=== PATIENT | male | born 1955 | race Hispanic/Latino ===

== ENCOUNTER 2017-08-20 08:51 | Emergency (ER) | payer OTHER ==
[2017-08-20 09:20] LABS: #Basophils 0.1 thou/uL (0.0-0.2); #Eosinphils 0.2 thou/uL (0.0-0.7); #Lymphocytes 2.1 thou/uL (1.20-3.40); #Monocytes 0.8 thou/uL (0.11-0.59); #Neutrophils 3.8 thou/uL (1.40-6.50); %Basophils 0.9 % (0.0-1.0); %Eosinophils 2.2 % (0.0-10.0); %Lymphocytes 30.9 % (21.0-51.0); %Monocytes 11.9 % (0.0-10.0); Hematocrit 48.5 % (42.0-52.0); Mean Platelet Volume 7.5 fL (7.4-10.4); Red Blood Cell (RBC) Count 5.04 mill/uL (4.70-6.10); White Blood Cell (WBC) Count 6.9 thou/uL (4.8-10.8)
[2017-08-20 09:31] LABS: PTT 30.6 SEC (22.9-36.1); Prothrombin Time 13.8 SEC (12.0-14.7)
[2017-08-20 09:33] LABS: ALT (SGPT) 22 U/L (8-55); AST (SGOT) 28 U/L (5-34); Alkaline Phosphatase 118 U/L (40-150); Anion Gap 11 mmol/L (10-20); BUN (Urea Nitrogen) 13 mg/dL (8.4-25.7); Bilirubin, Total 0.5 mg/dL (0.2-1.2); Calc. Creatinine Clearance 0 mL/min (70-130); Calcium 9.2 mg/dL (7.8-10.44); Carbon Dioxide 25 mmol/L (22-29); Chloride 104 mmol/L (98-107); Estimated GFR-MDRD Greater than 90; Globulin 3.3 g/dL (2.4-3.5); Protein, Total 7.5 g/dL (6.0-8.3)
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
[2017-08-20 11:15] LABS: Bilirubin Negative (Negative); Blood, Urine Negative (Negative); Glucose, Urine (Dipstick) Negative (Negative); Ketone, Urine Negative (Negative); Nitrite Negative (Negative); Protein, Urine (Dipstick) Negative (Neg-Trace); Urobilinogen 0.2 mg/dL (0.2-1.0)
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
[2017-08-20] MEDS ORDERED: HYDROcodone/Acetaminophen 10/325 mg Tablet ONE (11:37)
[2017-08-20] MEDS ORDERED: ISOVUE-370 76%-LOCM 1 ML ONE (16:29)
== END 2017-08-20 11:35 | disposition home or self-care (01) ==
LOC: ERS 08:51
DX: M54.5 Low back pain (principal); V89.2XXA Person injured in unspecified motor-vehicle accident, traffic, initial encounter
CPT/HCPCS: 36415; 70450; 71260; 72125; 74177; 80053; 81003; 85025; 85610; 85730; 93005

== ENCOUNTER 2018-05-17 11:59 | Outpatient (CLI) | payer BC | END 2018-05-17 12:00 | disposition home or self-care (01) | LOC: BICMRI 11:59 | PROVIDERS: ATTEND Surgery | DX: M47.22 Other spondylosis with radiculopathy, cervical region (principal); M47.26 Other spondylosis with radiculopathy, lumbar region; M41.9 Scoliosis, unspecified; M51.16 Intervertebral disc disorders with radiculopathy, lumbar region; M48.061 Spinal stenosis, lumbar region without neurogenic claudication; M48.07 Spinal stenosis, lumbosacral region; M48.02 Spinal stenosis, cervical region; M99.83 Other biomechanical lesions of lumbar region; M99.81 Other biomechanical lesions of cervical region | CPT/HCPCS: 72050; 72110; 72141; 72148 ==

== ENCOUNTER 2018-06-07 11:30 | Outpatient (CLI) | payer BC ==
[2018-06-07 12:51] LABS: Hemoglobin 15.1 g/dL (14.0-18.0); Mean Corpuscular HGB CONC 33.6 g/dL (32.0-36.0); Mean Corpuscular Hemoglobin 31.9 pg (27.0-31.0); Mean Corpuscular Volume 94.8 fL (78.0-98.0); Mean Platelet Volume 8.1 fL (7.4-10.4); Platelet Count 230 thou/uL (130-400); RBC Distribution Width 13.1 % (11.5-14.5); Red Blood Cell (RBC) Count 4.73 mill/uL (4.70-6.10); White Blood Cell (WBC) Count 6.6 thou/uL (4.8-10.8)
[2018-06-07 13:00] LABS: PTT 32.8 SEC (22.9-36.1); Prothrombin Time 13.5 SEC (12.0-14.7)
[2018-06-07 13:03] LABS: Anion Gap 15 mmol/L (10-20); BUN (Urea Nitrogen) 12 mg/dL (8.4-25.7); Calc. Creatinine Clearance 0 mL/min (70-130); Calcium 9.3 mg/dL (7.8-10.44); Carbon Dioxide 23 mmol/L (23-31); Chloride 108 mmol/L (98-107); Estimated GFR-MDRD Greater than 90; Glucose 80 mg/dL (80-115); Potassium 4.3 mmol/L (3.5-5.1); Sodium 142 mmol/L (136-145)
== END 2018-06-07 11:31 | disposition home or self-care (01) ==
LOC: LABBT 11:30
PROVIDERS: ATTEND Surgery
DX: Z01.818 Encounter for other preprocedural examination (principal); M48.02 Spinal stenosis, cervical region; M48.061 Spinal stenosis, lumbar region without neurogenic claudication
CPT/HCPCS: 80048; 85027; 85610; 85730; 93005; 93010

== ENCOUNTER 2018-06-07 16:00 | Inpatient (IN) | payer BC ==
[2018-06-07 11:49] VITALS: BMI 24.1
[2018-06-14] MEDS ORDERED: CEFAZOLIN/Water 2 GM/20 ML SYRINGE ONE (06:30)
[2018-06-14] MEDS ORDERED: Thrombin 5000 UNITS/5 ML VIAL ONE ×3 (06:34→10:02)
[2018-06-14] MEDS ORDERED: Sodium Chloride 0.9% 10 ML ONE ×2 (06:34→09:44)
[2018-06-14] MEDS ORDERED: Bacitracin Zinc Ointment 30 gm TUBE ONE (06:34)
[2018-06-14] MEDS ORDERED: Midazolam HCl 2 mg/2 ml Vial ONE (07:22)
[2018-06-14] MEDS ORDERED: Fentanyl 100 MCG/2 ML VIAL ONE ×4 (07:34→13:02)
[2018-06-14] MEDS ORDERED: Albumin 5% 500 ML ONE (10:19)
[2018-06-14 11:15] LABS: Hemoglobin 11.6 g/dL (14.0-18.0)
[2018-06-14] MEDS ORDERED: ePHEDrine/0.9% NaCl/PF SYRINGE 50 mg/10 ml ONE (11:39)
[2018-06-14] MEDS ORDERED: PHENYLEPHRINE-NS 100 MCG/ML 10 ML SYRINGE ONE (11:39)
[2018-06-14] MEDS ORDERED: Ondansetron HCl/PF 4 MG/2 ML Vial ONE (11:39)
[2018-06-14] MEDS ORDERED: PROPOFOL 200 MG/20 ML VIAL ONE (11:39)
[2018-06-14] MEDS ORDERED: Lidocaine 1% PF 5 ML VIAL ONE (11:39)
[2018-06-14] MEDS ORDERED: Dexamethasone 20 MG/5 ML VIAL ONE (11:39)
[2018-06-14] MEDS ORDERED: Glycopyrrolate 0.2 MG/ML 5 ML SYRINGE ONE (11:39)
[2018-06-14] MEDS ORDERED: HYDROmorphone 2 MG/ML VIAL SLOW IVP PRN (11:45)
[2018-06-14] MEDS ORDERED: Morphine Sulfate 2 MG/ML SYRINGE SLOW IVP PRN (11:45)
[2018-06-14] MEDS ORDERED: Ondansetron HCl/PF 4 MG/2 ML Vial IVP PRN (11:45)
[2018-06-14] MEDS ORDERED: Promethazine HCl 25 MG/ML VIAL IM PRN ×2 (11:45→11:46)
[2018-06-14] MEDS ORDERED: Promethazine HCl 25 MG/ML VIAL SLOW IVP PRN (11:45)
[2018-06-14] MEDS ORDERED: Meperidine HCl/PF 25 MG/ML VIAL SLOW IVP PRN (11:45)
[2018-06-14] MEDS ORDERED: Acetaminophen/Codeine 30-300mg Tablet PO PRN (11:46)
[2018-06-14] MEDS ORDERED: Bisacodyl 10 MG SUPP PR PRN (11:46)
[2018-06-14] MEDS ORDERED: Milk Of Magnesia 30 ML UDCUP PO PRN (11:46)
[2018-06-14] MEDS ORDERED: Mag-Al 1200 mg/1200 mg/30 ML UDCUP PO PRN (11:46)
[2018-06-14] MEDS ORDERED: Fleet Enema 133 ML BOT PR PRN (11:46)
[2018-06-14] MEDS ORDERED: HYDROcodone/Acetaminophen 7.5/325 mg Tablet PO PRN (11:46)
[2018-06-14] MEDS ORDERED: Alendronate Sodium 70 mg Tablet PO SCH (12:00)
--- NOTE | 2018-06-14 12:46 | OP ---
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 SURGEON: Santosh Ivory M.D. PRISM MEASURER: Guru Motley PA-C. PROCEDURES PERFORMED: 1. C2, C3, C4, C5, laminectomies, partial facetectomies and foraminotomies C2, C3, C4, C5. 2. L4, L5, S1 laminectomies, partial facetectomies and foraminotomies. DESCRIPTION OF PROCEDURE: After informed consent was obtained from the patient, the patient brought to OR 12. Proper patient pause and identification was carried out. He was placed under excellent en dotracheal anesthesia and positioned prone on the OR table following the fixation of the Garcia pin ion to his skull. His cervical spine was kept in neutral position. We then turned our attention to a linear kulwinder to allow for approach to C2-C5 segments. This region was sterilely cleansed, prepared, and draped. Proper patient pause and identification was carried out. We then turned our attention to the L4-S1 segment. A linear kulwinder was made in this region. Proper patient pause and identificatio n was again carried out. The cervical wound was then opened with a combination of sharp, monopolar a nd blunt dissection, we exposed the C2, C3, C4, C5 segments and localization film confirmed our area of interest. We then performed C2, C3, C4, C5 laminectomies, partial facetectomies, foraminotomies o violet the C2-C5 nerve roots in particular paying attention of the right C5 nerve root. Copious irrigat ion occurred throughout. Hemostasis at times is a bit challenging as the patient had quite cancellou s bone that bled any time we did bone work. However, we maximized hemostasis and his hemodynamics an d urine output remained quite satisfactory. We turned our attention to the L4-S1 segments following decompression of the common dural tube and the cervical cord. We then performed an L4-S1 laminectomy , partial facetectomy, foraminotomies with excellent decompression of the L4-S1 nerve roots. Hemosta sis again was maximized. Copious irrigation occurred in both wounds. The wounds were then closed in anatomic layers following the sprinkling of vancomycin powder. The patient then emerged from anesth esia.
[2018-06-14] MEDS ORDERED: HYDROmorphone 0.5 MG/0.5 ML SYRINGE ONE (12:48)
[2018-06-14] MEDS ORDERED: Ibuprofen 200 MG TAB PO PRN (13:53)
[2018-06-14] MEDS: CEFAZOLIN/Water 2 GM/20 ML SYRINGE SLOW IVP SCH ×2 (15:32→21:32)
[2018-06-14] MEDS: Sodium Chloride 0.9% 1,000 ML IV SCH ×2 (15:39→23:33)
[2018-06-14] MEDS: traMADol HCl 50 MG TAB PO PRN (22:09)
[2018-06-15] MEDS: Acetaminophen 325 MG TAB PO PRN ×2 (01:31→23:58)
[2018-06-15] MEDS: tiZANidine HCl 4 MG TAB PO PRN ×2 (01:47→14:12)
[2018-06-15] MEDS: CEFAZOLIN/Water 2 GM/20 ML SYRINGE SLOW IVP SCH ×2 (05:25→15:45)
[2018-06-15 09:29] LABS: #Lymphocytes 1.6 thou/uL (1.20-3.40); #Monocytes 1.8 thou/uL (0.11-0.59); #Neutrophils 14.6 thou/uL (1.40-6.50); %Eosinophils 0.1 % (0.0-10.0); %Lymphocytes 8.8 % (21.0-51.0); %Neutrophils 81.2 % (42.0-75.0); Hemoglobin 10.7 g/dL (14.0-18.0); Mean Corpuscular Hemoglobin 32.2 pg (27.0-31.0); Mean Corpuscular Volume 94.5 fL (78.0-98.0); Mean Platelet Volume 7.8 fL (7.4-10.4); Platelet Count 204 thou/uL (130-400); RBC Distribution Width 12.7 % (11.5-14.5); Red Blood Cell (RBC) Count 3.33 mill/uL (4.70-6.10)
--- NOTE | 2018-06-15 10:23 | PRG ---
DATE OF SERVICE: 06/15/2018 Mr. Gross is day #1 postop, both lumbar and cervical laminectomy, with Dr. Ivory, and is overall actually doing very well. He had some nausea earlier, but that has since resolved. He has some mil d incisional pain, both in the neck and the lower back. He has ambulated once with therapy yesterday , and it sounds like mostly he tolerated it well until later where pain became more of an issue. He does have some residual weakness in the right lower extremity. Initially, he was admitted after surg aleksandr with the anticipation of possibly going to rehab, but it sounds like he has significant family storm pport, and if he does very well later today, perhaps we can even get him home instead. Praful Jiang PA-C, dictating for Dr. Escalante.
[2018-06-15] MEDS: Sodium Chloride 0.9% 1,000 ML IV SCH (14:05)
[2018-06-15] MEDS: traMADol HCl 50 MG TAB PO PRN (14:10)
[2018-06-15] MEDS ORDERED: Alendronate Sodium 70 mg Tablet PO SCH (18:30)
[2018-06-16] MEDS: Sodium Chloride 0.9% 1,000 ML IV SCH (04:51)
[2018-06-16] MEDS: tiZANidine HCl 4 MG TAB PO PRN (10:15)
[2018-06-16 17:08] VITALS: BP 97/55; TEMP 98.5
--- NOTE | 2018-06-16 18:55 | PRG ---
DATE OF SERVICE: 06/16/2018 Mr. Gross is on second day of his hospital day, status post cervical and lumbar laminectomy with Dr. Ivory. He has been ambulating well in the hallways and actually according to therapy note s. His admission labs were on the floor with a walker. He has significant amount of family members at home that are planning to help him when he is discharged. His incisions today look very well appr oximated. No drainage or concern. More diffuse both re-bandaged in the C-spine and L-spine. He is wearing his braces as recommended. From a neurosurgical standpoint, based on his progress and support he gets at home, I do think he could potentially be discharged home. Rehab supposed to be me eting with the patient today to give their input of plan to recheck this afternoon and either dischar ge to put an additional orders for rehab placement.
[2018-06-17] MEDS ORDERED: Alendronate Sodium 70 mg Tablet PO SCH (06:00)
== END 2018-06-16 17:35 | disposition home or self-care (01) | DRG 520 ==
LOC: SURG A 06-14 05:53
PROVIDERS: ADMIT Surgery; ATTEND Surgery
PROC: 00NW0ZZ Release Cervical Spinal Cord, Open Approach (ICD-10-PCS; principal; 2018-06-14)
PROC: 01N10ZZ Release Cervical Nerve, Open Approach (ICD-10-PCS; 2018-06-14)
PROC: 01NB0ZZ Release Lumbar Nerve, Open Approach (ICD-10-PCS; 2018-06-14)
DX: M47.12 Other spondylosis with myelopathy, cervical region (principal); M48.061 Spinal stenosis, lumbar region without neurogenic claudication; M54.16 Radiculopathy, lumbar region
CPT/HCPCS: 36415; 76001; 85014; 85018; 85025; 96374; A4216; G8978-GP-CL; G8979-GP-CJ; G8987-GO-CK; G8988-GO-CI; J0131; J1100; J1170; J2001; J2250; J2270; J2405; J2704; J3010; J3370; J3490; P9045

== ENCOUNTER 2018-10-17 07:20 | Outpatient (CLI) | payer BC ==
[2018-10-17 08:21] LABS: Estimated GFR-MDRD - POC Greater than 90
--- NOTE | 2018-10-17 10:46 | MRI ---
MRI LUMBAR SPINE: HISTORY: Status post laminectomy, back pain, M96.1. FINDINGS: Multiplanar, multisequence pre- and tgvn-fuacyikc-dmmlpnzq MRI images of the lumbar spine obtained. For the purposes of this dictation, the last freely mobile vertebral body will be considered to be th e L5 vertebral body. All other vertebral bodies are numbered according to this. T12-L1, L1-2: Unremarkable. L2-3: There is minimal facet hypertrophy. No significant degree of central or neural foraminal narr owing is seen. L3-4: There is some mild disk desiccation seen. There is minimal facet and ligamentum flavum hypert rophy. No significant degree of central or neural foraminal narrowing is seen. L4-5: Disk desiccation is seen. There is a broad-based disk bulge with bilateral facet hypertrophy. An annular fissure is seen in the posterior aspect of the annulus fibrosis. This results in minima l but not significant degree of central stenosis. Moderate bilateral neural foraminal narrowing seen . L5-S1: Vacuum disk changes seen. There is a broad-based central disk protrusion resulting in minima l compression of the thecal sac. There is moderate right and minimal left-sided neural foraminal socorro rowing seen. Previous postsurgical changes seen in the posterior aspect of the L4 and L5 elements. Some epidural scarring seen. No significant evidence of recurrent disk herniations or abscess seen. IMPRESSION: L4-5 and L5-S1 postsurgical scar. No significant abnormality is seen otherwise. POS: [facility]
== END 2018-10-17 07:21 | disposition home or self-care (01) ==
LOC: BICMRI 07:20
PROVIDERS: ATTEND Specialist
DX: M51.16 Intervertebral disc disorders with radiculopathy, lumbar region (principal); M96.1 Postlaminectomy syndrome, not elsewhere classified; L90.5 Scar conditions and fibrosis of skin; Z98.890 Other specified postprocedural states
CPT/HCPCS: 72158; 82565

== ENCOUNTER 2020-11-23 06:59 | Inpatient (IN) | payer MEDICARE ==
[2020-11-23] MEDS ORDERED: Acetaminophen 500 MG TAB ONE (07:23)
[2020-11-23 07:37] LABS: Hemoglobin 13.7 g/dL (14.0-18.0); Mean Corpuscular HGB CONC 33.7 g/dL (32.0-36.0); Mean Corpuscular Hemoglobin 31.6 pg (27.0-31.0); Mean Corpuscular Volume 93.6 fL (78.0-98.0); Mean Platelet Volume 8.7 fL (7.4-10.4); Platelet Count 187 thou/uL (130-400); RBC Distribution Width 12.5 % (11.5-14.5); Red Blood Cell (RBC) Count 4.33 mill/uL (4.70-6.10); White Blood Cell (WBC) Count 16.5 thou/uL (4.8-10.8)
[2020-11-23] MEDS ORDERED: cefTRIAXone\\ROCEPHIN 2 GM VIAL ONE (07:45)
[2020-11-23] MEDS ORDERED: Azithromycin 500 MG VIAL ONE (07:45)
--- NOTE | 2020-11-23 07:47 | RAD ---
Chest one view HISTORY: Dyspnea. FINDINGS: No comparison. Cardiac silhouette is magnified by projection. Pulmonary vasculature are unr emarkable. Mediastinum slightly shifted rightward with patient rotation. Subtle ill-defined patchy areas of peripheral groundglass infiltrate involve each lung. No lobar consolidation or evidence of pneumothorax. IMPRESSION : Bilateral multifocal infiltrates. Correlate for COVID pneumonitis.
[2020-11-23 07:53] LABS: Band 26 % (5-11); Lymphocytes 2 % (21-51); MDiff Complete? YES; Monocytes 2 % (0-10); Neutrophil 69 % (42-75); Platelet Morphology Comment Appears Adequate; Polychromasia SLIGHT = 2-3 cells (100X) (0-2/hpf); Reactive Lymphocytes 1 % (0-10)
[2020-11-23 07:55] LABS: ALT (SGPT) 37 U/L (8-55); AST (SGOT) 56 U/L (5-34); Albumin 3.6 g/dL (3.4-4.8); Alkaline Phosphatase 71 U/L (40-110); Anion Gap 14 mmol/L (10-20); BUN (Urea Nitrogen) 6 mg/dL (8.4-25.7); Bilirubin, Total 0.6 mg/dL (0.2-1.2); Calc. Creatinine Clearance 0 mL/min (70-130); Calcium 8.7 mg/dL (7.8-10.44); Carbon Dioxide 23 mmol/L (23-31); Chloride 99 mmol/L (98-107); Globulin 3.5 g/dL (2.4-3.5); Glucose 120 mg/dL (80-115); Potassium 3.3 mmol/L (3.5-5.1); Protein, Total 7.1 g/dL (5.8-8.1); Sodium 133 mmol/L (136-145)
[2020-11-23] MEDS ORDERED: Dexamethasone 10 MG/ML VIAL ONE (09:09)
[2020-11-23 10:22] LABS: Lactic Acid 1.4 mmol/L (0.5-2.2)
[2020-11-23 10:43] LABS: SARS-CoV-2 NAA Rapid Test DETECTED (NotDetected)
[2020-11-23] MEDS ORDERED: HYDROcodone/Acetaminophen 5/325 mg Tablet PO PRN (12:02)
[2020-11-23] MEDS ORDERED: Bisacodyl 10 MG SUPP PR PRN (12:02)
[2020-11-23] MEDS ORDERED: Calcium Carbonate 500 MG ChewTAB PO PRN (12:02)
[2020-11-23] MEDS ORDERED: Ondansetron PF 4 MG/2 ML Vial IVP PRN (12:02)
[2020-11-23] MEDS ORDERED: REMDESIVIR (EUA) 200 MG in Sodium Chloride 0.9% 250 ML 210 ML IV SCH (12:45)
--- NOTE | 2020-11-23 13:28 | HP ---
REASON FOR ADMISSION: COVID-19 pneumonia, acute respiratory failure with hypoxia. HISTORY OF PRESENTING ILLNESS: The patient gives a history of having upper respiratory symptoms including runny nose, nasal stuffiness, mild headache, which started out on . Last night, the patient had increased respiratory rate and could not sleep. This progressively got worse by this morning and the patient called EMS and was brought here. His tested positive for COVID on Sunday. He is currently on 2 L nasal cannula and is still tachypneic, but is saturating well over 96%. He has had a fever of 102.4 degrees here on arrival. PAST MEDICAL AND SURGICAL HISTORY: 1. History of osteoporosis. 2. C-spine and lumbar spine surgeries. CURRENT MEDICATIONS: 1. Takes weekly alendronate 70 mg once weekly. 2. Motrin p.r.n. for pain. ALLERGIES: NO KNOWN DRUG ALLERGIES. PERSONAL HISTORY: Does not abuse alcohol or drugs. No history of smoking. FAMILY HISTORY: Both parents in their 70s. Mother had history of diabetes and osteoarthritis. CODE STATUS: Full. Power of county attorney is his . REVIEW OF SYSTEMS: CONSTITUTIONAL: Negative for weight loss or gain, ability to conduct usual activities. SKIN: Negative for rash, itching. EYES: Negative for double vision, pain. ENT/MOUTH: Negative for nose bleeding, neck stiffness, pain, tenderness. CARDIOVASCULAR: Negative for palpitations, dyspnea on exertion, orthopnea. RESPIRATORY: Negative for shortness of breath, wheezing, cough, hemoptysis, fever or night sweats. GASTROINTESTINAL: Negative for poor appetite, abdominal pain, heartburn, nausea, vomiting, constipation, or diarrhea. GENITOURINARY: Negative for urgency, frequency, dysuria, nocturia. MUSCULOSKELETAL: Negative for pain, swelling. NEUROLOGIC/PSYCHIATRIC: Negative for anxiety, depression. ALLERGY/IMMUNOLOGIC: Negative for skin rash, bleeding tendency. PHYSICAL EXAMINATION: GENERAL: The patient is a 64-year-old male who is currently in ryki-nh-zhitmcbo respiratory distress. VITAL SIGNS: Blood pressure 136/78, pulse 90 per minute, respiratory rate 30 per minute, temperature 102.4 degrees on arrival, and saturating 98% on 2 L nasal cannula. NECK: Supple. No elevated JVP. EYES: Extraocular muscles intact. Pupils reacting to light. ORAL CAVITY: Mucous membranes are dry. No exudates or congestion. CARDIOVASCULAR SYSTEM: S1 and S2 heard. Regular rhythm. RESPIRATORY SYSTEM: Air entry 1+ bilateral. Scattered rhonchi and coarse rales plus bilateral. ABDOMEN: Soft. Bowel sounds heard. No tenderness, rigidity, or guarding. EXTREMITIES: No peripheral edema or calf tenderness. VASCULAR SYSTEM: Peripheral pulses 1+ bilateral. No ischemic ulcers or gangrene. CENTRAL NERVOUS SYSTEM: No gross focal motor deficits noted. The patient is alert, awake, and oriented well. PSYCHIATRIC SYSTEM: The patient's mood is euthymic. No hallucinations or delusions. LABORATORY DATA: White count of 16, hemoglobin and hematocrit 13 and 40, platelet count 187, and MCV 93 with 69% neutrophils, 26% bands. Potassium 3.3, sodium 133, lactic acid 2.8, serum glucose 120, AST 56, ALT 37, alkaline phosphatase 71, total bilirubin 0.6, and albumin is 3.6. Troponin x1 negative. COVID-19 PCR is positive. Influenza A and B RNA PCR is negative. Chest x-ray done shows multifocal bilateral patchy infiltrates. CLINICAL IMPRESSION AND PLAN: The patient will be admitted to telemetry for COVID-19 pneumonia with acute respiratory failure. The patient is 7 days into his illness. We will start him on remdesivir. I have discussed with Dr. Reynolds. He is currently saturating well on 2 L nasal cannula. The patient was educated about deep breathing exercises and to lay either side or lay in prone position. He will be on albuterol inhaler q.6 h., dexamethasone 6 mg IV daily, Dulera inhaler 2 puffs twice daily, and Protonix 40 mg IV daily. We will obtain a CT angio of chest to rule out pulmonary embolism in addition to current COVID-19 pneumonia with severe tachypnea at present. Please note, [employer] was used to communicate with the patient. We will update his daughter shortly. Job ID: [id number] MTDD
[2020-11-23] MEDS ORDERED: Iopamidol-370 76% 500 ML 1 ML ONE (14:01)
--- NOTE | 2020-11-23 16:02 | CT ---
CTA Angio Chest W WO Con History: Covid pneumonia. Dyspnea Comparison: Chest radiograph same day Findings: CT angiogram chest performed after the intravenous administration of contrast. 3-D renderin g provided. No proximal segmental pulmonary arterial filling defect. Pulmonary trunk size measures 33 mm. No rena cardial effusion. Multiple small hepatic cysts. Aortic contour is normal. Trace pleural effusions. Extensive peripheral patchy and perihilar opacities. No pneumothorax. No pneumomediastinum. Sternum and manubrium are intact. Thoracic spine is intact. No acute displaced rib fracture. Mild expansion of the right proximal humeral metaphysis containing fat and soft tissue. This is uncha nged from a CT exam from 2017 and likely a benign entity. Impression: 1. No pulmonary embolism. 2. Trace pleural effusions. 3. Moderate Covid pneumonia. No pneumothorax or pneumomediastinum.
[2020-11-23] MEDS: Albuterol 200 PUFF (6.7GM INHALER) INH SCH ×2 (17:00→21:14)
[2020-11-23] MEDS: Sodium Chloride 0.9% 1,000 ML IV SCH (17:12)
[2020-11-23] MEDS ORDERED: traMADol HCl 50 MG TAB PO PRN (17:27)
[2020-11-23] MEDS ORDERED: Electrolyte Replacement Protocol 1 EACH FS SCH (17:45)
[2020-11-23] MEDS ORDERED: [UNRECOGNIZED DRUG - OTHER] FS PRN (17:45)
[2020-11-23] MEDS: Melatonin 3 MG TAB PO SCH (21:04)
--- NOTE | 2020-11-23 23:04 | CON ---
DATE OF CONSULTATION: 11/23/2020 REASON: COVID pneumonia. HISTORY OF PRESENT ILLNESS: A 64-year-old, last admission was in 2019 for cervical myelopathy, and he had decompression at that time. He, otherwise, does not have any other past medical history and for about a week has had cough, mostly dry, and progressively worsening dyspnea. His has been diagnosed with COVID-19. No headaches. No sputum production or chest pain. No abdominal pain or diarrhea. No genitourinary symptoms. Has had complete loss of sense of smell and taste. MEDICAL HISTORY: Osteoporosis, back problems with laminectomy. SOCIAL HISTORY: Drinks once a month. Never smoker. ALLERGIES: NONE. MEDICATIONS: At the moment, 1. Decadron. 2. Lovenox. 3. Remdesivir. PHYSICAL EXAMINATION: VITAL SIGNS: Afebrile, T-max 94, saturating 98 on 3 L nasal cannula, BP 112/66. GENERAL: He was a little bit in distress when I saw him, but saturations were good. He had nasal cannula O2 at 3 L. SKIN: Normal peripheral IV access. No Almanza catheter. No lymphadenopathy. HEENT: Ocular movements conjugate. Oral cavity normal. NECK: Supple. LUNGS: Few crackles at the bases. No wheezing. HEART: S1, S2, regular rate. ABDOMEN: Soft, not distended or tender. No ascites. No bladder distention. NEUROLOGIC: Nonfocal. No edema. Pulses 1+ in dorsalis pedis. LABORATORY DATA: White cell count 16.5, hemoglobin 13.7, platelets 187, 26% bands. Sodium 133, creatinine 0.74. Albumin 2.6. SARS-CoV-2 PCR detected. Chest CTA demonstrated quite pronounced ground-glass opacities in the quite symmetric distribution in both right and left lungs. Scattered through upper and lower lung spivey. ASSESSMENT: No significant past medical history other than back problems and osteoporosis, who now presents with [id number]-[id number] COVID-19. He is on full treatment now with Decadron, remdesivir, and will hope for a quick turn around in the next 48 hours. Monitor markers every other day and BMP, liver function tests. Job ID: [id number] MTDD
[2020-11-24] MEDS: Acetaminophen 325 MG TAB PO PRN ×2 (03:03→22:45)
[2020-11-24] MEDS: Albuterol 200 PUFF (6.7GM INHALER) INH SCH ×5 (03:05→21:25)
[2020-11-24 05:14] LABS: #Lymphocytes 0.7 thou/uL (1.20-3.40); #Monocytes 0.6 thou/uL (0.11-0.59); #Neutrophils 12.8 thou/uL (1.40-6.50); %Basophils 0.1 % (0.0-1.0); %Eosinophils 0.1 % (0.0-10.0); %Lymphocytes 4.8 % (21.0-51.0); %Monocytes 4.1 % (0.0-10.0); Hemoglobin 12.1 g/dL (14.0-18.0); Mean Corpuscular HGB CONC 33.3 g/dL (32.0-36.0); Mean Corpuscular Hemoglobin 30.9 pg (27.0-31.0); Mean Corpuscular Volume 92.6 fL (78.0-98.0); Mean Platelet Volume 8.5 fL (7.4-10.4); Platelet Count 216 thou/uL (130-400); RBC Distribution Width 12.9 % (11.5-14.5); Red Blood Cell (RBC) Count 3.92 mill/uL (4.70-6.10); White Blood Cell (WBC) Count 14.1 thou/uL (4.8-10.8)
[2020-11-24 05:36] LABS: CRP (Inflammatory) 25.26 mg/dL (= or < 0.5)
[2020-11-24 05:40] LABS: ALT (SGPT) 54 U/L (8-55); AST (SGOT) 83 U/L (5-34); Albumin 3.1 g/dL (3.4-4.8); Alkaline Phosphatase 63 U/L (40-110); Anion Gap 15 mmol/L (10-20); BUN (Urea Nitrogen) 9 mg/dL (8.4-25.7); Bilirubin, Total 0.3 mg/dL (0.2-1.2); Calc. Creatinine Clearance 0 mL/min (70-130); Calcium 7.8 mg/dL (7.8-10.44); Carbon Dioxide 21 mmol/L (23-31); Chloride 106 mmol/L (98-107); Globulin 3.1 g/dL (2.4-3.5); Glucose 145 mg/dL (80-115); Potassium 3.5 mmol/L (3.5-5.1); Protein, Total 6.2 g/dL (5.8-8.1); Sodium 138 mmol/L (136-145)
[2020-11-24 05:44] LABS: Phosphorus 1.9 mg/dL (2.3-4.7)
[2020-11-24] MEDS ORDERED: Magnesium 2 GM/50 ML 2 GM in Premix Bag 1 BAG IVPB SCH (06:30)
[2020-11-24] MEDS ORDERED: Potassium Chloride 20 MEQ TAB PO SCH (06:45)
[2020-11-24] MEDS: PHOS-NAK 1 PKT PACK PO SCH ×2 (08:38→12:14)
[2020-11-24] MEDS: Sodium Chloride 0.9% 1,000 ML IV SCH (08:40)
[2020-11-24] MEDS ORDERED: FLU VACC QS2020-21(6MOS UP)/PF 60 MCG/0.5 ML SYRINGE IM ONE (09:00)
[2020-11-24] MEDS ORDERED: Enoxaparin Sodium 40 MG/0.4 ML SYRINGE SC SCH ×3 (09:00→21:00)
[2020-11-24] MEDS ORDERED: Pantoprazole 40 MG VIAL IVP SCH (09:00)
--- NOTE | 2020-11-24 09:09 | PDOC.FPRHP ---
- Allergies/Adverse Reactions Allergies Allergy/AdvReac Type Severity Reaction Status Date / Time No Known Allergies Allergy Unverified 01/23/20 11:50 - Home Medications Medication Instructions Recorded Confirmed Type Alendronate Sodium 70 mg PO Q7D 06/07/18 06/15/18 History Ibuprofen 200 mg PO ASDIR PRN 06/07/18 06/07/18 History HYDROcodone Bit/APAP 5/325 [[place] 1 tab PO Q6HR PRN 06/16/18 06/16/18 History 5/325] tiZANidine HCl [Tizanidine HCl] 4 mg PO Q8H PRN 06/16/18 06/16/18 History traMADol HCl [Tramadol HCl] 1 tab PO Q6HR PRN 06/16/18 06/16/18 History - History PMHx: PSHx: FHx: Social: - Vital signs BP: [] HR: [] RR: [] Tmax: [] Pox: []% on [] Wt: [] FMR H&P: Results - Labs Result Diagrams: 11/24/20 04:39 11/24/20 04:39 Lab results: WBC 14.1 thou/uL (4.8-10.8) H 11/24/20 04:39 Hgb 12.1 g/dL (14.0-18.0) L 11/24/20 04:39 Hct 36.3 % (42.0-52.0) L 11/24/20 04:39 MCV 92.6 fL (78.0-98.0) 11/24/20 04:39 Plt Count 216 thou/uL (130-400) 11/24/20 04:39 Neutrophils % 91.0 % (42.0-75.0) H 11/24/20 04:39 Band Neuts % (Manual) 26 % (5-11) H 11/23/20 07:22 Sodium 138 mmol/L (136-145) 11/24/20 04:39 Potassium 3.5 mmol/L (3.5-5.1) 11/24/20 04:39 Chloride 106 mmol/L (98-107) 11/24/20 04:39 Carbon Dioxide 21 mmol/L (23-31) L 11/24/20 04:39 BUN 9 mg/dL (8.4-25.7) 11/24/20 04:39 Creatinine 0.68 mg/dL (0.7-1.3) L 11/24/20 04:39 Glucose 145 mg/dL (80-115) H 11/24/20 04:39 Lactic Acid 1.4 mmol/L (0.5-2.2) 11/23/20 09:59 Calcium 7.8 mg/dL (7.8-10.44) 11/24/20 04:39 Total Bilirubin 0.3 mg/dL (0.2-1.2) 11/24/20 04:39 AST 83 U/L (5-34) H 11/24/20 04:39 ALT 54 U/L (8-55) 11/24/20 04:39 Alkaline Phosphatase 63 U/L (40-110) 11/24/20 04:39 C-Reactive Protein 25.26 mg/dL (= or < 0.5) H 11/24/20 04:39 Serum Total Protein 6.2 g/dL (5.8-8.1) 11/24/20 04:39 Albumin 3.1 g/dL (3.4-4.8) L 11/24/20 04:39 FMR H&P: Upper Level - Plan Date/Time: 11/24/20906 I, [], have evaluated this patient and agree with findings/plan as outlined by video editing intern resident. Pertinent changes/additions are listed here.
[2020-11-24] MEDS: Mometasone 100 MCG/Formoterol 5 MCG 120 PUFF INHALER INH SCH ×3 (10:06→17:23)
[2020-11-24] MEDS: Dexamethasone 6 MG in Sodium Chloride 0.9% 50 ML IVPB SCH (10:09)
[2020-11-24] MEDS: Doxycycline 100 MG CAP PO SCH ×2 (10:09→20:56)
[2020-11-24] MEDS: Multivit, Therapeutic 1 TAB PO SCH (10:09)
[2020-11-24] MEDS: Ascorbic Acid 500 mg Chewable Tablet PO SCH (10:09)
[2020-11-24] MEDS: Cholecalciferol 1,000 UNITS (25 MCG) TAB PO SCH (10:09)
[2020-11-24] MEDS: Zinc Sulfate 220 MG CAP PO SCH (10:10)
[2020-11-24] MEDS ORDERED: REMDESIVIR (EUA) 200 MG in Sodium Chloride 0.9% 250 ML 210 ML IV SCH (13:30)
[2020-11-24] MEDS: ALPRAZolam 0.25 MG TAB PO PRN ×2 (14:20→17:21)
--- NOTE | 2020-11-24 16:11 | PRG ---
DATE OF SERVICE: 11/24/2020 SUBJECTIVE: Mr. Collins was sitting on the bed when I entered the room. OBJECTIVE: VITAL SIGNS: He is still on nasal cannula O2 at 2 L, but for some reason, every time he does anything or even talks, he starts to get very tachypneic. His saturations drop and so despite a low O2 supplementation requirement at rest, he has very poor tolerance for effort. He denies any chest pain. He is coughing intermittently. No abdominal pain or diarrhea. He has been afebrile. When I met him, he was breathing intermittently up to 46 times a minute, but that would drop down to a much lower rate once he stops activity. His saturations would be 100 and then would drop down to upper 80s, 91, 92 upon mild activity. He is at 2 L nasal cannula O2. LUNGS: Symmetric air entry, but clear cut inspiratory crackles up to third of each lung field. No wheezing. HEART: S1, S2. Regular rate. ABDOMEN: Soft, not distended. EXTREMITIES: Moves all extremities equally. No edema. LABORATORY DATA: White cell count is at 14.1, hemoglobin 12.1, platelets 216. D-dimer is 1.27. Ferritin 380. His CRP is 25.26. Creatinine 0.68. ASSESSMENT AND DISCUSSION: No past medical history of significance with severe COVID-19. Quite interesting situation where he is not very commonly seen or the patient has very low O2 requirements at rest, but then proceeds to desaturate markedly upon the slightest activity and that is concerning because it may indicate worsening inflammatory changes. He is currently on full treatment and we will just have to hope that this will not progress, otherwise, he will need high-flow nasal cannula O2 supplementation. Job ID: [id number] MTDD
[2020-11-24] MEDS ORDERED: Dexamethasone 4 mg/ml Vial SLOW IVP SCH (19:00)
[2020-11-24 19:28] LABS: Anion Gap 16 mmol/L (10-20); BUN (Urea Nitrogen) 12 mg/dL (8.4-25.7); Calc. Creatinine Clearance 0 mL/min (70-130); Calcium 7.5 mg/dL (7.8-10.44); Carbon Dioxide 20 mmol/L (23-31); Chloride 103 mmol/L (98-107); Glucose 154 mg/dL (80-115); Potassium 3.7 mmol/L (3.5-5.1); Sodium 135 mmol/L (136-145)
[2020-11-24 19:33] LABS: Troponin I Less than 0.010 ng/mL (< 0.028)
[2020-11-24] MEDS ORDERED: K-Phos Neutral 250 MG TAB PO SCH (19:45)
--- NOTE | 2020-11-24 19:45 | PDOC.HOSPP ---
- Subjective Encounter Date: 11/24/20 Encounter Time: 15:00 Subjective: Patient seen and examined for respiratory failure/COVID-19 pneumonia. Short of breath at rest. Mild dry cough. Denies any fever or chills. - Objective Vital Signs & Weight: Vital Signs (12 hours) Pulse Resp BP Pulse Ox 11/24/20 08:57 95 11/24/20 08:00 97 11/24/20 07:50 79 28 H 111/64 96 Result Diagrams: 11/25/20 04:22 11/25/20 04:22 Additional Labs: Abnormal Lab Results - Last 48 hrs 11/23/20 07:22: Sodium 133 L, Potassium 3.3 L, BUN 6 L, AST 56 H, Albumin/Globulin Ratio 1.0 L 11/23/20 07:22: WBC 16.5 H, RBC 4.33 L, Hgb 13.7 L, Hct 40.6 L, MCH 31.6 H, Band Neuts % (Manual) 26 H, Lymphocytes % (Manual) 2 L 11/23/20 07:22: Lactic Acid 2.8 H 11/23/20 09:36: SARS-CoV-2 Rap RNA(RT-PCR) DETECTED A* 11/24/20 04:39: Carbon Dioxide 21 L, Creatinine 0.68 L, AST 83 H, Albumin 3.1 L, Albumin/Globulin Ratio 1.0 L 11/24/20 04:39: WBC 14.1 H, RBC 3.92 L, Hgb 12.1 L, Hct 36.3 L, Neutrophils % 91.0 H, Lymphocytes % 4.8 L, Neutrophils # 12.8 H, Lymphocytes # 0.7 L, Monocytes # 0.6 H 11/24/20 04:39: Phosphorus 1.9 L, C-Reactive Protein 25.26 H 11/24/20 04:39: D-Dimer 1.27 H 11/24/20 04:40: Ferritin 380.84 H 11/24/20 19:07: Sodium 135 L, Carbon Dioxide 20 L, Creatinine 0.66 L, Calcium 7.5 L Microbiology - Entire Visit 11/23/20 07:21 Venous blood - Right Arm Blood Culture - Preliminary Specimen has been received and culture in progress. No Growth to date. 11/23/20 07:21 Venous blood - Left Arm Blood Culture - Preliminary Specimen has been received and culture in progress. No Growth to date. Radiology Reviewed by me: Yes (CTAmoderate pneumonia, no PE) EKG Reviewed by me: Yes (Sinus rhythm on telemetry) Hospitalist ROS - Review of Systems Cardiovascular: denies: chest pain, palpitations, orthopnea, paroxysmal noc. dyspnea, edema, light headedness, other Gastrointestinal: denies: nausea, vomiting, abdominal pain, diarrhea, constipation, melena, hematochezia, other - Medication Medications: Active Medications Generic Name Dose Route Start Last Admin Trade Name Freq PRN Reason Stop Dose Admin Acetaminophen 650 mg 11/23/20 12:02 11/24/20 03:03 Acetaminophen 325 Mg Tab PO 650 mg Q4H PRN Administration Headache/Fever/Mild Pain (1-3) Alprazolam 0.25 mg 11/24/20 08:48 11/24/20 17:21 Alprazolam 0.25 Mg Tab PO 0.25 mg BIDPRN PRN Administration Anxiety Ascorbic Acid 1,000 mg 11/24/20 09:00 11/24/20 10:09 Ascorbic Acid 500 Mg Chewable Tablet PO 1,000 mg DAILY SUE Administration Cholecalciferol 1,000 units 11/24/20 09:00 11/24/20 10:09 Cholecalciferol 1,000 Units (25 Mcg) Tab PO 1,000 units DAILY SUE Administration Doxycycline Hyclate 100 mg 11/24/20 09:00 11/24/20 10:09 Doxycycline 100 Mg Cap PO 100 mg BID SUE Administration Dexamethasone 6 mg/ Sodium 50.6 mls @ 100 mls/hr 11/24/20 09:00 11/24/20 10:09 Chloride IVPB 50.6 mls DAILY SUE Administration Remdesivir 200 mg/ Sodium 250 mls @ 250 mls/hr 11/24/20 13:30 11/24/20 14:16 Chloride IV 11/24/20 21:00 250 mls NOW SUE Administration Melatonin 3 mg 11/23/20 21:00 11/23/20 21:04 Melatonin 3 Mg Tab PO 3 mg HS SUE Administration Mometasone Furoate/Formoterol Fumar 2 puff 11/23/20 18:30 11/24/20 17:23 Mometasone 100 Mcg/Formoterol 5 Mcg 120 Puff Inhaler INH 2 puff BID-RT SUE Administration Multivitamins 1 tab 11/24/20 09:00 11/24/20 10:09 Multivit, Therapeutic 1 Tab PO 1 tab DAILY SUE Administration Pantoprazole Sodium 40 mg 11/24/20 09:00 11/24/20 08:38 Pantoprazole 40 Mg Tab PO 40 mg DAILY SUE Administration Sodium Chloride 10 ml 11/23/20 21:00 11/24/20 10:10 Flush - Normal Saline 10 Ml Syringe IVF 10 ml Q12HR SUE Administration Zinc Sulfate 220 mg 11/24/20 09:00 11/24/20 10:10 Zinc Sulfate 220 Mg Cap PO 220 mg DAILY SUE Administration - Exam General Appearance: ill appearing Neck: supple, no JVD Heart: RRR, no gallops Respiratory: no wheezes, rales, rhonchi, tachypneic Gastrointestinal: soft, normal bowel sounds, no guarding, no rigidity Extremities: no cyanosis Neurological: no new deficit Musculoskeletal: generalized weakness Hosp A/P - Plan DVT proph w/SCDs Severe sepsis/acute hypoxic respiratory failure due to COVID-19 pneumoniaPOA Hyponatremia/hypomagnesemia/Hypophosphatemia Metabolic acidosis Elevated inflammatory markers Plan: We will continue O2 supplementation. Continue dexamethasone. Replace electrolytes. Continue remdesivir. Continue bronchodilators. Continue Dulera. Update at 5:30 PMpatient became more short of breath requiring high flow oxygen. Will upgrade to IMCU. Consult pulmonary. Chest x-ray in a.m. Add empiric antibiotics. Close monitoring. Patient is at high risk of decompensation. Family updated
[2020-11-24 19:51] LABS: Bacteria/HPF None Seen HPF (None Seen); Bilirubin Negative (Negative); Blood, Urine 2+ (Negative); Clarity Clear (Clear); Glucose, Urine (Dipstick) 30 mg/dL (Negative); Ketone, Urine Negative (Negative); Leukocyte Negative Leu/uL (Negative); Nitrite Negative (Negative); Protein, Urine (Dipstick) 70 mg/dL (Neg-Trace); RBC/HPF Greater than 50 HPF (0-3); Specific Gravity, Urine 1.027 (1.002-1.036); Squamous Epithelial 0-3 HPF (0-3); Urobilinogen Normal mg/dL (Less than 2); WBC/HPF 0-3 HPF (0-3)
[2020-11-24 19:53] LABS: Urine Culture Reflex No No
[2020-11-24] MEDS: Cefepime 1 GM in Sodium Chloride 0.9% 100 ML IVPB SCH (20:55)
[2020-11-24] MEDS: guaiFENesin ER 600 MG TAB PO SCH (20:56)
[2020-11-24] MEDS: Senokot S 8.6-50 MG TAB PO PRN (20:56)
[2020-11-24] MEDS: Melatonin 3 MG TAB PO SCH (20:58)
[2020-11-25] MEDS ORDERED: HYDROcodone/Acetaminophen 5/325 mg Tablet PO PRN (00:06)
[2020-11-25] MEDS: HYDROcodone/Acetaminophen 5/325 mg Tablet PO PRN ×2 (00:16→03:30)
[2020-11-25 05:14] LABS: ALT (SGPT) 103 U/L (8-55); AST (SGOT) 129 U/L (5-34); Albumin 3.1 g/dL (3.4-4.8); Alkaline Phosphatase 67 U/L (40-110); Anion Gap 14 mmol/L (10-20); BUN (Urea Nitrogen) 16 mg/dL (8.4-25.7); Bilirubin, Total 0.5 mg/dL (0.2-1.2); Calc. Creatinine Clearance 0 mL/min (70-130); Calcium 7.3 mg/dL (7.8-10.44); Carbon Dioxide 21 mmol/L (23-31); Chloride 101 mmol/L (98-107); Globulin 3.1 g/dL (2.4-3.5); Glucose 152 mg/dL (80-115); Potassium 3.8 mmol/L (3.5-5.1); Protein, Total 6.2 g/dL (5.8-8.1); Sodium 132 mmol/L (136-145)
[2020-11-25] MEDS: Senokot S 8.6-50 MG TAB PO SCH ×2 (06:35→09:59)
[2020-11-25] MEDS: Albuterol 200 PUFF (6.7GM INHALER) INH SCH ×6 (06:36→19:37)
[2020-11-25 07:00] LABS: Band 23 % (5-11); Hemoglobin 11.9 g/dL (14.0-18.0); Lymphocytes 2 % (21-51); MDiff Complete? YES; Mean Corpuscular HGB CONC 32.6 g/dL (32.0-36.0); Mean Corpuscular Hemoglobin 30.2 pg (27.0-31.0); Mean Corpuscular Volume 92.8 fL (78.0-98.0); Mean Platelet Volume 8.3 fL (7.4-10.4); Monocytes 7 % (0-10); Neutrophil 68 % (42-75); Platelet Count 287 thou/uL (130-400); RBC Distribution Width 13.1 % (11.5-14.5); Red Blood Cell (RBC) Count 3.95 mill/uL (4.70-6.10); White Blood Cell (WBC) Count 11.5 thou/uL (4.8-10.8)
[2020-11-25] MEDS: Mometasone 100 MCG/Formoterol 5 MCG 120 PUFF INHALER INH SCH ×2 (08:08→19:37)
[2020-11-25] MEDS: Dexamethasone 6 MG in Sodium Chloride 0.9% 50 ML IVPB SCH (09:58)
[2020-11-25] MEDS: guaiFENesin ER 600 MG TAB PO SCH ×2 (09:58→21:25)
[2020-11-25] MEDS: Cholecalciferol 1,000 UNITS (25 MCG) TAB PO SCH (09:58)
[2020-11-25] MEDS: Cefepime 1 GM in Sodium Chloride 0.9% 100 ML IVPB SCH ×2 (09:58→21:25)
[2020-11-25] MEDS: Ascorbic Acid 500 mg Chewable Tablet PO SCH (09:58)
[2020-11-25] MEDS: Doxycycline 100 MG CAP PO SCH (09:58)
[2020-11-25] MEDS: Multivit, Therapeutic 1 TAB PO SCH (09:59)
[2020-11-25] MEDS: Zinc Sulfate 220 MG CAP PO SCH (09:59)
[2020-11-25] MEDS ORDERED: Furosemide 20 MG/2 ML VIAL SLOW IVP SCH (12:15)
[2020-11-25] MEDS ORDERED: Lorazepam 2 MG/ML VIAL SLOW IVP PRN (12:45)
--- NOTE | 2020-11-25 13:05 | CON ---
DATE OF CONSULTATION: 11/25/2020 This is a 45 minutes of critical care time. REASON FOR CONSULTATION: COVID-19 pneumonia with acute hypoxic respiratory failure requiring mechanical ventilation. HISTORY OF PRESENT ILLNESS: This is a 64-year-old male, who has been ill for several days with increasing shortness of breath. He has been diagnosed with COVID pneumonia and has had complete loss of taste and smell. He has been tried on high-flow nasal cannula, but is now feeling that is about to be transitioned to BiPAP. PAST MEDICAL HISTORY: 1. Osteoporosis. 2. Cervical disk disease. PAST SURGICAL HISTORY: Laminectomy. SOCIAL HISTORY: Never smoker. Occasionally drinks alcohol. ALLERGIES: NONE. INPATIENT MEDICATIONS: 1. Decadron. 2. Lovenox. 3. Remdesivir. REVIEW OF SYSTEMS: Difficult to obtain as he speaks [place]. PHYSICAL EXAMINATION: VITAL SIGNS: Temperature 98.8, pulse 77, respirations 30, O2 saturation 88% on 55% high-flow oxygen. HEENT: Unremarkable. NECK: No adenopathy or JVD. LUNGS: Diffuse crackles. CARDIAC: S1 and S2. Regular. ABDOMEN: Soft. EXTREMITIES: No edema. LABORATORY DATA: White blood cell count 11, hematocrit 36.7, and platelet count 287. Sodium 132, potassium 3.8, chloride 101, CO2 of 21, BUN 16, creatinine 0.6, glucose 152. Chest x-ray shows diffuse bilateral infiltrates. ASSESSMENT: Severe COVID-19 infection with pneumonia. PLAN: Transition to BiPAP. I do not think he is far from this needing endotracheal intubation. I agree with the steroids. I would increase his anticoagulation to at least twice daily. I will go and give him some convalescent plasma. Agree with remdesivir. I spoke with his daughter, Teresa on the phone. Job ID: [id number]
[2020-11-25] MEDS: REMDESIVIR (EUA) 100 MG in Sodium Chloride 0.9% 250 ML 230 ML IV SCH (13:26)
--- NOTE | 2020-11-25 14:23 | RAD ---
SINGLE VIEW OF THE CHEST: 11/25/20 COMPARISON: 11/23/20 HISTORY: Multifocal pneumonia with shortness of breath. FINDINGS: Single view of the chest shows an enlarged but stable cardiomediastinal silhouette. Scattered multifo madonna infiltrates are seen in the lungs consistent with COVID pneumonia. No pneumothorax is seen. No pl eural effusion is present. IMPRESSION: Multifocal infiltrates. POS: AH
[2020-11-25] MEDS ORDERED: Ziprasidone 20 MG VIAL IM SCH (14:45)
[2020-11-25] MEDS ORDERED: Sterile Water 10 ML VIAL FS PRN (15:13)
[2020-11-25] MEDS: K-Phos Neutral 250 MG TAB PO SCH ×2 (15:24→16:11)
[2020-11-25] MEDS ORDERED: Propofol 1,000 MG/100 ML VIAL IV ONE (18:53)
[2020-11-25] MEDS ORDERED: Morphine 2 MG/ML VIAL SLOW IVP PRN (19:00)
[2020-11-25] MEDS ORDERED: DISCONTINUE PREVIOUS NARCOTIC PAIN MEDICATIONS AND BENZODIAZEPINES FS SCH (19:00)
[2020-11-25] MEDS ORDERED: Propofol BOLUS 1,000 MG/100 ML VIAL IV PRN (19:00)
[2020-11-25] MEDS ORDERED: Fentanyl BOLUS 250 ML IVPB PRN (19:00)
[2020-11-25] MEDS ORDERED: Fentanyl CADD 100 ML ONE ×2 (19:00→21:21)
--- NOTE | 2020-11-25 19:47 | RAD ---
PORTABLE CHEST: 11/25/20 HISTORY: Intubation. COMPARISON: Earlier exam of the same day. Heart size is enlarged. Bilateral lung infiltrates are similar to the previous exam. Endotracheal and NG tubes are in satisfactory position. IMPRESSION: 1. Bilateral lung infiltrates, stable. 2. Endotracheal and NG tubes in satisfactory position. POS: OFF
[2020-11-25] MEDS ORDERED: Enoxaparin Sodium 40 MG/0.4 ML SYRINGE SC SCH (21:00)
[2020-11-25] MEDS: Enoxaparin Sodium 40 MG/0.4 ML SYRINGE SC SCH (21:26)
[2020-11-25] MEDS: Melatonin 3 MG TAB PO SCH (21:26)
--- NOTE | 2020-11-25 22:48 | PDOC.HOSPP ---
- Subjective Encounter Date: 11/25/20 Encounter Time: 10:00 Subjective: Patient evaluated for respiratory failure due to COVID 19 pneumonia. Started on high flow oxygen due to persistent hypoxemia. Events noted - Objective Vital Signs & Weight: Vital Signs (12 hours) Temp Pulse Resp BP Pulse Ox 11/25/20 21:22 99.0 F 16 96 11/25/20 19:28 62 11/25/20 19:00 99.2 F 95 11/25/20 16:26 90 L 11/25/20 16:02 96 11/25/20 15:05 99.3 F 89 45 H 118/71 95 11/25/20 14:00 99.2 F 75 38 H 117/77 92 L 11/25/20 11:52 84 39 H 134/77 85 L Weight Admit Weight 164 lb Most Recent Monitor Data Heart Rate from ECG 52 NIBP 100/52 NIBP BP-Mean 66 Respiration from ECG 16 SpO2 92 I&O: 11/24/20 11/25/20 11/26/20 06:59 06:59 06:59 Intake Total 2650 22 Output Total 900 1380 Balance 1750 -1358 Result Diagrams: 11/25/20 04:22 11/25/20 04:22 Additional Labs: Abnormal Lab Results - Last 48 hrs 11/24/20 04:39: Carbon Dioxide 21 L, Creatinine 0.68 L, AST 83 H, Albumin 3.1 L, Albumin/Globulin Ratio 1.0 L 11/24/20 04:39: WBC 14.1 H, RBC 3.92 L, Hgb 12.1 L, Hct 36.3 L, Neutrophils % 91.0 H, Lymphocytes % 4.8 L, Neutrophils # 12.8 H, Lymphocytes # 0.7 L, Monocytes # 0.6 H 11/24/20 04:39: Phosphorus 1.9 L, C-Reactive Protein 25.26 H 11/24/20 04:39: D-Dimer 1.27 H 11/24/20 04:40: Ferritin 380.84 H 11/24/20 14:00: Urine Protein 70 A, Urine Blood 2+ A, Urine RBC Greater than 50 A 11/24/20 19:07: Sodium 135 L, Carbon Dioxide 20 L, Creatinine 0.66 L, Calcium 7.5 L 11/25/20 04:22: Sodium 132 L, Carbon Dioxide 21 L, Creatinine 0.63 L, Calcium 7.3 L, AST 129 H, ALT 103 H, Albumin 3.1 L, Albumin/Globulin Ratio 1.0 L 11/25/20 04:22: WBC 11.5 H, RBC 3.95 L, Hgb 11.9 L, Hct 36.7 L, Band Neuts % (Manual) 23 H, Lymphocytes % (Manual) 2 L 11/25/20 04:22: C-Reactive Protein 15.56 H 11/25/20 04:22: Ferritin 413.69 H 11/25/20 04:22: D-Dimer 1.15 H 11/25/20 04:22: B-Natriuretic Peptide 132.2 H Microbiology - Entire Visit 11/23/20 07:21 Venous blood - Right Arm Blood Culture - Preliminary NO GROWTH AT 48 HOURS 11/23/20 07:21 Venous blood - Left Arm Blood Culture - Preliminary NO GROWTH AT 48 HOURS EKG Reviewed by me: Yes (Sinus rhythm on telemetry) Hospitalist ROS - Review of Systems Cardiovascular: denies: chest pain, palpitations, orthopnea, paroxysmal noc. dyspnea, edema, light headedness, other Gastrointestinal: denies: nausea, vomiting, abdominal pain, diarrhea, constipation, melena, hematochezia, other - Medication Medications: Active Medications Generic Name Dose Route Start Last Admin Trade Name Kelsey PRN Reason Stop Dose Admin Acetaminophen 650 mg 11/23/20 12:02 11/24/20 22:45 Acetaminophen 325 Mg Tab PO 650 mg Q4H PRN Administration Headache/Fever/Mild Pain (1-3) Albuterol Sulfate 2 puff 11/24/20 18:30 11/25/20 19:37 Albuterol 200 Puff (6.7gm Inhaler) INH Not Given Q2QS-FC SUE Ascorbic Acid 1,000 mg 11/24/20 09:00 11/25/20 09:58 Ascorbic Acid 500 Mg Chewable Tablet PO 1,000 mg DAILY SUE Administration Cholecalciferol 1,000 units 11/24/20 09:00 11/25/20 09:58 Cholecalciferol 1,000 Units (25 Mcg) Tab PO 1,000 units DAILY SUE Administration Enoxaparin Sodium 40 mg 11/25/20 21:00 11/25/20 21:26 Enoxaparin Sodium 40 Mg/0.4 Ml Syringe SC 40 mg BID SUE Administration Guaifenesin 600 mg 11/24/20 21:00 11/25/20 21:25 Guaifenesin Er 600 Mg Tab PO 600 mg Q12HR SUE Administration Dexamethasone 6 mg/ Sodium 50.6 mls @ 100 mls/hr 11/24/20 09:00 11/25/20 09:5 8 Chloride IVPB 50.6 mls DAILY SUE Administration Remdesivir 100 mg/ Sodium 250 mls @ 250 mls/hr 11/25/20 14:00 11/25/20 13:26 Chloride IV 11/28/20 14:59 250 mls Q24H SUE Administration Cefepime HCl 1 gm/ Sodium 100 mls @ 200 mls/hr 11/24/20 20:00 11/25/20 21:25 Chloride IVPB 100 mls 0800,2000 SUE Administration Dexmedetomidine HCl 400 mcg/ 100 mls @ 0 mls/hr 11/25/20 16:15 11/25/20 17:09 Sodium Chloride IVPB 100 mls INF SUE Administration Protocol Per Protocol Doxycycline Hyclate 100 mg/ 100 mls @ 100 mls/hr 11/25/20 21:00 11/25/20 21:26 Sodium Chloride IVPB 100 mls Q12HR SUE Administration Melatonin 3 mg 11/23/20 21:00 11/25/20 21:26 Melatonin 3 Mg Tab PO Not Given HS SUE Mometasone Furoate/Formoterol Fumar 2 puff 11/23/20 18:30 11/25/20 19:37 Mometasone 100 Mcg/Formoterol 5 Mcg 120 Puff Inhaler INH Not Given BID-RT SUE Multivitamins 1 tab 11/24/20 09:00 11/25/20 09:59 Multivit, Therapeutic 1 Tab PO 1 tab DAILY SUE Administration Ondansetron HCl 4 mg 11/23/20 12:02 11/25/20 00:17 Ondansetron Pf 4 Mg/2 Ml Vial IVP 4 mg Q6H PRN Administration Nausea/Vomiting Pantoprazole Sodium 40 mg 11/24/20 09:00 11/25/20 09:59 Pantoprazole 40 Mg Tab PO 40 mg DAILY SUE Administration Senna/Docusate Sodium 2 tab 11/23/20 12:02 11/24/20 20:56 Senokot S 8.6-50 Mg Tab PO 2 tab BIDPRN PRN Administration Constipation Senna/Docusate Sodium 1 tab 11/24/20 21:00 11/25/20 09:59 Senokot S 8.6-50 Mg Tab PO 1 tab BID SUE Administration Sodium Chloride 10 ml 11/23/20 21:00 11/25/20 21:27 Flush - Normal Saline 10 Ml Syringe IVF 10 ml Q12HR SUE Administration Zinc Sulfate 220 mg 11/24/20 09:00 11/25/20 09:59 Zinc Sulfate 220 Mg Cap PO 220 mg DAILY SUE Administration - Exam General Appearance: ill appearing General - other findings: In respiratory distress Neck: supple, no JVD Heart: RRR, no gallops Respiratory: rales, rhonchi, tachypneic Gastrointestinal: soft, non-distended, no guarding, no rigidity Extremities: no cyanosis Neurological: no new deficit Musculoskeletal: generalized weakness Psychiatric: normal affect, A&O x 3 Hosp A/P - Plan DVT proph w/lovenox, DVT proph w/SCDs Severe sepsis/acute hypoxic respiratory failure due to COVID-19 pneumonia Hyponatremia/hypomagnesemia/Hypophosphatemia Metabolic acidosis Elevated inflammatory markers Plan: Patient continues to be in significant distress even on high flow oxygen. Will probably need noninvasive positive pressure ventilation. Will continue steroids with Remdesivir and empiric antibiotics. Continue Lovenox for DVT prophylaxis. A.m. labs. Continue other medications as above Update: Patient failed noninvasive positive pressure ventilation with subsequent intubation in the evening
[2020-11-26] MEDS: Dextrose 5 %-0.45 % NaCl 1,000 ML IV SCH (02:16)
[2020-11-26] MEDS: Albuterol 200 PUFF (6.7GM INHALER) INH SCH ×6 (02:34→22:30)
[2020-11-26 04:13] LABS: ALT (SGPT) 74 U/L (8-55); AST (SGOT) 68 U/L (5-34); Albumin 2.8 g/dL (3.4-4.8); Alkaline Phosphatase 69 U/L (40-110); Anion Gap 11 mmol/L (10-20); BUN (Urea Nitrogen) 14 mg/dL (8.4-25.7); Bilirubin, Total 0.4 mg/dL (0.2-1.2); CRP (Inflammatory) 12.63 mg/dL (= or < 0.5); Calc. Creatinine Clearance 0 mL/min (70-130); Calcium 7.1 mg/dL (7.8-10.44); Carbon Dioxide 27 mmol/L (23-31); Chloride 102 mmol/L (98-107); Globulin 2.8 g/dL (2.4-3.5); Glucose 164 mg/dL (80-115); Magnesium 2.6 mg/dL (1.6-2.6); Phosphorus 2.3 mg/dL (2.3-4.7); Potassium 4.2 mmol/L (3.5-5.1); Protein, Total 5.6 g/dL (5.8-8.1); Sodium 136 mmol/L (136-145)
[2020-11-26 04:40] LABS: Band 9 % (5-11); Hemoglobin 11.4 g/dL (14.0-18.0); Hypochromia SLIGHT = 6-15 cells (100X) (0-5/hpf); Lymphocytes 2 % (21-51); MDiff Complete? YES; Mean Corpuscular HGB CONC 33.6 g/dL (32.0-36.0); Mean Corpuscular Hemoglobin 31.4 pg (27.0-31.0); Mean Corpuscular Volume 93.4 fL (78.0-98.0); Mean Platelet Volume 8.4 fL (7.4-10.4); Monocytes 9 % (0-10); Neutrophil 79 % (42-75); Platelet Count 287 thou/uL (130-400); Platelet Morphology Comment Appears Adequate; RBC Distribution Width 13.1 % (11.5-14.5); Reactive Lymphocytes 1 % (0-10); Red Blood Cell (RBC) Count 3.63 mill/uL (4.70-6.10); White Blood Cell (WBC) Count 10.9 thou/uL (4.8-10.8)
--- NOTE | 2020-11-26 05:59 | PRG ---
DATE OF SERVICE: 11/25/2020 SUBJECTIVE: Gary Collins has deteriorated rapidly as expected, has been transferred to the ICU, on BiPAP, right now in the ICU OBJECTIVE: GENERAL: He is awake, but apprehensive. LUNGS: With scattered inspiratory crackles. HEART: S1 and S2, regular rate. ABDOMEN: Soft and not distended. Moves extremities equally. LABORATORY DATA: White cell count is 11.5, hemoglobin 11.9, platelets 287, and 22% bands. Creatinine 0.63. Ferritin 413. CRP went down from 25 to 15. D-dimer is down to 1.15. Repeat chest x-ray shows diffuse bilateral infiltrates, no evidence of pneumothorax. ASSESSMENT AND DISCUSSION: Severe COVID-19 in the face of unusually uneventful past medical history with rapid progression despite treatment. Now he is on BiPAP and unfortunately most likely will require mechanical ventilation. He would be a candidate for IL-6 inhibitor otherwise if it was available. Job ID: [id number] MTDD
[2020-11-26] MEDS: Mometasone 100 MCG/Formoterol 5 MCG 120 PUFF INHALER INH SCH ×2 (07:17→19:45)
[2020-11-26] MEDS: Senokot S 8.6-50 MG TAB PO SCH ×2 (07:59→09:06)
[2020-11-26] MEDS: Lorazepam 2 MG/ML VIAL SLOW IVP PRN (08:08)
--- NOTE | 2020-11-26 08:39 | RAD ---
PORTABLE CHEST: HISTORY: CCU followup on ventilator. COMPARISON: 11/25/2020. FINDINGS/IMPRESSION: ET and NG tube unchanged. Diffuse bilateral interstitial and hazy alveolar infiltrates seen througho ut both lungs. No significant interval change apparent. POS: OFF
[2020-11-26] MEDS: Vecuronium 10 MG VIAL IV PRN ×5 (08:45→18:09)
[2020-11-26] MEDS: Cefepime 1 GM in Sodium Chloride 0.9% 100 ML IVPB SCH ×2 (09:04→20:18)
[2020-11-26] MEDS: Dexamethasone 6 MG in Sodium Chloride 0.9% 50 ML IVPB SCH (09:04)
[2020-11-26] MEDS: Cholecalciferol 1,000 UNITS (25 MCG) TAB PO SCH (09:05)
[2020-11-26] MEDS: Enoxaparin Sodium 40 MG/0.4 ML SYRINGE SC SCH ×2 (09:05→20:19)
[2020-11-26] MEDS: Ascorbic Acid 500 mg Chewable Tablet PO SCH (09:05)
[2020-11-26] MEDS: Multivit, Therapeutic 1 TAB PO SCH (09:06)
[2020-11-26] MEDS: guaiFENesin ER 600 MG TAB PO SCH (09:06)
[2020-11-26] MEDS: Zinc Sulfate 220 MG CAP PO SCH (09:06)
[2020-11-26] MEDS: Propofol 1,000 MG/100 ML VIAL IV PRN (11:02)
[2020-11-26] MEDS ORDERED: Fentanyl CADD 100 ML ONE (13:16)
[2020-11-26] MEDS: REMDESIVIR (EUA) 100 MG in Sodium Chloride 0.9% 250 ML 230 ML IV SCH (14:31)
--- NOTE | 2020-11-26 19:37 | PDOC.HOSPP ---
- Subjective Encounter Date: 11/26/20 Encounter Time: 15:00 non-verbal Subjective: Patient seen and examined for respiratory failure requiring mechanical ventilation. Events noted. - Objective Vital Signs & Weight: Vital Signs (12 hours) Pulse Resp Pulse Ox 11/26/20 17:44 22 H 11/26/20 16:00 18 11/26/20 14:57 82 11/26/20 14:00 21 H 11/26/20 12:00 16 11/26/20 11:12 57 L 11/26/20 08:34 16 11/26/20 08:00 88 L Weight Admit Weight 151 lb Weight 151 lb 3.794 oz Most Recent Monitor Data Heart Rate from ECG 96 NIBP 130/67 NIBP BP-Mean 83 Respiration from ECG 23 SpO2 92 I&O: 11/25/20 11/26/20 11/27/20 06:59 06:59 06:59 Intake Total 2650 809 1152.95 Output Total 900 2305 905 Balance 1750 -1496 247.95 Result Diagrams: 11/26/20 03:26 11/26/20 03:26 Additional Labs: Accuchecks 11/26/20 01:54 POC Glucose 165 H Abnormal Lab Results - Last 48 hrs 11/24/20 14:00: Urine Protein 70 A, Urine Blood 2+ A, Urine RBC Greater than 50 A 11/25/20 04:22: Sodium 132 L, Carbon Dioxide 21 L, Creatinine 0.63 L, Calcium 7.3 L, AST 129 H, ALT 103 H, Albumin 3.1 L, Albumin/Globulin Ratio 1.0 L 11/25/20 04:22: WBC 11.5 H, RBC 3.95 L, Hgb 11.9 L, Hct 36.7 L, Band Neuts % (Manual) 23 H, Lymphocytes % (Manual) 2 L 11/25/20 04:22: C-Reactive Protein 15.56 H 11/25/20 04:22: Ferritin 413.69 H 11/25/20 04:22: D-Dimer 1.15 H 11/25/20 04:22: B-Natriuretic Peptide 132.2 H 11/26/20 03:26: C-Reactive Protein 12.63 H 11/26/20 03:26: D-Dimer 8.44 H 11/26/20 03:26: Creatinine 0.61 L, Calcium 7.1 L, AST 68 H, ALT 74 H, Serum Total Protein 5.6 L, Albumin 2.8 L, Albumin/Globulin Ratio 1.0 L 11/26/20 03:26: WBC 10.9 H, RBC 3.63 L, Hgb 11.4 L, Hct 33.9 L, MCH 31.4 H, Neutrophils % (Manual) 79 H, Lymphocytes % (Manual) 2 L Microbiology - Entire Visit 11/23/20 07:21 Venous blood - Right Arm Blood Culture - Preliminary NO GROWTH AT 48 HOURS 11/23/20 07:21 Venous blood - Left Arm Blood Culture - Preliminary NO GROWTH AT 48 HOURS Radiology Reviewed by me: Yes (Chest x-raypneumonia) EKG Reviewed by me: Yes (Sinus tachycardia on telemetry) Hospitalist ROS - Review of Systems ROS unobtainable: due to endotracheal tube - Medication Medications: Active Medications Generic Name Dose Route Start Last Admin Trade Name Freq PRN Reason Stop Dose Admin Acetaminophen 650 mg 11/23/20 12:02 11/24/20 22:45 Acetaminophen 325 Mg Tab PO 650 mg Q4H PRN Administration Headache/Fever/Mild Pain (1-3) Albuterol Sulfate 2 puff 11/24/20 18:30 11/26/20 14:57 Albuterol 200 Puff (6.7gm Inhaler) INH 2 puff [id number] SUE Administration Ascorbic Acid 1,000 mg 11/24/20 09:00 11/26/20 09:05 Ascorbic Acid 500 Mg Chewable Tablet PO 1,000 mg DAILY SUE Administration Cholecalciferol 1,000 units 11/24/20 09:00 11/26/20 09:05 Cholecalciferol 1,000 Units (25 Mcg) Tab PO 1,000 units DAILY SUE Administration Enoxaparin Sodium 40 mg 11/25/20 21:00 11/26/20 09:05 Enoxaparin Sodium 40 Mg/0.4 Ml Syringe SC 40 mg BID SUE Administration Guaifenesin 600 mg 11/24/20 21:00 11/26/20 09:06 Guaifenesin Er 600 Mg Tab PO 600 mg Q12HR SUE Administration Dexamethasone 6 mg/ Sodium 50.6 mls @ 100 mls/hr 11/24/20 09:00 11/26/20 09:04 Chloride IVPB 50.6 mls DAILY SUE Administration Remdesivir 100 mg/ Sodium 250 mls @ 250 mls/hr 11/25/20 14:00 11/26/20 14:31 Chloride IV 11/28/20 14:59 250 mls Q24H SUE Administration Cefepime HCl 1 gm/ Sodium 100 mls @ 200 mls/hr 11/24/20 20:00 11/26/20 09:04 Chloride IVPB 100 mls 0800,2000 SUE Administration Dexmedetomidine HCl 400 mcg/ 100 mls @ 0 mls/hr 11/25/20 16:15 11/25/20 17:09 Sodium Chloride IVPB 100 mls INF SUE Administration Protocol Per Protocol Doxycycline Hyclate 100 mg/ 100 mls @ 100 mls/hr 11/25/20 21:00 11/26/20 09:05 Sodium Chloride IVPB 100 mls Q12HR SUE Administration Dextrose/Sodium Chloride 1,000 mls @ 40 mls/hr 11/25/20 23:00 11/26/20 02:16 D5 1/2 Ns IV 1,000 mls .Q24H SUE Administration Lorazepam 2 mg 11/25/20 19:00 11/26/20 08:08 Lorazepam 2 Mg/Ml Vial SLOW IVP 12/25/20 19:00 2 mg Q1H PRN Administration Breakthrough agitation Melatonin 3 mg 11/23/20 21:00 11/25/20 21:26 Melatonin 3 Mg Tab PO Not Given HS SUE Mometasone Furoate/Formoterol Fumar 2 puff 11/23/20 18:30 11/26/20 07:17 Mometasone 100 Mcg/Formoterol 5 Mcg 120 Puff Inhaler INH 2 puff BID-RT SUE Administration Multivitamins 1 tab 11/24/20 09:00 11/26/20 09:06 Multivit, Therapeutic 1 Tab PO 1 tab DAILY SUE Administration Ondansetron HCl 4 mg 11/23/20 12:02 11/25/20 00:17 Ondansetron Pf 4 Mg/2 Ml Vial IVP 4 mg Q6H PRN Administration Nausea/Vomiting Pantoprazole Sodium 40 mg 11/24/20 09:00 11/26/20 09:05 Pantoprazole 40 Mg Tab PO 40 mg DAILY SUE Administration Propofol 1,000 mg 11/25/20 19:00 11/26/20 11:02 Propofol 1,000 Mg/100 Ml Vial IV 12/25/20 19:00 1,000 mg INF PRN Administration TO ACHIEVE GOAL RASS Protocol Senna/Docusate Sodium 2 tab 11/23/20 12:02 11/24/20 20:56 Senokot S 8.6-50 Mg Tab PO 2 tab BIDPRN PRN Administration Constipation Senna/Docusate Sodium 1 tab 11/24/20 21:00 11/26/20 09:06 Senokot S 8.6-50 Mg Tab PO 1 tab BID SUE Administration Sodium Chloride 10 ml 11/23/20 21:00 11/26/20 09:06 Flush - Normal Saline 10 Ml Syringe IVF 10 ml Q12HR SUE Administration Vecuronium [place] 10 mg 11/25/20 18:58 11/26/20 18:09 Vecuronium 10 Mg Vial IV 10 mg Q30MIN PRN Administration .VENT COMPLIANCE Zinc Sulfate 220 mg 11/24/20 09:00 11/26/20 09:06 Zinc Sulfate 220 Mg Cap PO 220 mg DAILY SUE Administration - Exam General Appearance: ill appearing General - other findings: On mechanical ventilation/prone position Neck: supple, no JVD Heart: RRR, no gallops Respiratory: rales, rhonchi Gastrointestinal: soft, non-distended, normal bowel sounds Extremities: no cyanosis, no edema Neurological - other findings: Neuro/psychunable to assess due to mechanical ventilation Hosp A/P - Plan DVT proph w/lovenox, DVT proph w/SCDs Severe sepsis/acute hypoxic respiratory failure due to COVID-19 pneumonia Failed NIPPV S/p intubation on 11/25 S/p convalescent plasma On remdesivir/Decadron Hyponatremia/hypomagnesemia/Hypophosphatemia Replaced Metabolic acidosis Elevated inflammatory markers Plan: Continue gentle hydration. Will initiate tube feeding. Continue supportive care. Monitor inflammatory markers. Continue remdesivir with steroids. Continue empiric antibiotics. Continue Lovenox for DVT prophylaxis continue other medications as above 11/25 Patient continues to be in significant distress even on high flow oxygen. Will probably need noninvasive positive pressure ventilation. Will continue steroids with Remdesivir and empiric antibiotics. Continue Lovenox for DVT prophylaxis. A.m. labs. Continue other medications as above Update: Patient failed noninvasive positive pressure ventilation with subsequent intubation in the evening
[2020-11-27] MEDS: Vecuronium 10 MG VIAL IV PRN ×3 (00:53→05:37)
[2020-11-27] MEDS ORDERED: Fentanyl CADD 100 ML ONE ×2 (04:48→18:53)
[2020-11-27 05:13] LABS: ALT (SGPT) 97 U/L (8-55); AST (SGOT) 48 U/L (5-34); Albumin 2.6 g/dL (3.4-4.8); Alkaline Phosphatase 98 U/L (40-110); Anion Gap 12 mmol/L (10-20); BUN (Urea Nitrogen) 30 mg/dL (8.4-25.7); Bilirubin, Total 0.4 mg/dL (0.2-1.2); Calc. Creatinine Clearance 109 mL/min (70-130); Carbon Dioxide 28 mmol/L (23-31); Chloride 109 mmol/L (98-107); Globulin 3.4 g/dL (2.4-3.5); Glucose 268 mg/dL (80-115); Magnesium 2.8 mg/dL (1.6-2.6); Phosphorus 2.4 mg/dL (2.3-4.7); Potassium 4.8 mmol/L (3.5-5.1); Sodium 144 mmol/L (136-145)
[2020-11-27] MEDS: Propofol 1,000 MG/100 ML VIAL IV PRN ×3 (05:37→15:45)
[2020-11-27 06:54] LABS: Band 17 % (5-11); Hemoglobin 11.1 g/dL (14.0-18.0); Lymphocytes 10 % (21-51); MDiff Complete? YES; Mean Corpuscular HGB CONC 31.3 g/dL (32.0-36.0); Mean Corpuscular Hemoglobin 29.9 pg (27.0-31.0); Mean Corpuscular Volume 95.8 fL (78.0-98.0); Mean Platelet Volume 8.2 fL (7.4-10.4); Metamyelocyte 2 % (0-0); Monocytes 3 % (0-10); Neutrophil 67 % (42-75); Platelet Count 459 thou/uL (130-400); Platelet Morphology Comment Appears Increased; Reactive Lymphocytes 1 % (0-10); White Blood Cell (WBC) Count 7.5 thou/uL (4.8-10.8)
[2020-11-27] MEDS: Albuterol 200 PUFF (6.7GM INHALER) INH SCH ×5 (07:25→19:57)
[2020-11-27] MEDS: Mometasone 100 MCG/Formoterol 5 MCG 120 PUFF INHALER INH SCH ×2 (07:25→19:58)
--- NOTE | 2020-11-27 08:22 | RAD ---
Portable frontal chest radiograph: 11/27/2020 COMPARISON: 11/26/2020 HISTORY: Pneumonia FINDINGS: Stable endotracheal tube and nasogastric tube. Severe extensive bilateral coarse linear int erstitial and alveolar opacity noted, stable as well. IMPRESSION: No interval change.
[2020-11-27] MEDS: Lorazepam 2 MG/ML VIAL SLOW IVP PRN ×2 (08:38→15:39)
[2020-11-27] MEDS: Dextrose 5 %-0.45 % NaCl 1,000 ML IV SCH (09:18)
[2020-11-27] MEDS: Enoxaparin Sodium 40 MG/0.4 ML SYRINGE SC SCH ×2 (09:51→20:42)
[2020-11-27] MEDS: Ascorbic Acid 500 mg Chewable Tablet PO SCH (09:51)
[2020-11-27] MEDS: Zinc Sulfate 220 MG CAP PO SCH (09:52)
[2020-11-27] MEDS: Multivit, Therapeutic 1 TAB PO SCH (09:52)
[2020-11-27] MEDS: Pantoprazole 40 MG VIAL IVP SCH (09:53)
[2020-11-27] MEDS: Sodium Chloride 0.45% 1,000 ML IV SCH (09:59)
[2020-11-27] MEDS: Dexamethasone 6 MG in Sodium Chloride 0.9% 50 ML IVPB SCH (10:10)
[2020-11-27] MEDS: Cefepime 1 GM in Sodium Chloride 0.9% 100 ML IVPB SCH ×2 (10:10→20:41)
[2020-11-27] MEDS: Cholecalciferol 1,000 UNITS (25 MCG) TAB PO SCH (10:13)
--- NOTE | 2020-11-27 14:42 | PDOC.HOSPP ---
- Subjective Encounter Date: 11/27/20 Encounter Time: 09:45 Subjective: is in prone position on vent, sedated - Objective Vital Signs & Weight: Vital Signs (12 hours) Temp Pulse Resp 11/27/20 12:00 16 11/27/20 11:42 95 11/27/20 10:00 17 11/27/20 08:00 17 11/27/20 07:46 98 11/27/20 06:00 98.8 F 11/27/20 05:00 98.7 F 11/27/20 04:00 98.8 F 11/27/20 03:00 98.7 F Weight Admit Weight 151 lb Weight 2.43 oz Most Recent Monitor Data Heart Rate from ECG 65 NIBP 107/57 NIBP BP-Mean 72 Respiration from ECG 16 SpO2 98 I&O: 11/26/20 11/27/20 11/28/20 06:59 06:59 06:59 Intake Total 809 1752.75 Output Total 2305 1745 Balance -1496 7.75 Result Diagrams: 11/27/20 04:30 11/27/20 04:30 Hospitalist ROS - Medication Medications: Active Medications Generic Name Dose Route Start Last Admin Trade Name Freq PRN Reason Stop Dose Admin Acetaminophen 650 mg 11/23/20 12:02 11/24/20 22:45 Acetaminophen 325 Mg Tab PO 650 mg Q4H PRN Administration Headache/Fever/Mild Pain (1-3) Albuterol Sulfate 2 puff 11/24/20 18:30 11/27/20 11:42 Albuterol 200 Puff (6.7gm Inhaler) INH 2 puff [id number] SUE Administration Ascorbic Acid 1,000 mg 11/24/20 09:00 11/27/20 09:51 Ascorbic Acid 500 Mg Chewable Tablet PO 1,000 mg DAILY SUE Administration Cholecalciferol 1,000 units 11/24/20 09:00 11/27/20 10:13 Cholecalciferol 1,000 Units (25 Mcg) Tab PO 1,000 units DAILY SUE Administration Enoxaparin Sodium 40 mg 11/25/20 21:00 11/27/20 09:51 Enoxaparin Sodium 40 Mg/0.4 Ml Syringe SC 40 mg BID SUE Administration Dexamethasone 6 mg/ Sodium 50.6 mls @ 100 mls/hr 11/24/20 09:00 11/27/20 10:10 Chloride IVPB 50.6 mls DAILY SUE Administration Remdesivir 100 mg/ Sodium 250 mls @ 250 mls/hr 11/25/20 14:00 11/26/20 14:31 Chloride IV 11/28/20 14:59 250 mls Q24H SUE Administration Cefepime HCl 1 gm/ Sodium 100 mls @ 200 mls/hr 11/24/20 20:00 11/27/20 10:10 Chloride IVPB 100 mls 0800,2000 SUE Administration Dexmedetomidine HCl 400 mcg/ 100 mls @ 0 mls/hr 11/25/20 16:15 11/25/20 17:09 Sodium Chloride IVPB 100 mls INF SUE Administration Protocol Per Protocol Doxycycline Hyclate 100 mg/ 100 mls @ 100 mls/hr 11/25/20 21:00 11/27/20 10:13 Sodium Chloride IVPB 100 mls Q12HR SUE Administration Dextrose/Sodium Chloride 1,000 mls @ 40 mls/hr 11/25/20 23:00 11/27/20 09:18 D5 1/2 Ns IV Not Given .Q24H SUE Sodium Chloride 1,000 mls @ 50 mls/hr 11/27/20 09:15 11/27/20 09:59 1/2 Normal Saline IV 1,000 mls .Q20H SUE Administration Lorazepam 2 mg 11/25/20 19:00 11/27/20 08:38 Lorazepam 2 Mg/Ml Vial SLOW IVP 12/25/20 19:00 2 mg Q1H PRN Administration Breakthrough agitation Mometasone Furoate/Formoterol Fumar 2 puff 11/23/20 18:30 11/27/20 07:25 Mometasone 100 Mcg/Formoterol 5 Mcg 120 Puff Inhaler INH 2 puff BID-RT SUE Administration Multivitamins 1 tab 11/24/20 09:00 11/27/20 09:52 Multivit, Therapeutic 1 Tab PO 1 tab DAILY SUE Administration Ondansetron HCl 4 mg 11/23/20 12:02 11/25/20 00:17 Ondansetron Pf 4 Mg/2 Ml Vial IVP 4 mg Q6H PRN Administration Nausea/Vomiting Pantoprazole Sodium 40 mg 11/27/20 09:00 11/27/20 09:53 Pantoprazole 40 Mg Vial IVP 40 mg DAILY SUE Administration Propofol 1,000 mg 11/25/20 19:00 11/27/20 11:43 Propofol 1,000 Mg/100 Ml Vial IV 12/25/20 19:00 1,000 mg INF PRN Administration TO ACHIEVE GOAL RASS Protocol Senna/Docusate Sodium 2 tab 11/23/20 12:02 11/24/20 20:56 Senokot S 8.6-50 Mg Tab PO 2 tab BIDPRN PRN Administration Constipation Sodium Chloride 10 ml 11/23/20 21:00 11/27/20 09:53 Flush - Normal Saline 10 Ml Syringe IVF 10 ml Q12HR SUE Administration Vecuronium [place] 10 mg 11/25/20 18:58 11/27/20 05:37 Vecuronium 10 Mg Vial IV 10 mg Q30MIN PRN Administration .VENT COMPLIANCE Zinc Sulfate 220 mg 11/24/20 09:00 11/27/20 09:52 Zinc Sulfate 220 Mg Cap PO 220 mg DAILY SUE Administration - Exam General Appearance: ill appearing Eye: PERRL, anicteric sclera ENT: no oropharyngeal lesions Neck: supple, no thyromegaly Heart: RRR, no murmur Respiratory: no wheezes, rales, rhonchi Gastrointestinal: soft, non-tender, non-distended, normal bowel sounds Extremities: no cyanosis, no edema Neurological: cranial nerve grossly intact, no focal deficits Hosp A/P (1) Pneumonia due to COVID-19 virus Code(s): U07.1 - COVID-19; J12.82 - PNEUMONIA DUE TO CORONAVIRUS DISEASE 2019 Status: Acute (2) Acute respiratory failure with hypoxia Code(s): J96.01 - ACUTE RESPIRATORY FAILURE WITH HYPOXIA Status: Acute (3) Glucose intolerance Code(s): E74.39 - OTHER DISORDERS OF INTESTINAL CARBOHYDRATE ABSORPTION Status: Acute (4) Osteoporosis Code(s): M81.0 - AGE-RELATED OSTEOPOROSIS W/O CURRENT PATHOLOGICAL FRACTURE Status: Chronic Qualifiers: Osteoporosis type: age-related Presence of current pathological fracture: without current pathological fracture Qualified Code(s): M81.0 - Age-related osteoporosis without current pathological fracture - Plan is on remdesivir, dexamethasone, alb and dulera inh, cefepime and doxy, lovenox dvt prophylaxis and protonix prognosis guarded with extensive infiltrates inflammatory markers are trending down d/w (daughter) and gave full updates. gentle hydration, mild elevation in bun with high col urine
[2020-11-27] MEDS: REMDESIVIR (EUA) 100 MG in Sodium Chloride 0.9% 250 ML 230 ML IV SCH (15:23)
--- NOTE | 2020-11-27 16:39 | PRG ---
DATE OF SERVICE: 11/27/2020 SUBJECTIVE: Mr. Collins remains prone ventilated when he was seen by me earlier today. OBJECTIVE: VITAL SIGNS: Blood pressure 100/55, heart rate is in the 60s, oximetry is in the high 90s. LUNGS: Unchanged. HEART: Unchanged. ABDOMEN: Unchanged. LABORATORY DATA: White count 7.5, hemoglobin 11.1, and platelets 459. Sodium 144, potassium 4.8, chloride 109, bicarb 28, BUN 30, and creatinine 0.67. IMPRESSION: COVID pneumonia, requiring prone ventilation. His gas exchange is improving. We will continue supportive care. Job ID: [id number]
[2020-11-27] MEDS ORDERED: Sodium Bicarbonate Tab 325 MG TAB PER TUBE PRN (19:15)
[2020-11-27] MEDS ORDERED: Pancrelipase DR 12,000 1 CAP FS PRN (19:15)
[2020-11-28] MEDS: Albuterol 200 PUFF (6.7GM INHALER) INH SCH ×7 (03:19→23:01)
[2020-11-28] MEDS: Lorazepam 2 MG/ML VIAL SLOW IVP PRN ×3 (04:00→10:35)
[2020-11-28 05:03] LABS: ALT (SGPT) 74 U/L (8-55); AST (SGOT) 55 U/L (5-34); Albumin 2.6 g/dL (3.4-4.8); Alkaline Phosphatase 77 U/L (40-110); Anion Gap 10 mmol/L (10-20); BUN (Urea Nitrogen) 13 mg/dL (8.4-25.7); Bilirubin, Total 0.6 mg/dL (0.2-1.2); CRP (Inflammatory) 13.89 mg/dL (= or < 0.5); Calc. Creatinine Clearance 0 mL/min (70-130); Calcium 7.1 mg/dL (7.8-10.44); Carbon Dioxide 28 mmol/L (23-31); Chloride 102 mmol/L (98-107); Globulin 3.2 g/dL (2.4-3.5); Glucose 168 mg/dL (80-115); Potassium 3.6 mmol/L (3.5-5.1); Protein, Total 5.8 g/dL (5.8-8.1); Sodium 136 mmol/L (136-145)
[2020-11-28 05:34] LABS: Band 1 % (5-11); Hemoglobin 12.7 g/dL (14.0-18.0); Lymphocytes 12 % (21-51); MDiff Complete? YES; Mean Corpuscular HGB CONC 32.6 g/dL (32.0-36.0); Mean Corpuscular Hemoglobin 30.8 pg (27.0-31.0); Mean Corpuscular Volume 94.5 fL (78.0-98.0); Mean Platelet Volume 8.2 fL (7.4-10.4); Monocytes 3 % (0-10); Neutrophil 84 % (42-75); Platelet Count 419 thou/uL (130-400); Platelet Morphology Comment Appears Adequate; RBC Distribution Width 13.3 % (11.5-14.5); RBC Morphology Normal; Red Blood Cell (RBC) Count 4.12 mill/uL (4.70-6.10); White Blood Cell (WBC) Count 8.2 thou/uL (4.8-10.8)
[2020-11-28] MEDS: Mometasone 100 MCG/Formoterol 5 MCG 120 PUFF INHALER INH SCH ×2 (06:50→19:07)
[2020-11-28] MEDS: Cefepime 1 GM in Sodium Chloride 0.9% 100 ML IVPB SCH ×2 (07:52→21:23)
[2020-11-28] MEDS: Sodium Chloride 0.45% 1,000 ML IV SCH (07:53)
[2020-11-28] MEDS ORDERED: Fentanyl CADD 100 ML ONE ×2 (08:31→23:21)
--- NOTE | 2020-11-28 09:09 | RAD ---
PORTABLE CHEST: Date: 11/28/2020 PROVIDED CLINICAL HISTORY: Respiratory insufficiency. COMPARISON: 11/27/2020. FINDINGS: Significant interval change with respect to the prior study is not apparent. IMPRESSION: As above. POS: NAOMI
[2020-11-28] MEDS: Cholecalciferol 1,000 UNITS (25 MCG) TAB PO SCH (09:57)
[2020-11-28] MEDS: Zinc Sulfate 220 MG CAP PO SCH (09:57)
[2020-11-28] MEDS: Enoxaparin Sodium 40 MG/0.4 ML SYRINGE SC SCH ×2 (09:57→21:24)
[2020-11-28] MEDS: Dexamethasone 6 MG in Sodium Chloride 0.9% 50 ML IVPB SCH (09:57)
[2020-11-28] MEDS: Ascorbic Acid 500 mg Chewable Tablet PO SCH (09:57)
[2020-11-28] MEDS: Multivit, Therapeutic 1 TAB PO SCH (09:57)
[2020-11-28] MEDS: Propofol 1,000 MG/100 ML VIAL IV PRN ×2 (09:58→15:02)
[2020-11-28] MEDS: Pantoprazole 40 MG VIAL IVP SCH (09:58)
[2020-11-28] MEDS: Acetaminophen 325 MG TAB PO PRN (13:30)
[2020-11-28] MEDS: REMDESIVIR (EUA) 100 MG in Sodium Chloride 0.9% 250 ML 230 ML IV SCH (14:26)
--- NOTE | 2020-11-28 15:32 | PDOC.HOSPP ---
- Subjective Encounter Date: 11/28/20 Encounter Time: 10:20 Subjective: is on vent in supine position from this am not in distress, on sedation - Objective Vital Signs & Weight: Vital Signs (12 hours) Temp Pulse Resp BP 11/28/20 14:00 19 11/28/20 13:30 101.7 F H 80 18 91/53 L 11/28/20 12:00 101.7 F H 16 11/28/20 11:22 87 11/28/20 10:00 21 H 11/28/20 08:00 99.1 F 18 11/28/20 06:55 82 11/28/20 06:00 98.2 F 18 11/28/20 05:00 98.2 F 11/28/20 04:00 98.2 F 18 Weight Admit Weight 151 lb Weight 141 lb 1.533 oz Most Recent Monitor Data Heart Rate from ECG 73 NIBP 95/51 NIBP BP-Mean 67 Respiration from ECG 19 SpO2 94 I&O: 11/27/20 11/28/20 11/29/20 06:59 06:59 06:59 Intake Total 1752.75 2415.5 130.1 Output Total 1745 1916 370 Balance 7.75 499.5 -239.9 Result Diagrams: 11/28/20 04:00 11/28/20 04:14 Additional Labs: Accuchecks 11/28/20 11/27/20 15:21 21:46 POC Glucose 161 H 198 H Hospitalist ROS - Medication Medications: Active Medications Generic Name Dose Route Start Last Admin Trade Name Freq PRN Reason Stop Dose Admin Acetaminophen 650 mg 11/23/20 12:02 11/28/20 13:30 Acetaminophen 325 Mg Tab PO 650 mg Q4H PRN Administration Headache/Fever/Mild Pain (1-3) Albuterol Sulfate 2 puff 11/24/20 18:30 11/28/20 14:57 Albuterol 200 Puff (6.7gm Inhaler) INH 2 puff [id number] SUE Administration Ascorbic Acid 1,000 mg 11/24/20 09:00 11/28/20 09:57 Ascorbic Acid 500 Mg Chewable Tablet PO 1,000 mg DAILY SUE Administration Cholecalciferol 1,000 units 11/24/20 09:00 11/28/20 09:57 Cholecalciferol 1,000 Units (25 Mcg) Tab PO 1,000 units DAILY SUE Administration Enoxaparin Sodium 40 mg 11/25/20 21:00 11/28/20 09:57 Enoxaparin Sodium 40 Mg/0.4 Ml Syringe SC 40 mg BID SUE Administration Dexamethasone 6 mg/ Sodium 50.6 mls @ 100 mls/hr 11/24/20 09:00 11/28/20 09:57 Chloride IVPB 50.6 mls DAILY SUE Administration Cefepime HCl 1 gm/ Sodium 100 mls @ 200 mls/hr 11/24/20 20:00 11/28/20 07:52 Chloride IVPB 100 mls 0800,2000 SUE Administration Dexmedetomidine HCl 400 mcg/ 100 mls @ 0 mls/hr 11/25/20 16:15 11/25/20 17:09 Sodium Chloride IVPB 100 mls INF SUE Administration Protocol Per Protocol Doxycycline Hyclate 100 mg/ 100 mls @ 100 mls/hr 11/25/20 21:00 11/28/20 09:58 Sodium Chloride IVPB 100 mls Q12HR SUE Administration Sodium Chloride 1,000 mls @ 50 mls/hr 11/27/20 09:15 11/28/20 07:53 1/2 Normal Saline IV 1,000 mls .Q20H SUE Administration Lorazepam 2 mg 11/25/20 19:00 11/28/20 10:35 Lorazepam 2 Mg/Ml Vial SLOW IVP 12/25/20 19:00 2 mg Q1H PRN Administration Breakthrough agitation Mometasone Furoate/Formoterol Fumar 2 puff 11/23/20 18:30 11/28/20 06:50 Mometasone 100 Mcg/Formoterol 5 Mcg 120 Puff Inhaler INH 2 puff BID-RT SUE Administration Multivitamins 1 tab 11/24/20 09:00 11/28/20 09:57 Multivit, Therapeutic 1 Tab PO 1 tab DAILY SUE Administration Ondansetron HCl 4 mg 11/23/20 12:02 11/25/20 00:17 Ondansetron Pf 4 Mg/2 Ml Vial IVP 4 mg Q6H PRN Administration Nausea/Vomiting Pantoprazole Sodium 40 mg 11/27/20 09:00 11/28/20 09:58 Pantoprazole 40 Mg Vial IVP 40 mg DAILY SUE Administration Propofol 1,000 mg 11/25/20 19:00 11/28/20 15:02 Propofol 1,000 Mg/100 Ml Vial IV 12/25/20 19:00 1,000 mg INF PRN Administration TO ACHIEVE GOAL RASS Protocol Senna/Docusate Sodium 2 tab 11/23/20 12:02 11/24/20 20:56 Senokot S 8.6-50 Mg Tab PO 2 tab BIDPRN PRN Administration Constipation Sodium Chloride 10 ml 11/23/20 21:00 11/28/20 09:58 Flush - Normal Saline 10 Ml Syringe IVF 10 ml Q12HR SUE Administration Vecuronium [place] 10 mg 11/25/20 18:58 11/27/20 05:37 Vecuronium 10 Mg Vial IV 10 mg Q30MIN PRN Administration .VENT COMPLIANCE Zinc Sulfate 220 mg 11/24/20 09:00 11/28/20 09:57 Zinc Sulfate 220 Mg Cap PO 220 mg DAILY SUE Administration - Exam General Appearance: ill appearing Eye: PERRL, anicteric sclera ENT: no oropharyngeal lesions, moist mucosa Neck: supple, no JVD Heart: RRR, no murmur Respiratory: no wheezes, rales, rhonchi Gastrointestinal: soft, non-tender, non-distended, normal bowel sounds Extremities: no cyanosis, no edema Neurological: cranial nerve grossly intact, no focal deficits Hosp A/P (1) Pneumonia due to COVID-19 virus Code(s): U07.1 - COVID-19; J12.82 - PNEUMONIA DUE TO CORONAVIRUS DISEASE 2019 Status: Acute (2) Acute respiratory failure with hypoxia Code(s): J96.01 - ACUTE RESPIRATORY FAILURE WITH HYPOXIA Status: Acute (3) Glucose intolerance Code(s): E74.39 - OTHER DISORDERS OF INTESTINAL CARBOHYDRATE ABSORPTION Statu s: Acute (4) Osteoporosis Code(s): M81.0 - AGE-RELATED OSTEOPOROSIS W/O CURRENT PATHOLOGICAL FRACTURE Status: Chronic Qualifiers: Osteoporosis type: age-related Presence of current pathological fracture: without current pathological fracture Qualified Code(s): M81.0 - Age-related osteoporosis without current pathological fracture - Plan is on remdesivir, dexamethasone, alb and dulera inh, cefepime and doxy, lovenox dvt prophylaxis and protonix prognosis guarded inflammatory markers are trending down d/w (daughter) and gave full updates. gentle hydration weaning per pulm advice.
--- NOTE | 2020-11-28 15:49 | PRG ---
DATE OF SERVICE: 11/28/2020 SUBJECTIVE: Mr. Collins remains mechanically ventilated. OBJECTIVE: VITAL SIGNS: Blood pressure is 91/53, heart rate is 80s, he is febrile today. LUNGS: Otherwise unchanged. HEART: Otherwise unchanged. ABDOMEN: Otherwise unchanged. LABORATORY DATA: White count 8.2, hemoglobin 12.7, platelets 419,000. Sodium 136, potassium 3.6, chloride 102, bicarb 28, BUN 13, creatinine 0.57. Liver enzymes are mildly elevated. IMPRESSION: COVID pneumonia with ongoing fever. FiO2 is still 40%. His saturations are in the 93% to 94% range. We will continue current supportive care measures. Today's chest x-ray does not show any change in bilateral infiltrates. Job ID: [id number]
[2020-11-29] MEDS: Propofol 1,000 MG/100 ML VIAL IV PRN ×2 (01:30→09:48)
[2020-11-29] MEDS: Albuterol 200 PUFF (6.7GM INHALER) INH SCH ×6 (02:25→22:30)
[2020-11-29 04:40] LABS: Band 7 % (5-11); Hemoglobin 12.2 g/dL (14.0-18.0); Lymphocytes 5 % (21-51); MDiff Complete? YES; Mean Corpuscular HGB CONC 32.5 g/dL (32.0-36.0); Mean Corpuscular Hemoglobin 30.4 pg (27.0-31.0); Mean Corpuscular Volume 93.7 fL (78.0-98.0); Mean Platelet Volume 7.9 fL (7.4-10.4); Monocytes 2 % (0-10); Neutrophil 86 % (42-75); Platelet Count 438 thou/uL (130-400); Platelet Morphology Comment Appears Increased; RBC Distribution Width 13.3 % (11.5-14.5); White Blood Cell (WBC) Count 10.8 thou/uL (4.8-10.8)
[2020-11-29 04:46] LABS: ALT (SGPT) 58 U/L (8-55); AST (SGOT) 51 U/L (5-34); Albumin 2.5 g/dL (3.4-4.8); Alkaline Phosphatase 76 U/L (40-110); Anion Gap 12 mmol/L (10-20); BUN (Urea Nitrogen) 18 mg/dL (8.4-25.7); Bilirubin, Total 0.7 mg/dL (0.2-1.2); Calc. Creatinine Clearance 116 mL/min (70-130); Calcium 7.1 mg/dL (7.8-10.44); Carbon Dioxide 27 mmol/L (23-31); Chloride 103 mmol/L (98-107); Glucose 160 mg/dL (80-115); Potassium 3.6 mmol/L (3.5-5.1); Protein, Total 5.5 g/dL (5.8-8.1); Sodium 138 mmol/L (136-145)
[2020-11-29] MEDS: Sodium Chloride 0.45% 1,000 ML IV SCH (05:40)
[2020-11-29] MEDS: Mometasone 100 MCG/Formoterol 5 MCG 120 PUFF INHALER INH SCH ×2 (08:20→21:20)
--- NOTE | 2020-11-29 08:36 | PRG ---
DATE OF SERVICE: 11/29/2020 35 minutes of critical care time. SUBJECTIVE: Mr. Collins remains intubated and heavily sedated on mechanical ventilation. OBJECTIVE: VITAL SIGNS: His temperature is 98.6, pulse 84, blood pressure 113/62. He is sedated with fentanyl and propofol. He is requiring no vasopressors. 24-hour intake 3046, output 1380. He has been in positive fluid balance for the last 4 out of the last 5 days. His current weight is 154 pounds. HEENT: Unremarkable. NECK: No adenopathy or JVD. LUNGS: Coarse breath sounds bilaterally. CARDIOVASCULAR: S1, S2. Regular. ABDOMEN: Soft and nontender. EXTREMITIES: No edema. LABORATORY DATA: White blood cell count 10.8, hematocrit 37.5, and platelet count 438. Sodium 138, potassium 3.6, chloride 103, CO2 of 27, BUN 18, creatinine 0.6, glucose 160. His chest x-ray shows diffuse bilateral infiltrates with a properly positioned endotracheal tube. ASSESSMENT: 1. Coronavirus disease 2019 pneumonia. 2. Acute hypoxic respiratory failure, requiring mechanical ventilation. PLAN: He is currently on assist-control ventilation. I have increased his PEEP so that we can decrease his FiO2. He is continuing on tube feeds. He has finished his remdesivir. He is on cefepime and doxycycline, but I think we could go ahead and stop the cefepime. Overall, his prognosis is extremely guarded. Job ID: [id number]
[2020-11-29] MEDS: Cefepime 1 GM in Sodium Chloride 0.9% 100 ML IVPB SCH (08:59)
--- NOTE | 2020-11-29 09:21 | RAD ---
PORTABLE CHEST: HISTORY: COVID pneumonia. Followup. COMPARISON: Prior day's exam. FINDINGS: Endotracheal and NG tubes are in satisfactory position. Extensive bilateral lung infiltrates are sta ble. IMPRESSION: Stable exam. POS: RAISA
[2020-11-29] MEDS: Multivit, Therapeutic 1 TAB PO SCH (09:44)
[2020-11-29] MEDS: Ascorbic Acid 500 mg Chewable Tablet PO SCH (09:44)
[2020-11-29] MEDS: Zinc Sulfate 220 MG CAP PO SCH (09:44)
[2020-11-29] MEDS: Dexamethasone 6 MG in Sodium Chloride 0.9% 50 ML IVPB SCH (09:45)
[2020-11-29] MEDS: Pantoprazole 40 MG VIAL IVP SCH (09:45)
[2020-11-29] MEDS: Enoxaparin Sodium 40 MG/0.4 ML SYRINGE SC SCH ×2 (09:46→21:20)
[2020-11-29] MEDS: Cholecalciferol 1,000 UNITS (25 MCG) TAB PO SCH (09:48)
[2020-11-29] MEDS: Acetaminophen 325 MG TAB PO PRN (09:52)
[2020-11-29 12:14] LABS: SARS-CoV-2 IgG Ab Reactive (NonReactive); SARS-CoV-2 IgG Index 5.07 S/CO (< 1.40)
--- NOTE | 2020-11-29 15:08 | PDOC.HOSPP ---
- Subjective Encounter Date: 11/29/20 Encounter Time: 09:45 Subjective: is on vent, sedated, and supine - Objective Vital Signs & Weight: Vital Signs (12 hours) Temp Pulse Resp BP 11/29/20 12:07 99 131/72 11/29/20 09:52 101.7 F H 92 22 H 101/42 L 11/29/20 08:20 79 100/59 L 11/29/20 06:00 98.6 F 18 11/29/20 05:00 98.6 F 11/29/20 04:00 98.7 F Weight Admit Weight 151 lb Weight 154 lb 15.759 oz Most Recent Monitor Data Heart Rate from ECG 91 NIBP 93/54 NIBP BP-Mean 64 Respiration from ECG 19 SpO2 90 I&O: 11/28/20 11/29/20 11/30/20 06:59 06:59 06:59 Intake Total 2415.5 3046.5 Output Total 1916 1380 Balance 499.5 1666.5 Result Diagrams: 11/29/20 03:45 11/29/20 03:45 Additional Labs: Accuchecks 11/29/20 11/28/20 11/27/20 00:58 15:21 15:55 POC Glucose 198 H 161 H 180 H 11/26/20 21:27 POC Glucose 191 H Hospitalist ROS - Medication Medications: Active Medications Generic Name Dose Route Start Last Admin Trade Name Freq PRN Reason Stop Dose Admin Acetaminophen 650 mg 11/23/20 12:02 11/29/20 09:52 Acetaminophen 325 Mg Tab PO 650 mg Q4H PRN Administration Headache/Fever/Mild Pain (1-3) Albuterol Sulfate 2 puff 11/24/20 18:30 11/29/20 12:00 Albuterol 200 Puff (6.7gm Inhaler) INH 2 puff [id number] SUE Administration Ascorbic Acid 1,000 mg 11/24/20 09:00 11/29/20 09:44 Ascorbic Acid 500 Mg Chewable Tablet PO 1,000 mg DAILY SUE Administration Cholecalciferol 1,000 units 11/24/20 09:00 11/29/20 09:48 Cholecalciferol 1,000 Units (25 Mcg) Tab PO 1,000 units DAILY SUE Administration Enoxaparin Sodium 40 mg 11/25/20 21:00 11/29/20 09:46 Enoxaparin Sodium 40 Mg/0.4 Ml Syringe SC 40 mg BID SUE Administration Dexamethasone 6 mg/ Sodium 50.6 mls @ 100 mls/hr 11/24/20 09:00 11/29/20 09:45 Chloride IVPB 50.6 mls DAILY SUE Administration Dexmedetomidine HCl 400 mcg/ 100 mls @ 0 mls/hr 11/25/20 16:15 11/25/20 17:09 Sodium Chloride IVPB 100 mls INF SUE Administration Protocol Per Protocol Doxycycline Hyclate 100 mg/ 100 mls @ 100 mls/hr 11/25/20 21:00 11/29/20 09:45 Sodium Chloride IVPB 100 mls Q12HR SUE Administration Sodium Chloride 1,000 mls @ 50 mls/hr 11/27/20 09:15 11/29/20 05:40 1/2 Normal Saline IV 1,000 mls .Q20H SUE Administration Lorazepam 2 mg 11/25/20 19:00 11/28/20 10:35 Lorazepam 2 Mg/Ml Vial SLOW IVP 12/25/20 19:00 2 mg Q1H PRN Administration Breakthrough agitation Mometasone Furoate/Formoterol Fumar 2 puff 11/23/20 18:30 11/29/20 08:20 Mometasone 100 Mcg/Formoterol 5 Mcg 120 Puff Inhaler INH 2 puff BID-RT SUE Administration Multivitamins 1 tab 11/24/20 09:00 11/29/20 09:44 Multivit, Therapeutic 1 Tab PO 1 tab DAILY SUE Administration Ondansetron HCl 4 mg 11/23/20 12:02 11/25/20 00:17 Ondansetron Pf 4 Mg/2 Ml Vial IVP 4 mg Q6H PRN Administration Nausea/Vomiting Pantoprazole Sodium 40 mg 11/27/20 09:00 11/29/20 09:45 Pantoprazole 40 Mg Vial IVP 40 mg DAILY SUE Administration Propofol 1,000 mg 11/25/20 19:00 11/29/20 09:48 Propofol 1,000 Mg/100 Ml Vial IV 12/25/20 19:00 1,000 mg INF PRN Administration TO ACHIEVE GOAL RASS Protocol Senna/Docusate Sodium 2 tab 11/23/20 12:02 11/24/20 20:56 Senokot S 8.6-50 Mg Tab PO 2 tab BIDPRN PRN Administration Constipation Sodium Chloride 10 ml 11/23/20 21:00 11/29/20 09:45 Flush - Normal Saline 10 Ml Syringe IVF 10 ml Q12HR SUE Administration Vecuronium [place] 10 mg 11/25/20 18:58 11/27/20 05:37 Vecuronium 10 Mg Vial IV 10 mg Q30MIN PRN Administration .VENT COMPLIANCE Zinc Sulfate 220 mg 11/24/20 09:00 11/29/20 09:44 Zinc Sulfate 220 Mg Cap PO 220 mg DAILY SUE Administration - Exam General Appearance: ill appearing Eye: PERRL, anicteric sclera ENT: no oropharyngeal lesions, dry oral mucosa Neck: supple, no JVD Heart: RRR, no murmur Respiratory: no wheezes, rales, rhonchi Gastrointestinal: soft, non-tender, non-distended, normal bowel sounds Extremities: no cyanosis, no edema Neurological: cranial nerve grossly intact, no focal deficits Hosp A/P (1) Pneumonia due to COVID-19 virus Code(s): U07.1 - COVID-19; J12.82 - PNEUMONIA DUE TO CORONAVIRUS DISEASE 2019 Status: Acute (2) Acute respiratory failure with hypoxia Code(s): J96.01 - ACUTE RESPIRATORY FAILURE WITH HYPOXIA Status: Acute (3) Glucose intolerance Code(s): E74.39 - OTHER DISORDERS OF INTESTINAL CARBOHYDRATE ABSORPTION Status: Acute (4) Osteoporosis Code(s): M81.0 - AGE-RELATED OSTEOPOROSIS W/O CURRENT PATHOLOGICAL FRACTURE Status: Chronic Qualifiers: Osteoporosis type: age-related Presence of current pathological fracture: without current pathological fracture Qualified Code(s): M81.0 - Age-related osteoporosis without current pathological fracture - Plan has finished course of remdesivir and one dose plasma, continue dexamethasone, alb and dulera inh, doxy, lovenox dvt prophylaxis and protonix add low dose lantus at bedtime for glucose intolerance due to steroids. prognosis guarded inflammatory markers are trending down d/w (daughter) and gave full updates. gentle hydration, may dc if he is volume up. sbp around 90-130. weaning per pulm advice.
[2020-11-29] MEDS ORDERED: Dextrose 5% in Water 1,000 ML IV PRN (15:15)
[2020-11-29] MEDS ORDERED: Dextrose 50% Abboject 50 ML SYRINGE IVP PRN (15:15)
[2020-11-29] MEDS ORDERED: Fentanyl CADD 100 ML ONE (16:35)
[2020-11-29] MEDS: Insulin Glargine 5 UNITS in Pre-Filled Syringe 1 EACH SC SCH (21:21)
[2020-11-30] MEDS: Propofol 1,000 MG/100 ML VIAL IV PRN ×5 (00:49→18:43)
[2020-11-30] MEDS: Albuterol 200 PUFF (6.7GM INHALER) INH SCH ×6 (02:45→22:30)
[2020-11-30 04:42] LABS: Band 12 % (5-11); Hemoglobin 10.6 g/dL (14.0-18.0); Hypochromia SLIGHT = 6-15 cells (100X) (0-5/hpf); Lymphocytes 4 % (21-51); MDiff Complete? YES; Mean Corpuscular HGB CONC 33.2 g/dL (32.0-36.0); Mean Corpuscular Hemoglobin 31.4 pg (27.0-31.0); Mean Corpuscular Volume 94.7 fL (78.0-98.0); Mean Platelet Volume 7.9 fL (7.4-10.4); Monocytes 2 % (0-10); Neutrophil 82 % (42-75); Platelet Count 281 thou/uL (130-400); Platelet Morphology Comment Appears Adequate; RBC Distribution Width 13.4 % (11.5-14.5); Red Blood Cell (RBC) Count 3.36 mill/uL (4.70-6.10); White Blood Cell (WBC) Count 15.5 thou/uL (4.8-10.8)
[2020-11-30 04:49] LABS: ALT (SGPT) 38 U/L (8-55); AST (SGOT) 47 U/L (5-34); Albumin 2.2 g/dL (3.4-4.8); Alkaline Phosphatase 67 U/L (40-110); Anion Gap 10 mmol/L (10-20); BUN (Urea Nitrogen) 15 mg/dL (8.4-25.7); Bilirubin, Total 0.8 mg/dL (0.2-1.2); CRP (Inflammatory) 26.36 mg/dL (= or < 0.5); Calc. Creatinine Clearance 134 mL/min (70-130); Calcium 6.8 mg/dL (7.8-10.44); Carbon Dioxide 28 mmol/L (23-31); Chloride 103 mmol/L (98-107); Glucose 147 mg/dL (80-115); Potassium 3.9 mmol/L (3.5-5.1); Protein, Total 5.2 g/dL (5.8-8.1); Sodium 137 mmol/L (136-145)
[2020-11-30] MEDS: Sodium Chloride 0.45% 1,000 ML IV SCH ×2 (04:58→17:02)
[2020-11-30] MEDS ORDERED: Fentanyl CADD 100 ML ONE ×2 (06:08→18:39)
[2020-11-30] MEDS: Mometasone 100 MCG/Formoterol 5 MCG 120 PUFF INHALER INH SCH ×2 (07:37→19:55)
--- NOTE | 2020-11-30 08:16 | RAD ---
Chest one view HISTORY: Pneumonia. Follow-up. COMPARISON: 11/29/2020. FINDINGS: Cardiac silhouette is magnified by projection. Pulmonary vasculature predominantly obscured by diffuse airspace and interstitial opacity throughout each lung, more pronounced at the bases, that is similar in appearance to the prior study. Mediastinum slightly shifted rightward with patient rotation. No evidence of pneumothorax. IMPRESSION : Diffuse parenchymal infiltrate and other findings are stable.
[2020-11-30] MEDS: Lorazepam 2 MG/ML VIAL SLOW IVP PRN ×2 (08:48→12:29)
[2020-11-30] MEDS: Vecuronium 10 MG VIAL IV PRN ×2 (08:48→12:29)
[2020-11-30] MEDS ORDERED: Colchicine 0.6 MG TAB PER TUBE SCH (09:00)
--- NOTE | 2020-11-30 09:06 | PRG ---
DATE OF SERVICE: 11/30/2020 This is 35 minutes critical care time. SUBJECTIVE: The patient's oxygenation is still horrible. He did receive a second dose of plasma yesterday. OBJECTIVE: VITAL SIGNS: Temperature is 100.1, pulse 96, blood pressure 126/62, 24-hour intake 2650, output 1500. HEENT: Unremarkable. NECK: No JVD. LUNGS: Inspiratory crackles bilaterally. CARDIAC: S1 and S2. Regular. ABDOMEN: Soft. EXTREMITIES: No edema. LABORATORY DATA: His chest x-ray shows bilateral dense infiltrates. Labs; white blood cell count 15.5, hematocrit 31.8, and platelet count 281. Sodium 137, potassium 3.9, chloride 103, CO2 of 28, BUN 15, creatinine 0.5, glucose 147, C-reactive protein 26.36, which is significantly higher than before. He does have some antibodies circulating to the COVID. ASSESSMENT: COVID pneumonia with acute hypoxic respiratory failure, requiring mechanical ventilation. PLAN: Continue paralysis, steroids, nebs, antibiotics. I will try to add some colchicine to see if that makes a difference. Job ID: [id number]
[2020-11-30] MEDS: Enoxaparin Sodium 40 MG/0.4 ML SYRINGE SC SCH ×2 (09:48→21:13)
[2020-11-30] MEDS: Zinc Sulfate 220 MG CAP PO SCH (09:48)
[2020-11-30] MEDS: Cholecalciferol 1,000 UNITS (25 MCG) TAB PO SCH (09:48)
[2020-11-30] MEDS: Ascorbic Acid 500 mg Chewable Tablet PO SCH (09:49)
[2020-11-30] MEDS: Dexamethasone 6 MG in Sodium Chloride 0.9% 50 ML IVPB SCH (09:49)
[2020-11-30] MEDS: Multivit, Therapeutic 1 TAB PO SCH (09:49)
[2020-11-30] MEDS: Pantoprazole 40 MG VIAL IVP SCH (09:49)
--- NOTE | 2020-11-30 15:44 | PDOC.HOSPP ---
- Subjective Encounter Date: 11/30/20 Encounter Time: 09:00 Subjective: is on vent, opens eyes to verbal stimuli, is sedated. - Objective Vital Signs & Weight: Vital Signs (12 hours) Temp Pulse Resp BP 11/30/20 15:00 79 85/56 L 11/30/20 12:00 19 11/30/20 10:48 82 85/52 L 11/30/20 10:00 20 11/30/20 08:00 100.1 F H 22 H 11/30/20 07:56 96 89/61 L 11/30/20 06:00 20 11/30/20 04:00 18 Weight Admit Weight 151 lb Weight 154 lb 5.177 oz Most Recent Monitor Data Heart Rate from ECG 77 NIBP 93/53 NIBP BP-Mean 70 Respiration from ECG 16 SpO2 99 I&O: 11/29/20 11/30/20 12/01/20 06:59 06:59 06:59 Intake Total 3046.5 2650.9 Output Total 1380 1500 150 Balance 1666.5 1150.9 -150 Result Diagrams: 11/30/20 04:00 11/30/20 04:00 Additional Labs: Accuchecks 11/30/20 11/29/20 11/29/20 10:55 21:38 18:32 POC Glucose 129 H 153 H 196 H Hospitalist ROS - Medication Medications: Active Medications Generic Name Dose Route Start Last Admin Trade Name Freq PRN Reason Stop Dose Admin Acetaminophen 650 mg 11/23/20 12:02 11/29/20 09:52 Acetaminophen 325 Mg Tab PO 650 mg Q4H PRN Administration Headache/Fever/Mild Pain (1-3) Albuterol Sulfate 2 puff 11/24/20 18:30 11/30/20 14:46 Albuterol 200 Puff (6.7gm Inhaler) INH 2 puff [id number] SUE Administration Ascorbic Acid 1,000 mg 11/24/20 09:00 11/30/20 09:49 Ascorbic Acid 500 Mg Chewable Tablet PO 1,000 mg DAILY SUE Administration Cholecalciferol 1,000 units 11/24/20 09:00 11/30/20 09:48 Cholecalciferol 1,000 Units (25 Mcg) Tab PO 1,000 units DAILY SUE Administration Colchicine 0.6 mg 11/30/20 09:00 11/30/20 09:53 Colchicine 0.6 Mg Tab PER TUBE 0.6 mg DAILY SUE Administration Enoxaparin Sodium 40 mg 11/25/20 21:00 11/30/20 09:48 Enoxaparin Sodium 40 Mg/0.4 Ml Syringe SC 40 mg BID SUE Administration Dexamethasone 6 mg/ Sodium 50.6 mls @ 100 mls/hr 11/24/20 09:00 11/30/20 09:49 Chloride IVPB 50.6 mls DAILY SUE Administration Dexmedetomidine HCl 400 mcg/ 100 mls @ 0 mls/hr 11/25/20 16:15 11/25/20 17:09 Sodium Chloride IVPB 100 mls INF SUE Administration Protocol Per Protocol Doxycycline Hyclate 100 mg/ 100 mls @ 100 mls/hr 11/25/20 21:00 11/30/20 09:49 Sodium Chloride IVPB 100 mls Q12HR SUE Administration Sodium Chloride 1,000 mls @ 50 mls/hr 11/27/20 09:15 11/30/20 04:58 1/2 Normal Saline IV 1,000 mls .Q20H SUE Administration Insulin Glargine 5 units/ 0.05 mls @ 0 mls/hr 11/29/20 21:00 11/29/20 21:21 Miscellaneous Medication SC 0.05 mls HS SUE Administration Lorazepam 2 mg 11/25/20 19:00 11/30/20 12:29 Lorazepam 2 Mg/Ml Vial SLOW IVP 12/25/20 19:00 2 mg Q1H PRN Administration Breakthrough agitation Mometasone Furoate/Formoterol Fumar 2 puff 11/23/20 18:30 11/30/20 07:37 Mometasone 100 Mcg/Formoterol 5 Mcg 120 Puff Inhaler INH 2 puff BID-RT SUE Administration Multivitamins 1 tab 11/24/20 09:00 11/30/20 09:49 Multivit, Therapeutic 1 Tab PO 1 tab DAILY SUE Administration Ondansetron HCl 4 mg 11/23/20 12:02 11/25/20 00:17 Ondansetron Pf 4 Mg/2 Ml Vial IVP 4 mg Q6H PRN Administration Nausea/Vomiting Pantoprazole Sodium 40 mg 11/27/20 09:00 11/30/20 09:49 Pantoprazole 40 Mg Vial IVP 40 mg DAILY SUE Administration Propofol 1,000 mg 11/25/20 19:00 11/30/20 14:09 Propofol 1,000 Mg/100 Ml Vial IV 12/25/20 19:00 1,000 mg INF PRN Administration TO ACHIEVE GOAL RASS Protocol Senna/Docusate Sodium 2 tab 11/23/20 12:02 11/24/20 20:56 Senokot S 8.6-50 Mg Tab PO 2 tab BIDPRN PRN Administration Constipation Sodium Chloride 10 ml 11/23/20 21:00 11/30/20 09:49 Flush - Normal Saline 10 Ml Syringe IVF 10 ml Q12HR SUE Administration Vecuronium [place] 10 mg 11/25/20 18:58 11/30/20 12:29 Vecuronium 10 Mg Vial IV 10 mg Q30MIN PRN Administration .VENT COMPLIANCE Zinc Sulfate 220 mg 11/24/20 09:00 11/30/20 09:48 Zinc Sulfate 220 Mg Cap PO 220 mg DAILY SUE Administration Hospitalist Exam Vitals: Vital Signs (12 hours) Temp Pulse Resp BP 11/30/20 15:00 79 85/56 L 11/30/20 12:00 19 11/30/20 10:48 82 85/52 L 11/30/20 10:00 20 11/30/20 08:00 100.1 F H 22 H 11/30/20 07:56 96 89/61 L 11/30/20 06:00 20 11/30/20 04:00 18 Weight Admit Weight 151 lb Weight 154 lb 5.177 oz Most Recent Monitor Data Heart Rate from ECG 77 NIBP 93/53 NIBP BP-Mean 70 Respiration from ECG 16 SpO2 99 General Appearance: ill appearing Eye: PERRL, anicteric sclera ENT: no oropharyngeal lesions, dry oral mucosa Neck: supple, no JVD Heart: RRR, no murmur Respiratory: no wheezes, rales, rhonchi Gastrointestinal: soft, non-tender, non-distended, normal bowel sounds Extremities: no cyanosis, no edema Neurological: cranial nerve grossly intact, no focal deficits Hosp A/P (1) Pneumonia due to COVID-19 virus Code(s): U07.1 - COVID-19; J12.82 - PNEUMONIA DUE TO CORONAVIRUS DISEASE 2019 Status: Acute (2) Acute respiratory failure with hypoxia Code(s): J96.01 - ACUTE RESPIRATORY FAILURE WITH HYPOXIA Status: Acute (3) Glucose intolerance Code(s): E74.39 - OTHER DISORDERS OF INTESTINAL CARBOHYDRATE ABSORPTION Status: Acute (4) Osteoporosis Code(s): M81.0 - AGE-RELATED OSTEOPOROSIS W/O CURRENT PATHOLOGICAL FRACTURE Status: Chronic Qualifiers: Osteoporosis type: age-related Presence of current pathological fracture: without current pathological fracture Qualified Code(s): M81.0 - Age-related osteoporosis without current pathological fracture - Plan has finished course of remdesivir and 2 doses plasma, continue dexamethasone, alb and dulera inh, doxy, lovenox dvt prophylaxis and protonix low dose lantus at bedtime for glucose intolerance due to steroids. prognosis guarded inflammatory markers are up again ? d/w (daughter) and gave full updates. gentle hydration, may dc if he is volume up. sbp around 90-130. weaning per pulm advice, his fio2 requirement is increasing steadily. day 14 of illness onset, day 4 on vent (got intubated on 11/26)
[2020-11-30] MEDS: Insulin Glargine 5 UNITS in Pre-Filled Syringe 1 EACH SC SCH (21:49)
[2020-12-01] MEDS: Propofol 1,000 MG/100 ML VIAL IV PRN ×5 (00:59→21:43)
[2020-12-01] MEDS: Albuterol 200 PUFF (6.7GM INHALER) INH SCH ×6 (02:35→22:36)
[2020-12-01 04:11] LABS: Band 5 % (5-11); Hemoglobin 11.4 g/dL (14.0-18.0); Lymphocytes 3 % (21-51); MDiff Complete? YES; Mean Corpuscular HGB CONC 32.5 g/dL (32.0-36.0); Mean Corpuscular Hemoglobin 31.2 pg (27.0-31.0); Mean Corpuscular Volume 96.1 fL (78.0-98.0); Monocytes 3 % (0-10); Neutrophil 89 % (42-75); Platelet Count 250 thou/uL (130-400); Platelet Morphology Comment Appears Adequate; RBC Distribution Width 13.5 % (11.5-14.5); Red Blood Cell (RBC) Count 3.67 mill/uL (4.70-6.10); White Blood Cell (WBC) Count 10.3 thou/uL (4.8-10.8)
[2020-12-01 04:29] LABS: ALT (SGPT) 32 U/L (8-55); AST (SGOT) 36 U/L (5-34); Albumin 2.2 g/dL (3.4-4.8); Alkaline Phosphatase 72 U/L (40-110); Anion Gap 10 mmol/L (10-20); BUN (Urea Nitrogen) 18 mg/dL (8.4-25.7); Bilirubin, Total 0.5 mg/dL (0.2-1.2); Calc. Creatinine Clearance 150 mL/min (70-130); Calcium 7.1 mg/dL (7.8-10.44); Carbon Dioxide 29 mmol/L (23-31); Chloride 102 mmol/L (98-107); Globulin 3.2 g/dL (2.4-3.5); Glucose 160 mg/dL (80-115); Potassium 4.2 mmol/L (3.5-5.1); Protein, Total 5.4 g/dL (5.8-8.1); Sodium 137 mmol/L (136-145)
[2020-12-01] MEDS: Vecuronium 10 MG VIAL IV PRN ×4 (05:23→21:10)
[2020-12-01] MEDS ORDERED: Fentanyl CADD 100 ML ONE ×2 (05:53→17:23)
[2020-12-01] MEDS: Fentanyl CADD 100 ML IV SCH (05:55)
[2020-12-01] MEDS: Lorazepam 2 MG/ML VIAL SLOW IVP PRN ×3 (06:27→22:00)
[2020-12-01] MEDS: Mometasone 100 MCG/Formoterol 5 MCG 120 PUFF INHALER INH SCH ×2 (07:24→19:15)
--- NOTE | 2020-12-01 08:05 | PRG ---
DATE OF SERVICE: 12/01/2020 TIME SPENT: This is 30 minutes of critical care time. SUBJECTIVE: Mr. Collins remains intubated on mechanical ventilation. He is in a supine position. His current ventilator settings are assist control, rate 20, tidal volume 460, PEEP 12, FiO2 of 80%. I intentionally lowered his tidal volume this morning because his peak pressures returning toward 40. OBJECTIVE: VITAL SIGNS: Temperature 98.6, pulse 100, blood pressure 113/69. His total intake for the last 24 hours was 2909, output 1414. Weight currently listed at 154 pounds. HEENT: Unremarkable. NECK: No JVD. LUNGS: Coarse rhonchi. CARDIOVASCULAR: S1, S2. Regular. ABDOMEN: Soft and nontender. EXTREMITIES: Edematous. LABORATORY DATA: Sodium 137, potassium 4.2, chloride 102, CO2 of 29, BUN 18, creatinine 0.5, glucose 116. White blood cell count 10.3, hematocrit 35.2, and platelet count 250. His x-ray continues to show dense bilateral infiltrates. ASSESSMENT: 1. COVID-19 pneumonia. 2. Acute hypoxic respiratory failure requiring mechanical ventilation. PLAN: At this point, he is far from being weanable. He is continuing on antibiotics, anticoagulation, dexamethasone. I added colchicine yesterday. I will actually increase that to twice daily dose. I have been speaking with his daughter over the phone. Job ID: [id number]
--- NOTE | 2020-12-01 08:34 | RAD ---
CHEST 1 VIEW: Date: 12/01/2020 INDICATION: History of daily CCU examination. COMPARISON: Prior exam dated 11/30/2020. IMPRESSION: There is worsening bilateral air space disease. ET tube and gastric catheter are unchanged. No pneumo thorax demonstrated. No definite pleural effusion is noted. Cardiac silhouette is largely obscured. POS: BH
[2020-12-01] MEDS: Zinc Sulfate 220 MG CAP PO SCH (09:41)
[2020-12-01] MEDS: Multivit, Therapeutic 1 TAB PO SCH (09:41)
[2020-12-01] MEDS: Colchicine 0.6 MG TAB PER TUBE SCH ×2 (09:41→21:01)
[2020-12-01] MEDS: Ascorbic Acid 500 mg Chewable Tablet PO SCH (09:41)
[2020-12-01] MEDS: Enoxaparin Sodium 40 MG/0.4 ML SYRINGE SC SCH ×2 (09:43→21:01)
[2020-12-01] MEDS: Pantoprazole 40 MG VIAL IVP SCH (09:43)
[2020-12-01] MEDS: Dexamethasone 6 MG in Sodium Chloride 0.9% 50 ML IVPB SCH (09:43)
[2020-12-01] MEDS: Cholecalciferol 1,000 UNITS (25 MCG) TAB PO SCH (09:51)
--- NOTE | 2020-12-01 17:17 | PDOC.HOSPP ---
- Subjective Encounter Date: 12/01/20 Encounter Time: 10:45 Subjective: is on vent, sedated not in distress - Objective Vital Signs & Weight: Vital Signs (12 hours) Temp Pulse Resp BP Pulse Ox 12/01/20 15:57 65 106/63 12/01/20 14:00 20 12/01/20 12:00 98.8 F 22 H 12/01/20 10:00 22 H 12/01/20 08:00 98.9 F 20 94 L 12/01/20 07:56 73 101/58 L 12/01/20 06:00 25 H Weight Admit Weight 151 lb Weight 2.49 oz Most Recent Monitor Data Heart Rate from ECG 76 NIBP 110/60 NIBP BP-Mean 71 Respiration from ECG 20 SpO2 92 I&O: 11/30/20 12/01/20 12/02/20 06:59 06:59 06:59 Intake Total 2650.9 2909.2 180 Output Total 1500 1412 507 Balance 1150.9 1497.2 -327 Result Diagrams: 12/01/20 03:45 12/01/20 03:45 Additional Labs: Accuchecks 12/01/20 11/30/20 11:22 21:31 POC Glucose 130 H 154 H Hospitalist ROS - Medication Medications: Active Medications Generic Name Dose Route Start Last Admin Trade Name Kelsey PRN Reason Stop Dose Admin Acetaminophen 650 mg 11/23/20 12:02 11/29/20 09:52 Acetaminophen 325 Mg Tab PO 650 mg Q4H PRN Administration Headache/Fever/Mild Pain (1-3) Albuterol Sulfate 2 puff 11/24/20 18:30 12/01/20 15:32 Albuterol 200 Puff (6.7gm Inhaler) INH 2 puff [id number] SUE Administration Ascorbic Acid 1,000 mg 11/24/20 09:00 12/01/20 09:41 Ascorbic Acid 500 Mg Chewable Tablet PO 1,000 mg DAILY SUE Administration Cholecalciferol 1,000 units 11/24/20 09:00 12/01/20 09:51 Cholecalciferol 1,000 Units (25 Mcg) Tab PO 1,000 units DAILY SUE Administration Colchicine 0.6 mg 12/01/20 09:00 12/01/20 09:41 Colchicine 0.6 Mg Tab PER TUBE 0.6 mg BID SUE Administration Enoxaparin Sodium 40 mg 11/25/20 21:00 12/01/20 09:43 Enoxaparin Sodium 40 Mg/0.4 Ml Syringe SC 40 mg BID SUE Administration Dexamethasone 6 mg/ Sodium 50.6 mls @ 100 mls/hr 11/24/20 09:00 12/01/20 09:43 Chloride IVPB 50.6 mls DAILY SUE Administration Dexmedetomidine HCl 400 mcg/ 100 mls @ 0 mls/hr 11/25/20 16:15 11/25/20 17:09 Sodium Chloride IVPB 100 mls INF SUE Administration Protocol Per Protocol Doxycycline Hyclate 100 mg/ 100 mls @ 100 mls/hr 11/25/20 21:00 12/01/20 09:46 Sodium Chloride IVPB 100 mls Q12HR SUE Administration Fentanyl 100 mls @ 0 mls/hr 11/25/20 19:00 12/01/20 05:55 Fentanyl Cadd IV 12/25/20 19:00 100 mls INF SUE Administration Protocol Per Protocol Insulin Glargine 5 units/ 0.05 mls @ 0 mls/hr 11/29/20 21:00 11/30/20 21:49 Miscellaneous Medication SC 0.05 mls HS SUE Administration Lorazepam 2 mg 11/25/20 19:00 12/01/20 13:39 Lorazepam 2 Mg/Ml Vial SLOW IVP 12/25/20 19:00 2 mg Q1H PRN Administration Breakthrough agitation Mometasone Furoate/Formoterol Fumar 2 puff 11/23/20 18:30 12/01/20 07:24 Mometasone 100 Mcg/Formoterol 5 Mcg 120 Puff Inhaler INH 2 puff BID-RT SUE Administration Multivitamins 1 tab 11/24/20 09:00 12/01/20 09:41 Multivit, Therapeutic 1 Tab PO 1 tab DAILY SUE Administration Ondansetron HCl 4 mg 11/23/20 12:02 11/25/20 00:17 Ondansetron Pf 4 Mg/2 Ml Vial IVP 4 mg Q6H PRN Administration Nausea/Vomiting Propofol 1,000 mg 11/25/20 19:00 12/01/20 16:32 Propofol 1,000 Mg/100 Ml Vial IV 12/25/20 19:00 1,000 mg INF PRN Administration TO ACHIEVE GOAL RASS Protocol Senna/Docusate Sodium 2 tab 11/23/20 12:02 11/24/20 20:56 Senokot S 8.6-50 Mg Tab PO 2 tab BIDPRN PRN Administration Constipation Sodium Chloride 10 ml 11/23/20 21:00 12/01/20 09:44 Flush - Normal Saline 10 Ml Syringe IVF 10 ml Q12HR SUE Administration Vecuronium [place] 10 mg 11/25/20 18:58 12/01/20 13:39 Vecuronium 10 Mg Vial IV 10 mg Q30MIN PRN Administration .VENT COMPLIANCE Zinc Sulfate 220 mg 11/24/20 09:00 12/01/20 09:41 Zinc Sulfate 220 Mg Cap PO 220 mg DAILY SUE Administration Hospitalist Exam Vitals: Vital Signs (12 hours) Temp Pulse Resp BP Pulse Ox 12/01/20 15:57 65 106/63 12/01/20 14:00 20 12/01/20 12:00 98.8 F 22 H 12/01/20 10:00 22 H 12/01/20 08:00 98.9 F 20 94 L 12/01/20 07:56 73 101/58 L 12/01/20 06:00 25 H Weight Admit Weight 151 lb Weight 2.49 oz Most Recent Monitor Data Heart Rate from ECG 76 NIBP 110/60 NIBP BP-Mean 71 Respiration from ECG 20 SpO2 92 General Appearance: ill appearing Eye: PERRL, anicteric sclera ENT: no oropharyngeal lesions, moist mucosa Neck: supple, no JVD Heart: RRR, no murmur Respiratory: no wheezes, rales, rhonchi Gastrointestinal: soft, non-tender, non-distended, normal bowel sounds Extremities: no cyanosis, 1+ LE edema Neurological: cranial nerve grossly intact, no focal deficits Hosp A/P (1) Pneumonia due to COVID-19 virus Code(s): U07.1 - COVID-19; J12.82 - PNEUMONIA DUE TO CORONAVIRUS DISEASE 2019 Status: Acute (2) Acute respiratory failure with hypoxia Code(s): J96.01 - ACUTE RESPIRATORY FAILURE WITH HYPOXIA Status: Acute (3) Glucose intolerance Code(s): E74.39 - OTHER DISORDERS OF INTESTINAL CARBOHYDRATE ABSORPTION Status: Acute (4) Osteoporosis Code(s): M81.0 - AGE-RELATED OSTEOPOROSIS W/O CURRENT PATHOLOGICAL FRACTURE Status: Chronic Qualifiers: Osteoporosis type: age-related Presence of current pathological fracture: without current pathological fracture Qualified Code(s): M81.0 - Age-related osteoporosis without current pathological fracture - Plan has finished course of remdesivir and 2 doses plasma, continue dexamethasone, alb and dulera inh, colchicine, doxy, lovenox dvt prophylaxis and protonix low dose lantus at bedtime for glucose intolerance due to steroids. prognosis guarded inflammatory markers are up again ? d/w (daughter) and gave full updates. weaning per pulm advice, his fio2 requirement is increasing steadily, currenlty 80%. day 15 of illness onset, day 5 on vent (got intubated on 11/26)
[2020-12-01] MEDS: Insulin Glargine 5 UNITS in Pre-Filled Syringe 1 EACH SC SCH (21:43)
[2020-12-02] MEDS: Albuterol 200 PUFF (6.7GM INHALER) INH SCH ×6 (01:11→22:03)
[2020-12-02] MEDS: Propofol 1,000 MG/100 ML VIAL IV PRN ×4 (03:43→19:53)
[2020-12-02 04:28] LABS: ALT (SGPT) 34 U/L (8-55); AST (SGOT) 41 U/L (5-34); Albumin 2.1 g/dL (3.4-4.8); Alkaline Phosphatase 82 U/L (40-110); Anion Gap 11 mmol/L (10-20); BUN (Urea Nitrogen) 20 mg/dL (8.4-25.7); Bilirubin, Total 0.5 mg/dL (0.2-1.2); Calc. Creatinine Clearance 0 mL/min (70-130); Calcium 7.1 mg/dL (7.8-10.44); Carbon Dioxide 30 mmol/L (23-31); Chloride 102 mmol/L (98-107); Globulin 3.2 g/dL (2.4-3.5); Glucose 149 mg/dL (80-115); Potassium 4.4 mmol/L (3.5-5.1); Protein, Total 5.3 g/dL (5.8-8.1); Sodium 139 mmol/L (136-145)
[2020-12-02 04:38] LABS: Band 12 % (5-11); Hemoglobin 11.4 g/dL (14.0-18.0); Hypochromia SLIGHT = 6-15 cells (100X) (0-5/hpf); Lymphocytes 5 % (21-51); MDiff Complete? YES; Mean Corpuscular Hemoglobin 30.4 pg (27.0-31.0); Mean Platelet Volume 8.3 fL (7.4-10.4); Monocytes 4 % (0-10); Neutrophil 79 % (42-75); Platelet Count 240 thou/uL (130-400); Platelet Morphology Comment Appears Adequate; RBC Distribution Width 13.4 % (11.5-14.5); Red Blood Cell (RBC) Count 3.75 mill/uL (4.70-6.10); White Blood Cell (WBC) Count 12.9 thou/uL (4.8-10.8)
[2020-12-02] MEDS: Lorazepam 2 MG/ML VIAL SLOW IVP PRN ×3 (05:12→23:45)
[2020-12-02] MEDS: Vecuronium 10 MG VIAL IV PRN ×3 (05:20→18:50)
[2020-12-02] MEDS ORDERED: Fentanyl CADD 100 ML ONE ×2 (05:22→16:46)
[2020-12-02] MEDS: Mometasone 100 MCG/Formoterol 5 MCG 120 PUFF INHALER INH SCH ×2 (07:10→19:33)
--- NOTE | 2020-12-02 08:36 | RAD ---
EXAM: CHEST ONE VIEW HISTORY: None follow-up evaluation. On ventilator. COMPARISON: 12/01/2020 FINDINGS: Endotracheal tube and nasogastric tubes remain in place. There are diffuse bilateral airspace opaciti es, there does appear to be mild improvement in aeration when compared to the prior exam. No pleural effusion is seen. No other interval change. IMPRESSION: Mild improvement in aeration at the lungs bilaterally, but there are persistent diffuse increased int erstitial and groundglass opacities throughout the lungs bilaterally.
[2020-12-02] MEDS: Enoxaparin Sodium 40 MG/0.4 ML SYRINGE SC SCH ×2 (09:26→21:36)
[2020-12-02] MEDS: Pantoprazole 40 MG GRANULES PACKET PER TUBE SCH (09:27)
[2020-12-02] MEDS: Ascorbic Acid 500 mg Chewable Tablet PO SCH (09:28)
[2020-12-02] MEDS: Colchicine 0.6 MG TAB PER TUBE SCH ×2 (09:28→21:36)
[2020-12-02] MEDS: Zinc Sulfate 220 MG CAP PO SCH (09:28)
[2020-12-02] MEDS: Multivit, Therapeutic 1 TAB PO SCH (09:28)
[2020-12-02] MEDS: Cholecalciferol 1,000 UNITS (25 MCG) TAB PO SCH (09:37)
[2020-12-02] MEDS: Dexamethasone 6 MG in Sodium Chloride 0.9% 50 ML IVPB SCH (10:37)
--- NOTE | 2020-12-02 15:20 | PDOC.HOSPP ---
- Subjective Encounter Date: 12/02/20 Encounter Time: 10:00 Subjective: sedated, is on vent, not in distress - Objective Vital Signs & Weight: Vital Signs (12 hours) Temp Pulse Resp BP 12/02/20 14:56 68 119/65 12/02/20 12:00 100.2 F H 12/02/20 10:29 70 108/64 12/02/20 08:00 99.5 F 12/02/20 07:11 72 102/60 12/02/20 05:57 23 H 12/02/20 04:00 99 F 22 H Weight Admit Weight 151 lb Weight 171 lb 15.369 oz Most Recent Monitor Data Heart Rate from ECG 70 NIBP 118/59 NIBP BP-Mean 87 Respiration from ECG 18 SpO2 95 I&O: 12/01/20 12/02/20 12/03/20 06:59 06:59 06:59 Intake Total 2909.2 2546.9 230 Output Total 1412 1752 505 Balance 1497.2 794.9 -275 Result Diagrams: 12/02/20 03:30 12/02/20 03:30 Additional Labs: Accuchecks 12/02/20 12/01/20 10:46 21:36 POC Glucose 139 H 148 H Hospitalist ROS - Medication Medications: Active Medications Generic Name Dose Route Start Last Admin Trade Name Freq PRN Reason Stop Dose Admin Acetaminophen 650 mg 11/23/20 12:02 11/29/20 09:52 Acetaminophen 325 Mg Tab PO 650 mg Q4H PRN Administration Headache/Fever/Mild Pain (1-3) Albuterol Sulfate 2 puff 11/24/20 18:30 12/02/20 14:56 Albuterol 200 Puff (6.7gm Inhaler) INH 2 puff [id number] SUE Administration Ascorbic Acid 1,000 mg 11/24/20 09:00 12/02/20 09:28 Ascorbic Acid 500 Mg Chewable Tablet PO 1,000 mg DAILY SUE Administration Cholecalciferol 1,000 units 11/24/20 09:00 12/02/20 09:37 Cholecalciferol 1,000 Units (25 Mcg) Tab PO 1,000 units DAILY SUE Administration Colchicine 0.6 mg 12/01/20 09:00 12/02/20 09:28 Colchicine 0.6 Mg Tab PER TUBE 0.6 mg BID SUE Administration Enoxaparin Sodium 40 mg 11/25/20 21:00 12/02/20 09:26 Enoxaparin Sodium 40 Mg/0.4 Ml Syringe SC 40 mg BID SUE Administration Dexamethasone 6 mg/ Sodium 50.6 mls @ 100 mls/hr 11/24/20 09:00 12/02/20 10:37 Chloride IVPB 50.6 mls DAILY SUE Administration Dexmedetomidine HCl 400 mcg/ 100 mls @ 0 mls/hr 11/25/20 16:15 11/25/20 17:09 Sodium Chloride IVPB 100 mls INF SUE Administration Protocol Per Protocol Doxycycline Hyclate 100 mg/ 100 mls @ 100 mls/hr 11/25/20 21:00 12/02/20 09:27 Sodium Chloride IVPB 100 mls Q12HR SUE Administration Fentanyl 100 mls @ 0 mls/hr 11/25/20 19:00 12/01/20 05:55 Fentanyl Cadd IV 12/25/20 19:00 100 mls INF SUE Administration Protocol Per Protocol Insulin Glargine 5 units/ 0.05 mls @ 0 mls/hr 11/29/20 21:00 12/01/20 21:43 Miscellaneous Medication SC 0.05 mls HS SUE Administration Lorazepam 2 mg 11/25/20 19:00 12/02/20 05:12 Lorazepam 2 Mg/Ml Vial SLOW IVP 12/25/20 19:00 2 mg Q1H PRN Administration Breakthrough agitation Mometasone Furoate/Formoterol Fumar 2 puff 11/23/20 18:30 12/02/20 07:10 Mometasone 100 Mcg/Formoterol 5 Mcg 120 Puff Inhaler INH 2 puff BID-RT SUE Administration Multivitamins 1 tab 11/24/20 09:00 12/02/20 09:28 Multivit, Therapeutic 1 Tab PO 1 tab DAILY SUE Administration Ondansetron HCl 4 mg 11/23/20 12:02 11/25/20 00:17 Ondansetron Pf 4 Mg/2 Ml Vial IVP 4 mg Q6H PRN Administration Nausea/Vomiting Pantoprazole Sodium 40 mg 12/02/20 09:00 12/02/20 09:27 Pantoprazole 40 Mg Granules Packet PER TUBE 40 mg DAILY SUE Administration Propofol 1,000 mg 11/25/20 19:00 12/02/20 14:31 Propofol 1,000 Mg/100 Ml Vial IV 12/25/20 19:00 1,000 mg INF PRN Administration TO ACHIEVE GOAL RASS Protocol Senna/Docusate Sodium 2 tab 11/23/20 12:02 11/24/20 20:56 Senokot S 8.6-50 Mg Tab PO 2 tab BIDPRN PRN Administration Constipation Sodium Chloride 10 ml 11/23/20 21:00 12/02/20 09:28 Flush - Normal Saline 10 Ml Syringe IVF 10 ml Q12HR SUE Administration Vecuronium [place] 10 mg 11/25/20 18:58 12/02/20 05:20 Vecuronium 10 Mg Vial IV 10 mg Q30MIN PRN Administration .VENT COMPLIANCE Zinc Sulfate 220 mg 11/24/20 09:00 12/02/20 09:28 Zinc Sulfate 220 Mg Cap PO 220 mg DAILY SUE Administration Hospitalist Exam Vitals: Vital Signs (12 hours) Temp Pulse Resp BP 12/02/20 14:56 68 119/65 12/02/20 12:00 100.2 F H 12/02/20 10:29 70 108/64 12/02/20 08:00 99.5 F 12/02/20 07:11 72 102/60 12/02/20 05:57 23 H 12/02/20 04:00 99 F 22 H Weight Admit Weight 151 lb Weight 171 lb 15.369 oz Most Recent Monitor Data Heart Rate from ECG 70 NIBP 118/59 NIBP BP-Mean 87 Respiration from ECG 18 SpO2 95 General Appearance: ill appearing Eye: PERRL, anicteric sclera ENT: no oropharyngeal lesions, dry oral mucosa Neck: supple, no JVD Heart: RRR, no murmur Respiratory: no wheezes, rales, rhonchi Gastrointestinal: soft, non-tender, non-distended, normal bowel sounds Extremities: no cyanosis, no edema Neurological: cranial nerve grossly intact, no focal deficits Hosp A/P (1) Pneumonia due to COVID-19 virus Code(s): U07.1 - COVID-19; J12.82 - PNEUMONIA DUE TO CORONAVIRUS DISEASE 2019 Status: Acute (2) Acute respiratory failure with hypoxia Code(s): J96.01 - ACUTE RESPIRATORY FAILURE WITH HYPOXIA Status: Acute (3) Glucose intolerance Code(s): E74.39 - OTHER DISORDERS OF INTESTINAL CARBOHYDRATE ABSORPTION Status: Acute (4) Osteoporosis Code(s): M81.0 - AGE-RELATED OSTEOPOROSIS W/O CURRENT PATHOLOGICAL FRACTURE Status: Chronic Qualifiers: Osteoporosis type: age-related Presence of current pathological fracture: without current pathological fracture Qualified Code(s): M81.0 - Age-related osteoporosis without current pathological fracture - Plan has finished course of remdesivir and 2 doses plasma, continue dexamethasone, alb and dulera inh, colchicine, doxy, lovenox dvt prophylaxis and protonix low dose lantus at bedtime for glucose intolerance due to steroids. prognosis guarded inflammatory markers are holding up d/w (daughter) and gave full updates. weaning per pulm advice, his fio2 requirement is increasing steadily, currenlty around 80%. day 16 of illness onset, day 6 on vent (got intubated on 11/26)
--- NOTE | 2020-12-02 20:37 | PRG ---
DATE OF SERVICE: 12/02/2020 OBJECTIVE: Mr. Collins's heart rate is in the 90s, oximetry is 95, FiO2 is 65, blood pressure 112/64. Intake and outputs positive 794. 151 reportedly and dropped to 141, which can't be accurate and is reported now as 171, which I am not sure that is accurate either. He is about 5 L ahead over the last five days. LUNGS: Remarkable for coarse equal breath sounds. HEART: Regular rhythm. ABDOMEN: Soft. EXTREMITIES: Without edema. LABORATORY DATA: White count 12.9, hemoglobin 11.4, platelets 240. Sodium 139, potassium 4.4, chloride 102, bicarb 30, BUN 20, creatinine 0.47, albumin is 2.1. Chest x-ray surprisingly has improved a little bit at the lung base, but he still has diffuse infiltrates. IMPRESSION: COVID pneumonia, now in the hospital nine days. Now that he has normal renal function, he might benefit from Lasix for a few days, so we will add this into his med list, starting tonight. We will continue to follow along with the other physicians caring for him. CRITICAL CARE TIME: 30 minutes. Job ID: [id number]
[2020-12-02] MEDS: Insulin Glargine 5 UNITS in Pre-Filled Syringe 1 EACH SC SCH (21:49)
[2020-12-03] MEDS: Propofol 1,000 MG/100 ML VIAL IV PRN ×5 (00:54→20:26)
[2020-12-03] MEDS: Albuterol 200 PUFF (6.7GM INHALER) INH SCH ×6 (01:01→22:30)
[2020-12-03] MEDS: Vecuronium 10 MG VIAL IV PRN ×5 (01:37→09:55)
[2020-12-03] MEDS: Lorazepam 2 MG/ML VIAL SLOW IVP PRN ×4 (02:21→09:55)
[2020-12-03] MEDS ORDERED: Fentanyl CADD 100 ML ONE ×2 (04:02→15:20)
[2020-12-03 04:36] LABS: ALT (SGPT) 59 U/L (8-55); AST (SGOT) 62 U/L (5-34); Albumin 2.1 g/dL (3.4-4.8); Alkaline Phosphatase 93 U/L (40-110); Anion Gap 12 mmol/L (10-20); BUN (Urea Nitrogen) 24 mg/dL (8.4-25.7); Bilirubin, Total 0.6 mg/dL (0.2-1.2); Calc. Creatinine Clearance 167 mL/min (70-130); Calcium 7.4 mg/dL (7.8-10.44); Carbon Dioxide 27 mmol/L (23-31); Chloride 103 mmol/L (98-107); Globulin 3.3 g/dL (2.4-3.5); Glucose 158 mg/dL (80-115); Potassium 4.3 mmol/L (3.5-5.1); Protein, Total 5.4 g/dL (5.8-8.1); Sodium 138 mmol/L (136-145)
[2020-12-03 05:13] LABS: Hemoglobin 12.1 g/dL (14.0-18.0); Mean Corpuscular HGB CONC 32.5 g/dL (32.0-36.0); Mean Corpuscular Hemoglobin 30.9 pg (27.0-31.0); Mean Corpuscular Volume 95.2 fL (78.0-98.0); Mean Platelet Volume 8.6 fL (7.4-10.4); Platelet Count 204 thou/uL (130-400); RBC Distribution Width 13.3 % (11.5-14.5); Red Blood Cell (RBC) Count 3.91 mill/uL (4.70-6.10); White Blood Cell (WBC) Count 16.3 thou/uL (4.8-10.8)
[2020-12-03 05:14] LABS: Band 11 % (5-11); Eosinophils 1 % (0-10); Lymphocytes 1 % (21-51); MDiff Complete? YES; Monocytes 2 % (0-10); Myelocyte 1 % (0-0); Neutrophil 84 % (42-75)
[2020-12-03] MEDS: Mometasone 100 MCG/Formoterol 5 MCG 120 PUFF INHALER INH SCH ×2 (06:57→19:07)
[2020-12-03] MEDS: Dexamethasone 6 MG in Sodium Chloride 0.9% 50 ML IVPB SCH (08:07)
[2020-12-03] MEDS: Enoxaparin Sodium 40 MG/0.4 ML SYRINGE SC SCH (08:08)
[2020-12-03] MEDS: Furosemide 40 MG/4 ML VIAL SLOW IVP SCH (08:09)
[2020-12-03] MEDS: Colchicine 0.6 MG TAB PER TUBE SCH ×2 (08:09→20:27)
[2020-12-03] MEDS: Multivit, Therapeutic 1 TAB PO SCH (08:09)
[2020-12-03] MEDS: Zinc Sulfate 220 MG CAP PO SCH (08:10)
[2020-12-03] MEDS: Cholecalciferol 1,000 UNITS (25 MCG) TAB PO SCH (08:10)
[2020-12-03] MEDS: Ascorbic Acid 500 mg Chewable Tablet PO SCH (08:10)
[2020-12-03] MEDS: Pantoprazole 40 MG GRANULES PACKET PER TUBE SCH (08:10)
--- NOTE | 2020-12-03 09:05 | PRG ---
DATE OF SERVICE: 12/03/2020 This is 35 minutes of critical care time. SUBJECTIVE: This patient remains intubated, on mechanical ventilation, really has not changed much in the last 4 or 5 days. OBJECTIVE: VITAL SIGNS: Temperature 100.3, pulse 101, blood pressure 112/62, O2 saturation running in the low 90s on 70% FiO2, on assist-control ventilation, rate 20, tidal volume 460 with a PEEP of 13. HEENT: Unremarkable. NECK: No adenopathy or JVD. LUNGS: Coarse rhonchi. CARDIAC: S1, S2. Regular. ABDOMEN: Soft. EXTREMITIES: No edema. DIAGNOSTIC DATA: No x-ray was obtained today. LABORATORY DATA: Sodium 138, potassium 4.3, chloride 103, CO2 of 27, BUN 24, creatinine 0.5, glucose 158. White blood cell count 16.3, hematocrit 37.2, and platelet count 204. ASSESSMENT: 1. COVID-19 pneumonia. 2. Acute hypoxic respiratory failure, requiring mechanical ventilation. PLAN: 1. He has had 7 days of doxycycline, so that will be stopped. 2. I have increased his enoxaparin to a therapeutic dose. 3. He is continuing tube feeds. 4. I would anticipate him being on a ventilator for a long time. Job ID: [id number]
[2020-12-03] MEDS: Acetaminophen 325 MG TAB PO PRN (12:55)
--- NOTE | 2020-12-03 15:40 | PDOC.HOSPP ---
- Subjective Encounter Date: 12/03/20 Encounter Time: 10:00 Subjective: is on vent, sedated - Objective Vital Signs & Weight: Vital Signs (12 hours) Temp Pulse Resp 12/03/20 15:11 71 12/03/20 13:47 100.3 F H 12/03/20 13:25 100.3 F H 75 20 12/03/20 12:55 100.9 F H 12/03/20 12:00 100.9 F H 12/03/20 10:27 102 H 12/03/20 08:00 100.3 F H 12/03/20 06:58 103 H 12/03/20 05:45 24 H 12/03/20 04:00 98.8 F 12/03/20 03:59 27 H Weight Admit Weight 151 lb Weight 170 lb 3.15 oz Most Recent Monitor Data Heart Rate from ECG 71 NIBP 102/55 NIBP BP-Mean 66 Respiration from ECG 21 SpO2 96 I&O: 12/02/20 12/03/20 12/04/20 06:59 06:59 06:59 Intake Total 2546.9 1893 315 Output Total 1752 1480 1030 Balance 794.9 687 -736 Result Diagrams: 12/03/20 03:36 12/03/20 03:36 Additional Labs: Accuchecks 12/03/20 12/02/20 08:30 21:47 POC Glucose 133 H 154 H Hospitalist ROS - Medication Medications: Active Medications Generic Name Dose Route Start Last Admin Trade Name Freq PRN Reason Stop Dose Admin Acetaminophen 650 mg 11/23/20 12:02 12/03/20 12:55 Acetaminophen 325 Mg Tab PO 650 mg Q4H PRN Administration Headache/Fever/Mild Pain (1-3) Albuterol Sulfate 2 puff 11/24/20 18:30 12/03/20 15:01 Albuterol 200 Puff (6.7gm Inhaler) INH 2 puff [id number] SUE Administration Ascorbic Acid 1,000 mg 11/24/20 09:00 12/03/20 08:10 Ascorbic Acid 500 Mg Chewable Tablet PO 1,000 mg DAILY SUE Administration Cholecalciferol 1,000 units 11/24/20 09:00 12/03/20 08:10 Cholecalciferol 1,000 Units (25 Mcg) Tab PO 1,000 units DAILY SUE Administration Colchicine 0.6 mg 12/01/20 09:00 12/03/20 08:09 Colchicine 0.6 Mg Tab PER TUBE 0.6 mg BID SUE Administration Furosemide 40 mg 12/03/20 09:00 12/03/20 08:09 Furosemide 40 Mg/4 Ml Vial SLOW IVP 40 mg DAILY SUE Administration Dexamethasone 6 mg/ Sodium 50.6 mls @ 100 mls/hr 11/24/20 09:00 12/03/20 08:07 Chloride IVPB 50.6 mls DAILY SUE Administration Dexmedetomidine HCl 400 mcg/ 100 mls @ 0 mls/hr 11/25/20 16:15 11/25/20 17:09 Sodium Chloride IVPB 100 mls INF SUE Administration Protocol Per Protocol Fentanyl 100 mls @ 0 mls/hr 11/25/20 19:00 12/01/20 05:55 Fentanyl Cadd IV 12/25/20 19:00 100 mls INF SUE Administration Protocol Per Protocol Insulin Glargine 5 units/ 0.05 mls @ 0 mls/hr 11/29/20 21:00 12/02/20 21:49 Miscellaneous Medication SC 0.05 mls HS SUE Administration Lorazepam 2 mg 11/25/20 19:00 12/03/20 09:55 Lorazepam 2 Mg/Ml Vial SLOW IVP 12/25/20 19:00 2 mg Q1H PRN Administration Breakthrough agitation Mometasone Furoate/Formoterol Fumar 2 puff 11/23/20 18:30 12/03/20 06:57 Mometasone 100 Mcg/Formoterol 5 Mcg 120 Puff Inhaler INH 2 puff BID-RT SUE Administration Multivitamins 1 tab 11/24/20 09:00 12/03/20 08:09 Multivit, Therapeutic 1 Tab PO 1 tab DAILY SUE Administration Ondansetron HCl 4 mg 11/23/20 12:02 11/25/20 00:17 Ondansetron Pf 4 Mg/2 Ml Vial IVP 4 mg Q6H PRN Administration Nausea/Vomiting Pantoprazole Sodium 40 mg 12/02/20 09:00 12/03/20 08:10 Pantoprazole 40 Mg Granules Packet PER TUBE 40 mg DAILY SUE Administration Propofol 1,000 mg 11/25/20 19:00 12/03/20 15:10 Propofol 1,000 Mg/100 Ml Vial IV 12/25/20 19:00 1,000 mg INF PRN Administration TO ACHIEVE GOAL RASS Protocol Senna/Docusate Sodium 2 tab 11/23/20 12:02 11/24/20 20:56 Senokot S 8.6-50 Mg Tab PO 2 tab BIDPRN PRN Administration Constipation Sodium Chloride 10 ml 11/23/20 21:00 12/03/20 09:57 Flush - Normal Saline 10 Ml Syringe IVF 10 ml Q12HR SUE Administration Sodium Chloride 10 ml 11/23/20 12:45 12/03/20 09:57 Flush - Normal Saline 10 Ml Syringe IVF 10 ml PRN PRN Administration Saline Flush Vecuronium [place] 10 mg 11/25/20 18:58 12/03/20 09:55 Vecuronium 10 Mg Vial IV 10 mg Q30MIN PRN Administration .VENT COMPLIANCE Zinc Sulfate 220 mg 11/24/20 09:00 12/03/20 08:10 Zinc Sulfate 220 Mg Cap PO 220 mg DAILY SUE Administration Hospitalist Exam Vitals: Vital Signs (12 hours) Temp Pulse Resp 12/03/20 15:11 71 12/03/20 13:47 100.3 F H 12/03/20 13:25 100.3 F H 75 20 12/03/20 12:55 100.9 F H 12/03/20 12:00 100.9 F H 12/03/20 10:27 102 H 12/03/20 08:00 100.3 F H 12/03/20 06:58 103 H 12/03/20 05:45 24 H 12/03/20 04:00 98.8 F 12/03/20 03:59 27 H Weight Admit Weight 151 lb Weight 170 lb 3.15 oz Most Recent Monitor Data Heart Rate from ECG 71 NIBP 102/55 NIBP BP-Mean 66 Respiration from ECG 21 SpO2 96 General Appearance: ill appearing Eye: PERRL, anicteric sclera ENT: no oropharyngeal lesions, dry oral mucosa Neck: supple, no JVD Heart: RRR, no murmur Respiratory: no wheezes, rales, rhonchi Gastrointestinal: soft, non-tender, non-distended, normal bowel sounds Extremities: no cyanosis, 1+ LE edema Neurological: cranial nerve grossly intact, no focal deficits Hosp A/P (1) Pneumonia due to COVID-19 virus Code(s): U07.1 - COVID-19; J12.82 - PNEUMONIA DUE TO CORONAVIRUS DISEASE 2019 Status: Acute (2) Acute respiratory failure with hypoxia Code(s): J96.01 - ACUTE RESPIRATORY FAILURE WITH HYPOXIA Status: Acute (3) Glucose intolerance Code(s): E74.39 - OTHER DISORDERS OF INTESTINAL CARBOHYDRATE ABSORPTION Status: Acute (4) Osteoporosis Code(s): M81.0 - AGE-RELATED OSTEOPOROSIS W/O CURRENT PATHOLOGICAL FRACTURE Status: Chronic Qualifiers: Osteoporosis type: age-related Presence of current pathological fracture: without current pathological fracture Qualified Code(s): M81.0 - Age-related osteoporosis without current pathological fracture - Plan has finished course of remdesivir and 2 doses plasma, continue dexamethasone, lasix, alb and dulera inh, colchicine, lovenox full dose and protonix low dose lantus at bedtime for glucose intolerance due to steroids. prognosis guarded inflammatory markers are holding up d/w (daughter) and gave full updates. weaning per pulm advice, his fio2 requirement is increasing steadily, currenlty around 70%. day 17 of illness onset, day 7 on vent (got intubated on 11/26) has diuresed well with daily lasix, weight is slowly returning back to baseline will be a candidate for trach and peg on dec 07 and will be off precautions that day (21 days)
[2020-12-03] MEDS: Enoxaparin Sodium 80 MG/0.8 ML SYRINGE SC SCH (20:39)
[2020-12-03] MEDS ORDERED: Enoxaparin Sodium 40 MG/0.4 ML SYRINGE SC SCH (21:00)
[2020-12-03] MEDS: Insulin Glargine 5 UNITS in Pre-Filled Syringe 1 EACH SC SCH (21:22)
[2020-12-04] MEDS: Propofol 1,000 MG/100 ML VIAL IV PRN ×4 (01:26→16:57)
[2020-12-04] MEDS ORDERED: Fentanyl CADD 100 ML ONE (01:49)
[2020-12-04] MEDS: Albuterol 200 PUFF (6.7GM INHALER) INH SCH ×6 (03:35→22:06)
[2020-12-04] MEDS: Lorazepam 2 MG/ML VIAL SLOW IVP PRN ×6 (04:23→21:34)
[2020-12-04 04:42] LABS: ALT (SGPT) 57 U/L (8-55); AST (SGOT) 41 U/L (5-34); Alkaline Phosphatase 85 U/L (40-110); Anion Gap 12 mmol/L (10-20); BUN (Urea Nitrogen) 21 mg/dL (8.4-25.7); Bilirubin, Total 0.4 mg/dL (0.2-1.2); CRP (Inflammatory) 18.14 mg/dL (= or < 0.5); Calc. Creatinine Clearance 192 mL/min (70-130); Calcium 7.3 mg/dL (7.8-10.44); Carbon Dioxide 29 mmol/L (23-31); Chloride 102 mmol/L (98-107); Globulin 3.3 g/dL (2.4-3.5); Glucose 110 mg/dL (80-115); Potassium 4.3 mmol/L (3.5-5.1); Protein, Total 5.3 g/dL (5.8-8.1); Sodium 139 mmol/L (136-145)
[2020-12-04 04:43] LABS: Band 16 % (5-11); Eosinophils 1 % (0-10); Hemoglobin 11.7 g/dL (14.0-18.0); Lymphocytes 3 % (21-51); MDiff Complete? YES; Mean Corpuscular HGB CONC 33.5 g/dL (32.0-36.0); Mean Corpuscular Hemoglobin 32.3 pg (27.0-31.0); Mean Corpuscular Volume 96.6 fL (78.0-98.0); Mean Platelet Volume 9.2 fL (7.4-10.4); Monocytes 2 % (0-10); Myelocyte 3 % (0-0); Neutrophil 75 % (42-75); Platelet Count 164 thou/uL (130-400); RBC Distribution Width 13.3 % (11.5-14.5); Red Blood Cell (RBC) Count 3.61 mill/uL (4.70-6.10)
[2020-12-04] MEDS: Vecuronium 10 MG VIAL IV PRN ×7 (05:29→21:34)
[2020-12-04] MEDS: Mometasone 100 MCG/Formoterol 5 MCG 120 PUFF INHALER INH SCH ×2 (07:20→18:10)
--- NOTE | 2020-12-04 08:42 | PRG ---
DATE OF SERVICE: 12/04/2020 35 minutes critical care time. SUBJECTIVE: The patient remains intubated on mechanical ventilation through endotracheal tube. He has had significant desaturation overnight and he is now requiring 100% oxygen. OBJECTIVE: VITAL SIGNS: His temperature is 99.2, pulse 104, blood pressure 132/67. He is requiring no vasopressors. His total intake has been 1885, output 2580. HEENT: Unremarkable. NECK: No adenopathy or JVD. LUNGS: Coarse rhonchi. CARDIOVASCULAR: S1, S2. Slightly tachycardic. ABDOMEN: Soft, nontender. EXTREMITIES: Trace edema throughout. LABORATORY DATA: White blood cell count 16, hematocrit 34.8, and platelet count 164. Sodium 139, potassium 4.3, chloride 102, CO2 of 29, BUN 21, creatinine 0.4, glucose 110. His x-ray shows diffuse bilateral infiltrates. ASSESSMENT: 1. COVID-19 pneumonia. 2. Acute hypoxic respiratory failure. PLAN: The patient really has not improved despite steroids, anticoagulation and mechanical ventilation. We will continue current treatment. I will update his daughter. His prognosis is extremely poor. Job ID: [id number]
[2020-12-04] MEDS: Enoxaparin Sodium 80 MG/0.8 ML SYRINGE SC SCH ×2 (09:37→20:45)
[2020-12-04] MEDS: Furosemide 40 MG/4 ML VIAL SLOW IVP SCH (09:38)
[2020-12-04] MEDS: Acetaminophen 325 MG TAB PO PRN (09:38)
[2020-12-04] MEDS: Multivit, Therapeutic 1 TAB PO SCH (09:38)
[2020-12-04] MEDS: Pantoprazole 40 MG GRANULES PACKET PER TUBE SCH (09:38)
[2020-12-04] MEDS: Ascorbic Acid 500 mg Chewable Tablet PO SCH (09:38)
[2020-12-04] MEDS: Zinc Sulfate 220 MG CAP PO SCH (09:39)
[2020-12-04] MEDS: Colchicine 0.6 MG TAB PER TUBE SCH ×2 (09:40→21:34)
[2020-12-04] MEDS: Dexamethasone 6 MG in Sodium Chloride 0.9% 50 ML IVPB SCH (09:40)
[2020-12-04] MEDS: Cholecalciferol 1,000 UNITS (25 MCG) TAB PO SCH (09:57)
[2020-12-04 11:11] LABS: Bacteria/HPF 1+ HPF (None Seen); Bilirubin Negative (Negative); Blood, Urine Negative (Negative); Clarity Clear (Clear); Glucose, Urine (Dipstick) Normal (Negative); Ketone, Urine Negative (Negative); Leukocyte Negative Leu/uL (Negative); Nitrite Negative (Negative); Protein, Urine (Dipstick) 30 mg/dL (Neg-Trace); Specific Gravity, Urine 1.032 (1.002-1.036); Squamous Epithelial None Seen HPF (0-3); WBC/HPF 0-3 HPF (0-3)
[2020-12-04 11:13] LABS: Urine Culture Reflex Yes Yes
[2020-12-04 11:34] LABS: Yeast-Budding 1+ HPF (None Seen)
[2020-12-04] MEDS ORDERED: Sodium Bicarbonate Tab 325 MG TAB PER TUBE PRN (13:15)
[2020-12-04] MEDS ORDERED: Pancrelipase DR 12,000 1 CAP FS PRN (13:15)
[2020-12-04] MEDS ORDERED: Sodium Chloride 0.9% 1,000 ML IV SCH (13:30)
[2020-12-04] MEDS: Vancomycin 1 GM in Premix Bag 1 BAG IVPB SCH (13:38)
--- NOTE | 2020-12-04 13:39 | RAD ---
RADIOGRAPH CHEST 1 VIEW: DATE: 12/04/2020 TIME: 4:41 AM HISTORY: 64 year old male in respiratory failure COMPARISON: 12/02/2020 FINDINGS: Very diffuse groundglass interstitial-alveolar infiltrates throughout almost all lung spivey. The lef t lower lung zone and mid lung field appears more dense than before with partial silhouetting of left hemidiaphragm with greater degree of consolidation. Left apex is relatively spared. Endotracheal tube and esophagogastric tube remain. No cardiomegaly. IMPRESSION: Diffuse bilateral severe infiltrates. Interval worsening at left lower lung zone and left midlung zon e
[2020-12-04] MEDS: MEROPENEM 1 GM/50 ML 1 GM in Premix Bag 1 BAG IVPB SCH ×2 (14:33→21:47)
[2020-12-04] MEDS: Fentanyl CADD 100 ML IV SCH (14:47)
--- NOTE | 2020-12-04 17:04 | PDOC.HOSPP ---
- Subjective Encounter Date: 12/04/20 Encounter Time: 08:15 Subjective: sedated, on vent not in distress - Objective Vital Signs & Weight: Vital Signs (12 hours) Temp Pulse Resp 12/04/20 15:07 105 H 12/04/20 12:00 100.1 F H 12/04/20 11:03 108 H 12/04/20 10:08 100 F H 12/04/20 09:38 102 F H 12/04/20 08:00 102 F H 31 H 12/04/20 07:21 100 12/04/20 06:00 27 H Weight Admit Weight 151 lb Weight 2.758 oz Most Recent Monitor Data Heart Rate from ECG 105 NIBP 97/59 NIBP BP-Mean 70 Respiration from ECG 21 SpO2 94 I&O: 12/03/20 12/04/20 12/05/20 06:59 06:59 06:59 Intake Total 1893 1885 1184 Output Total 1480 2580 605 Balance 413 -664 983 Result Diagrams: 12/04/20 03:56 12/04/20 03:56 Additional Labs: Accuchecks 12/04/20 12/04/20 12/03/20 12:14 09:21 21:21 POC Glucose 156 H 138 H 132 H Hospitalist ROS - Medication Medications: Active Medications Generic Name Dose Route Start Last Admin Trade Name Freq PRN Reason Stop Dose Admin Acetaminophen 650 mg 11/23/20 12:02 12/04/20 09:38 Acetaminophen 325 Mg Tab PO 650 mg Q4H PRN Administration Headache/Fever/Mild Pain (1-3) Albuterol Sulfate 2 puff 11/24/20 18:30 12/04/20 15:06 Albuterol 200 Puff (6.7gm Inhaler) INH 2 puff [id number] SUE Administration Lipase/Protease/Amylase 1 cap 11/27/20 19:15 12/04/20 13:[address] 12,000 1 Cap FS 1 cap .PER PROTOCOL PRN Administration TUBE OCCLUSION PROTOCOL Ascorbic Acid 1,000 mg 11/24/20 09:00 12/04/20 09:38 Ascorbic Acid 500 Mg Chewable Tablet PO 1,000 mg DAILY SUE Administration Cholecalciferol 1,000 units 11/24/20 09:00 12/04/20 09:57 Cholecalciferol 1,000 Units (25 Mcg) Tab PO 1,000 units DAILY SUE Administration Colchicine 0.6 mg 12/01/20 09:00 12/04/20 09:40 Colchicine 0.6 Mg Tab PER TUBE 0.6 mg BID SUE Administration Enoxaparin Sodium 70 mg 12/03/20 21:00 12/04/20 09:37 Enoxaparin Sodium 80 Mg/0.8 Ml Syringe SC 70 mg BID SUE Administration Furosemide 40 mg 12/03/20 09:00 12/04/20 09:38 Furosemide 40 Mg/4 Ml Vial SLOW IVP 40 mg DAILY SUE Administration Dexamethasone 6 mg/ Sodium 50.6 mls @ 100 mls/hr 11/24/20 09:00 12/04/20 09:40 Chloride IVPB 50.6 mls DAILY SUE Administration Dexmedetomidine HCl 400 mcg/ 100 mls @ 0 mls/hr 11/25/20 16:15 11/25/20 17:09 Sodium Chloride IVPB 100 mls INF SUE Administration Protocol Per Protocol Fentanyl 100 mls @ 0 mls/hr 11/25/20 19:00 12/04/20 14:47 Fentanyl Cadd IV 12/25/20 19:00 100 mls INF SUE Administration Protocol Per Protocol Insulin Glargine 5 units/ 0.05 mls @ 0 mls/hr 11/29/20 21:00 12/03/20 21:22 Miscellaneous Medication SC 0.05 mls HS SUE Administration Vancomycin HCl 1 gm/ Device 200 mls @ 200 mls/hr 12/04/20 14:00 12/04/20 13:38 IVPB 200 mls 0200,1400 SUE Administration Meropenem 1 gm/ Device 50 mls @ 200 mls/hr 12/04/20 14:00 12/04/20 14:33 IVPB 50 mls Q8HR SUE Administration Lorazepam 2 mg 11/25/20 19:00 12/04/20 13:41 Lorazepam 2 Mg/Ml Vial SLOW IVP 12/25/20 19:00 2 mg Q1H PRN Administration Breakthrough agitation Mometasone Furoate/Formoterol Fumar 2 puff 11/23/20 18:30 12/04/20 07:20 Mometasone 100 Mcg/Formoterol 5 Mcg 120 Puff Inhaler INH 2 puff BID-RT SUE Administration Multivitamins 1 tab 11/24/20 09:00 12/04/20 09:38 Multivit, Therapeutic 1 Tab PO 1 tab DAILY SUE Administration Ondansetron HCl 4 mg 11/23/20 12:02 11/25/20 00:17 Ondansetron Pf 4 Mg/2 Ml Vial IVP 4 mg Q6H PRN Administration Nausea/Vomiting Pantoprazole Sodium 40 mg 12/02/20 09:00 12/04/20 09:38 Pantoprazole 40 Mg Granules Packet PER TUBE 40 mg DAILY SUE Administration Propofol 1,000 mg 11/25/20 19:00 12/04/20 16:57 Propofol 1,000 Mg/100 Ml Vial IV 12/25/20 19:00 1,000 mg INF PRN Administration TO ACHIEVE GOAL RASS Protocol Senna/Docusate Sodium 2 tab 11/23/20 12:02 11/24/20 20:56 Senokot S 8.6-50 Mg Tab PO 2 tab BIDPRN PRN Administration Constipation Sodium Bicarbonate 650 mg 11/27/20 19:15 12/04/20 13:44 Sodium Bicarbonate Tab 325 Mg Tab PER TUBE 650 mg .PER PROTOCOL PRN Administration ENTERAL TUBE OCCLUSION Sodium Chloride 10 ml 11/23/20 21:00 12/04/20 09:39 Flush - Normal Saline 10 Ml Syringe IVF 10 ml Q12HR SUE Administration Sodium Chloride 10 ml 11/23/20 12:45 12/04/20 13:42 Flush - Normal Saline 10 Ml Syringe IVF 10 ml PRN PRN Administration Saline Flush Vecuronium [place] 10 mg 11/25/20 18:58 12/04/20 16:15 Vecuronium 10 Mg Vial IV 10 mg Q30MIN PRN Administration .VENT COMPLIANCE Zinc Sulfate 220 mg 11/24/20 09:00 12/04/20 09:39 Zinc Sulfate 220 Mg Cap PO 220 mg DAILY SUE Administration Hospitalist Exam Vitals: Vital Signs (12 hours) Temp Pulse Resp 12/04/20 15:07 105 H 12/04/20 12:00 100.1 F H 12/04/20 11:03 108 H 12/04/20 10:08 100 F H 12/04/20 09:38 102 F H 12/04/20 08:00 102 F H 31 H 12/04/20 07:21 100 12/04/20 06:00 27 H Weight Admit Weight 151 lb Weight 2.758 oz Most Recent Monitor Data Heart Rate from ECG 105 NIBP 97/59 NIBP BP-Mean 70 Respiration from ECG 21 SpO2 94 General Appearance: ill appearing Eye: PERRL, anicteric sclera ENT: no oropharyngeal lesions, moist mucosa Neck: supple, no JVD Heart: RRR, no murmur Respiratory: no wheezes, rales, rhonchi Gastrointestinal: soft, non-tender, non-distended, normal bowel sounds Extremities: no cyanosis, 1+ LE edema Neurological: cranial nerve grossly intact, no focal deficits Hosp A/P (1) Pneumonia due to COVID-19 virus Code(s): U07.1 - COVID-19; J12.82 - PNEUMONIA DUE TO CORONAVIRUS DISEASE 2019 Status: Acute (2) Acute respiratory failure with hypoxia Code(s): J96.01 - ACUTE RESPIRATORY FAILURE WITH HYPOXIA Status: Acute (3) Glucose intolerance Code(s): E74.39 - OTHER DISORDERS OF INTESTINAL CARBOHYDRATE ABSORPTION Status: Acute (4) Osteoporosis Code(s): M81.0 - AGE-RELATED OSTEOPOROSIS W/O CURRENT PATHOLOGICAL FRACTURE Status: Chronic Qualifiers: Osteoporosis type: age-related Presence of current pathological fracture: without current pathological fracture Qualified Code(s): M81.0 - Age-related osteoporosis without current pathological fracture - Plan developed fever of 101.0 this am, mcgill cultures were taken, start merrem and vanc has finished course of remdesivir and 2 doses plasma, continue dexamethasone, lasix, alb and dulera inh, colchicine, lovenox full dose and protonix low dose lantus at bedtime for glucose intolerance due to steroids. prognosis guarded inflammatory markers are still high d/w (daughter) and gave full updates. weaning per pulm advice, his fio2 requirement is increasing steadily, currenlty around 80%. day 18 of illness onset, day 8 on vent (got intubated on 11/26) has diuresed well with daily lasix, weight is slowly returning back to baseline will be a candidate for trach and peg on dec 07 and will be off precautions that day (21 days)
[2020-12-04] MEDS: Insulin Glargine 5 UNITS in Pre-Filled Syringe 1 EACH SC SCH (21:45)
[2020-12-05] MEDS: Propofol 1,000 MG/100 ML VIAL IV PRN ×4 (00:34→18:59)
[2020-12-05] MEDS: Vecuronium 10 MG VIAL IV PRN ×6 (01:34→19:38)
[2020-12-05] MEDS: Vancomycin 1 GM in Premix Bag 1 BAG IVPB SCH ×2 (02:18→14:17)
[2020-12-05] MEDS ORDERED: Fentanyl CADD 100 ML ONE ×2 (02:23→14:09)
[2020-12-05] MEDS: Albuterol 200 PUFF (6.7GM INHALER) INH SCH ×6 (03:07→22:30)
[2020-12-05 04:37] LABS: ALT (SGPT) 47 U/L (8-55); AST (SGOT) 31 U/L (5-34); Albumin 1.9 g/dL (3.4-4.8); Alkaline Phosphatase 90 U/L (40-110); Anion Gap 11 mmol/L (10-20); BUN (Urea Nitrogen) 21 mg/dL (8.4-25.7); Bilirubin, Total 0.3 mg/dL (0.2-1.2); Calc. Creatinine Clearance 0 mL/min (70-130); Calcium 7.1 mg/dL (7.8-10.44); Carbon Dioxide 31 mmol/L (23-31); Chloride 102 mmol/L (98-107); Globulin 3.1 g/dL (2.4-3.5); Glucose 130 mg/dL (80-115); Potassium 4.5 mmol/L (3.5-5.1); Sodium 139 mmol/L (136-145)
[2020-12-05 05:11] LABS: Band 13 % (5-11); Hemoglobin 10.9 g/dL (14.0-18.0); Lymphocytes 1 % (21-51); MDiff Complete? YES; Mean Corpuscular HGB CONC 31.7 g/dL (32.0-36.0); Mean Corpuscular Hemoglobin 30.5 pg (27.0-31.0); Mean Corpuscular Volume 96.3 fL (78.0-98.0); Mean Platelet Volume 9.7 fL (7.4-10.4); Myelocyte 1 % (0-0); Neutrophil 85 % (42-75); Platelet Count 170 thou/uL (130-400); RBC Distribution Width 13.8 % (11.5-14.5); Red Blood Cell (RBC) Count 3.58 mill/uL (4.70-6.10); White Blood Cell (WBC) Count 16.3 thou/uL (4.8-10.8)
[2020-12-05] MEDS: MEROPENEM 1 GM/50 ML 1 GM in Premix Bag 1 BAG IVPB SCH ×3 (05:11→21:25)
[2020-12-05] MEDS: Lorazepam 2 MG/ML VIAL SLOW IVP PRN ×4 (07:58→19:38)
[2020-12-05] MEDS: Mometasone 100 MCG/Formoterol 5 MCG 120 PUFF INHALER INH SCH ×2 (08:12→18:36)
[2020-12-05] MEDS: Enoxaparin Sodium 80 MG/0.8 ML SYRINGE SC SCH ×2 (09:40→21:00)
[2020-12-05] MEDS: Dexamethasone 6 MG in Sodium Chloride 0.9% 50 ML IVPB SCH (09:40)
[2020-12-05] MEDS: Cholecalciferol 1,000 UNITS (25 MCG) TAB PO SCH (09:41)
[2020-12-05] MEDS: Ascorbic Acid 500 mg Chewable Tablet PO SCH (09:41)
[2020-12-05] MEDS: Zinc Sulfate 220 MG CAP PO SCH (09:41)
[2020-12-05] MEDS: Furosemide 40 MG/4 ML VIAL SLOW IVP SCH (09:41)
[2020-12-05] MEDS: Multivit, Therapeutic 1 TAB PO SCH (09:41)
[2020-12-05] MEDS: Colchicine 0.6 MG TAB PER TUBE SCH ×2 (09:42→21:01)
[2020-12-05] MEDS: Pantoprazole 40 MG GRANULES PACKET PER TUBE SCH (09:42)
--- NOTE | 2020-12-05 10:07 | RAD ---
EXAM: Chest one view: HISTORY: Follow-up pneumonia COMPARISON: 12/04/2020 FINDINGS: Life support tubes in place and stable Heart size: Within normal limits. Lungs: Extensive bilateral interstitial and alveolar and groundglass opacity changes, showing slight improvement. No significant pleural effusion or pneumothorax IMPRESSION: Overall stable to slightly improving extensive bilateral parenchymal changes.
--- NOTE | 2020-12-05 11:35 | PRG ---
DATE OF SERVICE: 12/05/2020 35 minutes critical time. SUBJECTIVE: Mr. Collins remains on mechanical ventilation. He has also had sedation issues. OBJECTIVE: VITAL SIGNS: Temperature 99.8, pulse 80, blood pressure 123/71, O2 saturation 93%. He is currently on assist-control ventilation with a rate of 20, tidal volume of 460, PEEP of 15, FiO2 80%. HEENT: Unremarkable. NECK: No JVD. LUNGS: Inspiratory crackles bilaterally. CARDIAC: S1, S2, regular. Tachycardic. ABDOMEN: Soft and nontender. EXTREMITIES: Edematous. LABORATORY DATA: Chest x-ray shows bilateral infiltrates compared to 2 days ago, there may be some mild clearing. LABORATORY DATA: White blood cell count 16, hematocrit 34.5, and platelet count 170. Sodium 139, potassium 4.5, chloride 102, CO2 of 31, BUN 21, creatinine 0.5, glucose 130. ASSESSMENT: 1. COVID-19 pneumonia. 2. Acute hypoxic respiratory failure, requiring mechanical ventilation. PLAN: He is not weanable at this time. We will continue anticoagulation, steroids, mechanical ventilation, and colchicine. His blood sugar seemed to be under good control. I will add a Versed drip for breakthrough issues. Job ID: [id number]
[2020-12-05] MEDS ORDERED: Sodium Chloride 0.9% 500 ML IV SCH (12:15)
--- NOTE | 2020-12-05 14:38 | PDOC.HOSPP ---
- Subjective Encounter Date: 12/05/20 Encounter Time: 08:30 Subjective: sedated, on vent - Objective Vital Signs & Weight: Vital Signs (12 hours) Temp Pulse Resp BP 12/05/20 10:55 83 93/57 L 12/05/20 08:12 101 H 143/77 H 12/05/20 07:42 99.8 F H 12/05/20 06:00 20 12/05/20 04:00 98.7 F 20 12/05/20 03:07 77 95/57 L Weight Admit Weight 151 lb Weight 173 lb 4.533 oz Most Recent Monitor Data Heart Rate from ECG 80 NIBP 121/69 NIBP BP-Mean 88 Respiration from ECG 23 SpO2 96 I&O: 12/04/20 12/05/20 12/06/20 06:59 06:59 06:59 Intake Total 1885 3966 954 Output Total 2580 1950 1065 Balance -695 2016 - Result Diagrams: 12/05/20 03:30 12/05/20 03:30 Additional Labs: Accuchecks 12/05/20 12/04/20 10:00 21:44 POC Glucose 113 H 144 H Hospitalist ROS - Medication Medications: Active Medications Generic Name Dose Route Start Last Admin Trade Name Freq PRN Reason Stop Dose Admin Acetaminophen 650 mg 11/23/20 12:02 12/04/20 09:38 Acetaminophen 325 Mg Tab PO 650 mg Q4H PRN Administration Headache/Fever/Mild Pain (1-3) Albuterol Sulfate 2 puff 11/24/20 18:30 12/05/20 10:55 Albuterol 200 Puff (6.7gm Inhaler) INH 2 puff [id number] SUE Administration Ascorbic Acid 1,000 mg 11/24/20 09:00 12/05/20 09:41 Ascorbic Acid 500 Mg Chewable Tablet PO 1,000 mg DAILY SUE Administration Cholecalciferol 1,000 units 11/24/20 09:00 12/05/20 09:41 Cholecalciferol 1,000 Units (25 Mcg) Tab PO 1,000 units DAILY SUE Administration Colchicine 0.6 mg 12/01/20 09:00 12/05/20 09:42 Colchicine 0.6 Mg Tab PER TUBE 0.6 mg BID SUE Administration Enoxaparin Sodium 70 mg 12/03/20 21:00 12/05/20 09:40 Enoxaparin Sodium 80 Mg/0.8 Ml Syringe SC 70 mg BID SUE Administration Furosemide 40 mg 12/03/20 09:00 12/05/20 09:41 Furosemide 40 Mg/4 Ml Vial SLOW IVP 40 mg DAILY SUE Administration Dexamethasone 6 mg/ Sodium 50.6 mls @ 100 mls/hr 11/24/20 09:00 12/05/20 09:40 Chloride IVPB 50.6 mls DAILY SUE Administration Dexmedetomidine HCl 400 mcg/ 100 mls @ 0 mls/hr 11/25/20 16:15 11/25/20 17:09 Sodium Chloride IVPB 100 mls INF SUE Administration Protocol Per Protocol Fentanyl 100 mls @ 0 mls/hr 11/25/20 19:00 12/04/20 14:47 Fentanyl Cadd IV 12/25/20 19:00 100 mls INF SUE Administration Protocol Per Protocol Insulin Glargine 5 units/ 0.05 mls @ 0 mls/hr 11/29/20 21:00 12/04/20 21:45 Miscellaneous Medication SC 0.05 mls HS SUE Administration Meropenem 1 gm/ Device 50 mls @ 200 mls/hr 12/04/20 14:00 12/05/20 14:17 IVPB 50 mls Q8HR SUE Administration Vancomycin HCl 1 gm/ Device 200 mls @ 200 mls/hr 12/05/20 14:00 12/05/20 14 :17 IVPB 200 mls 0200,1400 SUE Administration Lorazepam 2 mg 11/25/20 19:00 12/05/20 12:09 Lorazepam 2 Mg/Ml Vial SLOW IVP 12/25/20 19:00 2 mg Q1H PRN Administration Breakthrough agitation Mometasone Furoate/Formoterol Fumar 2 puff 11/23/20 18:30 12/05/20 08:12 Mometasone 100 Mcg/Formoterol 5 Mcg 120 Puff Inhaler INH 2 puff BID-RT SUE Administration Multivitamins 1 tab 11/24/20 09:00 12/05/20 09:41 Multivit, Therapeutic 1 Tab PO 1 tab DAILY SUE Administration Ondansetron HCl 4 mg 11/23/20 12:02 11/25/20 00:17 Ondansetron Pf 4 Mg/2 Ml Vial IVP 4 mg Q6H PRN Administration Nausea/Vomiting Pantoprazole Sodium 40 mg 12/02/20 09:00 12/05/20 09:42 Pantoprazole 40 Mg Granules Packet PER TUBE 40 mg DAILY SUE Administration Propofol 1,000 mg 11/25/20 19:00 12/05/20 12:43 Propofol 1,000 Mg/100 Ml Vial IV 12/25/20 19:00 1,000 mg INF PRN Administration TO ACHIEVE GOAL RASS Protocol Senna/Docusate Sodium 2 tab 11/23/20 12:02 11/24/20 20:56 Senokot S 8.6-50 Mg Tab PO 2 tab BIDPRN PRN Administration Constipation Sodium Bicarbonate 650 mg 11/27/20 19:15 12/04/20 13:44 Sodium Bicarbonate Tab 325 Mg Tab PER TUBE 650 mg .PER PROTOCOL PRN Administration ENTERAL TUBE OCCLUSION Sodium Chloride 10 ml 11/23/20 21:00 12/05/20 12:11 Flush - Normal Saline 10 Ml Syringe IVF 10 ml Q12HR SUE Administration Sodium Chloride 10 ml 11/23/20 12:45 12/05/20 12:35 Flush - Normal Saline 10 Ml Syringe IVF 10 ml PRN PRN Administration Saline Flush Vecuronium [place] 10 mg 11/25/20 18:58 12/05/20 12:09 Vecuronium 10 Mg Vial IV 10 mg Q30MIN PRN Administration .VENT COMPLIANCE Zinc Sulfate 220 mg 11/24/20 09:00 12/05/20 09:41 Zinc Sulfate 220 Mg Cap PO 220 mg DAILY SUE Administration Hospitalist Exam Vitals: Vital Signs (12 hours) Temp Pulse Resp BP 12/05/20 10:55 83 93/57 L 12/05/20 08:12 101 H 143/77 H 12/05/20 07:42 99.8 F H 12/05/20 06:00 20 12/05/20 04:00 98.7 F 20 12/05/20 03:07 77 95/57 L Weight Admit Weight 151 lb Weight 173 lb 4.533 oz Most Recent Monitor Data Heart Rate from ECG 80 NIBP 121/69 NIBP BP-Mean 88 Respiration from ECG 23 SpO2 96 General Appearance: ill appearing Eye: PERRL, anicteric sclera ENT: no oropharyngeal lesions, dry oral mucosa Neck: supple, no JVD Heart: RRR, no murmur Respiratory: no wheezes, rales, rhonchi Gastrointestinal: soft, non-tender, non-distended, normal bowel sounds Extremities: no cyanosis, 1+ LE edema Neurological: cranial nerve grossly intact, no focal deficits Hosp A/P (1) Pneumonia due to COVID-19 virus Code(s): U07.1 - COVID-19; J12.82 - PNEUMONIA DUE TO CORONAVIRUS DISEASE 2019 Status: Acute (2) Acute respiratory failure with hypoxia Code(s): J96.01 - ACUTE RESPIRATORY FAILURE WITH HYPOXIA Status: Acute (3) Glucose intolerance Code(s): E74.39 - OTHER DISORDERS OF INTESTINAL CARBOHYDRATE ABSORPTION Status: Acute (4) Osteoporosis Code(s): M81.0 - AGE-RELATED OSTEOPOROSIS W/O CURRENT PATHOLOGICAL FRACTURE [place]: Chronic Qualifiers: Osteoporosis type: age-related Presence of current pathological fracture: without current pathological fracture Qualified Code(s): M81.0 - Age-related osteoporosis without current pathological fracture - Plan developed fever of 101.0 on 12/04, mcgill cultures were taken, blood cs are -ve so far, on merrem and vanc has finished course of remdesivir and 2 doses plasma, continue dexamethasone, lasix, alb and dulera inh, colchicine, lovenox full dose and protonix low dose lantus at bedtime for glucose intolerance due to steroids. prognosis guarded inflammatory markers are still high d/w (daughter) and gave full updates. weaning per pulm advice, his fio2 requirement is increasing steadily, currenlty around 80%. day 19 of illness onset, day 9 on vent (got intubated on 11/26) has diuresed well with daily lasix, weight is slowly returning back to baseline will be a candidate for trach and peg on dec 07 and will be off precautions that day (21 days)
[2020-12-05] MEDS: Senokot S 8.6-50 MG TAB PO PRN (17:20)
[2020-12-05] MEDS ORDERED: Fentanyl BOLUS 250 ML IVPB PRN (19:07)
[2020-12-05] MEDS: Insulin Glargine 5 UNITS in Pre-Filled Syringe 1 EACH SC SCH (21:37)
[2020-12-06] MEDS: Propofol 1,000 MG/100 ML VIAL IV PRN ×4 (00:29→21:37)
[2020-12-06] MEDS ORDERED: Fentanyl CADD 100 ML ONE ×2 (01:16→14:15)
[2020-12-06] MEDS: Vancomycin 1 GM in Premix Bag 1 BAG IVPB SCH ×2 (01:25→13:51)
[2020-12-06] MEDS: Albuterol 200 PUFF (6.7GM INHALER) INH SCH ×6 (02:12→18:32)
[2020-12-06 05:24] LABS: ALT (SGPT) 35 U/L (8-55); AST (SGOT) 26 U/L (5-34); Albumin 1.9 g/dL (3.4-4.8); Alkaline Phosphatase 77 U/L (40-110); Anion Gap 8 mmol/L (10-20); BUN (Urea Nitrogen) 20 mg/dL (8.4-25.7); Bilirubin, Total 0.3 mg/dL (0.2-1.2); CRP (Inflammatory) 13.81 mg/dL (= or < 0.5); Calc. Creatinine Clearance 183 mL/min (70-130); Calcium 7.1 mg/dL (7.8-10.44); Carbon Dioxide 34 mmol/L (23-31); Chloride 103 mmol/L (98-107); Glucose 116 mg/dL (80-115); Potassium 4.4 mmol/L (3.5-5.1); Protein, Total 4.9 g/dL (5.8-8.1); Sodium 141 mmol/L (136-145)
[2020-12-06] MEDS: MEROPENEM 1 GM/50 ML 1 GM in Premix Bag 1 BAG IVPB SCH ×3 (05:37→21:14)
[2020-12-06 05:59] LABS: Band 14 % (5-11); Hemoglobin 10.6 g/dL (14.0-18.0); Lymphocytes 3 % (21-51); MDiff Complete? YES; Mean Corpuscular HGB CONC 33.1 g/dL (32.0-36.0); Mean Corpuscular Hemoglobin 32.2 pg (27.0-31.0); Mean Corpuscular Volume 97.2 fL (78.0-98.0); Monocytes 2 % (0-10); Neutrophil 81 % (42-75); Platelet Count 172 thou/uL (130-400); RBC Distribution Width 13.6 % (11.5-14.5); Red Blood Cell (RBC) Count 3.28 mill/uL (4.70-6.10); White Blood Cell (WBC) Count 11.8 thou/uL (4.8-10.8)
[2020-12-06] MEDS: Mometasone 100 MCG/Formoterol 5 MCG 120 PUFF INHALER INH SCH ×2 (07:40→18:31)
[2020-12-06] MEDS: Enoxaparin Sodium 80 MG/0.8 ML SYRINGE SC SCH ×2 (08:06→21:13)
[2020-12-06] MEDS: Furosemide 40 MG/4 ML VIAL SLOW IVP SCH (08:06)
[2020-12-06] MEDS: Cholecalciferol 1,000 UNITS (25 MCG) TAB PO SCH (08:06)
[2020-12-06] MEDS: Zinc Sulfate 220 MG CAP PO SCH (08:06)
[2020-12-06] MEDS: Colchicine 0.6 MG TAB PER TUBE SCH ×2 (08:07→21:13)
[2020-12-06] MEDS: Multivit, Therapeutic 1 TAB PO SCH (08:07)
[2020-12-06] MEDS: Ascorbic Acid 500 mg Chewable Tablet PO SCH (08:07)
[2020-12-06] MEDS: Vecuronium 10 MG VIAL IV PRN ×2 (08:07→13:51)
[2020-12-06] MEDS: Pantoprazole 40 MG GRANULES PACKET PER TUBE SCH (08:07)
[2020-12-06] MEDS: Dexamethasone 6 MG in Sodium Chloride 0.9% 50 ML IVPB SCH (08:11)
--- NOTE | 2020-12-06 08:19 | RAD ---
Portable frontal chest radiograph: 12/06/2020 COMPARISON: 12/05/2020 HISTORY: Pneumonia FINDINGS: Stable endotracheal tube and nasogastric tube. Extensive interstitial and alveolar opacity noted bilaterally, right greater than left, with a basilar predominance. IMPRESSION: No significant interval change.
[2020-12-06 13:42] LABS: Vancomycin, Trough 5.4 ug/mL
[2020-12-06] MEDS: Fentanyl CADD 100 ML IV SCH (14:21)
[2020-12-06] MEDS ORDERED: Vancomycin HCl 500 MG in Sodium Chloride 0.9% 100 ML IVPB SCH (15:00)
--- NOTE | 2020-12-06 18:32 | PRG ---
DATE OF SERVICE: 12/06/2020 SUBJECTIVE: VITAL SIGNS: Mr. Collins's heart rates in the 90s, blood pressure 142/79, respiratory rates in the 20s, oximetry is 95%. LUNGS: Remarkable for coarse equal breath sounds. HEART: Regular rhythm. ABDOMEN: Soft. EXTREMITIES: Without edema. LABORATORY DATA: White count 11.8, hemoglobin 10.6, and platelets 172. Sodium 141, potassium 4.4, chloride 103, bicarb 34, BUN 20, creatinine 0.46, glucose 116. Chest x-ray is unchanged. IMPRESSION: COVID pneumonia with respiratory failure, now 13 days into his hospitalization. He had symptoms for 2 to 3 days prior to admission, so he is 15 or 16 days into this. He probably can have his isolation discontinued by the end of the week. He is currently not weanable. We will continue with current supportive care. Job ID: [id number]
[2020-12-06] MEDS: Vancomycin 1.5 GRAM/300 ML BAG 1.5 GM in Premix Bag 1 BAG IVPB SCH (21:14)
[2020-12-07] MEDS ORDERED: Vancomycin 1.5 GRAM/300 ML BAG 1.5 GM in Premix Bag 1 BAG IVPB SCH (02:00)
[2020-12-07] MEDS ORDERED: Fentanyl CADD 100 ML ONE ×2 (02:54→16:43)
[2020-12-07] MEDS: Albuterol 200 PUFF (6.7GM INHALER) INH SCH ×6 (03:08→23:03)
[2020-12-07 04:02] LABS: ALT (SGPT) 57 U/L (8-55); AST (SGOT) 53 U/L (5-34); Albumin 2.2 g/dL (3.4-4.8); Alkaline Phosphatase 97 U/L (40-110); Anion Gap 13 mmol/L (10-20); BUN (Urea Nitrogen) 19 mg/dL (8.4-25.7); Bilirubin, Total 0.4 mg/dL (0.2-1.2); Calc. Creatinine Clearance 187 mL/min (70-130); Calcium 7.4 mg/dL (7.8-10.44); Carbon Dioxide 30 mmol/L (23-31); Chloride 97 mmol/L (98-107); Globulin 3.6 g/dL (2.4-3.5); Glucose 100 mg/dL (80-115); Magnesium 2.1 mg/dL (1.6-2.6); Potassium 4.7 mmol/L (3.5-5.1); Protein, Total 5.8 g/dL (5.8-8.1); Sodium 135 mmol/L (136-145)
[2020-12-07 04:33] LABS: Band 6 % (5-11); Eosinophils 1 % (0-10); Hemoglobin 12.5 g/dL (14.0-18.0); Lymphocytes 6 % (21-51); MDiff Complete? YES; Mean Corpuscular HGB CONC 31.8 g/dL (32.0-36.0); Mean Corpuscular Hemoglobin 30.4 pg (27.0-31.0); Mean Corpuscular Volume 95.5 fL (78.0-98.0); Mean Platelet Volume 9.4 fL (7.4-10.4); Monocytes 5 % (0-10); Myelocyte 1 % (0-0); Neutrophil 81 % (42-75); Platelet Count 247 thou/uL (130-400); RBC Distribution Width 13.5 % (11.5-14.5); Red Blood Cell (RBC) Count 4.11 mill/uL (4.70-6.10); White Blood Cell (WBC) Count 14.9 thou/uL (4.8-10.8)
[2020-12-07 04:38] LABS: Phosphorus 2.5 mg/dL (2.3-4.7)
[2020-12-07] MEDS ORDERED: Propofol 1,000 MG/100 ML VIAL IV ONE (05:15)
[2020-12-07] MEDS: MEROPENEM 1 GM/50 ML 1 GM in Premix Bag 1 BAG IVPB SCH ×3 (05:18→21:08)
[2020-12-07] MEDS: Mometasone 100 MCG/Formoterol 5 MCG 120 PUFF INHALER INH SCH ×2 (07:47→18:29)
--- NOTE | 2020-12-07 07:57 | RAD ---
XR Chest 1 View Portable HISTORY: Respiratory failure COMPARISON: Previous day FINDINGS: No significant interval change is seen since the previous day's exam. IMPRESSION: Stable exam.
--- NOTE | 2020-12-07 08:30 | PRG ---
DATE OF SERVICE: 12/07/2020 30 minutes of critical care time. SUBJECTIVE: The patient remains intubated on mechanical ventilation. OBJECTIVE: VITAL SIGNS: His temperature is 99.5 with a T-max of 100.0, pulse 94, blood pressure 153/73. 24-hour intake 1725, output 3855. He is currently on assist-control ventilation rate 20, tidal volume 460, PEEP 15, FiO2 65%. HEENT: Unremarkable. NECK: No JVD. LUNGS: Coarse breath sounds. CARDIAC: S1, S2. Regular. ABDOMEN: Soft. EXTREMITIES: Edematous. IMAGING: His chest x-ray shows bilateral infiltrates, left greater than right. Comparing to several days ago, I do not think there is much difference. LABORATORY DATA: White blood cell count 14.9, hematocrit 39.3, and platelet count 247. Sodium 135, potassium 4.7, chloride 97, CO2 of 30, BUN 19, creatinine 0.4, and glucose 100. ASSESSMENT: 1. COVID-19 pneumonia. 2. Acute hypoxic respiratory failure, requiring mechanical ventilation. PLAN: Probably looking at trach sometime early next week. He is stable on current settings. He will continue the antibiotics for a full 7 days, IV steroids, and colchicine. Job ID: [id number]
[2020-12-07] MEDS: Vancomycin 1.5 GRAM/300 ML BAG 1.5 GM in Premix Bag 1 BAG IVPB SCH (08:55)
[2020-12-07] MEDS: Dexamethasone 6 MG in Sodium Chloride 0.9% 50 ML IVPB SCH (08:56)
[2020-12-07] MEDS: Furosemide 40 MG/4 ML VIAL SLOW IVP SCH (08:57)
[2020-12-07] MEDS: Enoxaparin Sodium 80 MG/0.8 ML SYRINGE SC SCH ×2 (08:57→20:41)
[2020-12-07] MEDS: Vecuronium 10 MG VIAL IV PRN ×5 (08:57→15:23)
[2020-12-07] MEDS: Pantoprazole 40 MG GRANULES PACKET PER TUBE SCH (08:57)
[2020-12-07] MEDS: Zinc Sulfate 220 MG CAP PO SCH (08:57)
[2020-12-07] MEDS: Ascorbic Acid 500 mg Chewable Tablet PO SCH (08:57)
[2020-12-07] MEDS: Cholecalciferol 1,000 UNITS (25 MCG) TAB PO SCH (08:57)
[2020-12-07] MEDS: Colchicine 0.6 MG TAB PER TUBE SCH ×2 (08:57→20:41)
[2020-12-07] MEDS: Multivit, Therapeutic 1 TAB PO SCH (08:57)
--- NOTE | 2020-12-07 11:24 | PDOC.HOSPP ---
- Subjective Encounter Date: 12/06/20 Encounter Time: 15:00 non-verbal Subjective: Patient seen and examined for respiratory failure. Remains on mechanical ventilation. Sedated. - Objective Vital Signs & Weight: Vital Signs (12 hours) Temp Pulse Resp Pulse Ox 12/07/20 08:00 99.8 F H 91 L 12/07/20 07:49 90 12/07/20 06:00 25 H 12/07/20 04:00 99.5 F 23 H 12/07/20 02:59 90 12/07/20 02:00 25 H 12/07/20 00:00 100.0 F H 22 H Weight Admit Weight 151 lb Weight 156 lb 1.396 oz Most Recent Monitor Data Heart Rate from ECG 100 NIBP 158/79 NIBP BP-Mean 95 Respiration from ECG 23 SpO2 93 I&O: 12/06/20 12/07/20 12/08/20 06:59 06:59 06:59 Intake Total 2294.25 1725.7 360 Output Total 3090 3850 1000 Balance -795.75 -2124.3 -640 Result Diagrams: 12/07/20 03:30 12/07/20 03:30 Additional Labs: Accuchecks 12/06/20 21:17 POC Glucose 104 H Abnormal Lab Results - Last 48 hrs 12/06/20 04:36: Carbon Dioxide 34 H, Anion Gap 8 L, Creatinine 0.46 L, Calcium 7.1 L, C-Reactive Protein 13.81 H, Serum Total Protein 4.9 L, Albumin 1.9 L, Albumin/Globulin Ratio 0.6 L 12/06/20 04:36: WBC 11.8 H, RBC 3.28 L, Hgb 10.6 L, Hct 31.9 L, MCH 32.2 H, Neutrophils % (Manual) 81 H, Band Neuts % (Manual) 14 H, Lymphocytes % (Manual) 3 L Microbiology - Entire Visit 12/04/20 09:25 Tracheal - Aspirate Respiratory Culture - Final 12/04/20 09:22 Venous blood - Right Hand Blood Culture - Preliminary NO GROWTH AT 48 HOURS 12/04/20 09:22 Venous blood - Left Hand Blood Culture - Preliminary NO GROWTH AT 48 HOURS 12/04/20 11:14 Urine clean catch Urine Culture - Final Yeast species 11/30/20 07:45 Venous blood - Left Hand Blood Culture - Final NO GROWTH IN 5 DAYS 11/30/20 06:45 Port - Right Brachiocephalic vein Blood Culture - Final NO GROWTH IN 5 DAYS 11/23/20 07:21 Venous blood - Right Arm Blood Culture - Final NO GROWTH IN 5 DAYS 11/23/20 07:21 Venous blood - Left Arm Blood Culture - Final NO GROWTH IN 5 DAYS Radiology Reviewed by me: Yes (Chest x-raybilateral infiltrates) EKG Reviewed by me: Yes (Sinus rhythm on telemetry) Hospitalist ROS - Review of Systems ROS unobtainable: due to mental status - Medication Medications: Active Medications Generic Name Dose Route Start Last Admin Trade Name Freq PRN Reason Stop Dose Admin Acetaminophen 650 mg 11/23/20 12:02 12/04/20 09:38 Acetaminophen 325 Mg Tab PO 650 mg Q4H PRN Administration Headache/Fever/Mild Pain (1-3) Albuterol Sulfate 2 puff 11/24/20 18:30 12/07/20 10:41 Albuterol 200 Puff (6.7gm Inhaler) INH 2 puff [id number] SUE Administration Ascorbic Acid 1,000 mg 11/24/20 09:00 12/07/20 08:57 Ascorbic Acid 500 Mg Chewable Tablet PO 1,000 mg DAILY SUE Administration Cholecalciferol 1,000 units 11/24/20 09:00 12/07/20 08:57 Cholecalciferol 1,000 Units (25 Mcg) Tab PO 1,000 units DAILY SUE Administration Colchicine 0.6 mg 12/01/20 09:00 12/07/20 08:57 Colchicine 0.6 Mg Tab PER TUBE 0.6 mg BID SUE Administration Enoxaparin Sodium 70 mg 12/03/20 21:00 12/07/20 08:57 Enoxaparin Sodium 80 Mg/0.8 Ml Syringe SC 70 mg BID SUE Administration Furosemide 40 mg 12/03/20 09:00 12/07/20 08:57 Furosemide 40 Mg/4 Ml Vial SLOW IVP 40 mg DAILY SUE Administration Dexamethasone 6 mg/ Sodium 50.6 mls @ 100 mls/hr 11/24/20 09:00 12/07/20 08:56 Chloride IVPB 50.6 mls DAILY SUE Administration Dexmedetomidine HCl 400 mcg/ 100 mls @ 0 mls/hr 11/25/20 16:15 11/25/20 17:09 Sodium Chloride IVPB 100 mls INF SUE Administration Protocol Per Protocol Insulin Glargine 5 units/ 0.05 mls @ 0 mls/hr 11/29/20 21:00 12/05/20 21:37 Miscellaneous Medication SC 0.05 mls HS SUE Administration Meropenem 1 gm/ Device 50 mls @ 100 mls/hr 12/04/20 14:00 12/07/20 05:18 IVPB 50 mls Q8HR SUE Administration Fentanyl 100 mls @ 0 mls/hr 12/05/20 19:15 12/06/20 14:21 Fentanyl Cadd IV 100 mls INF SUE Administration Protocol Per Protocol Vancomycin HCl 1.5 gm/ Device 300 mls @ 200 mls/hr 12/06/20 22:00 12/07/20 08:55 IVPB 300 mls 0600,1400,2200 SUE Administration Lorazepam 2 mg 12/05/20 19:06 12/05/20 19:38 Lorazepam 2 Mg/Ml Vial SLOW IVP 2 mg Q1H PRN Administration Breakthrough agitation Mometasone Furoate/Formoterol Fumar 2 puff 11/23/20 18:30 12/07/20 07:47 Mometasone 100 Mcg/Formoterol 5 Mcg 120 Puff Inhaler INH 2 puff BID-RT SUE Administration Multivitamins 1 tab 11/24/20 09:00 12/07/20 08:57 Multivit, Therapeutic 1 Tab PO 1 tab DAILY SUE Administration Ondansetron HCl 4 mg 11/23/20 12:02 11/25/20 00:17 Ondansetron Pf 4 Mg/2 Ml Vial IVP 4 mg Q6H PRN Administration Nausea/Vomiting Pantoprazole Sodium 40 mg 12/02/20 09:00 12/07/20 08:57 Pantoprazole 40 Mg Granules Packet PER TUBE 40 mg DAILY SUE Administration Propofol 1,000 mg 11/25/20 19:00 12/06/20 21:37 Propofol 1,000 Mg/100 Ml Vial IV 12/25/20 19:00 1,000 mg INF PRN Administration TO ACHIEVE GOAL RASS Protocol Senna/Docusate Sodium 2 tab 11/23/20 12:02 12/05/20 17:20 Senokot S 8.6-50 Mg Tab PO 2 tab BIDPRN PRN Administration Constipation Sodium Bicarbonate 650 mg 11/27/20 19:15 12/04/20 13:44 Sodium Bicarbonate Tab 325 Mg Tab PER TUBE 650 mg .PER PROTOCOL PRN Administration ENTERAL TUBE OCCLUSION Sodium Chloride 10 ml 11/23/20 21:00 12/07/20 08:58 Flush - Normal Saline 10 Ml Syringe IVF 10 ml Q12HR SUE Administration Sodium Chloride 10 ml 11/23/20 12:45 12/05/20 12:35 Flush - Normal Saline 10 Ml Syringe IVF 10 ml PRN PRN Administration Saline Flush Vecuronium [place] 10 mg 11/25/20 18:58 12/07/20 08:57 Vecuronium 10 Mg Vial IV 10 mg Q30MIN PRN Administration .VENT COMPLIANCE Zinc Sulfate 220 mg 11/24/20 09:00 12/07/20 08:57 Zinc Sulfate 220 Mg Cap PO 220 mg DAILY SUE Administration Hospitalist Exam Vitals: Vital Signs (12 hours) Temp Pulse Resp Pulse Ox 12/07/20 08:00 99.8 F H 91 L 12/07/20 07:49 90 12/07/20 06:00 25 H 12/07/20 04:00 99.5 F 23 H 12/07/20 02:59 90 12/07/20 02:00 25 H 12/07/20 00:00 100.0 F H 22 H Weight Admit Weight 151 lb Weight 156 lb 1.396 oz Most Recent Monitor Data Heart Rate from ECG 100 NIBP 158/79 NIBP BP-Mean 95 Respiration from ECG 23 SpO2 93 General Appearance: ill appearing General - other findings: On mechanical ventilation Heart: RRR, no gallops Respiratory: rales, rhonchi Gastrointestinal: no guarding, no rigidity Extremities: no cyanosis, no clubbing Neurological - other findings: Neuro/psychcannot assess due to current mentation Hosp A/P - Plan DVT proph w/lovenox, DVT proph w/SCDs Severe sepsis/acute hypoxic respiratory failure due to COVID-19 pneumonia Failed NIPPV S/p intubation on 11/25 S/p convalescent plasma S/p remdesivir Hyponatremia/hypomagnesemia/Hypophosphatemia Replaced Metabolic acidosis Elevated inflammatory markers Plan: Continue supportive care. CRP slowly improving. Will monitor CRP every 2 to 3 days. Chest x-ray in a.m. Continue dexamethasone. Will hold Lantus. Case discussed with patient's daughter over the phone
[2020-12-07] MEDS: Propofol 1,000 MG/100 ML VIAL IV PRN (11:54)
[2020-12-07 13:38] LABS: Vancomycin, Trough 35.2 ug/mL
[2020-12-07] MEDS: Fentanyl CADD 100 ML IV SCH (16:46)
--- NOTE | 2020-12-07 23:25 | PDOC.HOSPP ---
- Subjective Encounter Date: 12/07/20 Encounter Time: 17:00 non-verbal Subjective: Patient evaluated for respiratory failure. Remains on mechanical ventilation. - Objective Vital Signs & Weight: Vital Signs (12 hours) Temp Pulse Resp BP Pulse Ox 12/07/20 23:00 98.8 F 12/07/20 22:40 88 12/07/20 22:00 23 H 12/07/20 20:00 97.7 F 22 H 96 12/07/20 18:21 89 145/74 H 12/07/20 16:00 99.2 F 12/07/20 14:52 90 140/78 12/07/20 12:00 99.1 F Weight Admit Weight 151 lb Weight 156 lb 1.396 oz Most Recent Monitor Data Heart Rate from ECG 84 NIBP 121/69 NIBP BP-Mean 87 Respiration from ECG 23 SpO2 98 I&O: 12/06/20 12/07/20 12/08/20 06:59 06:59 06:59 Intake Total 2294.25 1725.7 1170.4 Output Total 3090 3850 3080 Balance -795.75 -2124.3 -1909.6 Result Diagrams: 12/07/20 03:30 12/07/20 03:30 Additional Labs: Accuchecks 12/07/20 20:54 POC Glucose 134 H Abnormal Lab Results - Last 48 hrs 12/06/20 04:36: Carbon Dioxide 34 H, Anion Gap 8 L, Creatinine 0.46 L, Calcium 7.1 L, C-Reactive Protein 13.81 H, Serum Total Protein 4.9 L, Albumin 1.9 L, Albumin/Globulin Ratio 0.6 L 12/06/20 04:36: WBC 11.8 H, RBC 3.28 L, Hgb 10.6 L, Hct 31.9 L, MCH 32.2 H, Neutrophils % (Manual) 81 H, Band Neuts % (Manual) 14 H, Lymphocytes % (Manual) 3 L 12/07/20 03:30: WBC 14.9 H, RBC 4.11 L, Hgb 12.5 L, Hct 39.3 L, MCHC 31.8 L, Neutrophils % (Manual) 81 H, Lymphocytes % (Manual) 6 L, Myelocytes % 1 H 12/07/20 03:30: Sodium 135 L, Chloride 97 L, Creatinine 0.45 L, Calcium 7.4 L, AST 53 H, ALT 57 H, Albumin 2.2 L, Globulin 3.6 H, Albumin/Globulin Ratio 0.6 L 12/07/20 13:03: Vancomycin Trough 35.2 H* Microbiology - Entire Visit 12/04/20 09:25 Tracheal - Aspirate Respiratory Culture - Final 12/04/20 09:22 Venous blood - Right Hand Blood Culture - Preliminary NO GROWTH AT 48 HOURS 12/04/20 09:22 Venous blood - Left Hand Blood Culture - Preliminary NO GROWTH AT 48 HOURS 12/04/20 11:14 Urine clean catch Urine Culture - Final Yeast species 11/30/20 07:45 Venous blood - Left Hand Blood Culture - Final NO GROWTH IN 5 DAYS 11/30/20 06:45 Port - Right Brachiocephalic vein Blood Culture - Final NO GROWTH IN 5 DAYS 11/23/20 07:21 Venous blood - Right Arm Blood Culture - Final NO GROWTH IN 5 DAYS 11/23/20 07:21 Venous blood - Left Arm Blood Culture - Final NO GROWTH IN 5 DAYS EKG Reviewed by me: Yes (Sinus rhythm on telemetry) Hospitalist ROS - Review of Systems ROS unobtainable: due to endotracheal tube - Medication Medications: Active Medications Generic Name Dose Route Start Last Admin Trade Name Freq PRN Reason Stop Dose Admin Acetaminophen 650 mg 11/23/20 12:02 12/04/20 09:38 Acetaminophen 325 Mg Tab PO 650 mg Q4H PRN Administration Headache/Fever/Mild Pain (1-3) Albuterol Sulfate 2 puff 11/24/20 18:30 12/07/20 23:03 Albuterol 200 Puff (6.7gm Inhaler) INH 2 puff [id number] SUE Administration Ascorbic Acid 1,000 mg 11/24/20 09:00 12/07/20 08:57 Ascorbic Acid 500 Mg Chewable Tablet PO 1,000 mg DAILY SUE Administration Cholecalciferol 1,000 units 11/24/20 09:00 12/07/20 08:57 Cholecalciferol 1,000 Units (25 Mcg) Tab PO 1,000 units DAILY SUE Administration Colchicine 0.6 mg 12/01/20 09:00 12/07/20 20:41 Colchicine 0.6 Mg Tab PER TUBE 0.6 mg BID SUE Administration Enoxaparin Sodium 70 mg 12/03/20 21:00 12/07/20 20:41 Enoxaparin Sodium 80 Mg/0.8 Ml Syringe SC 70 mg BID SUE Administration Furosemide 40 mg 12/03/20 09:00 12/07/20 08:57 Furosemide 40 Mg/4 Ml Vial SLOW IVP 40 mg DAILY SUE Administration Dexamethasone 6 mg/ Sodium 50.6 mls @ 100 mls/hr 11/24/20 09:00 12/07/20 08:56 Chloride IVPB 50.6 mls DAILY SUE Administration Dexmedetomidine HCl 400 mcg/ 100 mls @ 0 mls/hr 11/25/20 16:15 11/25/20 17:09 Sodium Chloride IVPB 100 mls INF SUE Administration Protocol Per Protocol Insulin Glargine 5 units/ 0.05 mls @ 0 mls/hr 11/29/20 21:00 12/05/20 21:37 Miscellaneous Medication SC 0.05 mls HS SUE Administration Meropenem 1 gm/ Device 50 mls @ 100 mls/hr 12/04/20 14:00 12/07/20 21:08 IVPB 50 mls Q8HR SUE Administration Fentanyl 100 mls @ 0 mls/hr 12/05/20 19:15 12/07/20 16:46 Fentanyl Cadd IV 100 mls INF SUE Administration Protocol Per Protocol Lorazepam 2 mg 12/05/20 19:06 12/05/20 19:38 Lorazepam 2 Mg/Ml Vial SLOW IVP 2 mg Q1H PRN Administration Breakthrough agitation Mometasone Furoate/Formoterol Fumar 2 puff 11/23/20 18:30 12/07/20 18:29 Mometasone 100 Mcg/Formoterol 5 Mcg 120 Puff Inhaler INH 2 puff BID-RT SUE Administration Multivitamins 1 tab 11/24/20 09:00 12/07/20 08:57 Multivit, Therapeutic 1 Tab PO 1 tab DAILY SUE Administration Ondansetron HCl 4 mg 11/23/20 12:02 11/25/20 00:17 Ondansetron Pf 4 Mg/2 Ml Vial IVP 4 mg Q6H PRN Administration Nausea/Vomiting Pantoprazole Sodium 40 mg 12/02/20 09:00 12/07/20 08:57 Pantoprazole 40 Mg Granules Packet PER TUBE 40 mg DAILY SUE Administration Propofol 1,000 mg 11/25/20 19:00 12/07/20 11:54 Propofol 1,000 Mg/100 Ml Vial IV 12/25/20 19:00 1,000 mg INF PRN Administration TO ACHIEVE GOAL RASS Protocol Senna/Docusate Sodium 2 tab 11/23/20 12:02 12/05/20 17:20 Senokot S 8.6-50 Mg Tab PO 2 tab BIDPRN PRN Administration Constipation Sodium Bicarbonate 650 mg 11/27/20 19:15 12/04/20 13:44 Sodium Bicarbonate Tab 325 Mg Tab PER TUBE 650 mg .PER PROTOCOL PRN Administration ENTERAL TUBE OCCLUSION Sodium Chloride 10 ml 11/23/20 21:00 12/07/20 20:42 Flush - Normal Saline 10 Ml Syringe IVF 10 ml Q12HR SUE Administration Sodium Chloride 10 ml 11/23/20 12:45 12/05/20 12:35 Flush - Normal Saline 10 Ml Syringe IVF 10 ml PRN PRN Administration Saline Flush Vecuronium [place] 10 mg 11/25/20 18:58 12/07/20 15:23 Vecuronium 10 Mg Vial IV 10 mg Q30MIN PRN Administration .VENT COMPLIANCE Zinc Sulfate 220 mg 11/24/20 09:00 12/07/20 08:57 Zinc Sulfate 220 Mg Cap PO 220 mg DAILY SUE Administration Hospitalist Exam Vitals: Vital Signs (12 hours) Temp Pulse Resp BP Pulse Ox 12/07/20 23:00 98.8 F 12/07/20 22:40 88 12/07/20 22:00 23 H 12/07/20 20:00 97.7 F 22 H 96 12/07/20 18:21 89 145/74 H 12/07/20 16:00 99.2 F 12/07/20 14:52 90 140/78 12/07/20 12:00 99.1 F Weight Admit Weight 151 lb Weight 156 lb 1.396 oz Most Recent Monitor Data Heart Rate from ECG 84 NIBP 121/69 NIBP BP-Mean 87 Respiration from ECG 23 SpO2 98 General Appearance: awake alert, ill appearing Neck: supple, no JVD Respiratory - other findings: On mechanical ventilation Neurological - other findings: Neuro/psychunable to assess due to current mentation Hosp A/P - Plan DVT proph w/SCDs Severe sepsis/acute hypoxic respiratory failure due to COVID-19 pneumonia Failed NIPPV S/p intubation on 11/25 S/p convalescent plasma S/p remdesivir Hyponatremia/hypomagnesemia/Hypophosphatemia Replaced Metabolic acidosis Elevated inflammatory markers Plan: Continue dexamethasone along with empiric antibioticsvancomycin and meropenem. Monitor vancomycin level. Continue Lasix daily per critical care. Continue Lovenox for DVT prophylaxis. Continue tube feeding.
[2020-12-08] MEDS ORDERED: Fentanyl CADD 100 ML ONE ×2 (06:20→18:30)
[2020-12-08 07:22] LABS: ALT (SGPT) 47 U/L (8-55); AST (SGOT) 32 U/L (5-34); Albumin 2.4 g/dL (3.4-4.8); Alkaline Phosphatase 86 U/L (40-110); Anion Gap 12 mmol/L (10-20); BUN (Urea Nitrogen) 20 mg/dL (8.4-25.7); Bilirubin, Total 0.6 mg/dL (0.2-1.2); Calc. Creatinine Clearance 170 mL/min (70-130); Calcium 7.5 mg/dL (7.8-10.44); Carbon Dioxide 32 mmol/L (23-31); Chloride 96 mmol/L (98-107); Globulin 3.5 g/dL (2.4-3.5); Glucose 113 mg/dL (80-115); Potassium 4.4 mmol/L (3.5-5.1); Protein, Total 5.9 g/dL (5.8-8.1); Sodium 136 mmol/L (136-145)
--- NOTE | 2020-12-08 07:31 | RAD ---
Exam: Chest one view HISTORY:Pneumonia Comparison: 12/07/2020 FINDINGS: Lines and tubes: Redemonstration of endotracheal and nasogastric tube. Cardiac silhouette: Normal Aorta: Atherosclerosis Pulmonary vessels: Normal Costophrenic angles: Clear LUNGS: Stable interstitial and alveolar opacities Pneumothorax: None Osseous abnormalities: None IMPRESSION: Stable interstitial and alveolar opacities. Multi lobar pneumonia.
[2020-12-08] MEDS: Enoxaparin Sodium 80 MG/0.8 ML SYRINGE SC SCH ×2 (08:16→20:18)
[2020-12-08] MEDS: Dexamethasone 6 MG in Sodium Chloride 0.9% 50 ML IVPB SCH (08:16)
[2020-12-08] MEDS: Propofol 1,000 MG/100 ML VIAL IV PRN ×2 (08:16→20:19)
[2020-12-08] MEDS: Pantoprazole 40 MG GRANULES PACKET PER TUBE SCH (08:16)
[2020-12-08] MEDS: Colchicine 0.6 MG TAB PER TUBE SCH ×2 (08:17→20:18)
[2020-12-08] MEDS: Ascorbic Acid 500 mg Chewable Tablet PO SCH (08:17)
[2020-12-08] MEDS: Multivit, Therapeutic 1 TAB PO SCH (08:17)
[2020-12-08] MEDS: Furosemide 40 MG/4 ML VIAL SLOW IVP SCH (08:17)
[2020-12-08] MEDS: Zinc Sulfate 220 MG CAP PO SCH (08:17)
--- NOTE | 2020-12-08 08:21 | PRG ---
DATE OF SERVICE: 12/08/2020 35 minutes of critical care time. SUBJECTIVE: Surprisingly, Mr. oCllins's oxygenation is much better today. When I walked in the room, he was 99% on 60% oxygen. OBJECTIVE: VITAL SIGNS: His temperature is currently 98.8, pulse 89, blood pressure 134/64. His intake for the last 24 hours has been 1200 mL, output 3230. HEENT: Unremarkable. NECK: No JVD. LUNGS: Inspiratory crackles. CARDIAC: S1 and S2. Regular. ABDOMEN: Soft. EXTREMITIES: Trace edema throughout. LABORATORY DATA: CBC is pending. Sodium is 136, potassium 4.4, chloride 96, CO2 of 32, BUN 20, creatinine 0.4, glucose 113. C-reactive protein is 15. His x-ray shows slightly improved bilateral infiltrates. ASSESSMENT: 1. COVID-19 pneumonia. 2. Acute hypoxic respiratory failure requiring mechanical ventilation. PLAN: I am somewhat encouraged by his improvement in oxygenation over the last day or two. Based on that, I have gone down to 50% O2 and decreased his PEEP to 13. He is continuing anticoagulation, steroids, and the colchicine. I will update his daughter. Job ID: [id number]
[2020-12-08] MEDS: Cholecalciferol 1,000 UNITS (25 MCG) TAB PO SCH (08:23)
[2020-12-08 08:37] LABS: Hemoglobin 13.1 g/dL (14.0-18.0); Mean Corpuscular HGB CONC 31.7 g/dL (32.0-36.0); Mean Corpuscular Hemoglobin 30.3 pg (27.0-31.0); Mean Corpuscular Volume 95.6 fL (78.0-98.0); Mean Platelet Volume 9.4 fL (7.4-10.4); Platelet Count 282 thou/uL (130-400); RBC Distribution Width 13.6 % (11.5-14.5); Red Blood Cell (RBC) Count 4.31 mill/uL (4.70-6.10); White Blood Cell (WBC) Count 16.7 thou/uL (4.8-10.8)
[2020-12-08] MEDS: Albuterol 200 PUFF (6.7GM INHALER) INH SCH ×6 (08:41→23:14)
[2020-12-08] MEDS: Mometasone 100 MCG/Formoterol 5 MCG 120 PUFF INHALER INH SCH ×2 (08:42→19:02)
[2020-12-08 10:25] LABS: Band 4 % (5-11); Lymphocytes 9 % (21-51); MDiff Complete? YES; Monocytes 1 % (0-10); Neutrophil 86 % (42-75)
[2020-12-08 15:46] LABS: Vancomycin, Random 2.3 ug/mL (See Comment)
[2020-12-08] MEDS: Fentanyl CADD 100 ML IV SCH (18:31)
[2020-12-08] MEDS: Vancomycin 1 GM in Premix Bag 1 BAG IVPB SCH (18:32)
[2020-12-08] MEDS: MEROPENEM 1 GM/50 ML 1 GM in Premix Bag 1 BAG IVPB SCH ×3 (22:50→22:52)
[2020-12-08] MEDS: Vancomycin 1.5 GRAM/300 ML BAG 1.5 GM in Premix Bag 1 BAG IVPB SCH ×2 (22:55→22:56)
--- NOTE | 2020-12-08 23:12 | PDOC.HOSPP ---
- Subjective Encounter Date: 12/08/20 Encounter Time: 14:30 non-verbal Subjective: Patient evaluated for COVID 19 pneumonia. Remains on mechanical ventilation. No overnight events. - Objective Vital Signs & Weight: Vital Signs (12 hours) Temp Pulse 12/08/20 20:00 99.6 F 12/08/20 18:59 98 12/08/20 16:00 96.4 F L 12/08/20 15:05 97 12/08/20 12:00 99.5 F Weight Admit Weight 151 lb Weight 156 lb 1.396 oz Most Recent Monitor Data Heart Rate from ECG 93 NIBP 115/75 NIBP BP-Mean 84 Respiration from ECG 20 SpO2 98 I&O: 12/07/20 12/08/20 12/09/20 06:59 06:59 06:59 Intake Total 1725.7 1200.4 530.4 Output Total 3850 3230 3150 Balance -2124.3 -2029.6 -2619.6 Result Diagrams: 12/08/20 03:30 12/08/20 03:30 Additional Labs: Accuchecks 12/08/20 12/08/20 12/08/20 20:25 08:28 03:34 POC Glucose 137 H 103 H 176 H 12/07/20 09:11 POC Glucose 102 H Abnormal Lab Results - Last 48 hrs 12/07/20 03:30: WBC 14.9 H, RBC 4.11 L, Hgb 12.5 L, Hct 39.3 L, MCHC 31.8 L, Neutrophils % (Manual) 81 H, Lymphocytes % (Manual) 6 L, Myelocytes % 1 H 12/07/20 03:30: Sodium 135 L, Chloride 97 L, Creatinine 0.45 L, Calcium 7.4 L, AST 53 H, ALT 57 H, Albumin 2.2 L, Globulin 3.6 H, Albumin/Globulin Ratio 0.6 L 12/07/20 13:03: Vancomycin Trough 35.2 H* 12/08/20 03:30: WBC 16.7 H, RBC 4.31 L, Hgb 13.1 L, Hct 41.2 L, MCHC 31.7 L, Neutrophils % (Manual) 86 H, Band Neuts % (Manual) 4 L, Lymphocytes % (Manual) 9 L 12/08/20 03:30: Chloride 96 L, Carbon Dioxide 32 H, Creatinine 0.44 L, Calcium 7 .5 L, Albumin 2.4 L, Albumin/Globulin Ratio 0.7 L 12/08/20 03:30: C-Reactive Protein 15.02 H Microbiology - Entire Visit 12/04/20 09:25 Tracheal - Aspirate Respiratory Culture - Final 12/04/20 09:22 Venous blood - Right Hand Blood Culture - Preliminary NO GROWTH AT 48 HOURS 12/04/20 09:22 Venous blood - Left Hand Blood Culture - Preliminary NO GROWTH AT 48 HOURS 12/04/20 11:14 Urine clean catch Urine Culture - Final Yeast species 11/30/20 07:45 Venous blood - Left Hand Blood Culture - Final NO GROWTH IN 5 DAYS 11/30/20 06:45 Port - Right Brachiocephalic vein Blood Culture - Final NO GROWTH IN 5 DAYS 11/23/20 07:21 Venous blood - Right Arm Blood Culture - Final NO GROWTH IN 5 DAYS 11/23/20 07:21 Venous blood - Left Arm Blood Culture - Final NO GROWTH IN 5 DAYS EKG Reviewed by me: Yes (Sinus rhythm on telemetry) Hospitalist ROS - Review of Systems ROS unobtainable: due to mental status - Medication Medications: Active Medications Generic Name Dose Route Start Last Admin Trade Name Freq PRN Reason Stop Dose Admin Acetaminophen 650 mg 11/23/20 12:02 12/04/20 09:38 Acetaminophen 325 Mg Tab PO 650 mg Q4H PRN Administration Headache/Fever/Mild Pain (1-3) Albuterol Sulfate 2 puff 11/24/20 18:30 12/08/20 19:02 Albuterol 200 Puff (6.7gm Inhaler) INH 2 puff [id number] SUE Administration Ascorbic Acid 1,000 mg 11/24/20 09:00 12/08/20 08:17 Ascorbic Acid 500 Mg Chewable Tablet PO 1,000 mg DAILY SUE Administration Cholecalciferol 1,000 units 11/24/20 09:00 12/08/20 08:23 Cholecalciferol 1,000 Units (25 Mcg) Tab PO 1,000 units DAILY SUE Administration Colchicine 0.6 mg 12/01/20 09:00 12/08/20 20:18 Colchicine 0.6 Mg Tab PER TUBE 0.6 mg BID SUE Administration Enoxaparin Sodium 70 mg 12/03/20 21:00 12/08/20 20:18 Enoxaparin Sodium 80 Mg/0.8 Ml Syringe SC 70 mg BID SUE Administration Furosemide 40 mg 12/03/20 09:00 12/08/20 08:17 Furosemide 40 Mg/4 Ml Vial SLOW IVP 40 mg DAILY SUE Administration Dexamethasone 6 mg/ Sodium 50.6 mls @ 100 mls/hr 11/24/20 09:00 12/08/20 08:16 Chloride IVPB 50.6 mls DAILY SUE Administration Dexmedetomidine HCl 400 mcg/ 100 mls @ 0 mls/hr 11/25/20 16:15 11/25/20 17:09 Sodium Chloride IVPB 100 mls INF SUE Administration Protocol Per Protocol Insulin Glargine 5 units/ 0.05 mls @ 0 mls/hr 11/29/20 21:00 12/05/20 21:37 Miscellaneous Medication SC 0.05 mls HS SUE Administration Meropenem 1 gm/ Device 50 mls @ 100 mls/hr 12/04/20 14:00 12/08/20 22:52 IVPB Not Given Q8HR SUE Fentanyl 100 mls @ 0 mls/hr 12/05/20 19:15 12/08/20 18:31 Fentanyl Cadd IV 100 mls INF SUE Administration Protocol Per Protocol Vancomycin HCl 1 gm/ Device 200 mls @ 200 mls/hr 12/08/20 17:00 12/08/20 18:32 IVPB 200 mls 0500,1700 SUE Administration Lorazepam 2 mg 12/05/20 19:06 12/05/20 19:38 Lorazepam 2 Mg/Ml Vial SLOW IVP 2 mg Q1H PRN Administration Breakthrough agitation Mometasone Furoate/Formoterol Fumar 2 puff 11/23/20 18:30 12/08/20 19:02 Mometasone 100 Mcg/Formoterol 5 Mcg 120 Puff Inhaler INH 2 puff BID-RT SUE Administration Multivitamins 1 tab 11/24/20 09:00 12/08/20 08:17 Multivit, Therapeutic 1 Tab PO 1 tab DAILY SUE Administration Ondansetron HCl 4 mg 11/23/20 12:02 11/25/20 00:17 Ondansetron Pf 4 Mg/2 Ml Vial IVP 4 mg Q6H PRN Administration Nausea/Vomiting Pantoprazole Sodium 40 mg 12/02/20 09:00 12/08/20 08:16 Pantoprazole 40 Mg Granules Packet PER TUBE 40 mg DAILY SUE Administration Propofol 1,000 mg 11/25/20 19:00 12/08/20 20:19 Propofol 1,000 Mg/100 Ml Vial IV 12/25/20 19:00 1,000 mg INF PRN Administration TO ACHIEVE GOAL RASS Protocol Senna/Docusate Sodium 2 tab 11/23/20 12:02 12/05/20 17:20 Senokot S 8.6-50 Mg Tab PO 2 tab BIDPRN PRN Administration Constipation Sodium Bicarbonate 650 mg 11/27/20 19:15 12/04/20 13:44 Sodium Bicarbonate Tab 325 Mg Tab PER TUBE 650 mg .PER PROTOCOL PRN Administration ENTERAL TUBE OCCLUSION Sodium Chloride 10 ml 11/23/20 21:00 12/08/20 20:18 Flush - Normal Saline 10 Ml Syringe IVF 10 ml Q12HR SUE Administration Sodium Chloride 10 ml 11/23/20 12:45 12/05/20 12:35 Flush - Normal Saline 10 Ml Syringe IVF 10 ml PRN PRN Administration Saline Flush Vecuronium [place] 10 mg 11/25/20 18:58 12/07/20 15:23 Vecuronium 10 Mg Vial IV 10 mg Q30MIN PRN Administration .VENT COMPLIANCE Zinc Sulfate 220 mg 11/24/20 09:00 12/08/20 08:17 Zinc Sulfate 220 Mg Cap PO 220 mg DAILY SUE Administration Hospitalist Exam Vitals: Vital Signs (12 hours) Temp Pulse 12/08/20 20:00 99.6 F 12/08/20 18:59 98 12/08/20 16:00 96.4 F L 12/08/20 15:05 97 12/08/20 12:00 99.5 F Weight Admit Weight 151 lb Weight 156 lb 1.396 oz Most Recent Monitor Data Heart Rate from ECG 93 NIBP 115/75 NIBP BP-Mean 84 Respiration from ECG 20 SpO2 98 General Appearance: ill appearing General - other findings: On mechanical ventilation Heart: RRR, no gallops Respiratory: rales, rhonchi Gastrointestinal: soft, non-distended Extremities: no cyanosis, no clubbing Neurological - other findings: Neuro/psychexam limited due to current mentation Hosp A/P - Plan DVT proph w/lovenox, DVT proph w/SCDs Severe sepsis/acute hypoxic respiratory failure due to COVID-19 pneumonia Failed NIPPV S/p intubation on 11/25 S/p convalescent plasma S/p remdesivir Hyponatremia/hypomagnesemia/Hypophosphatemia Replaced Metabolic acidosis Elevated inflammatory markers Plan: Continue supportive care/mechanical ventilation. Currently on FiO2 50 percent with PEEP of 13. Monitor inflammatory markers. Chest x-ray reviewed. Continue Decadron. Continue empiric antibiotics. Continue Lovenox recheck inflammatory markers in 48 hours. Continue Tube feeding 2/2 Continue dexamethasone along with empiric antibioticsvancomycin and meropenem. Monitor vancomycin level. Continue Lasix daily per critical care. Continue Lovenox for DVT prophylaxis. Continue tube feeding.
[2020-12-09] MEDS: Albuterol 200 PUFF (6.7GM INHALER) INH SCH ×6 (02:38→23:18)
[2020-12-09] MEDS: Propofol 1,000 MG/100 ML VIAL IV PRN ×4 (03:20→23:25)
[2020-12-09] MEDS: Vancomycin 1 GM in Premix Bag 1 BAG IVPB SCH ×2 (04:43→16:12)
[2020-12-09] MEDS: MEROPENEM 1 GM/50 ML 1 GM in Premix Bag 1 BAG IVPB SCH ×3 (05:56→21:20)
[2020-12-09] MEDS ORDERED: Fentanyl CADD 100 ML ONE ×2 (08:07→20:18)
--- NOTE | 2020-12-09 08:10 | RAD ---
PORTABLE CHEST: Date: 12/09/2020 HISTORY: Pneumonia. CCU follow-up. COMPARISON: 12/08/2020. FINDINGS: ET tube and NG tube unchanged. Diffuse bilateral hazy infiltrates with interstitial and hazy ground-glass opacity throughout both jeremy ngs. No significant interval change. IMPRESSION: Stable chest findings. POS: AGW
[2020-12-09] MEDS: Fentanyl CADD 100 ML IV SCH ×2 (08:12→21:20)
[2020-12-09] MEDS: Enoxaparin Sodium 80 MG/0.8 ML SYRINGE SC SCH ×2 (08:13→20:36)
[2020-12-09] MEDS: Cholecalciferol 1,000 UNITS (25 MCG) TAB PO SCH (08:13)
[2020-12-09] MEDS: Dexamethasone 6 MG in Sodium Chloride 0.9% 50 ML IVPB SCH (08:13)
[2020-12-09] MEDS: Pantoprazole 40 MG GRANULES PACKET PER TUBE SCH (08:14)
[2020-12-09] MEDS: Zinc Sulfate 220 MG CAP PO SCH (08:14)
[2020-12-09] MEDS: Multivit, Therapeutic 1 TAB PO SCH (08:14)
[2020-12-09] MEDS: Furosemide 40 MG/4 ML VIAL SLOW IVP SCH (08:14)
[2020-12-09] MEDS: Ascorbic Acid 500 mg Chewable Tablet PO SCH (08:14)
[2020-12-09] MEDS: Colchicine 0.6 MG TAB PER TUBE SCH ×2 (08:14→20:36)
--- NOTE | 2020-12-09 08:25 | PRG ---
DATE OF SERVICE: 12/09/2020 SUBJECTIVE: Mr. Collins is intubated and on mechanical ventilation. He is seeing continued improvement in his oxygenation overnight. OBJECTIVE: VITAL SIGNS: His temperature is 98.8, pulse 105, blood pressure 131/83, and O2 saturation 98% on 50% oxygen. 24-hour intake 1394, output 4175. HEENT: Unremarkable. NECK: No adenopathy or JVD. LUNGS: Fairly clear anteriorly. CARDIOVASCULAR: S1 and S2. Slightly tachycardic. ABDOMEN: Soft. EXTREMITIES: Trace edema. LABORATORY DATA: White blood cell count 16.7, hematocrit 41.2, and platelet count 282. Chemistry has not resulted. X-ray shows continued bilateral infiltrates with some improvement. ASSESSMENT: 1. COVID-19 pneumonia. 2. Acute hypoxic respiratory failure requiring mechanical ventilation. 3. On antibiotics for supposed superinfection, but nothing has grown from cultures. PLAN: 1. Continue anticoagulation, colchicine and steroids. 2. Decrease FiO2 and PEEP. 3. His progress is encouraging and hopefully, we can think about extubating sometime next week if he continues to wean well. This encompassed 30 minutes of critical care time. Job ID: [id number]
[2020-12-09] MEDS: Mometasone 100 MCG/Formoterol 5 MCG 120 PUFF INHALER INH SCH ×2 (08:40→19:08)
[2020-12-09 08:52] LABS: Hemoglobin 12.8 g/dL (14.0-18.0); Mean Corpuscular HGB CONC 32.8 g/dL (32.0-36.0); Mean Corpuscular Hemoglobin 31.5 pg (27.0-31.0); Mean Corpuscular Volume 96.1 fL (78.0-98.0); Mean Platelet Volume 9.6 fL (7.4-10.4); Platelet Count 294 thou/uL (130-400); RBC Distribution Width 13.6 % (11.5-14.5); Red Blood Cell (RBC) Count 4.05 mill/uL (4.70-6.10); White Blood Cell (WBC) Count 20.3 thou/uL (4.8-10.8)
[2020-12-09 09:22] LABS: ALT (SGPT) 43 U/L (8-55); AST (SGOT) 27 U/L (5-34); Albumin 2.4 g/dL (3.4-4.8); Alkaline Phosphatase 74 U/L (40-110); Anion Gap 12 mmol/L (10-20); BUN (Urea Nitrogen) 17 mg/dL (8.4-25.7); Bilirubin, Total 0.6 mg/dL (0.2-1.2); Calc. Creatinine Clearance 165 mL/min (70-130); Calcium 7.5 mg/dL (7.8-10.44); Carbon Dioxide 33 mmol/L (23-31); Chloride 94 mmol/L (98-107); Globulin 3.4 g/dL (2.4-3.5); Glucose 108 mg/dL (80-115); Potassium 3.9 mmol/L (3.5-5.1); Protein, Total 5.8 g/dL (5.8-8.1); Sodium 135 mmol/L (136-145)
[2020-12-09 09:25] LABS: Band 8 % (5-11); Eosinophils 2 % (0-10); Hypersemented Neutrophil SLIGHT; Lymphocytes 6 % (21-51); MDiff Complete? YES; Monocytes 3 % (0-10); Neutrophil 80 % (42-75); Nucleated RBC 1 % (0); Platelet Morphology Comment Appears Adequate; Polychromasia SLIGHT = 2-3 cells (100X) (0-2/hpf); Reactive Lymphocytes 1 % (0-10)
[2020-12-09] MEDS: Acetaminophen 325 MG TAB PO PRN (17:32)
--- NOTE | 2020-12-09 23:47 | PDOC.HOSPP ---
- Subjective Encounter Date: 12/09/20 Encounter Time: 18:00 Subjective: Patient seen and examined for respiratory failure due to COVID 19. Remains on mechanical ventilation. Events noted. - Objective Vital Signs & Weight: Vital Signs (12 hours) Temp Pulse Resp Pulse Ox 12/09/20 22:41 104 H 12/09/20 22:00 24 H 12/09/20 20:00 98.8 F 20 96 12/09/20 19:00 88 12/09/20 16:00 100 F H 12/09/20 14:54 103 H 12/09/20 12:00 99.8 F H Weight Admit Weight 151 lb Weight 148 lb 9.465 oz Most Recent Monitor Data Heart Rate from ECG 105 NIBP 141/85 NIBP BP-Mean 114 Respiration from ECG 26 SpO2 95 I&O: 12/08/20 12/09/20 12/10/20 06:59 06:59 06:59 Intake Total 1200.4 1394.4 1284.6 Output Total 3230 4175 2795 Balance -2029.6 -2780.6 -1510.4 Result Diagrams: 12/09/20 08:17 12/09/20 08:17 Additional Labs: Accuchecks 12/09/20 12/09/20 21:26 08:23 POC Glucose 117 H 111 H Abnormal Lab Results - Last 48 hrs 12/08/20 03:30: WBC 16.7 H, RBC 4.31 L, Hgb 13.1 L, Hct 41.2 L, MCHC 31.7 L, Neutrophils % (Manual) 86 H, Band Neuts % (Manual) 4 L, Lymphocytes % (Manual) 9 L 12/08/20 03:30: Chloride 96 L, Carbon Dioxide 32 H, Creatinine 0.44 L, Calcium 7.5 L, Albumin 2.4 L, Albumin/Globulin Ratio 0.7 L 12/08/20 03:30: C-Reactive Protein 15.02 H 12/09/20 08:17: WBC 20.3 H, RBC 4.05 L, Hgb 12.8 L, Hct 38.9 L, MCH 31.5 H, Neutrophils % (Manual) 80 H, Lymphocytes % (Manual) 6 L, Nucleated RBCs # (Man) 1 H 12/09/20 08:17: Sodium 135 L, Chloride 94 L, Carbon Dioxide 33 H, Creatinine 0.43 L, Calcium 7.5 L, Albumin 2.4 L, Albumin/Globulin Ratio 0.7 L Microbiology - Entire Visit 12/04/20 09:22 Venous blood - Right Hand Blood Culture - Final NO GROWTH IN 5 DAYS 12/04/20 09:22 Venous blood - Left Hand Blood Culture - Final NO GROWTH IN 5 DAYS 12/04/20 09:25 Tracheal - Aspirate Respiratory Culture - Final 12/04/20 11:14 Urine clean catch Urine Culture - Final Yeast species 11/30/20 07:45 Venous blood - Left Hand Blood Culture - Final NO GROWTH IN 5 DAYS 11/30/20 06:45 Port - Right Brachiocephalic vein Blood Culture - Final NO GROWTH IN 5 DAYS 11/23/20 07:21 Venous blood - Right Arm Blood Culture - Final NO GROWTH IN 5 DAYS 11/23/20 07:21 Venous blood - Left Arm Blood Culture - Final NO GROWTH IN 5 DAYS EKG Reviewed by me: Yes (Sinus rhythm on telemetry) Hospitalist ROS - Review of Systems ROS unobtainable: due to mental status - Medication Medications: Active Medications Generic Name Dose Route Start Last Admin Trade Name Freq PRN Reason Stop Dose Admin Acetaminophen 650 mg 11/23/20 12:02 12/09/20 17:32 Acetaminophen 325 Mg Tab PO 650 mg Q4H PRN Administration Headache/Fever/Mild Pain (1-3) Albuterol Sulfate 2 puff 11/24/20 18:30 12/09/20 23:18 Albuterol 200 Puff (6.7gm Inhaler) INH 2 puff [id number] SUE Administration Ascorbic Acid 1,000 mg 11/24/20 09:00 12/09/20 08:14 Ascorbic Acid 500 Mg Chewable Tablet PO 1,000 mg DAILY SUE Administration Cholecalciferol 1,000 units 11/24/20 09:00 12/09/20 08:13 Cholecalciferol 1,000 Units (25 Mcg) Tab PO 1,000 units DAILY SUE Administration Colchicine 0.6 mg 12/01/20 09:00 12/09/20 20:36 Colchicine 0.6 Mg Tab PER TUBE 0.6 mg BID SUE Administration Enoxaparin Sodium 70 mg 12/03/20 21:00 12/09/20 20:36 Enoxaparin Sodium 80 Mg/0.8 Ml Syringe SC 70 mg BID SUE Administration Furosemide 40 mg 12/03/20 09:00 12/09/20 08:14 Furosemide 40 Mg/4 Ml Vial SLOW IVP 40 mg DAILY SUE Administration Dexamethasone 6 mg/ Sodium 50.6 mls @ 100 mls/hr 11/24/20 09:00 12/09/20 08:13 Chloride IVPB 50.6 mls DAILY SUE Administration Dexmedetomidine HCl 400 mcg/ 100 mls @ 0 mls/hr 11/25/20 16:15 11/25/20 17:09 Sodium Chloride IVPB 100 mls INF SUE Administration Protocol Per Protocol Insulin Glargine 5 units/ 0.05 mls @ 0 mls/hr 11/29/20 21:00 12/05/20 21:37 Miscellaneous Medication SC 0.05 mls HS SUE Administration Meropenem 1 gm/ Device 50 mls @ 100 mls/hr 12/04/20 14:00 12/09/20 21:20 IVPB 50 mls Q8HR SUE Administration Fentanyl 100 mls @ 0 mls/hr 12/05/20 19:15 12/09/20 21:20 Fentanyl Cadd IV 100 mls INF SUE Administration Protocol Per Protocol Vancomycin HCl 1 gm/ Device 200 mls @ 200 mls/hr 12/08/20 17:00 12/09/20 16:12 IVPB 200 mls 0500,1700 SUE Administration Lorazepam 2 mg 12/05/20 19:06 12/05/20 19:38 Lorazepam 2 Mg/Ml Vial SLOW IVP 2 mg Q1H PRN Administration Breakthrough agitation Mometasone Furoate/Formoterol Fumar 2 puff 11/23/20 18:30 12/09/20 19:08 Mometasone 100 Mcg/Formoterol 5 Mcg 120 Puff Inhaler INH 2 puff BID-RT SUE Administration Multivitamins 1 tab 11/24/20 09:00 12/09/20 08:14 Multivit, Therapeutic 1 Tab PO 1 tab DAILY SUE Administration Ondansetron HCl 4 mg 11/23/20 12:02 11/25/20 00:17 Ondansetron Pf 4 Mg/2 Ml Vial IVP 4 mg Q6H PRN Administration Nausea/Vomiting Pantoprazole Sodium 40 mg 12/02/20 09:00 12/09/20 08:14 Pantoprazole 40 Mg Granules Packet PER TUBE 40 mg DAILY SUE Administration Propofol 1,000 mg 11/25/20 19:00 12/09/20 23:25 Propofol 1,000 Mg/100 Ml Vial IV 12/25/20 19:00 1,000 mg INF PRN Administration TO ACHIEVE GOAL RASS Protocol Senna/Docusate Sodium 2 tab 11/23/20 12:02 12/05/20 17:20 Senokot S 8.6-50 Mg Tab PO 2 tab BIDPRN PRN Administration Constipation Sodium Bicarbonate 650 mg 11/27/20 19:15 12/04/20 13:44 Sodium Bicarbonate Tab 325 Mg Tab PER TUBE 650 mg .PER PROTOCOL PRN Administration ENTERAL TUBE OCCLUSION Sodium Chloride 10 ml 11/23/20 21:00 12/09/20 20:37 Flush - Normal Saline 10 Ml Syringe IVF 10 ml Q12HR SUE Administration Sodium Chloride 10 ml 11/23/20 12:45 12/05/20 12:35 Flush - Normal Saline 10 Ml Syringe IVF 10 ml PRN PRN Administration Saline Flush Vecuronium [place] 10 mg 11/25/20 18:58 12/07/20 15:23 Vecuronium 10 Mg Vial IV 10 mg Q30MIN PRN Administration .VENT COMPLIANCE Zinc Sulfate 220 mg 11/24/20 09:00 12/09/20 08:14 Zinc Sulfate 220 Mg Cap PO 220 mg DAILY SUE Administration Hospitalist Exam Vitals: Vital Signs (12 hours) Temp Pulse Resp Pulse Ox 12/09/20 22:41 104 H 12/09/20 22:00 24 H 12/09/20 20:00 98.8 F 20 96 12/09/20 19:00 88 12/09/20 16:00 100 F H 12/09/20 14:54 103 H 12/09/20 12:00 99.8 F H Weight Admit Weight 151 lb Weight 148 lb 9.465 oz Most Recent Monitor Data Heart Rate from ECG 105 NIBP 141/85 NIBP BP-Mean 114 Respiration from ECG 26 SpO2 95 General Appearance: ill appearing General - other findings: On mechanical ventilation Neck: supple, no JVD Heart: RRR, no gallops Respiratory: rales, rhonchi Gastrointestinal: soft, no guarding, no rigidity Extremities: no cyanosis Neurological - other findings: Neuro/psychunable to assess due to Sedation Hosp A/P - Plan Severe sepsis/acute hypoxic respiratory failure due to COVID-19 pneumonia Failed NIPPV S/p intubation on 11/25 S/p convalescent plasma S/p remdesivir Hyponatremia/hypomagnesemia/Hypophosphatemia Replaced Metabolic acidosis Elevated inflammatory markers Plan: FiO2 and PEEP reduced to 45 percent/13 respectively. Continue empiric antibiotics with Decadron and colchicine. Continue DVT prophylaxis. Continue tube feeding. Check CRP q48 hours. AM labs 2/3 Continue supportive care/mechanical ventilation. Currently on FiO2 50 percent with PEEP of 13. Monitor inflammatory markers. Chest x-ray reviewed. Continue Decadron. Continue empiric antibiotics. Continue Lovenox. Recheck inflammatory markers in 48 hours. Continue Tube feeding 2/2 Continue dexamethasone along with empiric antibioticsvancomycin and meropenem. Monitor vancomycin level. Continue Lasix daily per critical care. Continue Lovenox for DVT prophylaxis. Continue tube feeding.
[2020-12-10] MEDS: Albuterol 200 PUFF (6.7GM INHALER) INH SCH ×6 (02:53→23:33)
[2020-12-10] MEDS: MEROPENEM 1 GM/50 ML 1 GM in Premix Bag 1 BAG IVPB SCH ×3 (05:00→21:14)
[2020-12-10 05:12] LABS: Band 25 % (5-11); Eosinophils 1 % (0-10); Hemoglobin 11.9 g/dL (14.0-18.0); Lymphocytes 7 % (21-51); MDiff Complete? YES; Mean Corpuscular HGB CONC 31.9 g/dL (32.0-36.0); Mean Corpuscular Hemoglobin 30.4 pg (27.0-31.0); Mean Corpuscular Volume 95.4 fL (78.0-98.0); Mean Platelet Volume 9.3 fL (7.4-10.4); Monocytes 3 % (0-10); Neutrophil 64 % (42-75); Platelet Count 302 thou/uL (130-400); Platelet Morphology Comment Appears Adequate; RBC Distribution Width 13.5 % (11.5-14.5); Red Blood Cell (RBC) Count 3.91 mill/uL (4.70-6.10); Vancomycin, Trough 5.5 ug/mL; White Blood Cell (WBC) Count 17.4 thou/uL (4.8-10.8)
[2020-12-10 05:15] LABS: ALT (SGPT) 37 U/L (8-55); AST (SGOT) 25 U/L (5-34); Albumin 2.3 g/dL (3.4-4.8); Alkaline Phosphatase 72 U/L (40-110); Anion Gap 11 mmol/L (10-20); BUN (Urea Nitrogen) 16 mg/dL (8.4-25.7); Bilirubin, Total 0.6 mg/dL (0.2-1.2); CRP (Inflammatory) 7.54 mg/dL (= or < 0.5); Calc. Creatinine Clearance 179 mL/min (70-130); Carbon Dioxide 34 mmol/L (23-31); Chloride 94 mmol/L (98-107); Globulin 2.7 g/dL (2.4-3.5); Glucose 95 mg/dL (80-115); Potassium 3.9 mmol/L (3.5-5.1); Sodium 135 mmol/L (136-145)
[2020-12-10] MEDS: Propofol 1,000 MG/100 ML VIAL IV PRN ×3 (05:34→20:05)
[2020-12-10] MEDS: Vancomycin 1 GM in Premix Bag 1 BAG IVPB SCH ×4 (05:34→22:11)
[2020-12-10] MEDS: Mometasone 100 MCG/Formoterol 5 MCG 120 PUFF INHALER INH SCH ×2 (07:32→19:43)
--- NOTE | 2020-12-10 08:14 | PRG ---
DATE OF SERVICE: 12/10/2020 30 minutes of critical care time. SUBJECTIVE: Mr. Collins remains intubated on mechanical ventilation. His O2 sats have continued to improve steadily. OBJECTIVE: VITAL SIGNS: Temperature 97.8, pulse 77, blood pressure 94/52. 24-hour intake 2096, output 3232. Weight down to 149 pounds. HEENT: Unremarkable except for some periorbital edema. NECK: No JVD. LUNGS: Few inspiratory crackles in the bases. CARDIAC: S1, S2. Regular. ABDOMEN: Soft. EXTREMITIES: No edema. LABORATORY AND DIAGNOSTIC DATA: White blood cell count 17, hematocrit 37.3, and platelet count 302. Sodium 135, potassium 3.9, chloride 94, CO2 34, BUN 16, creatinine 0.4, glucose 95. His x-ray continues to show some slow clearing. ASSESSMENT: COVID-19 pneumonia with improving hypoxic respiratory failure. I have been able to come down on his PEEP and FiO2 slowly. Today, he is down to 10 of PEEP and 40% FiO2. PLAN: 1. Continue anticoagulation, colchicine, and steroids. If we can get his PEEP down even further, then we can start lightening his sedation and begin plans for extubation. 2. I will get him some footdrop boots as it looks like he is starting to experience some footdrop. 3. Hold Lasix given the profound diuresis he has had over the last couple of days. Job ID: [id number]
[2020-12-10] MEDS: Dexamethasone 6 MG in Sodium Chloride 0.9% 50 ML IVPB SCH (09:00)
[2020-12-10] MEDS: Pantoprazole 40 MG GRANULES PACKET PER TUBE SCH (09:13)
[2020-12-10] MEDS: Enoxaparin Sodium 80 MG/0.8 ML SYRINGE SC SCH ×2 (09:13→20:04)
[2020-12-10] MEDS: Colchicine 0.6 MG TAB PER TUBE SCH ×2 (09:13→20:04)
[2020-12-10] MEDS: Multivit, Therapeutic 1 TAB PO SCH (09:13)
[2020-12-10] MEDS: Zinc Sulfate 220 MG CAP PO SCH (09:13)
[2020-12-10] MEDS: Cholecalciferol 1,000 UNITS (25 MCG) TAB PO SCH (09:13)
[2020-12-10] MEDS: Ascorbic Acid 500 mg Chewable Tablet PO SCH (09:13)
--- NOTE | 2020-12-10 09:43 | RAD ---
CHEST 1 VIEW: Date: 12/10/2020 INDICATION: History of pneumonia. COMPARISON: Prior exam dated 12/09/2020. IMPRESSION: Bilateral air space disease persists. The patient remains intubated with gastric catheter placement. No definite pneumothorax is evident. Osseous structures are intact. POS: BH
[2020-12-10] MEDS ORDERED: Fentanyl CADD 100 ML ONE (12:47)
[2020-12-10] MEDS: Fentanyl CADD 100 ML IV SCH (12:50)
[2020-12-10] MEDS: Acetaminophen 325 MG TAB PO PRN (20:04)
--- NOTE | 2020-12-10 23:39 | PDOC.HOSPP ---
- Subjective Encounter Date: 12/10/20 Encounter Time: 14:30 non-verbal Subjective: Patient seen and examined for respiratory failure due to COVID 19 pneumonia. Remains on mechanical ventilation. Family at the bedside. Isolation discontinued today - Objective Vital Signs & Weight: Vital Signs (12 hours) Temp Pulse Pulse Pulse Resp BP BP 12/10/20 22:48 94 12/10/20 22:00 24 H 12/10/20 20:04 99.5 F 12/10/20 20:00 99.5 F 20 12/10/20 19:32 88 12/10/20 17:34 103 H 105 H 133/84 131/84 12/10/20 16:00 98.6 F 12/10/20 14:56 105 H 12/10/20 12:00 98.3 F Pulse Ox Pulse Ox Pulse Ox 12/10/20 22:48 12/10/20 22:00 12/10/20 20:04 12/10/20 20:00 100 12/10/20 19:32 12/10/20 17:34 100 100 12/10/20 16:00 12/10/20 14:56 12/10/20 12:00 Weight Admit Weight 151 lb Weight 149 lb 7.574 oz Most Recent Monitor Data Heart Rate from ECG 98 NIBP 134/71 NIBP BP-Mean 91 Respiration from ECG 26 SpO2 100 I&O: 12/09/20 12/10/20 12/11/20 06:59 06:59 06:59 Intake Total 1394.4 2097.1 1264.4 Output Total 4175 3232 2405 Balance -2780.6 -1134.9 -1140.6 Result Diagrams: 12/10/20 04:28 12/10/20 04:28 Additional Labs: Accuchecks 12/10/20 12/10/20 12/10/20 20:00 17:38 09:24 POC Glucose 132 H 123 H 104 H Abnormal Lab Results - Last 48 hrs 12/09/20 08:17: WBC 20.3 H, RBC 4.05 L, Hgb 12.8 L, Hct 38.9 L, MCH 31.5 H, Neutrophils % (Manual) 80 H, Lymphocytes % (Manual) 6 L, Nucleated RBCs # (Man) 1 H 12/09/20 08:17: Sodium 135 L, Chloride 94 L, Carbon Dioxide 33 H, Creatinine 0.43 L, Calcium 7.5 L, Albumin 2.4 L, Albumin/Globulin Ratio 0.7 L 12/10/20 04:28: Sodium 135 L, Chloride 94 L, Carbon Dioxide 34 H, Creatinine 0.40 L, Calcium 7.0 L, C-Reactive Protein 7.54 H, Serum Total Protein 5.0 L, Albumin 2.3 L, Albumin/Globulin Ratio 0.9 L 12/10/20 04:28: WBC 17.4 H, RBC 3.91 L, Hgb 11.9 L, Hct 37.3 L, MCHC 31.9 L, Band Neuts % (Manual) 25 H, Lymphocytes % (Manual) 7 L Microbiology - Entire Visit 12/04/20 09:22 Venous blood - Right Hand Blood Culture - Final NO GROWTH IN 5 DAYS 12/04/20 09:22 Venous blood - Left Hand Blood Culture - Final NO GROWTH IN 5 DAYS 12/04/20 09:25 Tracheal - Aspirate Respiratory Culture - Final 12/04/20 11:14 Urine clean catch Urine Culture - Final Yeast species 11/30/20 07:45 Venous blood - Left Hand Blood Culture - Final NO GROWTH IN 5 DAYS 11/30/20 06:45 Port - Right Brachiocephalic vein Blood Culture - Final NO GROWTH IN 5 DAYS 11/23/20 07:21 Venous blood - Right Arm Blood Culture - Final NO GROWTH IN 5 DAYS 11/23/20 07:21 Venous blood - Left Arm Blood Culture - Final NO GROWTH IN 5 DAYS EKG Reviewed by me: Yes (Sinus rhythm on telemetry) Hospitalist ROS - Review of Systems ROS unobtainable: due to mental status - Medication Medications: Active Medications Generic Name Dose Route Start Last Admin Trade Name Freq PRN Reason Stop Dose Admin Acetaminophen 650 mg 11/23/20 12:02 12/10/20 20:04 Acetaminophen 325 Mg Tab PO 650 mg Q4H PRN Administration Headache/Fever/Mild Pain (1-3) Albuterol Sulfate 2 puff 11/24/20 18:30 12/10/20 23:33 Albuterol 200 Puff (6.7gm Inhaler) INH 2 puff [id number] SUE Administration Ascorbic Acid 1,000 mg 11/24/20 09:00 12/10/20 09:13 Ascorbic Acid 500 Mg Chewable Tablet PO 1,000 mg DAILY SUE Administration Cholecalciferol 1,000 units 11/24/20 09:00 12/10/20 09:13 Cholecalciferol 1,000 Units (25 Mcg) Tab PO 1,000 units DAILY SUE Administration Colchicine 0.6 mg 12/01/20 09:00 12/10/20 20:04 Colchicine 0.6 Mg Tab PER TUBE 0.6 mg BID SUE Administration Enoxaparin Sodium 70 mg 12/03/20 21:00 12/10/20 20:04 Enoxaparin Sodium 80 Mg/0.8 Ml Syringe SC 70 mg BID SUE Administration Dexamethasone 6 mg/ Sodium 50.6 mls @ 100 mls/hr 11/24/20 09:00 12/10/20 09:00 Chloride IVPB 50.6 mls DAILY SUE Administration Dexmedetomidine HCl 400 mcg/ 100 mls @ 0 mls/hr 11/25/20 16:15 11/25/20 17:09 Sodium Chloride IVPB 100 mls INF SUE Administration Protocol Per Protocol Insulin Glargine 5 units/ 0.05 mls @ 0 mls/hr 11/29/20 21:00 12/05/20 21:37 Miscellaneous Medication SC 0.05 mls HS SUE Administration Meropenem 1 gm/ Device 50 mls @ 100 mls/hr 12/04/20 14:00 12/10/20 21:14 IVPB 50 mls Q8HR SUE Administration Fentanyl 100 mls @ 0 mls/hr 12/05/20 19:15 12/10/20 12:50 Fentanyl Cadd IV 100 mls INF SUE Administration Protocol Per Protocol Vancomycin HCl 1 gm/ Device 200 mls @ 200 mls/hr 12/10/20 06:00 12/10/20 22:11 IVPB 200 mls Q8HR SUE Administration Lorazepam 2 mg 12/05/20 19:06 12/05/20 19:38 Lorazepam 2 Mg/Ml Vial SLOW IVP 2 mg Q1H PRN Administration Breakthrough agitation Mometasone Furoate/Formoterol Fumar 2 puff 11/23/20 18:30 12/10/20 19:43 Mometasone 100 Mcg/Formoterol 5 Mcg 120 Puff Inhaler INH 2 puff BID-RT SUE Administration Multivitamins 1 tab 11/24/20 09:00 12/10/20 09:13 Multivit, Therapeutic 1 Tab PO 1 tab DAILY SUE Administration Ondansetron HCl 4 mg 11/23/20 12:02 11/25/20 00:17 Ondansetron Pf 4 Mg/2 Ml Vial IVP 4 mg Q6H PRN Administration Nausea/Vomiting Pantoprazole Sodium 40 mg 12/02/20 09:00 12/10/20 09:13 Pantoprazole 40 Mg Granules Packet PER TUBE 40 mg DAILY SUE Administration Propofol 1,000 mg 11/25/20 19:00 12/10/20 20:05 Propofol 1,000 Mg/100 Ml Vial IV 12/25/20 19:00 1,000 mg INF PRN Administration TO ACHIEVE GOAL RASS Protocol Senna/Docusate Sodium 2 tab 11/23/20 12:02 12/05/20 17:20 Senokot S 8.6-50 Mg Tab PO 2 tab BIDPRN PRN Administration Constipation Sodium Bicarbonate 650 mg 11/27/20 19:15 12/04/20 13:44 Sodium Bicarbonate Tab 325 Mg Tab PER TUBE 650 mg .PER PROTOCOL PRN Administration ENTERAL TUBE OCCLUSION Sodium Chloride 10 ml 11/23/20 21:00 12/10/20 20:05 Flush - Normal Saline 10 Ml Syringe IVF 10 ml Q12HR SUE Administration Sodium Chloride 10 ml 11/23/20 12:45 12/05/20 12:35 Flush - Normal Saline 10 Ml Syringe IVF 10 ml PRN PRN Administration Saline Flush Vecuronium [place] 10 mg 11/25/20 18:58 12/07/20 15:23 Vecuronium 10 Mg Vial IV 10 mg Q30MIN PRN Administration .VENT COMPLIANCE Zinc Sulfate 220 mg 11/24/20 09:00 12/10/20 09:13 Zinc Sulfate 220 Mg Cap PO 220 mg DAILY SUE Administration Hospitalist Exam Vitals: Vital Signs (12 hours) Temp Pulse Pulse Pulse Resp BP BP 12/10/20 22:48 94 12/10/20 22:00 24 H 12/10/20 20:04 99.5 F 12/10/20 20:00 99.5 F 20 12/10/20 19:32 88 12/10/20 17:34 103 H 105 H 133/84 131/84 12/10/20 16:00 98.6 F 12/10/20 14:56 105 H 12/10/20 12:00 98.3 F Pulse Ox Pulse Ox Pulse Ox 12/10/20 22:48 12/10/20 22:00 12/10/20 20:04 12/10/20 20:00 100 12/10/20 19:32 12/10/20 17:34 100 100 12/10/20 16:00 12/10/20 14:56 12/10/20 12:00 Weight Admit Weight 151 lb Weight 149 lb 7.574 oz Most Recent Monitor Data Heart Rate from ECG 98 NIBP 134/71 NIBP BP-Mean 91 Respiration from ECG 26 SpO2 100 General Appearance: ill appearing Neck: supple, no JVD Heart: RRR Respiratory: no wheezes, rales, rhonchi Gastrointestinal: soft, no guarding, no rigidity Extremities: no cyanosis, no clubbing Neurological - other findings: Neuro/psychunable to assess due to current mentation Hosp A/P - Plan Severe sepsis/acute hypoxic respiratory failure due to COVID-19 pneumonia Failed NIPPV S/p intubation on 11/25 S/p convalescent plasma S/p remdesivir Isolation discontinued on 12/10 Plan: Patient now on FiO2 40 percent with PEEP of 10.Continue steroids. Continue colchicine. AM labs Hyponatremia/hypomagnesemia/Hypophosphatemia Replaced. Continue to monitor Metabolic acidosis Improved Elevated inflammatory markers Due to COVID 19 pneumonia. DVT/GI prophylaxis Diet: Continue tube feeding
[2020-12-11] MEDS ORDERED: Fentanyl CADD 100 ML ONE ×2 (01:10→14:59)
[2020-12-11] MEDS: Fentanyl CADD 100 ML IV SCH (01:27)
[2020-12-11] MEDS: Albuterol 200 PUFF (6.7GM INHALER) INH SCH ×6 (02:39→21:53)
[2020-12-11] MEDS: Propofol 1,000 MG/100 ML VIAL IV PRN ×4 (02:44→21:25)
[2020-12-11] MEDS: MEROPENEM 1 GM/50 ML 1 GM in Premix Bag 1 BAG IVPB SCH ×3 (05:14→22:51)
[2020-12-11 05:57] LABS: Vancomycin, Trough 12.5 ug/mL
[2020-12-11 05:59] LABS: ALT (SGPT) 31 U/L (8-55); AST (SGOT) 25 U/L (5-34); Albumin 2.3 g/dL (3.4-4.8); Alkaline Phosphatase 67 U/L (40-110); Anion Gap 10 mmol/L (10-20); BUN (Urea Nitrogen) 12 mg/dL (8.4-25.7); Bilirubin, Total 0.7 mg/dL (0.2-1.2); Calc. Creatinine Clearance 176 mL/min (70-130); Calcium 7.2 mg/dL (7.8-10.44); Carbon Dioxide 33 mmol/L (23-31); Chloride 96 mmol/L (98-107); Globulin 3.1 g/dL (2.4-3.5); Glucose 96 mg/dL (80-115); Potassium 3.6 mmol/L (3.5-5.1); Protein, Total 5.4 g/dL (5.8-8.1); Sodium 135 mmol/L (136-145)
[2020-12-11 06:08] LABS: Hemoglobin 11.9 g/dL (14.0-18.0); Lymphocytes 4 % (21-51); MDiff Complete? YES; Mean Corpuscular Hemoglobin 30.4 pg (27.0-31.0); Mean Corpuscular Volume 94.9 fL (78.0-98.0); Mean Platelet Volume 8.9 fL (7.4-10.4); Monocytes 3 % (0-10); Neutrophil 93 % (42-75); Platelet Count 320 thou/uL (130-400); Platelet Morphology Comment Appears Adequate; RBC Distribution Width 13.4 % (11.5-14.5); Red Blood Cell (RBC) Count 3.92 mill/uL (4.70-6.10); White Blood Cell (WBC) Count 17.1 thou/uL (4.8-10.8)
[2020-12-11] MEDS: Vancomycin 1 GM in Premix Bag 1 BAG IVPB SCH ×3 (06:09→22:53)
[2020-12-11] MEDS: Mometasone 100 MCG/Formoterol 5 MCG 120 PUFF INHALER INH SCH ×2 (07:02→18:45)
[2020-12-11] MEDS: Cholecalciferol 1,000 UNITS (25 MCG) TAB PO SCH (08:11)
[2020-12-11] MEDS: Ascorbic Acid 500 mg Chewable Tablet PO SCH (08:11)
[2020-12-11] MEDS: Dexamethasone 6 MG in Sodium Chloride 0.9% 50 ML IVPB SCH (08:11)
[2020-12-11] MEDS: Enoxaparin Sodium 80 MG/0.8 ML SYRINGE SC SCH ×2 (08:11→21:07)
[2020-12-11] MEDS: Multivit, Therapeutic 1 TAB PO SCH (08:12)
[2020-12-11] MEDS: Zinc Sulfate 220 MG CAP PO SCH (08:12)
[2020-12-11] MEDS: Colchicine 0.6 MG TAB PER TUBE SCH ×2 (08:12→21:07)
[2020-12-11] MEDS: Pantoprazole 40 MG GRANULES PACKET PER TUBE SCH (08:12)
--- NOTE | 2020-12-11 09:17 | RAD ---
CHEST 1 VIEW: Date: 12/11/2020 INDICATION: History of pneumonia. COMPARISON: Prior exam dated 12/10/2020. IMPRESSION: Bilateral pneumonia is stable. ET tube and gastric catheter are unchanged. No pneumothorax is evident . Osseous structures are similar. POS: BH
--- NOTE | 2020-12-11 15:04 | PRG ---
DATE OF SERVICE: 12/11/2020 SUBJECTIVE: Gary Collins remains ventilated. OBJECTIVE: VITAL SIGNS: Blood pressure 120/77, respiratory rate is 17, FiO2 is 40%, and his PEEP down to eight today. LUNGS: He has equal breath sounds. HEART: Regular rhythm. ABDOMEN: Soft. EXTREMITIES: Without edema. LABORATORY DATA: White count 17.1, hemoglobin 11.9, platelets 320. Sodium 135, potassium 3.6, chloride 96, bicarb 33, BUN 12, creatinine 0.4. Chest radiograph shows persistent infiltrates bilaterally. We have decreased his PEEP from 10 to 8 today. We will continue to try to wean the PEEP and ventilatory rate as tolerated. Critical care time 30 min. Job ID: [id number]
--- NOTE | 2020-12-11 18:06 | PDOC.HOSPP ---
- Subjective Encounter Date: 12/11/20 Encounter Time: 10:35 Subjective: awakens easily on vent, mild sedation, moves all extremities at bedside - Objective Vital Signs & Weight: Vital Signs (12 hours) Temp Pulse Pulse Pulse Resp BP BP 12/11/20 17:34 8 L 12/11/20 16:00 8 L 12/11/20 15:03 100 12/11/20 14:00 9 L 12/11/20 12:00 99.1 F 12 12/11/20 10:55 104 H 12/11/20 10:33 102 H 106 H 127/75 140/71 12/11/20 08:00 99.4 F 12/11/20 07:46 12/11/20 06:53 97 Pulse Ox Pulse Ox Pulse Ox 12/11/20 17:34 12/11/20 16:00 12/11/20 15:03 12/11/20 14:00 12/11/20 12:00 12/11/20 10:55 12/11/20 10:33 98 96 12/11/20 08:00 12/11/20 07:46 95 12/11/20 06:53 Weight Admit Weight 151 lb Weight 147 lb 4.301 oz Most Recent Monitor Data Heart Rate from ECG 106 NIBP 130/74 NIBP BP-Mean 89 Respiration from ECG 27 SpO2 100 I&O: 12/10/20 12/11/20 12/12/20 06:59 06:59 06:59 Intake Total 2097.1 2102.4 400 Output Total 3232 3305 1510 Balance -1134.9 -1202.6 -1110 Result Diagrams: 12/11/20 05:20 12/11/20 05:20 Additional Labs: Accuchecks 12/11/20 12/10/20 08:21 20:00 POC Glucose 109 H 132 H Hospitalist ROS - Medication Medications: Active Medications Generic Name Dose Route Start Last Admin Trade Name Freq PRN Reason Stop Dose Admin Acetaminophen 650 mg 11/23/20 12:02 12/10/20 20:04 Acetaminophen 325 Mg Tab PO 650 mg Q4H PRN Administration Headache/Fever/Mild Pain (1-3) Albuterol Sulfate 2 puff 11/24/20 18:30 12/11/20 15:01 Albuterol 200 Puff (6.7gm Inhaler) INH 2 puff [id number] SUE Administration Ascorbic Acid 1,000 mg 11/24/20 09:00 12/11/20 08:11 Ascorbic Acid 500 Mg Chewable Tablet PO 1,000 mg DAILY SUE Administration Cholecalciferol 1,000 units 11/24/20 09:00 12/11/20 08:11 Cholecalciferol 1,000 Units (25 Mcg) Tab PO 1,000 units DAILY USE Administration Colchicine 0.6 mg 12/01/20 09:00 12/11/20 08:12 Colchicine 0.6 Mg Tab PER TUBE 0.6 mg BID SUE Administration Enoxaparin Sodium 70 mg 12/03/20 21:00 12/11/20 08:11 Enoxaparin Sodium 80 Mg/0.8 Ml Syringe SC 70 mg BID SUE Administration Dexamethasone 6 mg/ Sodium 50.6 mls @ 100 mls/hr 11/24/20 09:00 12/11/20 08:11 Chloride IVPB 50.6 mls DAILY SUE Administration Dexmedetomidine HCl 400 mcg/ 100 mls @ 0 mls/hr 11/25/20 16:15 11/25/20 17:09 Sodium Chloride IVPB 100 mls INF SUE Administration Protocol Per Protocol Insulin Glargine 5 units/ 0.05 mls @ 0 mls/hr 11/29/20 21:00 12/05/20 21:37 Miscellaneous Medication SC 0.05 mls HS SUE Administration Meropenem 1 gm/ Device 50 mls @ 100 mls/hr 12/04/20 14:00 12/11/20 13:02 IVPB 50 mls Q8HR SUE Administration Fentanyl 100 mls @ 0 mls/hr 12/05/20 19:15 12/11/20 01:27 Fentanyl Cadd IV 100 mls INF SUE Administration Protocol Per Protocol Vancomycin HCl 1 gm/ Device 200 mls @ 200 mls/hr 12/10/20 06:00 12/11/20 13:02 IVPB 200 mls Q8HR SUE Administration Lorazepam 2 mg 12/05/20 19:06 12/05/20 19:38 Lorazepam 2 Mg/Ml Vial SLOW IVP 2 mg Q1H PRN Administration Breakthrough agitation Mometasone Furoate/Formoterol Fumar 2 puff 11/23/20 18:30 12/11/20 07:02 Mometasone 100 Mcg/Formoterol 5 Mcg 120 Puff Inhaler INH 2 puff BID-RT SUE Administration Multivitamins 1 tab 11/24/20 09:00 12/11/20 08:12 Multivit, Therapeutic 1 Tab PO 1 tab DAILY SUE Administration Ondansetron HCl 4 mg 11/23/20 12:02 11/25/20 00:17 Ondansetron Pf 4 Mg/2 Ml Vial IVP 4 mg Q6H PRN Administration Nausea/Vomiting Pantoprazole Sodium 40 mg 12/02/20 09:00 12/11/20 08:12 Pantoprazole 40 Mg Granules Packet PER TUBE 40 mg DAILY SUE Administration Propofol 1,000 mg 11/25/20 19:00 12/11/20 15:09 Propofol 1,000 Mg/100 Ml Vial IV 12/25/20 19:00 1,000 mg INF PRN Administration TO ACHIEVE GOAL RASS Protocol Senna/Docusate Sodium 2 tab 11/23/20 12:02 12/05/20 17:20 Senokot S 8.6-50 Mg Tab PO 2 tab BIDPRN PRN Administration Constipation Sodium Bicarbonate 650 mg 11/27/20 19:15 12/04/20 13:44 Sodium Bicarbonate Tab 325 Mg Tab PER TUBE 650 mg .PER PROTOCOL PRN Administration ENTERAL TUBE OCCLUSION Sodium Chloride 10 ml 11/23/20 21:00 12/11/20 08:12 Flush - Normal Saline 10 Ml Syringe IVF 10 ml Q12HR SUE Administration Sodium Chloride 10 ml 11/23/20 12:45 12/05/20 12:35 Flush - Normal Saline 10 Ml Syringe IVF 10 ml PRN PRN Administration Saline Flush Vecuronium [place] 10 mg 11/25/20 18:58 12/07/20 15:23 Vecuronium 10 Mg Vial IV 10 mg Q30MIN PRN Administration .VENT COMPLIANCE Zinc Sulfate 220 mg 11/24/20 09:00 12/11/20 08:12 Zinc Sulfate 220 Mg Cap PO 220 mg DAILY SUE Administration Hospitalist Exam Vitals: Vital Signs (12 hours) Temp Pulse Pulse Pulse Resp BP BP 12/11/20 17:34 8 L 12/11/20 16:00 8 L 12/11/20 15:03 100 12/11/20 14:00 9 L 12/11/20 12:00 99.1 F 12 12/11/20 10:55 104 H 12/11/20 10:33 102 H 106 H 127/75 140/71 12/11/20 08:00 99.4 F 12/11/20 07:46 12/11/20 06:53 97 Pulse Ox Pulse Ox Pulse Ox 12/11/20 17:34 12/11/20 16:00 12/11/20 15:03 12/11/20 14:00 12/11/20 12:00 12/11/20 10:55 12/11/20 10:33 98 96 12/11/20 08:00 12/11/20 07:46 95 12/11/20 06:53 Weight Admit Weight 151 lb Weight 147 lb 4.301 oz Most Recent Monitor Data Heart Rate from ECG 106 NIBP 130/74 NIBP BP-Mean 89 Respiration from ECG 27 SpO2 100 Eye: PERRL, anicteric sclera ENT: no oropharyngeal lesions, moist mucosa Neck: supple, no JVD Heart: RRR, no murmur Respiratory: no wheezes, no rales, rhonchi Gastrointestinal: soft, non-tender, non-distended, normal bowel sounds Extremities: no cyanosis, no edema Neurological: cranial nerve grossly intact, no focal deficits Hosp A/P (1) Pneumonia due to COVID-19 virus Code(s): U07.1 - COVID-19; J12.82 - PNEUMONIA DUE TO CORONAVIRUS DISEASE 2019 Status: Acute (2) Acute respiratory failure with hypoxia Code(s): J96.01 - ACUTE RESPIRATORY FAILURE WITH HYPOXIA Status: Acute (3) Glucose intolerance Code(s): E74.39 - OTHER DISORDERS OF INTESTINAL CARBOHYDRATE ABSORPTION Status: Acute (4) Osteoporosis Code(s): M81.0 - AGE-RELATED OSTEOPOROSIS W/O CURRENT PATHOLOGICAL FRACTURE Status: Chronic Qualifiers: Osteoporosis type: age-related Presence of current pathological fracture: without current pathological fracture Qualified Code(s): M81.0 - Age-related osteoporosis without current pathological fracture - Plan has finished course of remdesivir and 2 doses plasma, continue dexamethasone, lasix, alb and dulera inh, colchicine, lovenox full dose, vit D3 and protonix on merrem and vanc from 12/04 for fever, is stable, cultures are -ve. low dose lantus at bedtime for glucose intolerance due to steroids. prognosis guarded inflammatory markers are finally trending down, crp is 7.5 from 26 earlier, he is at his baseline weight around 147 lbs now (off lasix now). d/w (daughter) and gave full updates. weaning per pulm advice, is on 40% fio2 with peep of 8 now, may get extubated coming week or will get trach and peg. got intubated on 11/26
--- NOTE | 2020-12-11 21:50 | EKG ---
Test Reason : Blood Pressure : / mmHG Vent. Rate : 103 BPM Atrial Rate : 103 BPM P-R Int : 114 ms QRS Dur : 076 ms QT Int : 350 ms P-R-T Axes : 074 010 004 degrees QTc Int : 458 ms Sinus tachycardia Otherwise normal ECG Confirmed by DENISSE KEANE DO ([id number]), editor managing director RANJAN CANALES ([id number]) on 12/11/2020 9:50:12 PM Referred By: Confirmed By:DENISSE KEANE DO
[2020-12-12] MEDS: Albuterol 200 PUFF (6.7GM INHALER) INH SCH ×6 (03:02→22:40)
[2020-12-12] MEDS: Propofol 1,000 MG/100 ML VIAL IV PRN ×3 (03:47→18:02)
[2020-12-12 04:03] LABS: Band 1 % (5-11); Eosinophils 1 % (0-10); Lymphocytes 4 % (21-51); MDiff Complete? YES; Monocytes 2 % (0-10); Neutrophil 92 % (42-75); Platelet Morphology Comment Appears Adequate
[2020-12-12 04:04] LABS: Hemoglobin 12.2 g/dL (14.0-18.0); Mean Corpuscular Hemoglobin 30.7 pg (27.0-31.0); Mean Corpuscular Volume 95.9 fL (78.0-98.0); Mean Platelet Volume 8.8 fL (7.4-10.4); Platelet Count 323 thou/uL (130-400); RBC Distribution Width 13.7 % (11.5-14.5); Red Blood Cell (RBC) Count 3.96 mill/uL (4.70-6.10); White Blood Cell (WBC) Count 16.5 thou/uL (4.8-10.8)
[2020-12-12] MEDS ORDERED: Fentanyl CADD 100 ML ONE ×2 (04:08→17:59)
[2020-12-12 04:22] LABS: ALT (SGPT) 33 U/L (8-55); AST (SGOT) 31 U/L (5-34); Albumin 2.3 g/dL (3.4-4.8); Alkaline Phosphatase 70 U/L (40-110); Anion Gap 12 mmol/L (10-20); BUN (Urea Nitrogen) 12 mg/dL (8.4-25.7); Bilirubin, Total 0.5 mg/dL (0.2-1.2); CRP (Inflammatory) 8.05 mg/dL (= or < 0.5); Calc. Creatinine Clearance 176 mL/min (70-130); Calcium 7.3 mg/dL (7.8-10.44); Carbon Dioxide 29 mmol/L (23-31); Chloride 99 mmol/L (98-107); Globulin 3.4 g/dL (2.4-3.5); Glucose 108 mg/dL (80-115); Potassium 3.8 mmol/L (3.5-5.1); Protein, Total 5.7 g/dL (5.8-8.1); Sodium 136 mmol/L (136-145)
[2020-12-12] MEDS: Fentanyl CADD 100 ML IV SCH (04:39)
[2020-12-12] MEDS: MEROPENEM 1 GM/50 ML 1 GM in Premix Bag 1 BAG IVPB SCH ×3 (05:37→22:35)
[2020-12-12] MEDS: Vancomycin 1 GM in Premix Bag 1 BAG IVPB SCH ×3 (05:37→21:20)
[2020-12-12] MEDS: Mometasone 100 MCG/Formoterol 5 MCG 120 PUFF INHALER INH SCH ×2 (06:39→18:42)
[2020-12-12] MEDS: Vancomycin 1.5 GRAM/300 ML BAG 1.5 GM in Premix Bag 1 BAG IVPB SCH (07:39)
[2020-12-12] MEDS: Multivit, Therapeutic 1 TAB PO SCH (08:50)
[2020-12-12] MEDS: Dexamethasone 6 MG in Sodium Chloride 0.9% 50 ML IVPB SCH (08:50)
[2020-12-12] MEDS: Zinc Sulfate 220 MG CAP PO SCH (08:50)
[2020-12-12] MEDS: Ascorbic Acid 500 mg Chewable Tablet PO SCH (08:50)
[2020-12-12] MEDS: Pantoprazole 40 MG GRANULES PACKET PER TUBE SCH (08:51)
[2020-12-12] MEDS: Enoxaparin Sodium 80 MG/0.8 ML SYRINGE SC SCH ×2 (08:51→20:47)
[2020-12-12] MEDS: Cholecalciferol 1,000 UNITS (25 MCG) TAB PO SCH (08:56)
[2020-12-12] MEDS: Colchicine 0.6 MG TAB PER TUBE SCH ×2 (08:56→20:47)
--- NOTE | 2020-12-12 09:00 | RAD ---
CHEST 1 VIEW: Date: 12/12/2020 INDICATION: History of pneumonia. COMPARISON: Prior exam dated 12/11/2020. IMPRESSION: Bilateral pneumonia is stable. Patient remains intubated with gastric catheter placement. No pneumoth orax evident. No acute osseous abnormality is noted. POS: BH
--- NOTE | 2020-12-12 14:21 | PRG ---
DATE OF SERVICE: 12/12/2020 SUBJECTIVE: Mr. Collins remains ventilated. OBJECTIVE: VITAL SIGNS: Blood pressure is 147/70, heart rate is in 90s, saturation is 100%, FiO2 is down to 40%. LUNGS: Remarkable for equal breath sounds. HEART: Regular rhythm. ABDOMEN: Soft. EXTREMITIES: Without asymmetry. LABORATORY DATA: White count 16.5, hemoglobin 12.2, platelets 323. Electrolytes are unremarkable. IMPRESSION: COVID pneumonia with respiratory failure, clinically stable with slow improvement. Chest radiographs essentially unchanged. PLAN: We will continue supportive care. Critical care time 30 min. Job ID: [id number] MTDD
--- NOTE | 2020-12-12 16:17 | PDOC.HOSPP ---
- Subjective Encounter Date: 12/12/20 Encounter Time: 10:00 Subjective: is on vent, mild sedation, follows verbal stimuli, moves all extremities son at bedside - Objective Vital Signs & Weight: Vital Signs (12 hours) Temp Pulse Resp Pulse Ox 12/12/20 14:00 25 H 12/12/20 12:00 98.5 F 22 H 12/12/20 10:48 104 H 12/12/20 10:00 22 H 12/12/20 08:00 99.3 F 24 H 99 12/12/20 06:39 95 Weight Admit Weight 2.356 oz Weight 147 lb 7.828 oz Most Recent Monitor Data Heart Rate from ECG 104 NIBP 121/72 NIBP BP-Mean 83 Respiration from ECG 33 SpO2 100 I&O: 12/11/20 12/12/20 12/13/20 06:59 06:59 06:59 Intake Total 2102.4 2530.4 540 Output Total 3305 3625 1200 Balance -1202.6 -1094.6 -660 Result Diagrams: 12/12/20 03:42 12/12/20 03:42 Additional Labs: Accuchecks 12/12/20 12/11/20 12:18 21:39 POC Glucose 122 H 99 Hospitalist ROS - Medication Medications: Active Medications Generic Name Dose Route Start Last Admin Trade Name Freq PRN Reason Stop Dose Admin Acetaminophen 650 mg 11/23/20 12:02 12/10/20 20:04 Acetaminophen 325 Mg Tab PO 650 mg Q4H PRN Administration Headache/Fever/Mild Pain (1-3) Albuterol Sulfate 2 puff 11/24/20 18:30 12/12/20 13:38 Albuterol 200 Puff (6.7gm Inhaler) INH 2 puff [id number] SUE Administration Ascorbic Acid 1,000 mg 11/24/20 09:00 12/12/20 08:50 Ascorbic Acid 500 Mg Chewable Tablet PO 1,000 mg DAILY SUE Administration Cholecalciferol 1,000 units 11/24/20 09:00 12/12/20 08:56 Cholecalciferol 1,000 Units (25 Mcg) Tab PO 1,000 units DAILY SUE Administration Colchicine 0.6 mg 12/01/20 09:00 12/12/20 08:56 Colchicine 0.6 Mg Tab PER TUBE 0.6 mg BID SUE Administration Enoxaparin Sodium 70 mg 12/03/20 21:00 12/12/20 08:51 Enoxaparin Sodium 80 Mg/0.8 Ml Syringe SC 70 mg BID SUE Administration Dexamethasone 6 mg/ Sodium 50.6 mls @ 100 mls/hr 11/24/20 09:00 12/12/20 08:50 Chloride IVPB 50.6 mls DAILY SUE Administration Dexmedetomidine HCl 400 mcg/ 100 mls @ 0 mls/hr 11/25/20 16:15 11/25/20 17:09 Sodium Chloride IVPB 100 mls INF USE Administration Protocol Per Protocol Insulin Glargine 5 units/ 0.05 mls @ 0 mls/hr 11/29/20 21:00 12/05/20 21:37 Miscellaneous Medication SC 0.05 mls HS SUE Administration Meropenem 1 gm/ Device 50 mls @ 100 mls/hr 12/04/20 14:00 12/12/20 13:07 IVPB 50 mls Q8HR SUE Administration Fentanyl 100 mls @ 0 mls/hr 12/05/20 19:15 12/12/20 04:39 Fentanyl Cadd IV 100 mls INF SUE Administration Protocol Per Protocol Vancomycin HCl 1 gm/ Device 200 mls @ 200 mls/hr 12/10/20 06:00 12/12/20 13:07 IVPB 200 mls Q8HR SUE Administration Lorazepam 2 mg 12/05/20 19:06 12/05/20 19:38 Lorazepam 2 Mg/Ml Vial SLOW IVP 2 mg Q1H PRN Administration Breakthrough agitation Mometasone Furoate/Formoterol Fumar 2 puff 11/23/20 18:30 12/12/20 06:39 Mometasone 100 Mcg/Formoterol 5 Mcg 120 Puff Inhaler INH 2 puff BID-RT SUE Administration Multivitamins 1 tab 11/24/20 09:00 12/12/20 08:50 Multivit, Therapeutic 1 Tab PO 1 tab DAILY SUE Administration Ondansetron HCl 4 mg 11/23/20 12:02 11/25/20 00:17 Ondansetron Pf 4 Mg/2 Ml Vial IVP 4 mg Q6H PRN Administration Nausea/Vomiting Pantoprazole Sodium 40 mg 12/02/20 09:00 12/12/20 08:51 Pantoprazole 40 Mg Granules Packet PER TUBE 40 mg DAILY SUE Administration Propofol 1,000 mg 11/25/20 19:00 12/12/20 11:14 Propofol 1,000 Mg/100 Ml Vial IV 12/25/20 19:00 1,000 mg INF PRN Administration TO ACHIEVE GOAL RASS Protocol Senna/Docusate Sodium 2 tab 11/23/20 12:02 12/05/20 17:20 Senokot S 8.6-50 Mg Tab PO 2 tab BIDPRN PRN Administration Constipation Sodium Bicarbonate 650 mg 11/27/20 19:15 12/04/20 13:44 Sodium Bicarbonate Tab 325 Mg Tab PER TUBE 650 mg .PER PROTOCOL PRN Administration ENTERAL TUBE OCCLUSION Sodium Chloride 10 ml 11/23/20 21:00 12/12/20 08:51 Flush - Normal Saline 10 Ml Syringe IVF 10 ml Q12HR SUE Administration Sodium Chloride 10 ml 11/23/20 12:45 12/05/20 12:35 Flush - Normal Saline 10 Ml Syringe IVF 10 ml PRN PRN Administration Saline Flush Vecuronium [place] 10 mg 11/25/20 18:58 12/07/20 15:23 Vecuronium 10 Mg Vial IV 10 mg Q30MIN PRN Administration .VENT COMPLIANCE Zinc Sulfate 220 mg 11/24/20 09:00 12/12/20 08:50 Zinc Sulfate 220 Mg Cap PO 220 mg DAILY SUE Administration Hospitalist Exam Vitals: Vital Signs (12 hours) Temp Pulse Resp Pulse Ox 12/12/20 14:00 25 H 12/12/20 12:00 98.5 F 22 H 12/12/20 10:48 104 H 12/12/20 10:00 22 H 12/12/20 08:00 99.3 F 24 H 99 12/12/20 06:39 95 Weight Admit Weight 2.356 oz Weight 147 lb 7.828 oz Most Recent Monitor Data Heart Rate from ECG 104 NIBP 121/72 NIBP BP-Mean 83 Respiration from ECG 33 SpO2 100 Eye: PERRL, anicteric sclera ENT: no oropharyngeal lesions, moist mucosa Neck: supple, no JVD Heart: RRR, no murmur Respiratory: no wheezes, no rales, rhonchi Gastrointestinal: soft, non-tender, non-distended, normal bowel sounds Extremities: no cyanosis, no edema Neurological: cranial nerve grossly intact, no focal deficits Hosp A/P (1) Pneumonia due to COVID-19 virus Code(s): U07.1 - COVID-19; J12.82 - PNEUMONIA DUE TO CORONAVIRUS DISEASE 2019 Status: Acute (2) Acute respiratory failure with hypoxia Code(s): J96.01 - ACUTE RESPIRATORY FAILURE WITH HYPOXIA Status: Acute (3) Glucose intolerance Code(s): E74.39 - OTHER DISORDERS OF INTESTINAL CARBOHYDRATE ABSORPTION Status: Acute (4) Osteoporosis Code(s): M81.0 - AGE-RELATED OSTEOPOROSIS W/O CURRENT PATHOLOGICAL FRACTURE Status: Chronic Qualifiers: Osteoporosis type: age-related Presence of current pathological fracture: without current pathological fracture Qualified Code(s): M81.0 - Age-related osteoporosis without current pathological fracture - Plan has finished full course of remdesivir and 2 doses plasma, continue dexamethasone, lasix, alb and dulera inh, colchicine, lovenox full dose, vit D3 and protonix on merrem and vanc from 12/04 for fever, is stable, cultures are -ve. low dose lantus at bedtime for glucose intolerance due to steroids. prognosis guarded inflammatory markers are finally trending down, crp is around 8 from 26 earlier, he is at his baseline weight around 147 lbs now (off lasix now). d/w (daughter) and gave full updates. weaning per pulm advice, is on 40% fio2 with peep of 8 now, may get extubated coming week or will get trach and peg. got intubated on 11/26
[2020-12-13] MEDS: Propofol 1,000 MG/100 ML VIAL IV PRN ×4 (01:04→19:46)
[2020-12-13] MEDS: Albuterol 200 PUFF (6.7GM INHALER) INH SCH ×6 (02:43→22:15)
[2020-12-13 05:03] LABS: Band 4 % (5-11); Hemoglobin 12.1 g/dL (14.0-18.0); Hypochromia SLIGHT = 6-15 cells (100X) (0-5/hpf); Lymphocytes 8 % (21-51); MDiff Complete? YES; Mean Corpuscular HGB CONC 32.2 g/dL (32.0-36.0); Mean Corpuscular Hemoglobin 30.9 pg (27.0-31.0); Mean Platelet Volume 9.4 fL (7.4-10.4); Monocytes 5 % (0-10); Neutrophil 83 % (42-75); Platelet Count 346 thou/uL (130-400); Platelet Morphology Comment Appears Adequate; RBC Distribution Width 13.7 % (11.5-14.5); Red Blood Cell (RBC) Count 3.91 mill/uL (4.70-6.10); White Blood Cell (WBC) Count 16.9 thou/uL (4.8-10.8)
[2020-12-13] MEDS: Vancomycin 1 GM in Premix Bag 1 BAG IVPB SCH (05:31)
[2020-12-13] MEDS: MEROPENEM 1 GM/50 ML 1 GM in Premix Bag 1 BAG IVPB SCH ×3 (05:32→21:42)
[2020-12-13] MEDS ORDERED: Fentanyl CADD 100 ML ONE ×2 (07:33→20:06)
[2020-12-13] MEDS: Mometasone 100 MCG/Formoterol 5 MCG 120 PUFF INHALER INH SCH ×2 (07:54→18:40)
[2020-12-13 08:48] LABS: Vancomycin, Trough 24.4 ug/mL
[2020-12-13 09:05] LABS: ALT (SGPT) 33 U/L (8-55); AST (SGOT) 29 U/L (5-34); Albumin 2.3 g/dL (3.4-4.8); Alkaline Phosphatase 70 U/L (40-110); Anion Gap 11 mmol/L (10-20); BUN (Urea Nitrogen) 11 mg/dL (8.4-25.7); Bilirubin, Total 0.6 mg/dL (0.2-1.2); Calc. Creatinine Clearance 0 mL/min (70-130); Calcium 7.2 mg/dL (7.8-10.44); Carbon Dioxide 31 mmol/L (23-31); Chloride 98 mmol/L (98-107); Globulin 3.1 g/dL (2.4-3.5); Glucose 112 mg/dL (80-115); Potassium 3.2 mmol/L (3.5-5.1); Protein, Total 5.4 g/dL (5.8-8.1); Sodium 137 mmol/L (136-145)
--- NOTE | 2020-12-13 09:05 | PRG ---
DATE OF SERVICE: 12/13/2020 35 minutes of critical care time. SUBJECTIVE: The patient is on hospital day 20 today. He has been taken out of isolation. He is still very weak, does not follow commands even once sedation is decreased. He becomes very agitated when sedation is decreased. OBJECTIVE: VITAL SIGNS: Temperature 98.2, pulse 114, blood pressure 115/60. He is on SIMV rate of 12, tidal volume 470, PEEP 8, pressure support 15, FiO2 of 40%. HEENT: Unremarkable. NECK: No JVD. LUNGS: Inspiratory crackles. CARDIAC: S1 and S2, regular. ABDOMEN: Soft. EXTREMITIES: No edema. LABORATORY DATA: Sodium 136, potassium 3.8, chloride 99, CO2 of 29, BUN 12, creatinine 0.4, glucose 108. White blood cell count 16.9, hematocrit 37.5, and platelet count 346. ASSESSMENT: 1. COVID-19 pneumonia. 2. Acute respiratory failure requiring mechanical ventilation. 3. Encephalopathy. PLAN: Discussed with his daughter, Teresa over the phone. I think he needs to undergo tracheostomy and PEG tube placement in order to allow his best chance to wean off the ventilator and allow us to back off the sedation. She has requested Dr. Campuzano, so I will contact him. In the meantime, we are continuing colchicine, steroids. I am holding his anticoagulation until after the trach. Job ID: [id number]
--- NOTE | 2020-12-13 09:08 | RAD ---
AP CHEST: HISTORY: Pneumonia and CCU followup. COMPARISON: 12/12/2020. FINDINGS: ET tube and NG tube again noted. Bilateral interstitial and hazy alveolar infiltrates or some conflu ent opacities seen in the mid and lower lungs. IMPRESSION: The bilateral infiltrates appear stable from yesterday. POS: AGW
[2020-12-13] MEDS: Multivit, Therapeutic 1 TAB PO SCH (09:30)
[2020-12-13] MEDS: Ascorbic Acid 500 mg Chewable Tablet PO SCH (09:30)
[2020-12-13] MEDS: Zinc Sulfate 220 MG CAP PO SCH (09:30)
[2020-12-13] MEDS: Colchicine 0.6 MG TAB PER TUBE SCH ×2 (09:30→20:26)
[2020-12-13] MEDS: Dexamethasone 6 MG in Sodium Chloride 0.9% 50 ML IVPB SCH (09:31)
[2020-12-13] MEDS: Pantoprazole 40 MG GRANULES PACKET PER TUBE SCH (09:31)
[2020-12-13] MEDS: Cholecalciferol 1,000 UNITS (25 MCG) TAB PO SCH (09:35)
[2020-12-13] MEDS: Potassium Chloride 20 MEQ in Premix Bag 1 BAG IVPB SCH ×2 (11:54→13:17)
[2020-12-13 13:35] LABS: Vancomycin, Trough 11.2 ug/mL
[2020-12-13] MEDS: VANCOMYCIN 1.25 GM/250 ML BAG 1.25 GM in Premix Bag 1 BAG IVPB SCH ×2 (15:37→21:43)
--- NOTE | 2020-12-13 16:12 | PDOC.HOSPP ---
- Subjective Encounter Date: 12/13/20 Encounter Time: 10:00 Subjective: is on vent, awakens easily, on mild sedation daughter at bedside - Objective Vital Signs & Weight: Vital Signs (12 hours) Temp Pulse Pulse Pulse Resp BP BP 12/13/20 14:39 99 12/13/20 14:00 24 H 12/13/20 12:27 108 H 108 H 117/66 12/13/20 12:00 98.4 F 24 H 12/13/20 10:33 110 H 102/57 L 12/13/20 10:00 26 H 12/13/20 09:00 98.8 F 12/13/20 08:00 21 H 12/13/20 07:55 112 H 12/13/20 06:00 98.2 F 15 BP Pulse Ox 12/13/20 14:39 12/13/20 14:00 12/13/20 12:27 113/65 12/13/20 12:00 12/13/20 10:33 12/13/20 10:00 12/13/20 09:00 12/13/20 08:00 99 12/13/20 07:55 12/13/20 06:00 Weight Admit Weight 2.356 oz Weight 2.293 oz Most Recent Monitor Data Heart Rate from ECG 106 NIBP 121/69 NIBP BP-Mean 89 Respiration from ECG 19 SpO2 99 I&O: 12/12/20 12/13/20 12/14/20 06:59 06:59 06:59 Intake Total 2530.4 2163.5 499 Output Total 3625 2815 930 [facility] -1094.6 -651.5 -431 Result Diagrams: 12/13/20 04:00 12/13/20 08:15 Additional Labs: Accuchecks 12/13/20 12/12/20 12:38 20:45 POC Glucose 141 H 103 H Hospitalist ROS - Medication Medications: Active Medications Generic Name Dose Route Start Last Admin Trade Name Freq PRN Reason Stop Dose Admin Acetaminophen 650 mg 11/23/20 12:02 12/10/20 20:04 Acetaminophen 325 Mg Tab PO 650 mg Q4H PRN Administration Headache/Fever/Mild Pain (1-3) Albuterol Sulfate 2 puff 11/24/20 18:30 12/13/20 14:38 Albuterol 200 Puff (6.7gm Inhaler) INH 2 puff [id number] SUE Administration Ascorbic Acid 1,000 mg 11/24/20 09:00 12/13/20 09:30 Ascorbic Acid 500 Mg Chewable Tablet PO 1,000 mg DAILY SUE Administration Cholecalciferol 1,000 units 11/24/20 09:00 12/13/20 09:35 Cholecalciferol 1,000 Units (25 Mcg) Tab PO 1,000 units DAILY SUE Administration Colchicine 0.6 mg 12/01/20 09:00 12/13/20 09:30 Colchicine 0.6 Mg Tab PER TUBE 0.6 mg BID SUE Administration Dexamethasone 6 mg/ Sodium 50.6 mls @ 100 mls/hr 11/24/20 09:00 12/13/20 09:31 Chloride IVPB 50.6 mls DAILY SUE Administration Dexmedetomidine HCl 400 mcg/ 100 mls @ 0 mls/hr 11/25/20 16:15 11/25/20 17:09 Sodium Chloride IVPB 100 mls INF SUE Administration Protocol Per Protocol Insulin Glargine 5 units/ 0.05 mls @ 0 mls/hr 11/29/20 21:00 12/05/20 21:37 Miscellaneous Medication SC 0.05 mls HS SUE Administration Meropenem 1 gm/ Device 50 mls @ 100 mls/hr 12/04/20 14:00 12/13/20 13:27 IVPB 50 mls Q8HR SUE Administration Fentanyl 100 mls @ 0 mls/hr 12/05/20 19:15 12/12/20 04:39 Fentanyl Cadd IV 100 mls INF SUE Administration Protocol Per Protocol Vancomycin HCl 1.25 gm/ Device 250 mls @ 166.667 mls/hr 12/13/20 14:00 12/13/20 15:37 IVPB 250 mls Q8HR SUE Administration Lorazepam 2 mg 12/05/20 19:06 12/05/20 19:38 Lorazepam 2 Mg/Ml Vial SLOW IVP 2 mg Q1H PRN Administration Breakthrough agitation Mometasone Furoate/Formoterol Fumar 2 puff 11/23/20 18:30 12/13/20 07:54 Mometasone 100 Mcg/Formoterol 5 Mcg 120 Puff Inhaler INH 2 puff BID-RT SUE Administration Multivitamins 1 tab 11/24/20 09:00 12/13/20 09:30 Multivit, Therapeutic 1 Tab PO 1 tab DAILY SUE Administration Ondansetron HCl 4 mg 11/23/20 12:02 11/25/20 00:17 Ondansetron Pf 4 Mg/2 Ml Vial IVP 4 mg Q6H PRN Administration Nausea/Vomiting Pantoprazole Sodium 40 mg 12/02/20 09:00 12/13/20 09:31 Pantoprazole 40 Mg Granules Packet PER TUBE 40 mg DAILY SUE Administration Propofol 1,000 mg 11/25/20 19:00 12/13/20 13:17 Propofol 1,000 Mg/100 Ml Vial IV 12/25/20 19:00 1,000 mg INF PRN Administration TO ACHIEVE GOAL RASS Protocol Senna/Docusate Sodium 2 tab 11/23/20 12:02 12/05/20 17:20 Senokot S 8.6-50 Mg Tab PO 2 tab BIDPRN PRN Administration Constipation Sodium Chloride 10 ml 11/23/20 21:00 12/13/20 09:31 Flush - Normal Saline 10 Ml Syringe IVF 10 ml Q12HR SUE Administration Sodium Chloride 10 ml 11/23/20 12:45 12/05/20 12:35 Flush - Normal Saline 10 Ml Syringe IVF 10 ml PRN PRN Administration Saline Flush Vecuronium [place] 10 mg 11/25/20 18:58 12/07/20 15:23 Vecuronium 10 Mg Vial IV 10 mg Q30MIN PRN Administration .VENT COMPLIANCE Zinc Sulfate 220 mg 11/24/20 09:00 12/13/20 09:30 Zinc Sulfate 220 Mg Cap PO 220 mg DAILY SUE Administration Hospitalist Exam Vitals: Vital Signs (12 hours) Temp Pulse Pulse Pulse Resp BP BP 12/13/20 14:39 99 12/13/20 14:00 24 H 12/13/20 12:27 108 H 108 H 117/66 12/13/20 12:00 98.4 F 24 H 12/13/20 10:33 110 H 102/57 L 12/13/20 10:00 26 H 12/13/20 09:00 98.8 F 12/13/20 08:00 21 H 12/13/20 07:55 112 H 12/13/20 06:00 98.2 F 15 BP Pulse Ox 12/13/20 14:39 12/13/20 14:00 12/13/20 12:27 113/65 12/13/20 12:00 12/13/20 10:33 12/13/20 10:00 12/13/20 09:00 12/13/20 08:00 99 12/13/20 07:55 12/13/20 06:00 Weight Admit Weight 2.356 oz Weight 2.293 oz Most Recent Monitor Data Heart Rate from ECG 106 NIBP 121/69 NIBP BP-Mean 89 Respiration from ECG 19 SpO2 99 Eye: PERRL, anicteric sclera ENT: no oropharyngeal lesions, moist mucosa Neck: supple, no JVD Heart: RRR, no murmur Respiratory: no wheezes, no rales, rhonchi Gastrointestinal: soft, non-tender, non-distended, normal bowel sounds Extremities: no cyanosis, no edema Neurological: cranial nerve grossly intact, no focal deficits Hosp A/P (1) Pneumonia due to COVID-19 virus Code(s): U07.1 - COVID-19; J12.82 - PNEUMONIA DUE TO CORONAVIRUS DISEASE 2019 Status: Acute (2) Acute respiratory failure with hypoxia Code(s): J96.01 - ACUTE RESPIRATORY FAILURE WITH HYPOXIA Status: Acute (3) Glucose intolerance Code(s): E74.39 - OTHER DISORDERS OF INTESTINAL CARBOHYDRATE ABSORPTION Status: Acute (4) Osteoporosis Code(s): M81.0 - AGE-RELATED OSTEOPOROSIS W/O CURRENT PATHOLOGICAL FRACTURE Status: Chronic Qualifiers: Osteoporosis type: age-related Presence of current pathological fracture: without current pathological fracture Qualified Code(s): M81.0 - Age-related osteoporosis without current pathological fracture - Plan has finished full course of remdesivir and 2 doses plasma, continue dexamethasone, lasix, alb and dulera inh, colchicine, lovenox full dose, vit D3 and protonix on merrem and vanc from 12/04 for fever, is stable, cultures are -ve. low dose lantus at bedtime for glucose intolerance due to steroids. prognosis guarded inflammatory markers are finally trending down, crp is around 8 from 26 earlier, he is at his baseline weight around 147 lbs now (off lasix now). d/w (daughter) and gave full updates. weaning per pulm advice, is on 40% fio2 with peep of 6 now, for trach and peg likely on sunday got intubated on 11/26
[2020-12-13] MEDS: Fentanyl CADD 100 ML IV SCH (20:10)
[2020-12-14] MEDS: Propofol 1,000 MG/100 ML VIAL IV PRN ×2 (01:31→21:03)
[2020-12-14] MEDS: Albuterol 200 PUFF (6.7GM INHALER) INH SCH ×6 (02:23→22:30)
[2020-12-14 04:01] LABS: Band 11 % (5-11); Hemoglobin 11.3 g/dL (14.0-18.0); Lymphocytes 4 % (21-51); MDiff Complete? YES; Mean Corpuscular HGB CONC 31.7 g/dL (32.0-36.0); Mean Corpuscular Hemoglobin 30.5 pg (27.0-31.0); Mean Corpuscular Volume 96.1 fL (78.0-98.0); Mean Platelet Volume 8.8 fL (7.4-10.4); Neutrophil 85 % (42-75); Platelet Count 346 thou/uL (130-400); Platelet Morphology Comment Appears Adequate; RBC Distribution Width 13.6 % (11.5-14.5); White Blood Cell (WBC) Count 14.4 thou/uL (4.8-10.8)
[2020-12-14 04:05] LABS: ALT (SGPT) 29 U/L (8-55); AST (SGOT) 25 U/L (5-34); Albumin 2.2 g/dL (3.4-4.8); Alkaline Phosphatase 68 U/L (40-110); Anion Gap 11 mmol/L (10-20); BUN (Urea Nitrogen) 12 mg/dL (8.4-25.7); Bilirubin, Total 0.5 mg/dL (0.2-1.2); CRP (Inflammatory) 14.56 mg/dL (= or < 0.5); Calc. Creatinine Clearance 0 mL/min (70-130); Calcium 7.3 mg/dL (7.8-10.44); Carbon Dioxide 30 mmol/L (23-31); Chloride 100 mmol/L (98-107); Globulin 3.2 g/dL (2.4-3.5); Glucose 98 mg/dL (80-115); Potassium 3.5 mmol/L (3.5-5.1); Protein, Total 5.4 g/dL (5.8-8.1); Sodium 137 mmol/L (136-145)
[2020-12-14] MEDS: VANCOMYCIN 1.25 GM/250 ML BAG 1.25 GM in Premix Bag 1 BAG IVPB SCH (05:01)
[2020-12-14] MEDS: MEROPENEM 1 GM/50 ML 1 GM in Premix Bag 1 BAG IVPB SCH (05:02)
[2020-12-14] MEDS: Mometasone 100 MCG/Formoterol 5 MCG 120 PUFF INHALER INH SCH ×2 (08:01→18:19)
--- NOTE | 2020-12-14 08:14 | RAD ---
Portable chest: HISTORY: CCU follow-up with pneumonia COMPARISON: 12/13/2020 FINDINGS:Diffuse bilateral hazy infiltrates again noted. ET tube has tip near carolyn. NG tube unchang ed. IMPRESSION:No significant interval change.
--- NOTE | 2020-12-14 08:39 | PRG ---
DATE OF SERVICE: 12/14/2020 35 minutes critical care time. SUBJECTIVE: The patient remains intubated on mechanical ventilation. There have been no acute changes overnight. OBJECTIVE: VITAL SIGNS: Temperature 98.5, pulse 110, blood pressure 100/58, and O2 sat 96%. HEENT: Remarkable for intubated oropharynx. NECK: No adenopathy or JVD. LUNGS: Coarse rhonchi bilaterally. CARDIOVASCULAR: S1, S2. Regular. ABDOMEN: Soft and nontender. EXTREMITIES: No edema. Neuromuscularly, he will not move to stimulation, but that he does grimace to pain. LABORATORY DATA: Sodium 137, potassium 3.5, chloride 100, CO2 of 30, BUN 12, creatinine 0.4, glucose 98. White blood cell count 14.4, hematocrit 35.6, and platelet count 346. IMAGING DATA: X-ray shows bilateral infiltrates, the ET tube slightly towards the right mainstem bronchus, that has been pulled back by Respiratory Therapy. ASSESSMENT: 1. COVID-19 pneumonia. 2. Acute hypoxic respiratory failure requiring mechanical ventilation. 3. Critical illness myopathy/neuropathy. 4. Encephalopathy. PLAN: 1. Tracheostomy when Dr. Campuzano is able to get to the patient. 2. Continue mechanical ventilation at present settings. 3. I will go ahead and stop meropenem as he has had more than 7 days of that. 4. Enoxaparin was stopped yesterday in preparation for the tracheostomy, but will need to be restarted afterward. 5. Begin to wean steroids. Job ID: [id number]
[2020-12-14] MEDS: Potassium Chloride 20 MEQ in Premix Bag 1 BAG IVPB SCH ×2 (09:02→10:43)
[2020-12-14] MEDS: Dexamethasone 4 mg/ml Vial SLOW IVP SCH (09:03)
[2020-12-14] MEDS: Colchicine 0.6 MG TAB PER TUBE SCH ×2 (09:03→21:00)
[2020-12-14] MEDS: Pantoprazole 40 MG GRANULES PACKET PER TUBE SCH (09:03)
[2020-12-14] MEDS: Zinc Sulfate 220 MG CAP PO SCH (09:03)
[2020-12-14] MEDS: Multivit, Therapeutic 1 TAB PO SCH (09:03)
[2020-12-14] MEDS: Ascorbic Acid 500 mg Chewable Tablet PO SCH (09:03)
[2020-12-14] MEDS: Cholecalciferol 1,000 UNITS (25 MCG) TAB PO SCH (09:03)
[2020-12-14] MEDS ORDERED: Fentanyl CADD 100 ML ONE ×2 (09:34→23:04)
[2020-12-14 13:09] LABS: Vancomycin, Trough 14.4 ug/mL
--- NOTE | 2020-12-14 14:34 | PDOC.HOSPP ---
- Subjective Encounter Date: 12/14/20 Encounter Time: 10:00 Subjective: is on vent, seen moving extremities a bit, on mild sedation - Objective Vital Signs & Weight: Vital Signs (12 hours) Temp Pulse Pulse Pulse Resp BP BP 12/14/20 14:00 20 12/14/20 12:00 18 12/14/20 11:12 109 H 12/14/20 10:00 18 12/14/20 09:54 114 H 116 H 113/66 12/14/20 08:00 12/14/20 07:59 108 H 110/57 L 12/14/20 07:55 17 12/14/20 06:00 14 12/14/20 04:00 98.5 F 14 BP Pulse Ox Pulse Ox Pulse Ox 12/14/20 14:00 12/14/20 12:00 12/14/20 11:12 12/14/20 10:00 12/14/20 09:54 104/61 95 96 12/14/20 08:00 98 12/14/20 07:59 12/14/20 07:55 12/14/20 06:00 12/14/20 04:00 Weight Admit Weight 151 lb 3.794 oz Weight 2.321 oz Most Recent Monitor Data Heart Rate from ECG 117 NIBP 127/81 NIBP BP-Mean 104 Respiration from ECG 25 SpO2 99 I&O: 12/13/20 12/14/20 12/15/20 06:59 06:59 06:59 Intake Total 2163.5 3075 393.2 Output Total 2815 2160 1110 Balance -651.5 915 -716.8 Result Diagrams: 12/14/20 03:26 12/14/20 03:26 Additional Labs: Accuchecks 12/13/20 21:46 POC Glucose 111 H Hospitalist ROS - Medication Medications: Active Medications Generic Name Dose Route Start Last Admin Trade Name Freq PRN Reason Stop Dose Admin Acetaminophen 650 mg 11/23/20 12:02 12/10/20 20:04 Acetaminophen 325 Mg Tab PO 650 mg Q4H PRN Administration Headache/Fever/Mild Pain (1-3) Albuterol Sulfate 2 puff 11/24/20 18:30 12/14/20 11:11 Albuterol 200 Puff (6.7gm Inhaler) INH 2 puff [id number] SUE Administration Ascorbic Acid 1,000 mg 11/24/20 09:00 12/14/20 09:03 Ascorbic Acid 500 Mg Chewable Tablet PO 1,000 mg DAILY SUE Administration Cholecalciferol 1,000 units 11/24/20 09:00 12/14/20 09:03 Cholecalciferol 1,000 Units (25 Mcg) Tab PO 1,000 units DAILY SUE Administration Colchicine 0.6 mg 12/01/20 09:00 12/14/20 09:03 Colchicine 0.6 Mg Tab PER TUBE 0.6 mg BID SUE Administration Dexamethasone 3 mg 12/14/20 09:00 12/14/20 09:03 Dexamethasone 4 Mg/Ml Vial SLOW IVP 3 mg DAILY SUE Administration Dexmedetomidine HCl 400 mcg/ 100 mls @ 0 mls/hr 11/25/20 16:15 11/25/20 17:09 Sodium Chloride IVPB 100 mls INF SUE Administration Protocol Per Protocol Insulin Glargine 5 units/ 0.05 mls @ 0 mls/hr 11/29/20 21:00 12/05/20 21:37 Miscellaneous Medication SC 0.05 mls HS SUE Administration Fentanyl 100 mls @ 0 mls/hr 12/05/20 19:15 12/13/20 20:10 Fentanyl Cadd IV 100 mls INF SUE Administration Protocol Per Protocol Lorazepam 2 mg 12/05/20 19:06 12/05/20 19:38 Lorazepam 2 Mg/Ml Vial SLOW IVP 2 mg Q1H PRN Administration Breakthrough agitation Mometasone Furoate/Formoterol Fumar 2 puff 11/23/20 18:30 12/14/20 08:01 Mometasone 100 Mcg/Formoterol 5 Mcg 120 Puff Inhaler INH 2 puff BID-RT SUE Administration Multivitamins 1 tab 11/24/20 09:00 12/14/20 09:03 Multivit, Therapeutic 1 Tab PO 1 tab DAILY SUE Administration Ondansetron HCl 4 mg 11/23/20 12:02 11/25/20 00:17 Ondansetron Pf 4 Mg/2 Ml Vial IVP 4 mg Q6H PRN Administration Nausea/Vomiting Pantoprazole Sodium 40 mg 12/02/20 09:00 12/14/20 09:03 Pantoprazole 40 Mg Granules Packet PER TUBE 40 mg DAILY SUE Administration Propofol 1,000 mg 11/25/20 19:00 12/14/20 01:31 Propofol 1,000 Mg/100 Ml Vial IV 12/25/20 19:00 1,000 mg INF PRN Administration TO ACHIEVE GOAL RASS Protocol Senna/Docusate Sodium 2 tab 11/23/20 12:02 12/05/20 17:20 Senokot S 8.6-50 Mg Tab PO 2 tab BIDPRN PRN Administration Constipation Sodium Chloride 10 ml 11/23/20 21:00 12/14/20 09:04 Flush - Normal Saline 10 Ml Syringe IVF 10 ml Q12HR SUE Administration Sodium Chloride 10 ml 11/23/20 12:45 12/05/20 12:35 Flush - Normal Saline 10 Ml Syringe IVF 10 ml PRN PRN Administration Saline Flush Vecuronium [place] 10 mg 11/25/20 18:58 12/07/20 15:23 Vecuronium 10 Mg Vial IV 10 mg Q30MIN PRN Administration .VENT COMPLIANCE Zinc Sulfate 220 mg 11/24/20 09:00 12/14/20 09:03 Zinc Sulfate 220 Mg Cap PO 220 mg DAILY SUE Administration Hospitalist Exam Vitals: Vital Signs (12 hours) Temp Pulse Pulse Pulse Resp BP BP 12/14/20 14:00 20 12/14/20 12:00 18 12/14/20 11:12 109 H 12/14/20 10:00 18 12/14/20 09:54 114 H 116 H 113/66 12/14/20 08:00 12/14/20 07:59 108 H 110/57 L 12/14/20 07:55 17 12/14/20 06:00 14 12/14/20 04:00 98.5 F 14 BP Pulse Ox Pulse Ox Pulse Ox 12/14/20 14:00 12/14/20 12:00 12/14/20 11:12 12/14/20 10:00 12/14/20 09:54 104/61 95 96 12/14/20 08:00 98 12/14/20 07:59 12/14/20 07:55 12/14/20 06:00 12/14/20 04:00 Weight Admit Weight 151 lb 3.794 oz Weight 2.321 oz Most Recent Monitor Data Heart Rate from ECG 117 NIBP 127/81 NIBP BP-Mean 104 Respiration from ECG 25 SpO2 99 Eye: PERRL, anicteric sclera ENT: no oropharyngeal lesions, dry oral mucosa Neck: supple, no JVD Heart: RRR, no murmur Respiratory: no wheezes, no rales, rhonchi Gastrointestinal: soft, non-tender, non-distended, normal bowel sounds Extremities: no cyanosis, no edema Neurological: cranial nerve grossly intact, no focal deficits Hosp A/P (1) Pneumonia due to COVID-19 virus Code(s): U07.1 - COVID-19; J12.82 - PNEUMONIA DUE TO CORONAVIRUS DISEASE 2019 Status: Acute (2) Acute respiratory failure with hypoxia Code(s): J96.01 - ACUTE RESPIRATORY FAILURE WITH HYPOXIA Status: Acute (3) Glucose intolerance Code(s): E74.39 - OTHER DISORDERS OF INTESTINAL CARBOHYDRATE ABSORPTION Status: Acute (4) Osteoporosis Code(s): M81.0 - AGE-RELATED OSTEOPOROSIS W/O CURRENT PATHOLOGICAL FRACTURE Status: Chronic Qualifiers: Osteoporosis type: age-related Presence of current pathological fracture: without current pathological fracture Qualified Code(s): M81.0 - Age-related osteoporosis without current pathological fracture - Plan has finished full course of remdesivir and 2 doses plasma, continue dexamethasone, lasix, alb and dulera inh, colchicine, lovenox full dose, vit D3 and protonix is off merrem and vanc, is stable, cultures are -ve. low dose lantus at bedtime for glucose intolerance due to steroids. prognosis guarded inflammatory markers are wavy, crp is anywhere from 8 from 26, he is at his baseline weight around 147 lbs now (off lasix now). d/w (daughter) and gave full updates. weaning per pulm advice, is on 40% fio2 with peep of 6 now, for trach and peg likely in am. got intubated on 11/26
--- NOTE | 2020-12-14 17:01 | CON ---
DATE OF CONSULTATION: 12/14/2020 CHIEF COMPLAINT: COVID pneumonia. HISTORY OF PRESENT ILLNESS: This is a 65-year-old male, who was previously admitted to the hospital on 11/23/2020 for COVID pneumonia. He now has respiratory failure. He is stable from a COVID standpoint, but not weanable from the ventilator. He is also at risk for long-term protein-calorie malnutrition. He is sedated, not able to participate in the history. PAST MEDICAL HISTORY: Osteoporosis. PAST SURGICAL HISTORY: Multiple C-spine, lumbar spine surgeries. MEDICATIONS: Alendronate as an outpatient. See nursing list for inpatient medications. ALLERGIES: NO KNOWN DRUG ALLERGIES. SOCIAL HISTORY: No smoking, alcohol, or other drugs. REVIEW OF SYSTEMS: Ten-system review of systems is otherwise negative unless described above. PHYSICAL EXAMINATION: VITAL SIGNS: Blood pressure 129/85, pulse 115, and respirations vent. NECK: No incisions. Trachea midline. CHEST: Coarse breath sounds bilateral. HEART: Regular rate. ABDOMEN: Soft. No abdominal hernias. No distention. No upper midline scars. EXTREMITIES: No ischemia or edema to extremities. LABORATORY DATA: White blood cell count is 14, hemoglobin 11. Creatinine is 0.40. ASSESSMENT: 1. Respiratory failure. 2. Protein-calorie malnutrition. PLAN: Tracheostomy and PEG feeding tube. Risks, benefits, and alternatives will be discussed with family, plan surgery tomorrow. Job ID: [id number]
[2020-12-14] MEDS: Fentanyl CADD 100 ML IV SCH (23:10)
[2020-12-15] MEDS: Albuterol 200 PUFF (6.7GM INHALER) INH SCH ×6 (03:04→22:16)
[2020-12-15 03:34] LABS: Band 6 % (5-11); Eosinophils 2 % (0-10); Hypochromia SLIGHT = 6-15 cells (100X) (0-5/hpf); Lymphocytes 8 % (21-51); MDiff Complete? YES; Mean Corpuscular HGB CONC 32.1 g/dL (32.0-36.0); Mean Corpuscular Hemoglobin 30.9 pg (27.0-31.0); Mean Corpuscular Volume 96.3 fL (78.0-98.0); Mean Platelet Volume 8.6 fL (7.4-10.4); Monocytes 5 % (0-10); Neutrophil 79 % (42-75); Platelet Count 361 thou/uL (130-400); Platelet Morphology Comment Appears Adequate; RBC Distribution Width 13.6 % (11.5-14.5); Red Blood Cell (RBC) Count 3.88 mill/uL (4.70-6.10); White Blood Cell (WBC) Count 12.6 thou/uL (4.8-10.8)
[2020-12-15 03:43] LABS: ALT (SGPT) 27 U/L (8-55); AST (SGOT) 23 U/L (5-34); Albumin 2.4 g/dL (3.4-4.8); Alkaline Phosphatase 71 U/L (40-110); Anion Gap 11 mmol/L (10-20); BUN (Urea Nitrogen) 11 mg/dL (8.4-25.7); Bilirubin, Total 0.5 mg/dL (0.2-1.2); Calc. Creatinine Clearance 0 mL/min (70-130); Calcium 7.5 mg/dL (7.8-10.44); Carbon Dioxide 31 mmol/L (23-31); Chloride 98 mmol/L (98-107); Globulin 3.4 g/dL (2.4-3.5); Glucose 84 mg/dL (80-115); Potassium 3.7 mmol/L (3.5-5.1); Protein, Total 5.8 g/dL (5.8-8.1); Sodium 136 mmol/L (136-145)
[2020-12-15] MEDS: Mometasone 100 MCG/Formoterol 5 MCG 120 PUFF INHALER INH SCH ×2 (07:46→18:26)
--- NOTE | 2020-12-15 08:15 | PRG ---
DATE OF SERVICE: 12/15/2020 SUBJECTIVE: The patient remains intubated on mechanical ventilation. He is scheduled for tracheostomy and PEG tube placement today. OBJECTIVE: VITAL SIGNS: Temperature 98.4, pulse 108, blood pressure 118/74, O2 sat 96%. Currently on propofol and fentanyl. HEENT: Unremarkable. NECK: No JVD. LUNGS: Coarse breath sounds. CARDIAC: S1, S2. Regular. ABDOMEN: Soft. EXTREMITIES: Edematous. NEUROLOGIC: He will open his eyes, seems to follows some commands by nodding and shaking his head, but did not squeeze his extremities. LABORATORY DATA: White blood cell count 12.6, hematocrit 37.4, and platelet count 361. Sodium 136, potassium 3.7, chloride 98, CO2 of 31, BUN 11, creatinine 0.4, glucose 84. ASSESSMENT: 1. Coronavirus disease 2019 pneumonia. 2. Acute hypoxic respiratory failure, requiring mechanical ventilation. 3. Severe neuromuscular weakness. 4. Protein-calorie malnutrition. PLAN: 1. Tracheostomy and PEG tube placement today. 2. Restart enoxaparin after tracheostomy. 3. LTAC placement. Job ID: [id number]
[2020-12-15] MEDS: Dexamethasone 4 mg/ml Vial SLOW IVP SCH (08:33)
[2020-12-15] MEDS: Pantoprazole 40 MG GRANULES PACKET PER TUBE SCH (08:36)
[2020-12-15] MEDS: Colchicine 0.6 MG TAB PER TUBE SCH ×2 (08:36→20:57)
[2020-12-15] MEDS: Zinc Sulfate 220 MG CAP PO SCH (08:36)
[2020-12-15] MEDS: Multivit, Therapeutic 1 TAB PO SCH (08:36)
[2020-12-15] MEDS: Cholecalciferol 1,000 UNITS (25 MCG) TAB PO SCH (08:36)
[2020-12-15] MEDS: Ascorbic Acid 500 mg Chewable Tablet PO SCH (08:36)
--- NOTE | 2020-12-15 09:02 | RAD ---
CHEST 1 VIEW: COMPARISON: 12/14/2020. HISTORY: Pneumonia. FINDINGS: Stable endotracheal tube and nasogastric tube. Stable cardiac silhouette. Stable multilobar interst itial and alveolar opacities. Small left-sided effusion. No pneumothorax. IMPRESSION: Stable multilobar pneumonia. POS: PPP
[2020-12-15] MEDS ORDERED: Rocuronium Bromide 10 MG/ML (10ML VIAL) ONE (09:09)
[2020-12-15] MEDS ORDERED: Calcium Chloride 1 GM/10 ML Abboject SYRINGE ONE (09:09)
[2020-12-15] MEDS: Propofol 1,000 MG/100 ML VIAL IV PRN ×2 (11:27→22:12)
[2020-12-15] MEDS ORDERED: Fentanyl CADD 100 ML ONE (12:37)
[2020-12-15] MEDS ORDERED: Bupivacaine 0.25% HCL 30 ML VIAL ONE ×2 (14:40→14:48)
[2020-12-15] MEDS ORDERED: XYLOCAINE 2%-EPI 1:100,000 20 ML VIAL ONE ×3 (14:40→16:02)
[2020-12-15] MEDS ORDERED: Midazolam HCl 2 mg/2 ml Vial ONE (14:42)
[2020-12-15] MEDS ORDERED: Fentanyl 100 MCG/2 ML VIAL ONE ×2 (14:42→16:01)
--- NOTE | 2020-12-15 15:20 | PDOC.HOSPP ---
- Subjective Encounter Date: 12/15/20 Encounter Time: 10:15 Subjective: is on mild sedation, awakens on vent daughter at bedside - Objective Vital Signs & Weight: Vital Signs (12 hours) Temp Pulse Pulse Pulse Resp BP BP 12/15/20 14:42 114 H 12/15/20 14:00 23 H 12/15/20 13:07 116 H 118/70 12/15/20 12:00 28 H 12/15/20 11:11 106 H 12/15/20 10:27 113 H 114 H 134/77 12/15/20 10:00 21 H 12/15/20 08:00 21 H 12/15/20 07:46 101 H 127/78 12/15/20 04:00 98.4 F BP Pulse Ox Pulse Ox Pulse Ox 12/15/20 14:42 12/15/20 14:00 12/15/20 13:07 12/15/20 12:00 12/15/20 11:11 12/15/20 10:27 111/72 97 94 L 12/15/20 10:00 12/15/20 08:00 98 12/15/20 07:46 12/15/20 04:00 Weight Admit Weight 151 lb 3.794 oz Weight 2.064 oz Most Recent Monitor Data Heart Rate from ECG 115 NIBP 123/81 NIBP BP-Mean 99 Respiration from ECG 22 SpO2 100 I&O: 12/14/20 12/15/20 12/16/20 06:59 06:59 06:59 Intake Total 3075 641.2 137.6 Output Total 2160 2725 430 Balance 915 -2083.8 -292.4 Result Diagrams: 12/15/20 03:05 12/15/20 03:05 Additional Labs: Accuchecks 12/14/20 22:32 POC Glucose 98 Hospitalist ROS - Medication Medications: Active Medications Generic Name Dose Route Start Last Admin Trade Name Freq PRN Reason Stop Dose Admin Acetaminophen 650 mg 11/23/20 12:02 12/10/20 20:04 Acetaminophen 325 Mg Tab PO 650 mg Q4H PRN Administration Headache/Fever/Mild Pain (1-3) Albuterol Sulfate 2 puff 11/24/20 18:30 12/15/20 14:42 Albuterol 200 Puff (6.7gm Inhaler) INH 2 puff [id number] SUE Administration Ascorbic Acid 1,000 mg 11/24/20 09:00 12/15/20 08:36 Ascorbic Acid 500 Mg Chewable Tablet PO Not Given DAILY [facility] Cholecalciferol 1,000 units 11/24/20 09:00 12/15/20 08:36 Cholecalciferol 1,000 Units (25 Mcg) Tab PO Not Given DAILY [facility] Colchicine 0.6 mg 12/01/20 09:00 12/15/20 08:36 Colchicine 0.6 Mg Tab PER TUBE Not Given BID [facility] Dexamethasone 3 mg 12/14/20 09:00 12/15/20 08:33 Dexamethasone 4 Mg/Ml Vial SLOW IVP 3 mg DAILY SUE Administration Dexmedetomidine HCl 400 mcg/ 100 mls @ 0 mls/hr 11/25/20 16:15 11/25/20 17:09 Sodium Chloride IVPB 100 mls INF SUE Administration Protocol Per Protocol Insulin Glargine 5 units/ 0.05 mls @ 0 mls/hr 11/29/20 21:00 12/05/20 21:37 Miscellaneous Medication SC 0.05 mls HS SUE Administration Fentanyl 100 mls @ 0 mls/hr 12/05/20 19:15 12/14/20 23:10 Fentanyl Cadd IV 100 mls INF SUE Administration Protocol Per Protocol Lorazepam 2 mg 12/05/20 19:06 12/05/20 19:38 Lorazepam 2 Mg/Ml Vial SLOW IVP 2 mg Q1H PRN Administration Breakthrough agitation Mometasone Furoate/Formoterol Fumar 2 puff 11/23/20 18:30 12/15/20 07:46 Mometasone 100 Mcg/Formoterol 5 Mcg 120 Puff Inhaler INH 2 puff BID-RT SUE Administration Multivitamins 1 tab 11/24/20 09:00 12/15/20 08:36 Multivit, Therapeutic 1 Tab PO Not Given DAILY [facility] Ondansetron HCl 4 mg 11/23/20 12:02 11/25/20 00:17 Ondansetron Pf 4 Mg/2 Ml Vial IVP 4 mg Q6H PRN Administration Nausea/Vomiting Pantoprazole Sodium 40 mg 12/02/20 09:00 12/15/20 08:36 Pantoprazole 40 Mg Granules Packet PER TUBE Not Given DAILY [facility] Propofol 1,000 mg 11/25/20 19:00 12/15/20 11:27 Propofol 1,000 Mg/100 Ml Vial IV 12/25/20 19:00 1,000 mg INF PRN Administration TO ACHIEVE GOAL RASS Protocol Senna/Docusate Sodium 2 tab 11/23/20 12:02 12/05/20 17:20 Senokot S 8.6-50 Mg Tab PO 2 tab BIDPRN PRN Administration Constipation Sodium Chloride 10 ml 11/23/20 21:00 12/15/20 08:36 Flush - Normal Saline 10 Ml Syringe IVF 10 ml Q12HR SUE Administration Sodium Chloride 10 ml 11/23/20 12:45 12/05/20 12:35 Flush - Normal Saline 10 Ml Syringe IVF 10 ml PRN PRN Administration Saline Flush Vecuronium [place] 10 mg 11/25/20 18:58 12/07/20 15:23 Vecuronium 10 Mg Vial IV 10 mg Q30MIN PRN Administration .VENT COMPLIANCE Zinc Sulfate 220 mg 11/24/20 09:00 12/15/20 08:36 Zinc Sulfate 220 Mg Cap PO Not Given DAILY [facility] Hospitalist Exam Vitals: Vital Signs (12 hours) Temp Pulse Pulse Pulse Resp BP BP 12/15/20 14:42 114 H 12/15/20 14:00 23 H 12/15/20 13:07 116 H 118/70 12/15/20 12:00 28 H 12/15/20 11:11 106 H 12/15/20 10:27 113 H 114 H 134/77 12/15/20 10:00 21 H 12/15/20 08:00 21 H 12/15/20 07:46 101 H 127/78 12/15/20 04:00 98.4 F BP Pulse Ox Pulse Ox Pulse Ox 12/15/20 14:42 12/15/20 14:00 12/15/20 13:07 12/15/20 12:00 12/15/20 11:11 12/15/20 10:27 111/72 97 94 L 12/15/20 10:00 12/15/20 08:00 98 12/15/20 07:46 12/15/20 04:00 Weight Admit Weight 151 lb 3.794 oz Weight 2.064 oz Most Recent Monitor Data Heart Rate from ECG 115 NIBP 123/81 NIBP BP-Mean 99 Respiration from ECG 22 SpO2 100 General Appearance: awake alert Eye: PERRL, anicteric sclera ENT: no oropharyngeal lesions, moist mucosa Neck: supple, no JVD Heart: RRR, no murmur Respiratory: no wheezes, no rales, rhonchi Gastrointestinal: soft, non-tender, non-distended, normal bowel sounds Extremities: no cyanosis, no edema Neurological: cranial nerve grossly intact, no focal deficits Hosp A/P (1) Pneumonia due to COVID-19 virus Code(s): U07.1 - COVID-19; J12.82 - PNEUMONIA DUE TO CORONAVIRUS DISEASE 2018 Status: Acute (2) Acute respiratory failure with hypoxia Code(s): J96.01 - ACUTE RESPIRATORY FAILURE WITH HYPOXIA Status: Acute (3) Glucose intolerance Code(s): E74.39 - OTHER DISORDERS OF INTESTINAL CARBOHYDRATE ABSORPTION Status: Acute (4) Osteoporosis Code(s): M81.0 - AGE-RELATED OSTEOPOROSIS W/O CURRENT PATHOLOGICAL FRACTURE Status: Chronic Qualifiers: Osteoporosis type: age-related Presence of current pathological fracture: without current pathological fracture Qualified Code(s): M81.0 - Age-related osteoporosis without current pathological fracture - Plan has finished full course of remdesivir and 2 doses plasma, continue dexamethasone, lasix, alb and dulera inh, colchicine, lovenox full dose, vit D3 and protonix is off merrem and vanc 12/14, stable, cultures are -ve. low dose lantus at bedtime for glucose intolerance due to steroids. prognosis guarded inflammatory markers are wavy, crp is anywhere from 8 from 26, stopped further c rp checking, he is at his baseline weight around 147 lbs now (off lasix now). d/w (daughter) and gave full updates. weaning per pulm advice, is on 40% fio2 with peep of 6 now, for trach and peg this afternoon. got intubated on 11/26
--- NOTE | 2020-12-15 17:55 | RAD ---
CHEST ONE VIEW: 12/15/20 HISTORY: Tracheostomy. COMPARISON: Chest radiograph same day. FINDINGS: Tracheostomy tube tip just below the clavicular level in good position but extensive air space opacit ies throughout the lungs. Enteric tube has been removed. Gastroscopy tube is seen in the left upper quadrant of the abdomen. Ex tensive air space opacities. No pneumothorax or pneumomediastinum. IMPRESSION: 1. No pneumothorax or pneumomediastinum. 2. Tracheostomy tube at the clavicular level with removal of the enteric tube. POS: HOME
--- NOTE | 2020-12-15 18:30 | OP ---
DATE OF PROCEDURE: 12/15/2020 PREOPERATIVE DIAGNOSES: Respiratory failure, protein-calorie malnutrition. POSTOPERATIVE DIAGNOSES: Respiratory failure, protein-calorie malnutrition. PROCEDURES PERFORMED: 1. Tracheostomy 8 OPERATIONS AND INTELLIGENCE ASSISTANT. 2. Laparoscopic-assisted percutaneous endoscopic gastrostomy tube placement. ANESTHESIA: General. ESTIMATED BLOOD LOSS: Minimal. COMPLICATIONS: None. FINDINGS: Could not transilluminate and so performed laparoscopic assist on the PEG. DESCRIPTION OF PROCEDURE: The patient was taken to the operating room and laid supine on the operating table. After general anesthetic was obtained, bilateral neck and chest were prepped and draped in a sterile fashion. An incision was made above the second tracheal ring. Cautery dissected down and split the strap muscles over the trachea, exposing the trachea. A second tracheal ring was found and a 2-0 Prolene was placed on each side as a holding stitch. There was no bleeding. Meticulous hemostasis was obtained in the cut thyroid as an incision was made in the anterior aspect of the second tracheal ring. The trachea was spread using a trach television production clerk. The 8 OPERATIONS AND INTELLIGENCE ASSISTANT Shiley tracheostomy tube with the inner cannula removed and the obturator was placed into the trachea. The inner cannula was replaced. There was good CO2 return and bilateral chest wall excursion. The balloon was inflated. The trach ties were affixed to the chest wall using Steri-Strips. 2-0 silk was used to suture the collar of the trach to the neck on both sides. Velcro trach ties were placed around the neck. Kaitlyn antibleeding starch was placed in the trachea to prevent postop bleeding. Next, the abdomen was prepped and draped in a sterile fashion. The EGD scope was passed through esophagus and stomach to the level of duodenum without obstruction. There was evidence of chronic gastritis and esophagitis present, but no ulcerated mucosa. Pushing left subcostal was very difficult to discern this on the stomach side. There was difficult to transilluminate light as well, so decision was made to convert to laparoscopic procedure. Incision was made above the umbilicus. Cautery dissected down to and scored the fascia. Abdominal cavity was bluntly using a Maria Luisa clamp. Holding stitch of PDS was placed on each side of the fascia and the 5 port was placed and high-flow pneumoperitoneum was obtained. An assist 5 port was placed in the left abdomen. The stomach was able to be lifted up to the posterior abdominal wall and then as the stomach was held up and re-insufflated, the needle was able to be passed into the stomach under direct vision. Wire was passed. The wire was snared from the scope. This wire was brought out through the mouth, connected to the PEG. The PEG was then pulled from the oropharynx, esophagus out the stomach through this hole, held to the posterior abdominal wall using the enclosed connector. The laparoscopic ports were removed without bleeding. No injury to any intra-abdominal structures was seen on the laparoscopic side of things. PDS was used to close the fascial defect above the umbilicus. All incisions were irrigated and closed using 4-0 Monocryl and Dermabond. The patient was en routed to the ICU in stable condition. Job ID: [id number]
[2020-12-16] MEDS: Albuterol 200 PUFF (6.7GM INHALER) INH SCH ×6 (02:50→23:53)
[2020-12-16 04:04] LABS: Band 19 % (5-11); Hemoglobin 11.5 g/dL (14.0-18.0); Lymphocytes 8 % (21-51); MDiff Complete? YES; Mean Corpuscular HGB CONC 32.1 g/dL (32.0-36.0); Mean Corpuscular Hemoglobin 30.9 pg (27.0-31.0); Mean Corpuscular Volume 96.2 fL (78.0-98.0); Mean Platelet Volume 8.7 fL (7.4-10.4); Neutrophil 73 % (42-75); Platelet Count 335 thou/uL (130-400); Platelet Morphology Comment Appears Adequate; RBC Distribution Width 13.6 % (11.5-14.5); Red Blood Cell (RBC) Count 3.74 mill/uL (4.70-6.10); White Blood Cell (WBC) Count 11.3 thou/uL (4.8-10.8)
[2020-12-16] MEDS ORDERED: Fentanyl CADD 100 ML ONE ×2 (04:04→16:59)
[2020-12-16 04:17] LABS: ALT (SGPT) 19 U/L (8-55); AST (SGOT) 23 U/L (5-34); Albumin 2.2 g/dL (3.4-4.8); Alkaline Phosphatase 64 U/L (40-110); Anion Gap 15 mmol/L (10-20); BUN (Urea Nitrogen) 11 mg/dL (8.4-25.7); Bilirubin, Total 0.6 mg/dL (0.2-1.2); Calc. Creatinine Clearance 0 mL/min (70-130); Calcium 7.8 mg/dL (7.8-10.44); Carbon Dioxide 26 mmol/L (23-31); Chloride 98 mmol/L (98-107); Globulin 3.5 g/dL (2.4-3.5); Glucose 75 mg/dL (80-115); Potassium 3.9 mmol/L (3.5-5.1); Protein, Total 5.7 g/dL (5.8-8.1); Sodium 135 mmol/L (136-145)
[2020-12-16] MEDS: Mometasone 100 MCG/Formoterol 5 MCG 120 PUFF INHALER INH SCH ×2 (07:30→18:29)
--- NOTE | 2020-12-16 08:02 | RAD ---
PORTABLE CHEST: INDICATION: Pneumonia followup. COMPARISON: 12/15/2020. FINDINGS/IMPRESSION: Tracheostomy device again noted. Hazy rather diffuse bilateral alveolar infiltrates again noted. No significant interval change. POS: AGW
--- NOTE | 2020-12-16 08:24 | PRG ---
DATE OF SERVICE: 12/16/2020 SUBJECTIVE: The patient underwent tracheostomy, feeding tube placement yesterday. Both procedures went quite well. He is actually awake, follows commands. OBJECTIVE: VITAL SIGNS: Today on examination, temperature 98.5, pulse 107, blood pressure 116/70, O2 saturation 98%. His intake and output . HEENT: Unremarkable. Trach good position. Small amount of bloody exudate. CARDIOVASCULAR: S1, S2 regular. CHEST: Clear. ABDOMEN: Soft. PEG tube site looks good. EXTREMITIES: Muscle wasting. No overt edema. LABORATORY DATA: White blood cell count 11.3, hematocrit 36, platelet count 335. Sodium 135, potassium 3.9, chloride 98, CO2 of 26, BUN 11, creatinine 0.4, glucose 75. ASSESSMENT: 1. COVID-19 pneumonia. 2. Severe neuromuscular weakness. 3. Acute hypoxic respiratory failure, requiring mechanical ventilation. PLAN: 1. Spontaneous breathing trial today. 2. Continue enteral tube feeds. 3. Try to slowly wean off propofol and fentanyl as he should not need that much longer. 4. Steroid dose wean two days ago, probably wean further beginning next week. 5. Continue colchicine as it seems to have helped. 6. Could probably discontinue daily x-rays at this point. 7. Update the patient's daughter. Job ID: [id number]
[2020-12-16] MEDS: Ascorbic Acid 500 mg Chewable Tablet PO SCH (10:11)
[2020-12-16] MEDS: Dexamethasone 1 MG TAB PER TUBE SCH (10:11)
[2020-12-16] MEDS: Acetaminophen 325 MG TAB PO PRN (10:11)
[2020-12-16] MEDS: Zinc Sulfate 220 MG CAP PO SCH (10:11)
[2020-12-16] MEDS: Colchicine 0.6 MG TAB PER TUBE SCH ×2 (10:11→20:04)
[2020-12-16] MEDS: Cholecalciferol 1,000 UNITS (25 MCG) TAB PO SCH (10:11)
[2020-12-16] MEDS: Multivit, Therapeutic 1 TAB PO SCH (10:11)
[2020-12-16] MEDS: Pantoprazole 40 MG GRANULES PACKET PER TUBE SCH (10:12)
[2020-12-16] MEDS: Propofol 1,000 MG/100 ML VIAL IV PRN (11:03)
--- NOTE | 2020-12-16 12:21 | PDOC.GSPN ---
Surgery Progress Note: Subj - Subjective Narrative: No events overnight Surgery Progress Note: Obj - Vital signs Vital signs: Vital Signs - Most Recent Temp Pulse Resp BP Pulse Ox 100.2 F H 114 H 27 H 124/72 96 12/16/20 11:52 12/16/20 10:19 12/16/20 10:00 12/16/20 10:19 12/16/20 09:31 - Physical Exam General: no distress Abdomen: soft, appropriately tender Wound: other (Trach/Peg sites clear) Surgery Progress Note: Results - Labs Result Diagrams: 12/16/20 03:37 12/16/20 03:37 Lab results: Laboratory Results - last 12 hr 12/16/20 12/16/20 12/16/20 03:37 03:37 10:59 WBC 11.3 H RBC 3.74 L Hgb 11.5 L Hct 36.0 L MCV 96.2 MCH 30.9 MCHC 32.1 RDW 13.6 Plt Count 335 MPV 8.7 Neutrophils % (Manual) 73 Band Neuts % (Manual) 19 H Lymphocytes % (Manual) 8 L Plt Morphology Comment Appears Adequate Sodium 135 L Potassium 3.9 Chloride 98 Carbon Dioxide 26 Anion Gap 15 BUN 11 Creatinine Less than 0.40 L Estimated GFR (MDRD) Greater than 90 Glucose 75 L POC Glucose 82 Calcium 7.8 Total Bilirubin 0.6 AST 23 ALT 19 Alkaline Phosphatase 64 Serum Total Protein 5.7 L Albumin 2.2 L Globulin 3.5 Albumin/Globulin Ratio 0.6 L Surgery Progress Note: A/P - Problem (1) Acute respiratory failure with hypoxia Current Visit: Yes Code(s): J96.01 - ACUTE RESPIRATORY FAILURE WITH HYPOXIA Status: Acute - Plan Plan: POD 1 trach/peg -will loosen peg bumper tomorow -trach care can start in 48 hrs
--- NOTE | 2020-12-16 16:40 | PDOC.HOSPP ---
- Subjective Encounter Date: 12/16/20 Encounter Time: 10:00 Subjective: awakens, tries to move but is weak, follows some verbal stimuli, is on trach and vent, weaning, on propofol & fentanyl RN will wean off propofol for weaning as possible. daughter Alexandra at bedside - Objective Vital Signs & Weight: Vital Signs (12 hours) Temp Pulse Pulse Pulse Resp BP BP 12/16/20 16:00 30 H 12/16/20 14:47 101 H 133/75 12/16/20 14:00 27 H 12/16/20 12:00 28 H 12/16/20 11:52 100.2 F H 12/16/20 10:19 114 H 124/72 12/16/20 10:00 27 H 12/16/20 09:31 110 H 107 H 109/65 12/16/20 08:00 27 H 12/16/20 07:30 108 H 12/16/20 07:00 99.4 F BP Pulse Ox Pulse Ox Pulse Ox 12/16/20 16:00 12/16/20 14:47 12/16/20 14:00 12/16/20 12:00 12/16/20 11:52 12/16/20 10:19 12/16/20 10:00 12/16/20 09:31 110/67 96 95 12/16/20 08:00 97 12/16/20 07:30 12/16/20 07:00 Weight Admit Weight 151 lb 3.794 oz Weight 2.046 oz Most Recent Monitor Data Heart Rate from ECG 105 NIBP 129/79 NIBP BP-Mean 92 Respiration from ECG 26 SpO2 97 I&O: 12/15/20 12/16/20 12/17/20 06:59 06:59 06:59 Intake Total 641.2 658.6 80 Output Total 2725 1160 149 Balance -2083.8 -501.4 -69 Result Diagrams: 12/16/20 03:37 12/16/20 03:37 Additional Labs: Accuchecks 12/16/20 12/15/20 10:59 21:40 POC Glucose 82 92 Hospitalist ROS - Medication Medications: Active Medications Generic Name Dose Route Start Last Admin Trade Name Freq PRN Reason Stop Dose Admin Acetaminophen 650 mg 11/23/20 12:02 12/16/20 10:11 Acetaminophen 325 Mg Tab PO 650 mg Q4H PRN Administration Headache/Fever/Mild Pain (1-3) Albuterol Sulfate 2 puff 11/24/20 18:30 12/16/20 14:47 Albuterol 200 Puff (6.7gm Inhaler) INH 2 puff [id number] SUE Administration Ascorbic Acid 1,000 mg 11/24/20 09:00 12/16/20 10:11 Ascorbic Acid 500 Mg Chewable Tablet PO 1,000 mg DAILY SUE Administration Cholecalciferol 1,000 units 11/24/20 09:00 12/16/20 10:11 Cholecalciferol 1,000 Units (25 Mcg) Tab PO 1,000 units DAILY SUE Administration Colchicine 0.6 mg 12/01/20 09:00 12/16/20 10:11 Colchicine 0.6 Mg Tab PER TUBE 0.6 mg BID SUE Administration Dexamethasone 2 mg 12/16/20 09:00 12/16/20 10:11 Dexamethasone 1 Mg Tab PER TUBE 2 mg DAILY SUE Administration Dexmedetomidine HCl 400 mcg/ 100 mls @ 0 mls/hr 11/25/20 16:15 11/25/20 17:09 Sodium Chloride IVPB 100 mls INF SUE Administration Protocol Per Protocol Fentanyl 100 mls @ 0 mls/hr 12/05/20 19:15 12/14/20 23:10 Fentanyl Cadd IV 100 mls INF SUE Administration Protocol Per Protocol Lorazepam 2 mg 12/05/20 19:06 12/05/20 19:38 Lorazepam 2 Mg/Ml Vial SLOW IVP 2 mg Q1H PRN Administration Breakthrough agitation Mometasone Furoate/Formoterol Fumar 2 puff 11/23/20 18:30 12/16/20 07:30 Mometasone 100 Mcg/Formoterol 5 Mcg 120 Puff Inhaler INH 2 puff BID-RT SUE Administration Multivitamins 1 tab 11/24/20 09:00 12/16/20 10:11 Multivit, Therapeutic 1 Tab PO 1 tab DAILY SUE Administration Ondansetron HCl 4 mg 11/23/20 12:02 11/25/20 00:17 Ondansetron Pf 4 Mg/2 Ml Vial IVP 4 mg Q6H PRN Administration Nausea/Vomiting Pantoprazole Sodium 40 mg 12/02/20 09:00 12/16/20 10:12 Pantoprazole 40 Mg Granules Packet PER TUBE 40 mg DAILY SUE Administration Propofol 1,000 mg 11/25/20 19:00 12/16/20 11:03 Propofol 1,000 Mg/100 Ml Vial IV 12/25/20 19:00 1,000 mg INF PRN Administration TO ACHIEVE GOAL RASS Protocol Senna/Docusate Sodium 2 tab 11/23/20 12:02 12/05/20 17:20 Senokot S 8.6-50 Mg Tab PO 2 tab BIDPRN PRN Administration Constipation Sodium Chloride 10 ml 11/23/20 21:00 12/16/20 10:12 Flush - Normal Saline 10 Ml Syringe IVF 10 ml Q12HR SUE Administration Sodium Chloride 10 ml 11/23/20 12:45 12/05/20 12:35 Flush - Normal Saline 10 Ml Syringe IVF 10 ml PRN PRN Administration Saline Flush Zinc Sulfate 220 mg 11/24/20 09:00 12/16/20 10:11 Zinc Sulfate 220 Mg Cap PO 220 mg DAILY SUE Administration Hospitalist Exam Vitals: Vital Signs (12 hours) Temp Pulse Pulse Pulse Resp BP BP 12/16/20 16:00 30 H 12/16/20 14:47 101 H 133/75 12/16/20 14:00 27 H 12/16/20 12:00 28 H 12/16/20 11:52 100.2 F H 12/16/20 10:19 114 H 124/72 12/16/20 10:00 27 H 12/16/20 09:31 110 H 107 H 109/65 12/16/20 08:00 27 H 12/16/20 07:30 108 H 12/16/20 07:00 99.4 F BP Pulse Ox Pulse Ox Pulse Ox 12/16/20 16:00 12/16/20 14:47 12/16/20 14:00 12/16/20 12:00 12/16/20 11:52 12/16/20 10:19 12/16/20 10:00 12/16/20 09:31 110/67 96 95 12/16/20 08:00 97 12/16/20 07:30 12/16/20 07:00 Weight Admit Weight 151 lb 3.794 oz Weight 2.046 oz Most Recent Monitor Data Heart Rate from ECG 105 NIBP 129/79 NIBP BP-Mean 92 Respiration from ECG 26 SpO2 97 Eye: PERRL, anicteric sclera ENT: no oropharyngeal lesions, moist mucosa Neck: no JVD Neck - other findings: trach, has oozing around it Heart: RRR, no murmur Respiratory: no wheezes, no rales, rhonchi Gastrointestinal: soft, non-tender, non-distended, normal bowel sounds Gastrointestinal - other findings: peg+ Extremities: no cyanosis, no edema Extremities - other findings: left foot drop+ Neurological: cranial nerve grossly intact, no focal deficits Hosp A/P (1) Pneumonia due to COVID-19 virus Code(s): U07.1 - COVID-19; J12.82 - PNEUMONIA DUE TO CORONAVIRUS DISEASE 2019 Status: Acute (2) Acute respiratory failure with hypoxia Code(s): J96.01 - ACUTE RESPIRATORY FAILURE WITH HYPOXIA Status: Acute (3) Glucose intolerance Code(s): E74.39 - OTHER DISORDERS OF INTESTINAL CARBOHYDRATE ABSORPTION Status: Acute (4) Osteoporosis Code(s): M81.0 - AGE-RELATED OSTEOPOROSIS W/O CURRENT PATHOLOGICAL FRACTURE Status: Chronic Qualifiers: Osteoporosis type: age-related Presence of current pathological fracture: without current pathological fracture Qualified Code(s): M81.0 - Age-related osteoporosis without current pathological fracture - Plan has finished full course of remdesivir and 2 doses plasma, continue dexamethasone taper, alb and dulera inh, colchicine, lovenox dvt prophylaxis, vit D3 and protonix is off merrem and vanc 12/14, stable, cultures are -ve. prognosis guarded inflammatory markers are wavy, crp is anywhere from 8 from 26, stopped further crp checking, he is at his baseline weight around 147 lbs now (off lasix). d/w (daughter) and gave full updates. weaning per pulm advice, is on 40% fio2 with peep of 6. got intubated on 11/26 dc plans for ltac in [facility]
[2020-12-16] MEDS: Lorazepam 2 MG/ML VIAL SLOW IVP PRN ×2 (18:09→23:16)
[2020-12-16] MEDS: Enoxaparin Sodium 40 MG/0.4 ML SYRINGE SC SCH (20:04)
[2020-12-17] MEDS: Albuterol 200 PUFF (6.7GM INHALER) INH SCH ×6 (02:52→22:25)
[2020-12-17 03:35] LABS: ALT (SGPT) 17 U/L (8-55); AST (SGOT) 27 U/L (5-34); Albumin 2.3 g/dL (3.4-4.8); Alkaline Phosphatase 66 U/L (40-110); Anion Gap 13 mmol/L (10-20); BUN (Urea Nitrogen) 11 mg/dL (8.4-25.7); Bilirubin, Total 0.6 mg/dL (0.2-1.2); Calc. Creatinine Clearance 0 mL/min (70-130); Calcium 7.5 mg/dL (7.8-10.44); Carbon Dioxide 28 mmol/L (23-31); Chloride 98 mmol/L (98-107); Globulin 3.6 g/dL (2.4-3.5); Glucose 104 mg/dL (80-115); Potassium 3.4 mmol/L (3.5-5.1); Protein, Total 5.9 g/dL (5.8-8.1); Sodium 136 mmol/L (136-145)
[2020-12-17 03:52] LABS: Band 14 % (5-11); Eosinophils 3 % (0-10); Hemoglobin 11.6 g/dL (14.0-18.0); Lymphocytes 5 % (21-51); MDiff Complete? YES; Mean Corpuscular HGB CONC 32.9 g/dL (32.0-36.0); Mean Corpuscular Hemoglobin 31.3 pg (27.0-31.0); Mean Corpuscular Volume 95.4 fL (78.0-98.0); Mean Platelet Volume 8.4 fL (7.4-10.4); Monocytes 1 % (0-10); Neutrophil 77 % (42-75); Platelet Count 365 thou/uL (130-400); RBC Distribution Width 13.5 % (11.5-14.5); White Blood Cell (WBC) Count 9.7 thou/uL (4.8-10.8)
[2020-12-17] MEDS: Lorazepam 2 MG/ML VIAL SLOW IVP PRN ×2 (05:15→22:13)
[2020-12-17] MEDS ORDERED: Fentanyl CADD 100 ML ONE (05:56)
[2020-12-17] MEDS ORDERED: Potassium Chloride 20 MEQ TAB PO SCH (06:45)
[2020-12-17] MEDS: Mometasone 100 MCG/Formoterol 5 MCG 120 PUFF INHALER INH SCH ×2 (07:36→18:26)
--- NOTE | 2020-12-17 09:15 | PRG ---
DATE OF SERVICE: 12/17/2020 SUBJECTIVE: The patient is doing fairly well. He had to have some sedation to go to sleep last night because he has the typical post-intubation encephalopathy. I spoke with the daughter at the bedside today the patient's x-rays and labs. OBJECTIVE: VITAL SIGNS: Temperature 99.1, pulse 110, blood pressure 83/53, O2 sats 96%. HEENT: Unremarkable. NECK: No adenopathy or JVD. CHEST: Fairly clear. CARDIAC: S1 and S2. Regular. ABDOMEN: Soft. EXTREMITIES: No edema. LABORATORY DATA: White blood cell count 9.7, hematocrit 35.3, and platelet count 365. Sodium 136, potassium 3.4, chloride 98, CO2 of 28, BUN 11, creatinine 0.4, glucose 104. ASSESSMENT: 1. COVID pneumonia. 2. Respiratory failure, requiring mechanical ventilation. 3. Severe neuromuscular weakness. PLAN: 1. Spontaneous breathing trials. 2. Need to increase tube feeds to overcome calorie deficits, now propofol has been stopped. 3. LTAC placement. Job ID: [id number]
[2020-12-17] MEDS: Colchicine 0.6 MG TAB PER TUBE SCH ×2 (10:17→20:33)
[2020-12-17] MEDS: Ascorbic Acid 500 mg Chewable Tablet PO SCH (10:17)
[2020-12-17] MEDS: Pantoprazole 40 MG GRANULES PACKET PER TUBE SCH (10:17)
[2020-12-17] MEDS: Multivit, Therapeutic 1 TAB PO SCH (10:18)
[2020-12-17] MEDS: Acetaminophen 325 MG TAB PO PRN (10:18)
[2020-12-17] MEDS: Dexamethasone 1 MG TAB PER TUBE SCH (10:18)
[2020-12-17] MEDS: Zinc Sulfate 220 MG CAP PO SCH (10:19)
[2020-12-17] MEDS: Cholecalciferol 1,000 UNITS (25 MCG) TAB PO SCH (10:19)
--- NOTE | 2020-12-17 16:23 | PDOC.HOSPP ---
- Subjective Encounter Date: 12/17/20 Encounter Time: 09:00 Subjective: on trach and vent, sedated daughter at bedside - Objective Vital Signs & Weight: Vital Signs (12 hours) Temp Pulse Pulse Pulse Resp BP BP 12/17/20 16:00 23 H 12/17/20 14:33 114 H 12/17/20 13:59 23 H 12/17/20 12:00 16 12/17/20 11:00 100.3 F H 12/17/20 10:38 75 67 128/64 12/17/20 10:15 112 H 12/17/20 10:00 14 12/17/20 08:00 99.3 F 12/17/20 07:50 12 12/17/20 07:36 111 H 13 12/17/20 07:31 113 H 83/53 L BP Pulse Ox Pulse Ox Pulse Ox 12/17/20 16:00 12/17/20 14:33 12/17/20 13:59 12/17/20 12:00 12/17/20 11:00 12/17/20 10:38 100/57 L 90 L 90 L 12/17/20 10:15 12/17/20 10:00 12/17/20 08:00 98 12/17/20 07:50 12/17/20 07:36 94 L 12/17/20 07:31 Weight Admit Weight 151 lb 3.794 oz Weight 2.116 oz Most Recent Monitor Data Heart Rate from ECG 100 NIBP 83/51 NIBP BP-Mean 61 Respiration from ECG 16 SpO2 96 I&O: 12/16/20 12/17/20 12/18/20 06:59 06:59 06:59 Intake Total 658.6 893.4 120 Output Total 1160 1070 296 Balance -501.4 -176.6 -176 Result Diagrams: 12/17/20 03:06 12/17/20 03:06 Additional Labs: Accuchecks 12/16/20 21:24 POC Glucose 122 H Hospitalist ROS - Medication Medications: Active Medications Generic Name Dose Route Start Last Admin Trade Name Freq PRN Reason Stop Dose Admin Acetaminophen 650 mg 11/23/20 12:02 12/17/20 10:18 Acetaminophen 325 Mg Tab PO 650 mg Q4H PRN Administration Headache/Fever/Mild Pain (1-3) Albuterol Sulfate 2 puff 11/24/20 18:30 12/17/20 14:32 Albuterol 200 Puff (6.7gm Inhaler) INH 2 puff [id number] SUE Administration Ascorbic Acid 1,000 mg 11/24/20 09:00 12/17/20 10:17 Ascorbic Acid 500 Mg Chewable Tablet PO 1,000 mg DAILY SUE Administration Cholecalciferol 1,000 units 11/24/20 09:00 12/17/20 10:19 Cholecalciferol 1,000 Units (25 Mcg) Tab PO 1,000 units DAILY SUE Administration Colchicine 0.6 mg 12/01/20 09:00 12/17/20 10:17 Colchicine 0.6 Mg Tab PER TUBE 0.6 mg BID SUE Administration Dexamethasone 2 mg 12/16/20 09:00 12/17/20 10:18 Dexamethasone 1 Mg Tab PER TUBE 2 mg DAILY SUE Administration Enoxaparin Sodium 40 mg 12/16/20 21:00 12/16/20 20:04 Enoxaparin Sodium 40 Mg/0.4 Ml Syringe SC 40 mg 2100 SUE Administration Fentanyl 100 mls @ 0 mls/hr 12/05/20 19:15 12/14/20 23:10 Fentanyl Cadd IV 100 mls INF SUE Administration Protocol Per Protocol Lorazepam 2 mg 12/05/20 19:06 12/17/20 05:15 Lorazepam 2 Mg/Ml Vial SLOW IVP 2 mg Q1H PRN Administration Breakthrough agitation Mometasone Furoate/Formoterol Fumar 2 puff 11/23/20 18:30 12/17/20 07:36 Mometasone 100 Mcg/Formoterol 5 Mcg 120 Puff Inhaler INH 2 puff BID-RT SUE Administration Multivitamins 1 tab 11/24/20 09:00 12/17/20 10:18 Multivit, Therapeutic 1 Tab PO 1 tab DAILY SUE Administration Ondansetron HCl 4 mg 11/23/20 12:02 11/25/20 00:17 Ondansetron Pf 4 Mg/2 Ml Vial IVP 4 mg Q6H PRN Administration Nausea/Vomiting Pantoprazole Sodium 40 mg 12/02/20 09:00 12/17/20 10:17 Pantoprazole 40 Mg Granules Packet PER TUBE 40 mg DAILY SUE Administration Senna/Docusate Sodium 2 tab 11/23/20 12:02 12/05/20 17:20 Senokot S 8.6-50 Mg Tab PO 2 tab BIDPRN PRN Administration Constipation Sodium Chloride 10 ml 11/23/20 21:00 12/17/20 10:19 Flush - Normal Saline 10 Ml Syringe IVF 10 ml Q12HR SUE Administration Sodium Chloride 10 ml 11/23/20 12:45 12/05/20 12:35 Flush - Normal Saline 10 Ml Syringe IVF 10 ml PRN PRN Administration Saline Flush Zinc Sulfate 220 mg 11/24/20 09:00 12/17/20 10:19 Zinc Sulfate 220 Mg Cap PO 220 mg DAILY SUE Administration Hospitalist Exam Vitals: Vital Signs (12 hours) Temp Pulse Pulse Pulse Resp BP BP 12/17/20 16:00 23 H 12/17/20 14:33 114 H 12/17/20 13:59 23 H 12/17/20 12:00 16 12/17/20 11:00 100.3 F H 12/17/20 10:38 75 67 128/64 12/17/20 10:15 112 H 12/17/20 10:00 14 12/17/20 08:00 99.3 F 12/17/20 07:50 12 12/17/20 07:36 111 H 13 12/17/20 07:31 113 H 83/53 L BP Pulse Ox Pulse Ox Pulse Ox 12/17/20 16:00 12/17/20 14:33 12/17/20 13:59 12/17/20 12:00 12/17/20 11:00 12/17/20 10:38 100/57 L 90 L 90 L 12/17/20 10:15 12/17/20 10:00 12/17/20 08:00 98 12/17/20 07:50 12/17/20 07:36 94 L 12/17/20 07:31 Weight Admit Weight 151 lb 3.794 oz Weight 2.116 oz Most Recent Monitor Data Heart Rate from ECG 100 NIBP 83/51 NIBP BP-Mean 61 Respiration from ECG 16 SpO2 96 General Appearance: awake alert Eye: PERRL, anicteric sclera ENT: no oropharyngeal lesions, moist mucosa Neck: no JVD Neck - other findings: trach+, oozing has stopped Heart: RRR, no murmur Respiratory: no wheezes, no rales, rhonchi Gastrointestinal: soft, non-tender, non-distended, normal bowel sounds Gastrointestinal - other findings: peg+ Extremities: no cyanosis, no edema Neurological: cranial nerve grossly intact, no focal deficits Hosp A/P (1) Pneumonia due to COVID-19 virus Code(s): U07.1 - COVID-19; J12.82 - PNEUMONIA DUE TO CORONAVIRUS DISEASE 2019 Status: Acute (2) Acute respiratory failure with hypoxia Code(s): J96.01 - ACUTE RESPIRATORY FAILURE WITH HYPOXIA Status: Acute (3) Glucose intolerance Code(s): E74.39 - OTHER DISORDERS OF INTESTINAL CARBOHYDRATE ABSORPTION Status: Resolved (4) Osteoporosis Code(s): M81.0 - AGE-RELATED OSTEOPOROSIS W/O CURRENT PATHOLOGICAL FRACTURE Status: Chronic Qualifiers: Osteoporosis type: age-related Presence of current pathological fracture: without current pathological fracture Qualified Code(s): M81.0 - Age-related osteoporosis without current pathological fracture - Plan has finished full course of remdesivir and 2 doses plasma, continue dexamethasone low dose, alb and dulera inh, colchicine, lovenox dvt prophylaxis, vit D3 and protonix is off merrem and vanc 12/14, stable, cultures are -ve. prognosis guarded inflammatory markers are wavy, crp is anywhere from 8 from 26, stopped further crp checking, he is at his baseline weight around 147 lbs. d/w (daughter) and gave full updates. weaning per pulm advice, is on 40% fio2 with peep of 6. got intubated on 11/26 is on fentanyl and ativan prn for sedation from today dc plans for ltac in [facility] when bed becomes available, lou is aware.
[2020-12-17] MEDS: Morphine 2 MG/ML VIAL SLOW IVP PRN (18:04)
[2020-12-17] MEDS: Enoxaparin Sodium 40 MG/0.4 ML SYRINGE SC SCH (20:33)
[2020-12-18] MEDS: Lorazepam 2 MG/ML VIAL SLOW IVP PRN ×2 (01:48→12:18)
[2020-12-18] MEDS: Albuterol 200 PUFF (6.7GM INHALER) INH SCH ×6 (02:53→22:18)
[2020-12-18 04:21] LABS: ALT (SGPT) 17 U/L (8-55); AST (SGOT) 23 U/L (5-34); Albumin 2.5 g/dL (3.4-4.8); Alkaline Phosphatase 79 U/L (40-110); Anion Gap 11 mmol/L (10-20); BUN (Urea Nitrogen) 12 mg/dL (8.4-25.7); Bilirubin, Total 0.5 mg/dL (0.2-1.2); Calc. Creatinine Clearance 0 mL/min (70-130); Calcium 7.8 mg/dL (7.8-10.44); Carbon Dioxide 30 mmol/L (23-31); Chloride 100 mmol/L (98-107); Globulin 3.6 g/dL (2.4-3.5); Glucose 133 mg/dL (80-115); Protein, Total 6.1 g/dL (5.8-8.1); Sodium 138 mmol/L (136-145)
[2020-12-18 04:38] LABS: Potassium 2.8 mmol/L (3.5-5.1)
[2020-12-18] MEDS ORDERED: Potassium Chloride 40 MEQ in Premix Bag 1 BAG IVPB SCH (04:45)
[2020-12-18 04:49] LABS: Band 12 % (5-11); Eosinophils 1 % (0-10); Hemoglobin 11.8 g/dL (14.0-18.0); Lymphocytes 4 % (21-51); MDiff Complete? YES; Mean Corpuscular HGB CONC 32.8 g/dL (32.0-36.0); Mean Corpuscular Hemoglobin 31.2 pg (27.0-31.0); Mean Corpuscular Volume 95.3 fL (78.0-98.0); Mean Platelet Volume 8.5 fL (7.4-10.4); Neutrophil 83 % (42-75); Platelet Count 389 thou/uL (130-400); RBC Distribution Width 13.7 % (11.5-14.5); Red Blood Cell (RBC) Count 3.77 mill/uL (4.70-6.10); White Blood Cell (WBC) Count 11.4 thou/uL (4.8-10.8)
[2020-12-18] MEDS: Potassium Chloride 40 MEQ in Sodium Chloride 0.9% 250 ML 250 ML IVPB SCH ×2 (05:47→09:32)
[2020-12-18] MEDS: Mometasone 100 MCG/Formoterol 5 MCG 120 PUFF INHALER INH SCH ×2 (07:48→18:26)
[2020-12-18 09:18] LABS: Magnesium 1.9 mg/dL (1.6-2.6); Phosphorus 2.1 mg/dL (2.3-4.7)
[2020-12-18] MEDS: Morphine 2 MG/ML VIAL SLOW IVP PRN (09:25)
[2020-12-18] MEDS: Colchicine 0.6 MG TAB PER TUBE SCH ×2 (09:31→20:23)
[2020-12-18] MEDS: Ascorbic Acid 500 mg Chewable Tablet PO SCH (09:31)
[2020-12-18] MEDS: Acetaminophen 325 MG TAB PO PRN (09:31)
[2020-12-18] MEDS: Cholecalciferol 1,000 UNITS (25 MCG) TAB PO SCH (09:32)
[2020-12-18] MEDS: Multivit, Therapeutic 1 TAB PO SCH (09:32)
[2020-12-18] MEDS: Dexamethasone 1 MG TAB PER TUBE SCH (09:32)
[2020-12-18] MEDS: Zinc Sulfate 220 MG CAP PO SCH (09:32)
[2020-12-18] MEDS: Pantoprazole 40 MG GRANULES PACKET PER TUBE SCH (09:33)
[2020-12-18] MEDS ORDERED: Magnesium 2 GM/50 ML 2 GM in Premix Bag 1 BAG IVPB SCH (09:45)
[2020-12-18] MEDS ORDERED: Fentanyl CADD 100 ML ONE (15:15)
--- NOTE | 2020-12-18 16:53 | PDOC.HOSPP ---
- Subjective Encounter Date: 12/18/20 Encounter Time: 10:45 Subjective: Patient seen and examined for respiratory failure due to COVID-19. No overnight events. On 40% FiO2. - Objective Vital Signs & Weight: Vital Signs (12 hours) Temp Pulse Resp Pulse Ox 12/18/20 16:00 28 H 12/18/20 14:46 120 H 12/18/20 14:00 26 H 12/18/20 12:00 100 F H 27 H 12/18/20 11:17 123 H 12/18/20 10:00 26 H 12/18/20 08:00 27 H 98 12/18/20 07:48 124 H 12/18/20 07:00 98.3 F Weight Admit Weight 151 lb 3.794 oz Weight 2.011 oz Most Recent Monitor Data Heart Rate from ECG 112 NIBP 117/72 NIBP BP-Mean 84 Respiration from ECG 26 SpO2 98 I&O: 12/17/20 12/18/20 12/19/20 06:59 06:59 06:59 Intake Total 893.4 1626.3 200 Output Total 1070 2681 206 Balance -176.6 -1054.7 -6 Result Diagrams: 12/18/20 03:39 12/18/20 03:39 Additional Labs: Abnormal Lab Results - Last 48 hrs 12/17/20 03:06: RBC 3.70 L, Hgb 11.6 L, Hct 35.3 L, MCH 31.3 H, Neutrophils % (Manual) 77 H, Band Neuts % (Manual) 14 H, Lymphocytes % (Manual) 5 L 12/17/20 03:06: Potassium 3.4 L, Creatinine Less than 0.40 L, Calcium 7.5 L, Albumin 2.3 L, Globulin 3.6 H, Albumin/Globulin Ratio 0.6 L 12/18/20 03:39: WBC 11.4 H, RBC 3.77 L, Hgb 11.8 L, Hct 35.9 L, MCH 31.2 H, Neutrophils % (Manual) 83 H, Band Neuts % (Manual) 12 H, Lymphocytes % (Manual) 4 L 12/18/20 03:39: Potassium 2.8 L*, Creatinine Less than 0.40 L, Albumin 2.5 L, Globulin 3.6 H, Albumin/Globulin Ratio 0.7 L 12/18/20 03:39: Phosphorus 2.1 L Microbiology - Entire Visit 12/04/20 09:22 Venous blood - Right Hand Blood Culture - Final NO GROWTH IN 5 DAYS 12/04/20 09:22 Venous blood - Left Hand Blood Culture - Final NO GROWTH IN 5 DAYS 12/04/20 09:25 Tracheal - Aspirate Respiratory Culture - Final 12/04/20 11:14 Urine clean catch Urine Culture - Final Yeast species 11/30/20 07:45 Venous blood - Left Hand Blood Culture - Final NO GROWTH IN 5 DAYS 11/30/20 06:45 Port - Right Brachiocephalic vein Blood Culture - Final NO GROWTH IN 5 DAYS 11/23/20 07:21 Venous blood - Right Arm Blood Culture - Final NO GROWTH IN 5 DAYS 11/23/20 07:21 Venous blood - Left Arm Blood Culture - Final NO GROWTH IN 5 DAYS Vent - Assess Status Start: 11/25/20 16:40 Freq: Q2HR Status: Active Protocol: Document 12/18/20 16:00 (Rec: 12/18/20 16:23 [id number]) Ventilator Status/Info Patient/Vent Settings Endotracheal Tube Insertion Site Tracheostomy ETT Position (cm) Trach Cuff Inflated Yes Ventilator Mode SIMV FIO2 40 Vent TV Set 470 Delivered TV 709 Patient TV (Spontaneous) 464 Vent RR 12 Patient RR (12-20 breaths/min) 28 Peak Pressure (cmH2O) 21 PEEP (cm H2O) 5 PSV 8 Sedation (RASS) Staley Agitation-Sedation Scale (RASS): +4 = Combative: Combative, violent, immediate danger to staff +3 = Very agitated: Pulls to remove tubes or catheter; aggressive +2 = Agitated: Frequent non-purposeful movement, fights ventilator +1 = Restless: Anxious, apprehensive, movements not aggressive 0 = Alert and Calm: Spontaneously pays attention to caregiver -1 = Drowsy: Not fully alert, but has sustained awakening to voice -2 = Light sedation: Briefly awakens to voice (eyes contact < 10 secs) -3 = Moderate sedation: Movement or eye opening to voice (no eye contact) -4 = Deep sedation: No response to voice, but movement or eye opening to physical stimulation -5 = Unarousable: No response to voice or physical stimulation Sedation Yes Sedation Type fentanyl RASS Goal Score -1 RASS Actual Score [-1] Drowsy Intervention to attain goal Comfort Care Call Carreon Within Reach Yes Oral Care HOB Angle (degrees) 30 Patient Turned Right *If no, document why not Radiology Reviewed by me: Yes (CXR - No new changes) EKG Reviewed by me: Yes (Tele ST) Hospitalist ROS - Review of Systems ROS unobtainable: due to mental status - Medication Medications: Active Medications Generic Name Dose Route Start Last Admin Trade Name Freq PRN Reason Stop Dose Admin Acetaminophen 650 mg 11/23/20 12:02 12/18/20 09:31 Acetaminophen 325 Mg Tab PO 650 mg Q4H PRN Administration Headache/Fever/Mild Pain (1-3) Albuterol Sulfate 2 puff 11/24/20 18:30 12/18/20 14:46 Albuterol 200 Puff (6.7gm Inhaler) INH 2 puff [id number] SUE Administration Ascorbic Acid 1,000 mg 11/24/20 09:00 12/18/20 09:31 Ascorbic Acid 500 Mg Chewable Tablet PO 1,000 mg DAILY SUE Administration Cholecalciferol 1,000 units 11/24/20 09:00 12/18/20 09:32 Cholecalciferol 1,000 Units (25 Mcg) Tab PO 1,000 units DAILY SUE Administration Colchicine 0.6 mg 12/01/20 09:00 12/18/20 09:31 Colchicine 0.6 Mg Tab PER TUBE 0.6 mg BID SUE Administration Dexamethasone 2 mg 12/16/20 09:00 12/18/20 09:32 Dexamethasone 1 Mg Tab PER TUBE 2 mg DAILY SUE Administration Enoxaparin Sodium 40 mg 12/16/20 21:00 12/17/20 20:33 Enoxaparin Sodium 40 Mg/0.4 Ml Syringe SC 40 mg 2100 SUE Administration Fentanyl 100 mls @ 0 mls/hr 12/05/20 19:15 12/14/20 23:10 Fentanyl Cadd IV 100 mls INF SUE Administration Protocol Per Protocol Lorazepam 2 mg 12/05/20 19:06 12/18/20 12:18 Lorazepam 2 Mg/Ml Vial SLOW IVP 2 mg Q1H PRN Administration Breakthrough agitation Mometasone Furoate/Formoterol Fumar 2 puff 11/23/20 18:30 12/18/20 07:48 Mometasone 100 Mcg/Formoterol 5 Mcg 120 Puff Inhaler INH 2 puff BID-RT SUE Administration Morphine Sulfate 2 mg 12/05/20 19:06 12/18/20 09:25 Morphine 2 Mg/Ml Vial SLOW IVP 2 mg Q1H PRN Administration Breakthrough Pain/Agitation Multivitamins 1 tab 11/24/20 09:00 12/18/20 09:32 Multivit, Therapeutic 1 Tab PO 1 tab DAILY SUE Administration Ondansetron HCl 4 mg 11/23/20 12:02 11/25/20 00:17 Ondansetron Pf 4 Mg/2 Ml Vial IVP 4 mg Q6H PRN Administration Nausea/Vomiting Pantoprazole Sodium 40 mg 12/02/20 09:00 12/18/20 09:33 Pantoprazole 40 Mg Granules Packet PER TUBE 40 mg DAILY SUE Administration Senna/Docusate Sodium 2 tab 11/23/20 12:02 12/05/20 17:20 Senokot S 8.6-50 Mg Tab PO 2 tab BIDPRN PRN Administration Constipation Sodium Chloride 10 ml 11/23/20 21:00 12/18/20 09:33 Flush - Normal Saline 10 Ml Syringe IVF 10 ml Q12HR SUE Administration Sodium Chloride 10 ml 11/23/20 12:45 12/05/20 12:35 Flush - Normal Saline 10 Ml Syringe IVF 10 ml PRN PRN Administration Saline Flush Zinc Sulfate 220 mg 11/24/20 09:00 12/18/20 09:32 Zinc Sulfate 220 Mg Cap PO 220 mg DAILY SUE Administration Hospitalist Exam Vitals: Vital Signs (12 hours) Temp Pulse Resp Pulse Ox 12/18/20 16:00 28 H 12/18/20 14:46 120 H 12/18/20 14:00 26 H 12/18/20 12:00 100 F H 27 H 12/18/20 11:17 123 H 12/18/20 10:00 26 H 12/18/20 08:00 27 H 98 12/18/20 07:48 124 H 12/18/20 07:00 98.3 F Weight Admit Weight 151 lb 3.794 oz Weight 2.011 oz Most Recent Monitor Data Heart Rate from ECG 112 NIBP 117/72 NIBP BP-Mean 84 Respiration from ECG 26 SpO2 98 Heart: RRR, no gallops Respiratory: rales, rhonchi Gastrointestinal: soft, no guarding, no rigidity Extremities: no cyanosis Neurological: no new deficit Hosp A/P - Plan DVT proph w/lovenox, DVT proph w/SCDs Severe sepsis/acute hypoxic respiratory failure due to COVID-19 pneumonia Failed NIPPV S/p intubation on 11/25 S/p convalescent plasma S/p remdesivir Isolation discontinued on 12/10 -s/p Trach/PEG Plan: Patient now on FiO2 40 percent with PEEP of 10. Taper steroids. Continue colchicine. AM labs Electrolyte abn - Hyponatremia/hypomagnesemia/Hypophosphatemia Will replace Potassium Metabolic acidosis Improved DVT - Cont Lovenox GI prophylaxis - Cont PPI Diet: Continue tube feeding
[2020-12-18 18:06] LABS: Potassium 4.1 mmol/L (3.5-5.1)
--- NOTE | 2020-12-18 18:54 | PDOC.PULCC ---
CCU Progress Note: Subj/Obj - Subjective Date: 12/18/20 Time: 16:30 Narrative: 24 hours no significant change, on vent with trach, responsive, denies pain - Objective Allergies/Adverse Reactions: Allergies Allergy/AdvReac Type Severity Reaction Status Date / Time No Known Allergies Allergy Unverified 01/23/20 11:50 Medications: Current Medications Acetaminophen (Acetaminophen 325 Mg Tab) 650 mg PO Q4H PRN PRN Reason: Headache/Fever/Mild Pain (1-3) Last Admin: 12/18/20 09:31 Dose: 650 mg Documented by: Albuterol Sulfate (Albuterol 200 Puff (6.7gm Inhaler)) 2 puff INH [id number] [facility] Last Admin: 12/18/20 18:26 Dose: 2 puff Documented by: Lipase/Protease/Amylase (Pancrelipase Dr 12,000 1 Cap) 1 cap FS .PER PROTOCOL PRN PRN Reason: TUBE OCCLUSION PROTOCOL Ascorbic Acid (Ascorbic Acid 500 Mg Chewable Tablet) 1,000 mg PO DAILY [facility] Last Admin: 12/18/20 09:31 Dose: 1,000 mg Documented by: Bisacodyl (Bisacodyl 10 Mg Supp) 10 mg ME DAILYPRN PRN PRN Reason: Constipation Calcium Carbonate (Calcium Carbonate 500 Mg Chewtab) 1,000 mg PO Q4H PRN PRN Reason: Heartburn or Indigestion Cholecalciferol (Cholecalciferol 1,000 Units (25 Mcg) Tab) 1,000 units PO DAILY [facility] Last Admin: 12/18/20 09:32 Dose: 1,000 units Documented by: Colchicine (Colchicine 0.6 Mg Tab) 0.6 mg PER TUBE BID [facility] Last Admin: 12/18/20 09:31 Dose: 0.6 mg Documented by: Dexamethasone (Dexamethasone 1 Mg Tab) 2 mg PER TUBE DAILY [facility] Last Admin: 12/18/20 09:32 Dose: 2 mg Documented by: Dextrose/Water (Dextrose 50% Abboject 50 Ml Syringe) 25 gm IVP PRN PRN PRN Reason: HYPOGLYCEMIA PROTOCOL Enoxaparin Sodium (Enoxaparin Sodium 40 Mg/0.4 Ml Syringe) 40 mg SC 2100 [facility] Last Admin: 12/17/20 20:33 Dose: 40 mg Documented by: Glucagon (Glucagon 1 Mg/Ml Vial) 1 mg IM PRN PRN PRN Reason: HYPOGLYCEMIA PROTOCOL Guaifenesin/Dextromethorphan (Guaifenesin Dm 100-10/5 Ml Udcup) 15 ml PO Q4H PRN PRN Reason: Cough Dextrose/Water (D5w) 1,000 mls @ 0 mls/hr IV INF PRN PRN Reason: HYPOGLYCEMIA PROTOCOL Fentanyl (Fentanyl Cadd) 100 mls @ 0 mls/hr IV INF SUE; Protocol Last Admin: 12/14/20 23:10 Dose: 100 mls Documented by: Fentanyl Citrate (Fentanyl Bolus) 250 mls @ 0 mls/hr IVPB PRN PRN PRN Reason: Breakthrough pain/agitation Lorazepam (Lorazepam 2 Mg/Ml Vial) 2 mg SLOW IVP Q1H PRN PRN Reason: Breakthrough agitation Last Admin: 12/18/20 12:18 Dose: 2 mg Documented by: Miscellaneous Medication (Electrolyte Replacement Protocol) 0 each FS ASDIR PRN; Protocol PRN Reason: ELECTROLYTE REPLACEMENT Mometasone Furoate/Formoterol Fumar (Mometasone 100 Mcg/Formoterol 5 Mcg 120 Puff Inhaler) 2 puff INH BID-RT [facility] Last Admin: 12/18/20 18:26 Dose: 2 puff Documented by: Morphine Sulfate (Morphine 2 Mg/Ml Vial) 2 mg SLOW IVP Q1H PRN PRN Reason: Breakthrough Pain/Agitation Last Admin: 12/18/20 09:25 Dose: 2 mg Documented by: Multivitamins (Multivit, Therapeutic 1 Tab) 1 tab PO DAILY [facility] Last Admin: 12/18/20 09:32 Dose: 1 tab Documented by: Discontinue Previous Narcotic Pain Medications And Benzodiazepines 1 each FS .ONE [facility] Stop: 12/25/20 19:00 Ondansetron HCl (Ondansetron Pf 4 Mg/2 Ml Vial) 4 mg IVP Q6H PRN PRN Reason: Nausea/Vomiting Last Admin: 11/25/20 00:17 Dose: 4 mg Documented by: Pantoprazole Sodium (Pantoprazole 40 Mg Granules Packet) 40 mg PER TUBE DAILY [facility] Last Admin: 12/18/20 09:33 Dose: 40 mg Documented by: Senna/Docusate Sodium (Senokot S 8.6-50 Mg Tab) 2 tab PO BIDPRN PRN PRN Reason: Constipation Last Admin: 12/05/20 17:20 Dose: 2 tab Documented by: Sodium Bicarbonate (Sodium Bicarbonate Tab 325 Mg Tab) 650 mg PER TUBE .PER PROTOCOL PRN PRN Reason: ENTERAL TUBE OCCLUSION Sodium Chloride (Flush - Normal Saline 10 Ml Syringe) 10 ml IVF Q12HR [facility] Last Admin: 12/18/20 09:33 Dose: 10 ml Documented by: Sodium Chloride (Flush - Normal Saline 10 Ml Syringe) 10 ml IVF PRN PRN PRN Reason: Saline Flush Last Admin: 12/05/20 12:35 Dose: 10 ml Documented by: Zinc Sulfate (Zinc Sulfate 220 Mg Cap) 220 mg PO DAILY [facility] Last Admin: 12/18/20 09:32 Dose: 220 mg Documented by: ADITYA Reviewed: Yes Vital Signs and I&O: Vital Signs Temp 100 F H 12/18/20 12:00 Pulse 110 H 12/18/20 18:26 Resp 28 H 12/18/20 16:00 BP 117/75 12/18/20 18:26 Pulse Ox 98 12/18/20 08:00 Intake & Output 12/17/20 12/18/20 12/18/20 18:59 06:59 18:59 Intake Total 602.8 1023.5 768 Output Total 1081 1600 296 Balance -478.2 -576.5 472 Weight 2.011 oz Intake: Intake, IV Amount 332.8 32.5 558 Fentanyl CADD 100 ml @ 37.8 32.5 Per Protocol IV INF SUE Rx#:[id number] Magnesium 2 GM/50 ML 2 gm 50 In Premix Bag 1 bag @ 50 mls/hr IVPB NOW [facility] Rx#: [id number] Potassium Chloride 40 meq 508 In Sodium Chloride 0.9% 250 ML 250 ml @ 67.5 mls/ hr IVPB Q4H [facility] Rx#: [id number] Sodium Chloride 0.9% 10 295 ml IVF PRN PRN Rx#: [id number] Tube Feeding 811 Tube Irrigant 270 180 210 Output: Output, Almanza 1081 1600 296 Other: Voiding Method Indwelling Catheter Indwelling Catheter Indwelling Catheter # Bowel Movements 1 Spontaneous Breathing Test: other (simv 12 70 +5 PS 8 50%) CCU Progress Note: Exam - Physical Exam HEENT: oral pharynx no lesions Deviation from normal: trach Cardiovascular: RRR Respiratory: rhonchi Focused Respiratory Location: decreased breath sounds: Upper, Lower, rhonchi: Upper, Lower Gastrointestinal: soft Deviation from normal: peg intact Musculoskeletal: no edema, pulses present Skin: no rash, cap refill <2 seconds CCU Progress Note: Data - Labs Result Diagrams: 12/18/20 03:39 12/18/20 17:06 Lab results: Laboratory Results 12/16/20 12/17/20 12/17/20 21:24 03:06 03:06 WBC 9.7 RBC 3.70 L Hgb 11.6 L Hct 35.3 L MCV 95.4 MCH 31.3 H MCHC 32.9 RDW 13.5 Plt Count 365 MPV 8.4 Neutrophils % (Manual) 77 H Band Neuts % (Manual) 14 H Lymphocytes % (Manual) 5 L Monocytes % (Manual) 1 Eosinophils % (Manual) 3 Sodium 136 Potassium 3.4 L Chloride 98 Carbon Dioxide 28 Anion Gap 13 BUN 11 Creatinine Less than 0.40 L Estimated GFR (MDRD) Greater than 90 Glucose 104 POC Glucose 122 H Calcium 7.5 L Phosphorus Magnesium Total Bilirubin 0.6 AST 27 ALT 17 Alkaline Phosphatase 66 Serum Total Protein 5.9 Albumin 2.3 L Globulin 3.6 H Albumin/Globulin Ratio 0.6 L 12/18/20 12/18/20 12/18/20 03:39 03:39 03:39 WBC 11.4 H RBC 3.77 L Hgb 11.8 L Hct 35.9 L MCV 95.3 MCH 31.2 H MCHC 32.8 RDW 13.7 Plt Count 389 MPV 8.5 Neutrophils % (Manual) 83 H Band Neuts % (Manual) 12 H Lymphocytes % (Manual) 4 L Monocytes % (Manual) Eosinophils % (Manual) 1 Sodium 138 Potassium 2.8 L* Chloride 100 Carbon Dioxide 30 Anion Gap 11 BUN 12 Creatinine Less than 0.40 L Estimated GFR (MDRD) Greater than 90 Glucose 133 H POC Glucose Calcium 7.8 Phosphorus 2.1 L Magnesium 1.9 Total Bilirubin 0.5 AST 23 ALT 17 Alkaline Phosphatase 79 Serum Total Protein 6.1 Albumin 2.5 L Globulin 3.6 H Albumin/Globulin Ratio 0.7 L 12/18/20 17:06 WBC RBC Hgb Hct MCV MCH MCHC RDW Plt Count MPV Neutrophils % (Manual) Band Neuts % (Manual) Lymphocytes % (Manual) Monocytes % (Manual) Eosinophils % (Manual) Sodium Potassium 4.1 Chloride Carbon Dioxide Anion Gap BUN Creatinine Estimated GFR (MDRD) Glucose POC Glucose Calcium Phosphorus Magnesium Total Bilirubin AST ALT Alkaline Phosphatase Serum Total Protein Albumin Globulin Albumin/Globulin Ratio CCU Progress Note: A/P - Time Spent with Patient Time (minutes): 38 - Plan Plan: Assess Hypoxemic acute resp failure trach 12/16 peg 12/16 COVID 19 pneumonia on tx to be continued Mild chronic anemia Awaiting LTAC placement Wean vent as tolerated Phys Therapy
[2020-12-18] MEDS: Enoxaparin Sodium 40 MG/0.4 ML SYRINGE SC SCH (20:23)
[2020-12-19] MEDS: Albuterol 200 PUFF (6.7GM INHALER) INH SCH ×6 (02:32→22:33)
--- NOTE | 2020-12-19 03:19 | PDOC.BPN ---
- Brief Progress Note Encounter Date: 12/19/20 I was notified about patient having abdominal distention with blood from his NG tube and decompression. Order CBC CMP. Discontinue Lovenox Abdominal imagingCT Monitor vitals Transfuse if hemoglobin less than 7 GI consult in AM.
[2020-12-19] MEDS ORDERED: Pantoprazole 40 MG VIAL IVP SCH (03:30)
[2020-12-19 03:58] LABS: Phosphorus 2.2 mg/dL (2.3-4.7)
[2020-12-19 04:00] LABS: ALT (SGPT) 23 U/L (8-55); AST (SGOT) 23 U/L (5-34); Albumin 2.6 g/dL (3.4-4.8); Alkaline Phosphatase 74 U/L (40-110); Anion Gap 16 mmol/L (10-20); BUN (Urea Nitrogen) 14 mg/dL (8.4-25.7); Bilirubin, Total 0.6 mg/dL (0.2-1.2); Calc. Creatinine Clearance 0 mL/min (70-130); Calcium 7.7 mg/dL (7.8-10.44); Carbon Dioxide 26 mmol/L (23-31); Chloride 103 mmol/L (98-107); Globulin 3.7 g/dL (2.4-3.5); Glucose 144 mg/dL (80-115); Magnesium 2.1 mg/dL (1.6-2.6); Potassium 3.7 mmol/L (3.5-5.1); Protein, Total 6.3 g/dL (5.8-8.1); Sodium 141 mmol/L (136-145)
[2020-12-19 04:17] LABS: INR-International Normal Ratio 1.1; Prothrombin Time 14.7 sec (12.0-14.7)
[2020-12-19 04:34] LABS: Band 10 % (5-11); Hemoglobin 11.6 g/dL (14.0-18.0); Lymphocytes 3 % (21-51); MDiff Complete? YES; Mean Corpuscular HGB CONC 31.8 g/dL (32.0-36.0); Mean Corpuscular Hemoglobin 30.5 pg (27.0-31.0); Mean Corpuscular Volume 95.8 fL (78.0-98.0); Mean Platelet Volume 8.5 fL (7.4-10.4); Monocytes 1 % (0-10); Neutrophil 86 % (42-75); Platelet Count 405 thou/uL (130-400); RBC Distribution Width 14.2 % (11.5-14.5); Red Blood Cell (RBC) Count 3.82 mill/uL (4.70-6.10); White Blood Cell (WBC) Count 11.6 thou/uL (4.8-10.8)
[2020-12-19] MEDS: Lorazepam 2 MG/ML VIAL SLOW IVP PRN (05:55)
[2020-12-19] MEDS: Acetaminophen 325 MG TAB PO PRN (06:37)
[2020-12-19] MEDS: Mometasone 100 MCG/Formoterol 5 MCG 120 PUFF INHALER INH SCH ×2 (07:58→18:30)
[2020-12-19] MEDS ORDERED: Sodium Chloride 0.9% 1,000 ML IV SCH (08:00)
[2020-12-19] MEDS ORDERED: Potassium Phosphate 15 MMOL in Sodium Chloride 0.9% 250 ML 250 ML IVPB SCH (08:30)
[2020-12-19] MEDS: Pantoprazole 40 MG VIAL IVP SCH ×2 (09:29→20:43)
[2020-12-19] MEDS: Cholecalciferol 1,000 UNITS (25 MCG) TAB PO SCH (10:43)
[2020-12-19] MEDS: Colchicine 0.6 MG TAB PER TUBE SCH ×2 (10:43→20:43)
[2020-12-19] MEDS: Ascorbic Acid 500 mg Chewable Tablet PO SCH (10:43)
[2020-12-19] MEDS: Dexamethasone 1 MG TAB PER TUBE SCH (10:43)
[2020-12-19] MEDS: Multivit, Therapeutic 1 TAB PO SCH (10:43)
[2020-12-19] MEDS: Zinc Sulfate 220 MG CAP PO SCH (10:44)
[2020-12-19] MEDS: NS 0.9% w/ 20 MEQ KCL 1,000 ML/1,000 ML BAG IV SCH (10:48)
--- NOTE | 2020-12-19 11:21 | RAD ---
ABDOMEN ONE VIEW: HISTORY: Abdominal distention. GI bleed. FINDINGS: PEG tube in place. Moderate amount of gas within the colon, primarily with some small bowel gas. Fair ly extensive bilateral interstitial and ground glass opacity parenchymal lung changes. No overt free intraperitoneal air. IMPRESSION: Moderate amount of gas, mostly in the colon but also in the small bowel, without overt obstruction or free intraperitoneal air. Depending upon concern, short-term followup with flat and upright examinat ions should be considered. POS: RRE
--- NOTE | 2020-12-19 14:02 | PDOC.PULCC ---
CCU Progress Note: Subj/Obj - Subjective Date: 12/19/20 (n) Time: 11:56 - Objective Allergies/Adverse Reactions: Allergies Allergy/AdvReac Type Severity Reaction Status Date / Time No Known Allergies Allergy Unverified 01/23/20 11:50 Medications: Current Medications Acetaminophen (Acetaminophen 325 Mg Tab) 650 mg PO Q4H PRN PRN Reason: Headache/Fever/Mild Pain (1-3) Last Admin: 12/19/20 06:37 Dose: 650 mg Documented by: Albuterol Sulfate (Albuterol 200 Puff (6.7gm Inhaler)) 2 puff INH [id number] Last Admin: 12/19/20 10:54 Dose: 2 puff Documented by: Lipase/Protease/Amylase (Pancrelipase Dr 12,000 1 Cap) 1 cap FS .PER PROTOCOL PRN PRN Reason: TUBE OCCLUSION PROTOCOL Ascorbic Acid (Ascorbic Acid 500 Mg Chewable Tablet) 1,000 mg PO DAILY [facility] Last Admin: 12/19/20 10:43 Dose: Not Given Documented by: Bisacodyl (Bisacodyl 10 Mg Supp) 10 mg IN DAILYPRN PRN PRN Reason: Constipation Calcium Carbonate (Calcium Carbonate 500 Mg Chewtab) 1,000 mg PO Q4H PRN PRN Reason: Heartburn or Indigestion Cholecalciferol (Cholecalciferol 1,000 Units (25 Mcg) Tab) 1,000 units PO DAILY [facility] Last Admin: 12/19/20 10:43 Dose: Not Given Documented by: Colchicine (Colchicine 0.6 Mg Tab) 0.6 mg PER TUBE BID [facility] Last Admin: 12/19/20 10:43 Dose: Not Given Documented by: Dexamethasone (Dexamethasone 1 Mg Tab) 2 mg PER TUBE DAILY [facility] Last Admin: 12/19/20 10:43 Dose: Not Given Documented by: Dextrose/Water (Dextrose 50% Abboject 50 Ml Syringe) 25 gm IVP PRN PRN PRN Reason: HYPOGLYCEMIA PROTOCOL Enoxaparin Sodium (Enoxaparin Sodium 40 Mg/0.4 Ml Syringe) 40 mg SC 2100 [facility] Last Admin: 12/18/20 20:23 Dose: 40 mg Documented by: Glucagon (Glucagon 1 Mg/Ml Vial) 1 mg IM PRN PRN PRN Reason: HYPOGLYCEMIA PROTOCOL Guaifenesin/Dextromethorphan (Guaifenesin Dm 100-10/5 Ml Udcup) 15 ml PO Q4H PRN PRN Reason: Cough Dextrose/Water (D5w) 1,000 mls @ 0 mls/hr IV INF PRN PRN Reason: HYPOGLYCEMIA PROTOCOL Fentanyl (Fentanyl Cadd) 100 mls @ 0 mls/hr IV INF SUE; Protocol Last Admin: 12/14/20 23:10 Dose: 100 mls Documented by: Fentanyl Citrate (Fentanyl Bolus) 250 mls @ 0 mls/hr IVPB PRN PRN PRN Reason: Breakthrough pain/agitation Potassium Chloride/Sodium Chloride (Ns 0.9% W/ 20 Meq Kcl) 1,000 ml in 1,000 mls @ 75 mls/hr IV .[id number] [facility] Last Admin: 12/19/20 10:48 Dose: 1,000 mls Documented by: Lorazepam (Lorazepam 2 Mg/Ml Vial) 2 mg SLOW IVP Q1H PRN PRN Reason: Breakthrough agitation Last Admin: 12/19/20 05:55 Dose: 2 mg Documented by: Miscellaneous Medication (Electrolyte Replacement Protocol) 0 each FS ASDIR PRN; Protocol PRN Reason: ELECTROLYTE REPLACEMENT Mometasone Furoate/Formoterol Fumar (Mometasone 100 Mcg/Formoterol 5 Mcg 120 Puff Inhaler) 2 puff INH BID-RT [facility] Last Admin: 12/19/20 07:58 Dose: 2 puff Documented by: Morphine Sulfate (Morphine 2 Mg/Ml Vial) 2 mg SLOW IVP Q1H PRN PRN Reason: Breakthrough Pain/Agitation Last Admin: 12/18/20 09:25 Dose: 2 mg Documented by: Multivitamins (Multivit, Therapeutic 1 Tab) 1 tab PO DAILY [facility] Last Admin: 12/19/20 10:43 Dose: Not Given Documented by: Discontinue Previous Narcotic Pain Medications And Benzodiazepines 1 each FS .ONE [facility] Stop: 12/25/20 19:00 Ondansetron HCl (Ondansetron Pf 4 Mg/2 Ml Vial) 4 mg IVP Q6H PRN PRN Reason: Nausea/Vomiting Last Admin: 11/25/20 00:17 Dose: 4 mg Documented by: Pantoprazole Sodium (Pantoprazole 40 Mg Vial) 40 mg IVP Q12HR [facility] Last Admin: 12/19/20 09:29 Dose: 40 mg Documented by: Senna/Docusate Sodium (Senokot S 8.6-50 Mg Tab) 2 tab PO BIDPRN PRN PRN Reason: Constipation Last Admin: 12/05/20 17:20 Dose: 2 tab Documented by: Sodium Bicarbonate (Sodium Bicarbonate Tab 325 Mg Tab) 650 mg PER TUBE .PER PROTOCOL PRN PRN Reason: ENTERAL TUBE OCCLUSION Sodium Chloride (Flush - Normal Saline 10 Ml Syringe) 10 ml IVF Q12HR [facility] Last Admin: 12/19/20 09:30 Dose: 10 ml Documented by: Sodium Chloride (Flush - Normal Saline 10 Ml Syringe) 10 ml IVF PRN PRN PRN Reason: Saline Flush Last Admin: 12/05/20 12:35 Dose: 10 ml Documented by: Zinc Sulfate (Zinc Sulfate 220 Mg Cap) 220 mg PO DAILY [facility] Last Admin: 12/19/20 10:44 Dose: Not Given Documented by: Vital Signs and I&O: Vital Signs Temp 99.9 F H 12/19/20 12:00 Pulse 118 H 12/19/20 10:55 Resp 21 H 12/19/20 12:00 BP 120/75 12/19/20 02:32 Pulse Ox 100 12/19/20 08:00 Intake & Output 12/18/20 12/19/20 12/19/20 18:59 06:59 18:59 Intake Total 1769.9 1282 Output Total 726 1210 280 Balance 1043.9 72 -280 Intake: Intake, IV Amount 859.9 646 Fentanyl CADD 100 ml @ 36.9 Per Protocol IV INF [facility] Rx#:[id number] Magnesium 2 GM/50 ML 2 gm 50 In Premix Bag 1 bag @ 50 mls/hr IVPB NOW [facility] Rx#: [id number] Potassium Chloride 40 meq 508 In Sodium Chloride 0.9% 250 ML 250 ml @ 67.5 mls/ hr IVPB Q4H [facility] Rx#: [id number] Sodium Chloride 0.9% 10 265 646 ml IVF PRN PRN Rx#: [id number] Tube Feeding 700 546 Tube Irrigant 210 90 Output: Gastric Drainage 500 Output, Almanza 526 710 280 Stool 200 Other: Voiding Method Indwelling Catheter Indwelling Catheter Indwelling Catheter Lines (incl Aterial, CVC, PICC+Insertion date): remains on ventilator with sedation precedex, not respondint today to commands, tolerating vent reduction simv 500/rate 6/PS 6/+5/40% CCU Progress Note: Exam - Physical Exam HEENT: PERRLA Deviation from normal: oral ETT OGT Neck: supple Cardiovascular: RRR Respiratory: rales Focused Respiratory Location: decreased breath sounds: Upper Gastrointestinal: soft, non-tender Musculoskeletal: no edema Deviation from normal: not responsive today Skin: no rash CCU Progress Note: Data - Labs Result Diagrams: 12/19/20 03:30 12/19/20 03:30 Lab results: Laboratory Results 12/18/20 12/18/20 12/18/20 03:39 03:39 03:39 WBC 11.4 H RBC 3.77 L Hgb 11.8 L Hct 35.9 L MCV 95.3 MCH 31.2 H MCHC 32.8 RDW 13.7 Plt Count 389 MPV 8.5 Neutrophils % (Manual) 83 H Band Neuts % (Manual) 12 H Lymphocytes % (Manual) 4 L Monocytes % (Manual) Eosinophils % (Manual) 1 PT INR Sodium 138 Potassium 2.8 L* Chloride 100 Carbon Dioxide 30 Anion Gap 11 BUN 12 Creatinine Less than 0.40 L Estimated GFR (MDRD) Greater than 90 Glucose 133 H POC Glucose Lactic Acid Calcium 7.8 Phosphorus 2.1 L Magnesium 1.9 Total Bilirubin 0.5 AST 23 ALT 17 Alkaline Phosphatase 79 C-Reactive Protein Serum Total Protein 6.1 Albumin 2.5 L Globulin 3.6 H Albumin/Globulin Ratio 0.7 L 12/18/20 12/18/20 12/19/20 17:06 20:39 03:30 WBC 11.6 H RBC 3.82 L Hgb 11.6 L Hct 36.6 L MCV 95.8 MCH 30.5 MCHC 31.8 L RDW 14.2 Plt Count 405 H MPV 8.5 Neutrophils % (Manual) 86 H Band Neuts % (Manual) 10 Lymphocytes % (Manual) 3 L Monocytes % (Manual) 1 Eosinophils % (Manual) PT INR Sodium Potassium 4.1 Chloride Carbon Dioxide Anion Gap BUN Creatinine Estimated GFR (MDRD) Glucose POC Glucose 147 H Lactic Acid Calcium Phosphorus Magnesium Total Bilirubin AST ALT Alkaline Phosphatase C-Reactive Protein Serum Total Protein Albumin Globulin Albumin/Globulin Ratio 12/19/20 12/19/20 12/19/20 03:30 03:30 03:30 WBC RBC Hgb Hct MCV MCH MCHC RDW Plt Count MPV Neutrophils % (Manual) Band Neuts % (Manual) Lymphocytes % (Manual) Monocytes % (Manual) Eosinophils % (Manual) PT INR Sodium 141 Potassium 3.7 Chloride 103 Carbon Dioxide 26 Anion Gap 16 BUN 14 Creatinine Less than 0.40 L Estimated GFR (MDRD) Greater than 90 Glucose 144 H POC Glucose Lactic Acid Calcium 7.7 L Phosphorus 2.2 L Magnesium 2.1 Total Bilirubin 0.6 AST 23 ALT 23 Alkaline Phosphatase 74 C-Reactive Protein 14.04 H Serum Total Protein 6.3 Albumin 2.6 L Globulin 3.7 H Albumin/Globulin Ratio 0.7 L 12/19/20 12/19/20 03:52 06:57 WBC RBC Hgb Hct MCV MCH MCHC RDW Plt Count MPV Neutrophils % (Manual) Band Neuts % (Manual) Lymphocytes % (Manual) Monocytes % (Manual) Eosinophils % (Manual) PT 14.7 INR 1.1 Sodium Potassium Chloride Carbon Dioxide Anion Gap BUN Creatinine Estimated GFR (MDRD) Glucose POC Glucose Lactic Acid 0.9 Calcium Phosphorus Magnesium Total Bilirubin AST ALT Alkaline Phosphatase C-Reactive Protein Serum Total Protein Albumin Globulin Albumin/Globulin Ratio - Radiology Interpretation Other Additional comments: kub with bowel gas CCU Progress Note: A/P - Plan Plan: Hypoxemic acute resp failure trach 12/16 peg 12/16 COVID 19 pneumonia on tx to be continued Mild chronic anemia Bowel gas pattern not c/w ileus Awaiting LTAC placement Wean vent as tolerated, asked RN to decrease sedation Phys Therapy continue tube feeds 38 mins CCT
--- NOTE | 2020-12-19 14:05 | CON ---
DATE OF CONSULTATION: 12/19/2020 REQUESTING PHYSICIAN: Chilo Olson MD. REASON FOR CONSULTATION: Concern for possible GI bleeding. HISTORY OF PRESENT ILLNESS: Gary Collins is a 65-year-old gentleman, who was admitted to the hospital several weeks ago on 11/23/2020 with COVID pneumonia. He developed respiratory failure. He has had a prolonged clinical course here, has been unable to come off the ventilator. Just 3 days ago on 12/16/2020, he underwent tracheostomy and PEG tube placement by Dr. Campuzano. He has been receiving PPI for ulcer prophylaxis. During this time, he has had a stable anemia here with hemoglobin basically in the 11 to 12 range. Last night, the patient was spiking fevers up to 101.8. Nursing also reported that he had what looked like a small amount of blood clots in the aspirate from his PEG tube. There was also concern for some abdominal distention. The patient's hemoglobin is stable at 11.6. There was no hemodynamic change. He did have an abdominal x-ray which shows a moderate amount of gas within the colon and small bowel, but no evidence of obstruction or free air. There has been no reported blood from the PEG site since last night. In fact, the aspirate from the tube at this point is essentially clear. There is a bit of leakage around the PEG tube itself and this just appears to be nonbloody gastric contents. REVIEW OF SYSTEMS: Unable to obtain due to the patient's mental status. PAST MEDICAL HISTORY: Osteoporosis, back surgery, COVID pneumonia with respiratory failure, tracheostomy and gastrostomy placement on 12/16/2020. ALLERGIES: NO KNOWN DRUG ALLERGIES. HOSPITAL MEDICATIONS: 1. Tylenol p.r.n. 2. Albuterol. 3. Colchicine. 4. Vitamin D3. 5. Decadron. 6. Lovenox 40 mg subcutaneously daily. 7. Lorazepam p.r.n. 8. Dulera. 9. Morphine p.r.n. 10. Pantoprazole 40 mg IV q.12 hours. SOCIAL HISTORY: No alcohol or drug abuse. No smoking. FAMILY HISTORY: Mother had diabetes. PHYSICAL EXAMINATION: VITAL SIGNS: Temperature max last night was 101.8, currently 99.9, pulse 113, blood pressure 100/63, 100% oxygen saturation on 40% FiO2. GENERAL: Critically ill gentleman in no distress on ventilator, synchronized well. SKIN: No jaundice. No rashes were palpable. EYES: No scleral icterus. ENT: The patient has tracheostomy. HEART: Regular rate and rhythm. LUNGS: Bilateral rhonchi. ABDOMEN: Nondistended. Bowel sounds are present. The patient does not withdraw to palpation. PEG tube site is inspected in the left upper quadrant. Surrounding skin looks good. External bumper is at 4.5 cm, which appears to be a good distance, not too tight. There is a bit of mild leakage of gastric contents around the tube, which is nonbloody. PEG tube has been on intermittent suction with no blood in the suction canister. EXTREMITIES: No peripheral edema. NEUROLOGIC: The patient does not follow commands. LABORATORY STUDIES: Hemoglobin is stable at 11.6, WBC 11.6, platelets 405. INR 1.1. CRP is 14.04. Lactic acid normal at 0.9. Sodium 141, potassium 3.7, BUN 14, creatinine is less than 0.4. LFTs are all normal with total bilirubin 0.6, alkaline phosphatase 74, AST 23, ALT 23, albumin 2.6. COVID PCR from admission was positive. C difficile antigen and toxin negative. IMAGING STUDIES: Abdominal x-ray from today shows PEG tube in position, moderate amount of gas in the colon and small bowel, but no evidence of obstruction. No free air. ASSESSMENT AND PLAN: 1. Concern for possible upper gastrointestinal bleeding this morning. Whatever this was appears to have resolved. I am not really seeing any evidence of significant blood in the suction canister. Leakage of small amount of gastric contents around the tube is nonbloody in nature. There is no indication for any endoscopic investigation. His hemoglobin is stable. Continue with the PPI for GI prophylaxis. 2. Chronic anemia, stable throughout this entire admission. 3. COVID pneumonia with respiratory failure. The patient is status post tracheostomy and PEG tube placement 3 days ago. To my understanding, he is awaiting LTAC placement. 4. Fever. This in the context of COVID pneumonia. To my understanding, cultures have been drawn. Lactic acid level is normal. Further evaluation per Primary Service and Critical Care Services. Thank you for the consultation. GI is going to sign off at this time, but please call back anytime with questions or concerns. I think the patient's tube feeds and medications through the tube can be resumed. Job ID: [id number]
--- NOTE | 2020-12-19 14:56 | PDOC.HOSPP ---
- Subjective Encounter Date: 12/19/20 Encounter Time: 10:00 non-verbal Subjective: Patient seen and examined for respiratory failure. Overnight events noted. Tube feeding on hold. Was found to have abdominal distention overnightKUB was done - Objective Vital Signs & Weight: Vital Signs (12 hours) Temp Pulse Resp Pulse Ox 12/19/20 14:14 105 H 12/19/20 12:00 99.9 F H 21 H 12/19/20 10:55 118 H 12/19/20 10:00 18 12/19/20 09:00 99.0 F 12/19/20 08:00 22 H 100 12/19/20 07:58 123 H 12/19/20 07:00 99.7 F H 12/19/20 06:37 101.8 F H 130 H 22 H 12/19/20 05:00 101.8 F H 12/19/20 04:00 99.7 F H 20 Weight Admit Weight 151 lb 3.794 oz Weight 2.011 oz Most Recent Monitor Data Heart Rate from ECG 115 NIBP 110/66 NIBP BP-Mean 85 Respiration from ECG 21 SpO2 100 I&O: 12/18/20 12/19/20 12/20/20 06:59 06:59 06:59 Intake Total 1626.3 3051.9 Output Total 2681 1936 280 Balance -1054.7 1115.9 -280 Result Diagrams: 12/19/20 03:30 12/19/20 03:30 Additional Labs: Accuchecks 12/18/20 20:39 POC Glucose 147 H Abnormal Lab Results - Last 48 hrs 12/18/20 03:39: WBC 11.4 H, RBC 3.77 L, Hgb 11.8 L, Hct 35.9 L, MCH 31.2 H, Neutrophils % (Manual) 83 H, Band Neuts % (Manual) 12 H, Lymphocytes % (Manual) 4 L 12/18/20 03:39: Potassium 2.8 L*, Creatinine Less than 0.40 L, Albumin 2.5 L, Globulin 3.6 H, Albumin/Globulin Ratio 0.7 L 12/18/20 03:39: Phosphorus 2.1 L 12/19/20 03:30: WBC 11.6 H, RBC 3.82 L, Hgb 11.6 L, Hct 36.6 L, MCHC 31.8 L, Plt Count 405 H, Neutrophils % (Manual) 86 H, Lymphocytes % (Manual) 3 L 12/19/20 03:30: Creatinine Less than 0.40 L, Calcium 7.7 L, Albumin 2.6 L, Globulin 3.7 H, Albumin/Globulin Ratio 0.7 L 12/19/20 03:30: Phosphorus 2.2 L 12/19/20 03:30: C-Reactive Protein 14.04 H Microbiology - Entire Visit 12/19/20 11:25 Stool C. difficile GDH Antigen & Toxins - Final 12/04/20 09:22 Venous blood - Right Hand Blood Culture - Final NO GROWTH IN 5 DAYS 12/04/20 09:22 Venous blood - Left Hand Blood Culture - Final NO GROWTH IN 5 DAYS 12/04/20 09:25 Tracheal - Aspirate Respiratory Culture - Final 12/04/20 11:14 Urine clean catch Urine Culture - Final Yeast species 11/30/20 07:45 Venous blood - Left Hand Blood Culture - Final NO GROWTH IN 5 DAYS 11/30/20 06:45 Port - Right Brachiocephalic vein Blood Culture - Final NO GROWTH IN 5 DAYS 11/23/20 07:21 Venous blood - Right Arm Blood Culture - Final NO GROWTH IN 5 DAYS 11/23/20 07:21 Venous blood - Left Arm Blood Culture - Final NO GROWTH IN 5 DAYS Vent - Assess Status Start: 11/25/20 16:40 Freq: Q2HR Status: Active Protocol: Document 12/19/20 12:00 [facility] (Rec: 12/19/20 12:39 [facility] [id number]) Ventilator Status/Info Patient/Vent Settings Endotracheal Tube Insertion Site Tracheostomy ETT Position (cm) Trach Cuff Inflated Yes Ventilator Mode SIMV FIO2 40 Vent TV Set 470 Delivered TV 501 Patient TV (Spontaneous) 611 Vent RR 6 Patient RR (12-20) 21 Peak Pressure (cmH2O) 17 PEEP (cm H2O) 5 PSV 6 Sedation (RASS) Staley Agitation-Sedation Scale (RASS): +4 = Combative: Combative, violent, immediate danger to staff +3 = Very agitated: Pulls to remove tubes or catheter; aggressive +2 = Agitated: Frequent non-purposeful movement, fights ventilator +1 = Restless: Anxious, apprehensive, movements not aggressive 0 = Alert and Calm: Spontaneously pays attention to caregiver -1 = Drowsy: Not fully alert, but has sustained awakening to voice -2 = Light sedation: Briefly awakens to voice (eyes contact < 10 secs) -3 = Moderate sedation: Movement or eye opening to voice (no eye contact) -4 = Deep sedation: No response to voice, but movement or eye opening to physical stimulation -5 = Unarousable: No response to voice or physical stimulation Sedation Yes Sedation Type SAME RASS Goal Score 0 RASS Actual Score [-1] Drowsy Intervention to attain goal Comfort Care Call Carreon Within Reach Oral Care Antiseptic Oral Rinse, Clorhexidine Oral Rinse,Oral Cavity Moisturizer HOB Angle (degrees) 30 Patient Turned Midline *If no, document why not Radiology Reviewed by me: Yes (KUBileus) EKG Reviewed by me: Yes (Sinus tachycardia on telemetry) Hospitalist ROS - Review of Systems ROS unobtainable: due to mental status - Medication Medications: Active Medications Generic Name Dose Route Start Last Admin Trade Name Freq PRN Reason Stop Dose Admin Acetaminophen 650 mg 11/23/20 12:02 12/19/20 06:37 Acetaminophen 325 Mg Tab PO 650 mg Q4H PRN Administration Headache/Fever/Mild Pain (1-3) Albuterol Sulfate 2 puff 11/24/20 18:30 12/19/20 14:14 Albuterol 200 Puff (6.7gm Inhaler) INH 2 puff [id number] [id number] Administration Ascorbic Acid 1,000 mg 11/24/20 09:00 12/19/20 10:43 Ascorbic Acid 500 Mg Chewable Tablet PO Not Given DAILY SUE Cholecalciferol 1,000 units 11/24/20 09:00 12/19/20 10:43 Cholecalciferol 1,000 Units (25 Mcg) Tab PO Not Given DAILY SUE Colchicine 0.6 mg 12/01/20 09:00 12/19/20 10:43 Colchicine 0.6 Mg Tab PER TUBE Not Given BID SUE Dexamethasone 2 mg 12/16/20 09:00 12/19/20 10:43 Dexamethasone 1 Mg Tab PER TUBE Not Given DAILY SUE Enoxaparin Sodium 40 mg 12/16/20 21:00 12/18/20 20:23 Enoxaparin Sodium 40 Mg/0.4 Ml Syringe SC 40 mg 2100 SUE Administration Fentanyl 100 mls @ 0 mls/hr 12/05/20 19:15 12/14/20 23:10 Fentanyl Cadd IV 100 mls INF SUE Administration Protocol Per Protocol Potassium Chloride/Sodium Chloride 1,000 ml in 1,000 mls @ 75 mls/hr 12/19/20 10:15 12/19/20 10:48 Ns 0.9% W/ 20 Meq Kcl IV 1,000 mls .[id number] SUE Administration Lorazepam 2 mg 12/05/20 19:06 12/19/20 05:55 Lorazepam 2 Mg/Ml Vial SLOW IVP 2 mg Q1H PRN Administration Breakthrough agitation Mometasone Furoate/Formoterol Fumar 2 puff 11/23/20 18:30 12/19/20 07:58 Mometasone 100 Mcg/Formoterol 5 Mcg 120 Puff Inhaler INH 2 puff BID-RT SUE Administration Morphine Sulfate 2 mg 12/05/20 19:06 12/18/20 09:25 Morphine 2 Mg/Ml Vial SLOW IVP 2 mg Q1H PRN Administration Breakthrough Pain/Agitation Multivitamins 1 tab 11/24/20 09:00 12/19/20 10:43 Multivit, Therapeutic 1 Tab PO Not Given DAILY [facility] Ondansetron HCl 4 mg 11/23/20 12:02 11/25/20 00:17 Ondansetron Pf 4 Mg/2 Ml Vial IVP 4 mg Q6H PRN Administration Nausea/Vomiting Pantoprazole Sodium 40 mg 12/19/20 09:00 12/19/20 09:29 Pantoprazole 40 Mg Vial IVP 40 mg Q12HR SUE Administration Senna/Docusate Sodium 2 tab 11/23/20 12:02 12/05/20 17:20 Senokot S 8.6-50 Mg Tab PO 2 tab BIDPRN PRN Administration Constipation Sodium Chloride 10 ml 11/23/20 21:00 12/19/20 09:30 Flush - Normal Saline 10 Ml Syringe IVF 10 ml Q12HR SUE Administration Sodium Chloride 10 ml 11/23/20 12:45 12/05/20 12:35 Flush - Normal Saline 10 Ml Syringe IVF 10 ml PRN PRN Administration Saline Flush Zinc Sulfate 220 mg 11/24/20 09:00 12/19/20 10:44 Zinc Sulfate 220 Mg Cap PO Not Given DAILY [facility] Hospitalist Exam Vitals: Vital Signs (12 hours) Temp Pulse Resp Pulse Ox 12/19/20 14:14 105 H 12/19/20 12:00 99.9 F H 21 H 12/19/20 10:55 118 H 12/19/20 10:00 18 12/19/20 09:00 99.0 F 12/19/20 08:00 22 H 100 12/19/20 07:58 123 H 12/19/20 07:00 99.7 F H 12/19/20 06:37 101.8 F H 130 H 22 H 12/19/20 05:00 101.8 F H 12/19/20 04:00 99.7 F H 20 Weight Admit Weight 151 lb 3.794 oz Weight 2.011 oz Most Recent Monitor Data Heart Rate from ECG 115 NIBP 110/66 NIBP BP-Mean 85 Respiration from ECG 21 SpO2 100 General Appearance: ill appearing General - other findings: On mechanical ventilation Neck: supple, no JVD Neck - other findings: Tracheostomy present Heart: no gallops, no rubs Respiratory: rales, rhonchi Gastrointestinal: soft, no guarding, no rigidity Extremities: no cyanosis Neurological - other findings: Neuro/psychunable to assess due to current cognitive status Hosp A/P - Plan DVT proph w/lovenox, DVT proph w/SCDs Severe sepsis/acute hypoxic respiratory failure due to COVID-19 pneumonia Failed NIPPV S/p intubation on 11/25 S/p convalescent plasma S/p remdesivir Isolation discontinued on 12/10 -s/p Trach/PEG Plan: Continue supportive care. On mechanical ventilation. CRP still elevated continue dexamethasone with bronchodilators. Continue colchicine. Electrolyte abn - Hyponatremia/hypomagnesemia/Hypophosphatemia Plan: Will replace electrolytes Ileus Plan: Tube feeding on hold. Continue PEG tube suctioning. Replace electrolytes. GI input appreciated. PPIs changed to IV, repeat KUB in a.m. Metabolic acidosis Improved DVT - Cont Lovenox GI prophylaxis - Cont PPI Diet: Tube feeding on hold due to ileus Family updated
[2020-12-19] MEDS ORDERED: Fentanyl CADD 100 ML ONE (15:43)
[2020-12-19] MEDS: Enoxaparin Sodium 40 MG/0.4 ML SYRINGE SC SCH (20:43)
[2020-12-20] MEDS: NS 0.9% w/ 20 MEQ KCL 1,000 ML/1,000 ML BAG IV SCH ×2 (01:16→14:14)
[2020-12-20] MEDS: Albuterol 200 PUFF (6.7GM INHALER) INH SCH ×6 (01:25→22:49)
[2020-12-20] MEDS: Mometasone 100 MCG/Formoterol 5 MCG 120 PUFF INHALER INH SCH ×2 (05:00→18:52)
--- NOTE | 2020-12-20 11:20 | RAD ---
KUB: 12/20/2020 COMPARISON: 12/19/2020 HISTORY: Ileus FINDINGS: Stable gastrostomy tube. Coarse linear interstitial density in the lung bases noted, only p artially imaged on this exam. Supine imaging limits assessment for free intraperitoneal air and bowel obstruction. There is diffuse stable gaseous distention of the large and small bowel throughout the abdomen/pelvis . IMPRESSION: Stable diffuse gaseous distention of large and small bowel throughout the abdomen/pelvis, most consistent with stable ileus. Continued follow-up advised.
--- NOTE | 2020-12-20 12:14 | PRG ---
DATE OF SERVICE: 12/20/2020 This is 30 minutes of critical care time. SUBJECTIVE: The patient remains on mechanical ventilation through his tracheostomy. He is awake and alert. OBJECTIVE: VITAL SIGNS: Temperature 98.7, pulse 101, blood pressure 115/68, O2 saturation 100%. His respiratory rate running generally in the 30s. He is currently on SIMV rate 6, tidal volume 470, PEEP 5, pressure support 16, FiO2 40%. HEENT: Unremarkable. NECK: Trach site is clean. CARDIAC: S1 and S2. Slightly tachycardic. LUNGS: Crackles bilaterally. ABDOMEN: Soft and nontender. EXTREMITIES: No edema. LABORATORY DATA: Chest x-ray was not done today. KUB shows profound gas pattern in his small intestine. White blood cell count 9.6, hematocrit 32, and platelet count 341. ASSESSMENT: 1. Coronavirus disease 19 pneumonia. 2. Acute respiratory failure, requiring mechanical ventilation. PLAN: We will continue to try to decrease the patient's pressure support on mechanical ventilation. LTAC has been ordered. I have reviewed his orders. Job ID: [id number]
[2020-12-20] MEDS: Cholecalciferol 1,000 UNITS (25 MCG) TAB PO SCH (14:13)
[2020-12-20] MEDS: Multivit, Therapeutic 1 TAB PO SCH (14:13)
[2020-12-20] MEDS: Ascorbic Acid 500 mg Chewable Tablet PO SCH (14:13)
[2020-12-20] MEDS: Dexamethasone 1 MG TAB PER TUBE SCH (14:13)
[2020-12-20] MEDS: Colchicine 0.6 MG TAB PER TUBE SCH ×2 (14:13→21:28)
[2020-12-20] MEDS: Zinc Sulfate 220 MG CAP PO SCH (14:14)
[2020-12-20] MEDS: Pantoprazole 40 MG VIAL IVP SCH ×2 (14:14→21:29)
[2020-12-20 15:41] LABS: Phosphorus 2.1 mg/dL (2.3-4.7)
--- NOTE | 2020-12-20 18:16 | PDOC.HOSPP ---
- Subjective Encounter Date: 12/20/20 Encounter Time: 11:30 Subjective: Patient seen and examined for respiratory failure. Awake. Following commands. No overnight events. Family at bedside. - Objective Vital Signs & Weight: Vital Signs (12 hours) Pulse Pulse Pulse BP BP Pulse Ox Pulse Ox 12/20/20 14:33 106 H 12/20/20 10:45 117 H 119 H 114/71 126/74 100 100 Weight Admit Weight 151 lb 3.794 oz Weight 2.011 oz Most Recent Monitor Data Heart Rate from ECG 96 NIBP 104/62 NIBP BP-Mean 74 Respiration from ECG 17 SpO2 100 I&O: 12/19/20 12/20/20 12/21/20 06:59 06:59 06:59 Intake Total 3051.9 879 Output Total 1936 855 Balance 1115.9 24 Result Diagrams: 12/19/20 03:30 12/19/20 03:30 Additional Labs: Abnormal Lab Results - Last 48 hrs 12/19/20 03:30: WBC 11.6 H, RBC 3.82 L, Hgb 11.6 L, Hct 36.6 L, MCHC 31.8 L, Plt Count 405 H, Neutrophils % (Manual) 86 H, Lymphocytes % (Manual) 3 L 12/19/20 03:30: Creatinine Less than 0.40 L, Calcium 7.7 L, Albumin 2.6 L, Globulin 3.7 H, Albumin/Globulin Ratio 0.7 L 12/19/20 03:30: Phosphorus 2.2 L 12/19/20 03:30: C-Reactive Protein 14.04 H 12/20/20 05:10: Phosphorus 2.1 L Microbiology - Entire Visit 12/19/20 06:57 Venous blood - Left Arm Blood Culture - Preliminary Specimen has been received and culture in progress. No Growth to date. 12/19/20 06:58 Venous blood - Right Hand Blood Culture - Preliminary Coagulase Neg Staphylococcus 12/19/20 11:25 Stool C. difficile GDH Antigen & Toxins - Final 12/04/20 09:22 Venous blood - Right Hand Blood Culture - Final NO GROWTH IN 5 DAYS 12/04/20 09:22 Venous blood - Left Hand Blood Culture - Final NO GROWTH IN 5 DAYS 12/04/20 09:25 Tracheal - Aspirate Respiratory Culture - Final 12/04/20 11:14 Urine clean catch Urine Culture - Final Yeast species 11/30/20 07:45 Venous blood - Left Hand Blood Culture - Final NO GROWTH IN 5 DAYS 11/30/20 06:45 Port - Right Brachiocephalic vein Blood Culture - Final NO GROWTH IN 5 DAYS 11/23/20 07:21 Venous blood - Right Arm Blood Culture - Final NO GROWTH IN 5 DAYS 11/23/20 07:21 Venous blood - Left Arm Blood Culture - Final NO GROWTH IN 5 DAYS Vent - Assess Status Start: 11/25/20 16:40 Freq: Q2HR Status: Active Protocol: Document 12/20/20 00:00 [facility] (Rec: 12/20/20 00:27 DM [id number]) Ventilator Status/Info Patient/Vent Settings Endotracheal Tube Insertion Site Tracheostomy ETT Position (cm) Trach Cuff Inflated Yes Ventilator Mode SIMV FIO2 40 Vent TV Set 470 Delivered TV 512 Patient TV (Spontaneous) 450 Vent RR 6 Patient RR (12-20 breaths/min) 20 Peak Pressure (cmH2O) 16 PEEP (cm H2O) 5 PSV 6 Sedation (RASS) Staley Agitation-Sedation Scale (RASS): +4 = Combative: Combative, violent, immediate danger to staff +3 = Very agitated: Pulls to remove tubes or catheter; aggressive +2 = Agitated: Frequent non-purposeful movement, fights ventilator +1 = Restless: Anxious, apprehensive, movements not aggressive 0 = Alert and Calm: Spontaneously pays attention to caregiver -1 = Drowsy: Not fully alert, but has sustained awakening to voice -2 = Light sedation: Briefly awakens to voice (eyes contact < 10 secs) -3 = Moderate sedation: Movement or eye opening to voice (no eye contact) -4 = Deep sedation: No response to voice, but movement or eye opening to physical stimulation -5 = Unarousable: No response to voice or physical stimulation Sedation Yes Sedation Type fent RASS Goal Score 0 RASS Actual Score [ 0 ] Alert and calm Intervention to attain goal Comfort Care Call Carreon Within Reach Oral Care Clorhexidine Oral Rinse HOB Angle (degrees) 30 Patient Turned Left *If no, document why not EKG Reviewed by me: Yes (Sinus rhythm on telemetry) Hospitalist ROS - Review of Systems Cardiovascular: denies: chest pain, palpitations, orthopnea, paroxysmal noc. dyspnea, edema, light headedness, other Gastrointestinal: denies: nausea, vomiting, abdominal pain, diarrhea, constipation, melena, hematochezia, other - Medication Medications: Active Medications Generic Name Dose Route Start Last Admin Trade Name Kelsey PRN Reason Stop Dose Admin Acetaminophen 650 mg 11/23/20 12:02 12/19/20 06:37 Acetaminophen 325 Mg Tab PO 650 mg Q4H PRN Administration Headache/Fever/Mild Pain (1-3) Albuterol Sulfate 2 puff 11/24/20 18:30 12/20/20 14:32 Albuterol 200 Puff (6.7gm Inhaler) INH 2 puff [id number] SUE Administration Ascorbic Acid 1,000 mg 11/24/20 09:00 12/20/20 14:13 Ascorbic Acid 500 Mg Chewable Tablet PO Not Given DAILY SUE Cholecalciferol 1,000 units 11/24/20 09:00 12/20/20 14:13 Cholecalciferol 1,000 Units (25 Mcg) Tab PO Not Given DAILY SUE Colchicine 0.6 mg 12/01/20 09:00 12/20/20 14:13 Colchicine 0.6 Mg Tab PER TUBE Not Given BID SUE Dexamethasone 2 mg 12/16/20 09:00 12/20/20 14:13 Dexamethasone 1 Mg Tab PER TUBE Not Given DAILY SUE Enoxaparin Sodium 40 mg 12/16/20 21:00 12/19/20 20:43 Enoxaparin Sodium 40 Mg/0.4 Ml Syringe SC 40 mg 2100 SUE Administration Fentanyl 100 mls @ 0 mls/hr 12/05/20 19:15 12/14/20 23:10 Fentanyl Cadd IV 100 mls INF SUE Administration Protocol Per Protocol Potassium Chloride/Sodium Chloride 1,000 ml in 1,000 mls @ 75 mls/hr 12/19/20 10:15 12/20/20 14:14 Ns 0.9% W/ 20 Meq Kcl IV Not Given .[id number] SUE Lorazepam 2 mg 12/05/20 19:06 12/19/20 05:55 Lorazepam 2 Mg/Ml Vial SLOW IVP 2 mg Q1H PRN Administration Breakthrough agitation Mometasone Furoate/Formoterol Fumar 2 puff 11/23/20 18:30 12/20/20 05:00 Mometasone 100 Mcg/Formoterol 5 Mcg 120 Puff Inhaler INH 2 puff BID-RT SUE Administration Morphine Sulfate 2 mg 12/05/20 19:06 12/18/20 09:25 Morphine 2 Mg/Ml Vial SLOW IVP 2 mg Q1H PRN Administration Breakthrough Pain/Agitation Multivitamins 1 tab 11/24/20 09:00 12/20/20 14:13 Multivit, Therapeutic 1 Tab PO Not Given DAILY SUE Ondansetron HCl 4 mg 11/23/20 12:02 11/25/20 00:17 Ondansetron Pf 4 Mg/2 Ml Vial IVP 4 mg Q6H PRN Administration Nausea/Vomiting Pantoprazole Sodium 40 mg 12/19/20 09:00 12/20/20 14:14 Pantoprazole 40 Mg Vial IVP Not Given Q12HR SUE Senna/Docusate Sodium 2 tab 11/23/20 12:02 12/05/20 17:20 Senokot S 8.6-50 Mg Tab PO 2 tab BIDPRN PRN Administration Constipation Sodium Chloride 10 ml 11/23/20 21:00 12/20/20 14:14 Flush - Normal Saline 10 Ml Syringe IVF Not Given Q12HR SUE Sodium Chloride 10 ml 11/23/20 12:45 12/05/20 12:35 Flush - Normal Saline 10 Ml Syringe IVF 10 ml PRN PRN Administration Saline Flush Zinc Sulfate 220 mg 11/24/20 09:00 12/20/20 14:14 Zinc Sulfate 220 Mg Cap PO Not Given DAILY [facility] Hospitalist Exam Vitals: Vital Signs (12 hours) Pulse Pulse Pulse BP BP Pulse Ox Pulse Ox 12/20/20 14:33 106 H 12/20/20 10:45 117 H 119 H 114/71 126/74 100 100 Weight Admit Weight 151 lb 3.794 oz Weight 2.011 oz Most Recent Monitor Data Heart Rate from ECG 96 NIBP 104/62 NIBP BP-Mean 74 Respiration from ECG 17 SpO2 100 General Appearance: awake alert Neck: no JVD Neck - other findings: Trach present Heart: RRR Respiratory: no wheezes, rhonchi Gastrointestinal: soft, no guarding, no rigidity, diminished bowl sounds Extremities: no cyanosis Neurological: no new deficit Musculoskeletal: generalized weakness Psychiatric: A&O x 3 Hosp A/P (1) Severe sepsis Code(s): A41.9 - SEPSIS, UNSPECIFIED ORGANISM; R65.20 - SEVERE SEPSIS WITHOUT SEPTIC SHOCK Status: Acute (2) Acute respiratory failure with hypoxia Code(s): J96.01 - ACUTE RESPIRATORY FAILURE WITH HYPOXIA Status: Acute (3) Pneumonia due to COVID-19 virus Code(s): U07.1 - COVID-19; J12.82 - PNEUMONIA DUE TO CORONAVIRUS DISEASE 2019 Status: Acute (4) Electrolyte abnormality Code(s): E87.8 - OTH DISORDERS OF ELECTROLYTE AND FLUID BALANCE, NEC Status: Acute (5) Osteoporosis Code(s): M81.0 - AGE-RELATED OSTEOPOROSIS W/O CURRENT PATHOLOGICAL FRACTURE Status: Chronic Qualifiers: Osteoporosis type: age-related Presence of current pathological fracture: without current pathological fracture Qualified Code(s): M81.0 - Age-related osteoporosis without current pathological fracture (6) Physical deconditioning Code(s): R53.81 - OTHER MALAISE Status: Acute - Plan Patient is a 65-year-old male who presented to the hospital with shortness of breath. He was intubated on 11/25 after failure of noninvasive positive pressure ventilation. He received remdesivir, convalescent plasma Severe sepsis/acute hypoxic respiratory failure due to COVID-19 pneumonia Failed NIPPV S/p intubation on 11/25 S/p convalescent plasma S/p remdesivir Isolation discontinued on 12/10 -s/p Trach/PEG Plan: Continue close monitoring. Ventilator management per critical care. Continue physical therapy. Continue dexamethasone. Electrolyte abn - Hyponatremia/hypomagnesemia/Hypophosphatemia Plan: Will replace phosphorus Ileus Plan: Tube feeding on hold. Await KUB from this morning. Continue to hold PEG tube feeding Metabolic acidosis Improved DVT - Cont Lovenox GI prophylaxis - Cont PPI Diet: Tube feeding on hold due to ileus Family updated
[2020-12-20 19:06] LABS: Hemoglobin 10.3 g/dL (14.0-18.0); Mean Corpuscular Hemoglobin 31.1 pg (27.0-31.0); Mean Corpuscular Volume 97.2 fL (78.0-98.0); Mean Platelet Volume 9.5 fL (7.4-10.4); Platelet Count 341 thou/uL (130-400); RBC Distribution Width 14.1 % (11.5-14.5); Red Blood Cell (RBC) Count 3.31 mill/uL (4.70-6.10); White Blood Cell (WBC) Count 9.6 thou/uL (4.8-10.8)
[2020-12-20 19:44] LABS: Band 52 % (5-11); Eosinophils 2 % (0-10); Lymphocytes 5 % (21-51); MDiff Complete? YES; Monocytes 5 % (0-10); Neutrophil 34 % (42-75); Platelet Morphology Comment Appears Adequate; Polychromasia SLIGHT = 2-3 cells (100X) (0-2/hpf); Reactive Lymphocytes 2 % (0-10); Target Cells SLIGHT = 2-5 cells (100X) (0-1/hpf)
[2020-12-20 20:20] LABS: ALT (SGPT) 23 U/L (8-55); AST (SGOT) 37 U/L (5-34); Albumin 2.4 g/dL (3.4-4.8); Alkaline Phosphatase 69 U/L (40-110); Anion Gap 24 mmol/L (10-20); BUN (Urea Nitrogen) 13 mg/dL (8.4-25.7); Bilirubin, Total 0.4 mg/dL (0.2-1.2); Calc. Creatinine Clearance 0 mL/min (70-130); Calcium 7.5 mg/dL (7.8-10.44); Carbon Dioxide 18 mmol/L (23-31); Chloride 107 mmol/L (98-107); Globulin 3.9 g/dL (2.4-3.5); Glucose 16 mg/dL (80-115); Magnesium 2.2 mg/dL (1.6-2.6); Potassium 4.6 mmol/L (3.5-5.1); Protein, Total 6.3 g/dL (5.8-8.1); Sodium 144 mmol/L (136-145)
[2020-12-20] MEDS: Enoxaparin Sodium 40 MG/0.4 ML SYRINGE SC SCH (21:28)
[2020-12-21] MEDS: Albuterol 200 PUFF (6.7GM INHALER) INH SCH ×6 (02:15→22:27)
[2020-12-21] MEDS: NS 0.9% w/ 20 MEQ KCL 1,000 ML/1,000 ML BAG IV SCH (02:41)
[2020-12-21 04:52] LABS: Phosphorus 1.4 mg/dL (2.3-4.7)
[2020-12-21] MEDS ORDERED: PHOS-NAK 1 PKT PACK PO SCH (05:15)
[2020-12-21 05:41] LABS: Band 32 % (5-11); Hemoglobin 9.9 g/dL (14.0-18.0); Lymphocytes 4 % (21-51); MDiff Complete? YES; Mean Corpuscular HGB CONC 31.6 g/dL (32.0-36.0); Mean Corpuscular Hemoglobin 30.1 pg (27.0-31.0); Mean Corpuscular Volume 95.1 fL (78.0-98.0); Mean Platelet Volume 8.8 fL (7.4-10.4); Monocytes 2 % (0-10); Neutrophil 62 % (42-75); Platelet Count 372 thou/uL (130-400); RBC Distribution Width 13.9 % (11.5-14.5); Red Blood Cell (RBC) Count 3.31 mill/uL (4.70-6.10); White Blood Cell (WBC) Count 9.3 thou/uL (4.8-10.8)
[2020-12-21 06:00] LABS: ALT (SGPT) 24 U/L (8-55); AST (SGOT) 27 U/L (5-34); Albumin 2.4 g/dL (3.4-4.8); Alkaline Phosphatase 65 U/L (40-110); Anion Gap 12 mmol/L (10-20); BUN (Urea Nitrogen) 14 mg/dL (8.4-25.7); Bilirubin, Total 0.4 mg/dL (0.2-1.2); Calc. Creatinine Clearance 0 mL/min (70-130); Calcium 7.2 mg/dL (7.8-10.44); Carbon Dioxide 27 mmol/L (23-31); Chloride 108 mmol/L (98-107); Globulin 3.2 g/dL (2.4-3.5); Glucose 141 mg/dL (80-115); Potassium 3.1 mmol/L (3.5-5.1); Protein, Total 5.6 g/dL (5.8-8.1); Sodium 144 mmol/L (136-145)
[2020-12-21] MEDS ORDERED: Potassium Phosphate 30 MMOL in Sodium Chloride 0.9% 500 ML IVPB SCH (06:30)
[2020-12-21] MEDS ORDERED: Potassium Chloride 20 MEQ TAB PO SCH (06:45)
[2020-12-21] MEDS: Mometasone 100 MCG/Formoterol 5 MCG 120 PUFF INHALER INH SCH ×2 (07:40→19:12)
--- NOTE | 2020-12-21 07:47 | RAD ---
XR Abdomen 1 View/KUB HISTORY: Ileus. Abdominal distention. COMPARISON: Prior day's exam. FINDINGS: Stable appearance to gaseous distention of small and large bowel. Gastrostomy tube is in pl andres. IMPRESSION: Stable exam. Distended small and large bowel would suggest an diffuse ileus.
--- NOTE | 2020-12-21 08:17 | PRG ---
DATE OF SERVICE: 12/21/2020 CRITICAL CARE TIME: 35 minutes. SUBJECTIVE: He remains on mechanical ventilation through tracheostomy, actually looks very good today. OBJECTIVE: VITAL SIGNS: Temperature is 99.9, pulse 72, blood pressure 110/63, O2 saturation 100%. Total intake 2651, output 1390. HEENT: Unremarkable. NECK: No JVD. LUNGS: Fairly clear. His minute ventilation still about 19 L a minute on SIMV rate 6 with pressure support 6, FiO2 of 40%. CARDIAC: Rhythm is regular. ABDOMEN: Soft. EXTREMITIES: No edema. LABORATORY DATA: Sodium 144, potassium 3.1, chloride 108, CO2 of 27, BUN 14, creatinine 0.4, glucose 141, phosphorus 1.4. White blood cell count 9.3, hematocrit 31.5, and platelet count 372. His KUB shows an ileus. ASSESSMENT: 1. Small bowel ileus. 2. COVID-19 pneumonia. 3. Acute respiratory failure requiring mechanical ventilation and trach. 4. Mild hyperkalemia. 5. Mild hypophosphatemia. PLAN: 1. Replace potassium and phosphorus. 2. Hold any fentanyl drip. 3. Reduce colchicine dose. 4. Change steroids back to IV since I am not sure if he has absorbing anything through his tube. 5. LTAC placement. Job ID: [id number]
[2020-12-21] MEDS ORDERED: D5W-AA 4.25% with LYTES 1,000 ML BAG IV SCH (08:30)
[2020-12-21] MEDS ORDERED: Dexamethasone 1 MG in Sodium Chloride 0.9% 50 ML IVPB SCH (09:00)
[2020-12-21] MEDS: Acetaminophen 325 MG TAB PO PRN (09:15)
[2020-12-21] MEDS: Multivit, Therapeutic 1 TAB PO SCH (09:20)
[2020-12-21] MEDS: Cholecalciferol 1,000 UNITS (25 MCG) TAB PO SCH (09:20)
[2020-12-21] MEDS: Zinc Sulfate 220 MG CAP PO SCH (09:20)
[2020-12-21] MEDS: Ascorbic Acid 500 mg Chewable Tablet PO SCH (09:20)
[2020-12-21] MEDS: Colchicine 0.6 MG TAB PER TUBE SCH (09:21)
[2020-12-21] MEDS: Dexamethasone 4 mg/ml Vial SLOW IVP SCH (09:21)
[2020-12-21] MEDS: Pantoprazole 40 MG VIAL IVP SCH ×2 (09:21→20:21)
[2020-12-21] MEDS ORDERED: Dextrose 70% in Water 71.43 ML, PREMASOL 10% 425 ML, Sterile Water Injection 503.57 ML IV SCH (10:15)
[2020-12-21] MEDS ORDERED: Metoclopramide HCl 10 MG/2 ML VIAL IVP SCH (15:30)
--- NOTE | 2020-12-21 15:49 | PDOC.HOSPP ---
- Subjective Encounter Date: 12/21/20 Encounter Time: 10:30 Subjective: Patient seen and examined for respiratory failure. Overnight events noted. Not tolerating tube feeds. - Objective Vital Signs & Weight: Vital Signs (12 hours) Temp Pulse Pulse Resp BP BP Pulse Ox 12/21/20 14:00 30 H 12/21/20 12:00 99.4 F 30 H 12/21/20 11:34 85 69 95/55 L 110/56 L 12/21/20 10:00 28 H 12/21/20 08:00 99.4 F 12/21/20 07:51 30 H 100 12/21/20 06:00 20 12/21/20 04:00 22 H Pulse Ox Pulse Ox 12/21/20 14:00 12/21/20 12:00 12/21/20 11:34 100 100 12/21/20 10:00 12/21/20 08:00 12/21/20 07:51 12/21/20 06:00 12/21/20 04:00 Weight Admit Weight 151 lb 3.794 oz Weight 119 lb 0.794 oz Most Recent Monitor Data Heart Rate from ECG 76 NIBP 101/57 NIBP BP-Mean 65 Respiration from ECG 29 SpO2 100 I&O: 12/20/20 12/21/20 12/22/20 06:59 06:59 06:59 Intake Total 879 2651.4 150 Output Total 855 1390 240 Balance 24 1261.4 -90 Result Diagrams: 12/21/20 03:32 12/21/20 03:32 Additional Labs: Accuchecks 12/20/20 20:24 POC Glucose 119 H Abnormal Lab Results - Last 48 hrs 12/20/20 05:10: RBC 3.31 L, Hgb 10.3 L, Hct 32.1 L, MCH 31.1 H, Neutrophils % (Manual) 34 L, Band Neuts % (Manual) 52 H, Lymphocytes % (Manual) 5 L 12/20/20 05:10: Carbon Dioxide 18 L, Anion Gap 24 H, Creatinine Less than 0.40 L, Calcium 7.5 L, AST 37 H, Albumin 2.4 L, Globulin 3.9 H, Albumin/Globulin Ratio 0.6 L 12/20/20 05:10: Phosphorus 2.1 L 12/21/20 03:32: RBC 3.31 L, Hgb 9.9 L, Hct 31.5 L, MCHC 31.6 L, Band Neuts % (Manual) 32 H, Lymphocytes % (Manual) 4 L 12/21/20 03:32: Potassium 3.1 L, Chloride 108 H, Creatinine 0.41 L, Calcium 7.2 L, Serum Total Protein 5.6 L, Albumin 2.4 L, Albumin/Globulin Ratio 0.8 L 12/21/20 03:32: Phosphorus 1.4 L Microbiology - Entire Visit 12/19/20 06:57 Venous blood - Left Arm Blood Culture - Preliminary NO GROWTH AT 48 HOURS 12/19/20 06:58 Venous blood - Right Hand Blood Culture - Preliminary Coagulase Neg Staphylococcus 12/19/20 11:25 Stool C. difficile GDH Antigen & Toxins - Final 12/04/20 09:22 Venous blood - Right Hand Blood Culture - Final NO GROWTH IN 5 DAYS 12/04/20 09:22 Venous blood - Left Hand Blood Culture - Final NO GROWTH IN 5 DAYS 12/04/20 09:25 Tracheal - Aspirate Respiratory Culture - Final 12/04/20 11:14 Urine clean catch Urine Culture - Final Yeast species 11/30/20 07:45 Venous blood - Left Hand Blood Culture - Final NO GROWTH IN 5 DAYS 11/30/20 06:45 Port - Right Brachiocephalic vein Blood Culture - Final NO GROWTH IN 5 DAYS 11/23/20 07:21 Venous blood - Right Arm Blood Culture - Final NO GROWTH IN 5 DAYS 11/23/20 07:21 Venous blood - Left Arm Blood Culture - Final NO GROWTH IN 5 DAYS Vent - Assess Status Start: 11/25/20 16:40 Freq: Q2HR Status: Active Protocol: Document 12/21/20 14:00 [facility] (Rec: 12/21/20 14:30 [facility] [id number]) Ventilator Status/Info Patient/Vent Settings Endotracheal Tube Insertion Site Tracheostomy ETT Position (cm) Trach Cuff Inflated Yes Ventilator Mode SIMV FIO2 40 Vent TV Set 470 Delivered TV 578 Patient TV (Spontaneous) 728 Vent RR 6 Patient RR (12-20) 30 Peak Pressure (cmH2O) 12 PEEP (cm H2O) 5 PSV 6 Sedation (RASS) Staley Agitation-Sedation Scale (RASS): +4 = Combative: Combative, violent, immediate danger to staff +3 = Very agitated: Pulls to remove tubes or catheter; aggressive +2 = Agitated: Frequent non-purposeful movement, fights ventilator +1 = Restless: Anxious, apprehensive, movements not aggressive 0 = Alert and Calm: Spontaneously pays attention to caregiver -1 = Drowsy: Not fully alert, but has sustained awakening to voice -2 = Light sedation: Briefly awakens to voice (eyes contact < 10 secs) -3 = Moderate sedation: Movement or eye opening to voice (no eye contact) -4 = Deep sedation: No response to voice, but movement or eye opening to physical stimulation -5 = Unarousable: No response to voice or physical stimulation Sedation Yes Sedation Type SAME RASS Goal Score 0 RASS Actual Score [ 0 ] Alert and calm Intervention to attain goal Comfort Care Call Carreon Within Reach Oral Care Oral Cavity Moisturizer HOB Angle (degrees) 30 Patient Turned Right *If no, document why not Radiology Reviewed by me: Yes (KUBdiffuse ileus) EKG Reviewed by me: Yes (Sinus rhythm on telemetry) Hospitalist ROS - Review of Systems Respiratory: denies: cough, dry, shortness of breath, hemoptysis, SOB with exc ertion, pleuritic pain, sputum, wheezing, other Cardiovascular: denies: chest pain, palpitations, orthopnea, paroxysmal noc. dyspnea, edema, light headedness, other - Medication Medications: Active Medications Generic Name Dose Route Start Last Admin Trade Name Freq PRN Reason Stop Dose Admin Acetaminophen 650 mg 11/23/20 12:02 12/21/20 09:15 Acetaminophen 325 Mg Tab PO 650 mg Q4H PRN Administration Headache/Fever/Mild Pain (1-3) Albuterol Sulfate 2 puff 11/24/20 18:30 12/21/20 02:15 Albuterol 200 Puff (6.7gm Inhaler) INH 2 puff [id number] SUE Administration Ascorbic Acid 1,000 mg 11/24/20 09:00 12/21/20 09:20 Ascorbic Acid 500 Mg Chewable Tablet PO 1,000 mg DAILY SUE Administration Cholecalciferol 1,000 units 11/24/20 09:00 12/21/20 09:20 Cholecalciferol 1,000 Units (25 Mcg) Tab PO 1,000 units DAILY SUE Administration Colchicine 0.6 mg 12/21/20 09:00 12/21/20 09:21 Colchicine 0.6 Mg Tab PER TUBE 0.6 mg DAILY SUE Administration Dexamethasone 1 mg 12/21/20 09:00 12/21/20 09:21 Dexamethasone 4 Mg/Ml Vial SLOW IVP 1 mg DAILY SUE Administration Enoxaparin Sodium 40 mg 12/16/20 21:00 12/20/20 21:28 Enoxaparin Sodium 40 Mg/0.4 Ml Syringe SC 40 mg 2100 SUE Administration Dexmedetomidine HCl 400 mcg/ 100 mls @ 0 mls/hr 12/20/20 12:45 12/21/20 10:19 Sodium Chloride IVPB 100 mls INF SUE Administration Protocol Titrate Lorazepam 2 mg 12/05/20 19:06 12/19/20 05:55 Lorazepam 2 Mg/Ml Vial SLOW IVP 2 mg Q1H PRN Administration Breakthrough agitation Mometasone Furoate/Formoterol Fumar 2 puff 11/23/20 18:30 12/20/20 18:52 Mometasone 100 Mcg/Formoterol 5 Mcg 120 Puff Inhaler INH 2 puff BID-RT SUE Administration Morphine Sulfate 2 mg 12/05/20 19:06 12/18/20 09:25 Morphine 2 Mg/Ml Vial SLOW IVP 2 mg Q1H PRN Administration Breakthrough Pain/Agitation Multivitamins 1 tab 11/24/20 09:00 12/21/20 09:20 Multivit, Therapeutic 1 Tab PO 1 tab DAILY SEU Administration Ondansetron HCl 4 mg 11/23/20 12:02 11/25/20 00:17 Ondansetron Pf 4 Mg/2 Ml Vial IVP 4 mg Q6H PRN Administration Nausea/Vomiting Pantoprazole Sodium 40 mg 12/19/20 09:00 12/21/20 09:21 Pantoprazole 40 Mg Vial IVP 40 mg Q12HR SUE Administration Senna/Docusate Sodium 2 tab 11/23/20 12:02 12/05/20 17:20 Senokot S 8.6-50 Mg Tab PO 2 tab BIDPRN PRN Administration Constipation Sodium Chloride 10 ml 11/23/20 21:00 12/21/20 09:21 Flush - Normal Saline 10 Ml Syringe IVF 10 ml Q12HR SUE Administration Sodium Chloride 10 ml 11/23/20 12:45 12/05/20 12:35 Flush - Normal Saline 10 Ml Syringe IVF 10 ml PRN PRN Administration Saline Flush Zinc Sulfate 220 mg 11/24/20 09:00 12/21/20 09:20 Zinc Sulfate 220 Mg Cap PO 220 mg DAILY SUE Administration Hospitalist Exam Vitals: Vital Signs (12 hours) Temp Pulse Pulse Resp BP BP Pulse Ox 12/21/20 14:00 30 H 12/21/20 12:00 99.4 F 30 H 12/21/20 11:34 85 69 95/55 L 110/56 L 12/21/20 10:00 28 H 12/21/20 08:00 99.4 F 12/21/20 07:51 30 H 100 12/21/20 06:00 20 12/21/20 04:00 22 H Pulse Ox Pulse Ox 12/21/20 14:00 12/21/20 12:00 12/21/20 11:34 100 100 12/21/20 10:00 12/21/20 08:00 12/21/20 07:51 12/21/20 06:00 12/21/20 04:00 Weight Admit Weight 151 lb 3.794 oz Weight 119 lb 0.794 oz Most Recent Monitor Data Heart Rate from ECG 76 NIBP 101/57 NIBP BP-Mean 65 Respiration from ECG 29 SpO2 100 General Appearance: awake alert, ill appearing Neck: supple, no JVD Heart: RRR Respiratory: no wheezes, rales, rhonchi Gastrointestinal: soft, no guarding, no rigidity, distended Extremities: no cyanosis, no clubbing Neurological: no new deficit Musculoskeletal: generalized weakness Psychiatric: A&O x 3 Hosp A/P (1) Severe sepsis Code(s): A41.9 - SEPSIS, UNSPECIFIED ORGANISM; R65.20 - SEVERE SEPSIS WITHOUT SEPTIC SHOCK Status: Acute (2) Acute respiratory failure with hypoxia Code(s): J96.01 - ACUTE RESPIRATORY FAILURE WITH HYPOXIA Status: Acute (3) Pneumonia due to COVID-19 virus Code(s): U07.1 - COVID-19; J12.82 - PNEUMONIA DUE TO CORONAVIRUS DISEASE 2019 Status: Acute (4) Electrolyte abnormality Code(s): E87.8 - OTH DISORDERS OF ELECTROLYTE AND FLUID BALANCE, NEC Status: Acute (5) Osteoporosis Code(s): M81.0 - AGE-RELATED OSTEOPOROSIS W/O CURRENT PATHOLOGICAL FRACTURE Status: Chronic Qualifiers: Osteoporosis type: age-related Presence of current pathological fracture: without current pathological fracture Qualified Code(s): M81.0 - Age-related osteoporosis without current pathological fracture (6) Physical deconditioning Code(s): R53.81 - OTHER MALAISE Status: Acute (7) Ileus Code(s): K56.7 - ILEUS, UNSPECIFIED Status: Acute - Plan Patient is a 65-year-old male who presented to the emergency room on 11/23 with generalized weakness along with flulike symptoms. His temperature in the ER was 102.4 with significant tachypnea requiring oxygen via nasal cannula. His work- up was consistent with sepsis/acute hypoxic respiratory failure due to COVID-19 pneumonia. He was started on bronchodilators, remdesivir and dexamethasone. He also received convalescent plasma. Due to increased O2 requirement he was started on high flow that was transitioned to noninvasive positive pressure ventilation. He was intubated on 11/25 and was monitored in the intensive care unit. On 12/15 he underwent tracheostomy and PEG tube placement. Isolation was discontinued 12/10. Patient had multiple electrolyte abnormalities which were replaced on a daily basis. On 12/20 he was diagnosed with ileus. For this reason tube feedings were held. He was started on PPN. Plan: Continue supportive care. Dexamethasone changed to IV. Received 1 dose of Reglan. Replace electrolytes. Colchicine dose reduced. Recheck KUB in a.m. Tube feeding will be held. Start PPN. Continue PPIs. Continue Lovenox for DVT prophylaxis.
[2020-12-21] MEDS: DEXTROSE IV SCH (16:01)
[2020-12-21] MEDS: STERILE WATER IV SCH (16:01)
[2020-12-21] MEDS: [UNRECOGNIZED DRUG - OTHER] IV SCH (16:01)
[2020-12-21] MEDS: WATER IV SCH (16:01)
[2020-12-21] MEDS: Enoxaparin Sodium 40 MG/0.4 ML SYRINGE SC SCH (20:20)
[2020-12-21] MEDS: Metoclopramide HCl 10 MG/2 ML VIAL IVP SCH (23:19)
[2020-12-22] MEDS: Albuterol 200 PUFF (6.7GM INHALER) INH SCH ×6 (02:37→22:13)
[2020-12-22 05:13] LABS: Anion Gap 11 mmol/L (10-20); BUN (Urea Nitrogen) 9 mg/dL (8.4-25.7); Calc. Creatinine Clearance 148 mL/min (70-130); Calcium 6.8 mg/dL (7.8-10.44); Carbon Dioxide 27 mmol/L (23-31); Chloride 105 mmol/L (98-107); Glucose 128 mg/dL (80-115); Magnesium 1.9 mg/dL (1.6-2.6); Potassium 2.8 mmol/L (3.5-5.1); Sodium 140 mmol/L (136-145)
[2020-12-22 05:28] LABS: Band 15 % (5-11); Lymphocytes 4 % (21-51); MDiff Complete? YES; Mean Corpuscular HGB CONC 33.1 g/dL (32.0-36.0); Mean Corpuscular Hemoglobin 31.7 pg (27.0-31.0); Mean Corpuscular Volume 95.9 fL (78.0-98.0); Mean Platelet Volume 8.7 fL (7.4-10.4); Monocytes 5 % (0-10); Neutrophil 75 % (42-75); Platelet Count 301 thou/uL (130-400); RBC Distribution Width 13.7 % (11.5-14.5); Reactive Lymphocytes 1 % (0-10); Red Blood Cell (RBC) Count 3.14 mill/uL (4.70-6.10)
[2020-12-22] MEDS: Potassium Chloride 20 MEQ TAB PO SCH ×2 (05:28→09:38)
[2020-12-22] MEDS: Metoclopramide HCl 10 MG/2 ML VIAL IVP SCH ×6 (05:29→23:31)
[2020-12-22] MEDS: PHOS-NAK 1 PKT PACK PO SCH ×2 (05:29→09:38)
[2020-12-22] MEDS: Mometasone 100 MCG/Formoterol 5 MCG 120 PUFF INHALER INH SCH ×2 (07:10→18:32)
[2020-12-22] MEDS ORDERED: Magnesium 2 GM/50 ML 2 GM in Premix Bag 1 BAG IVPB SCH (08:00)
--- NOTE | 2020-12-22 08:29 | RAD ---
KUB: 12/22/2020 COMPARISON: 12/21/2020 HISTORY: Ileus FINDINGS: Gastrostomy tube overlies left upper quadrant. Extensive gaseous distention of large and sm all bowel noted throughout the abdomen/pelvis, not significantly changed. Findings suggest diffuse ileus. Supine nature of the exam limits assessment for free intraperitoneal air. Incompletely imaged lung ba ses demonstrate diffuse interstitial opacity. IMPRESSION: Prominent gaseous distention of bowel throughout the abdomen/pelvis is unchanged and most consistent with ileus.
--- NOTE | 2020-12-22 09:22 | PRG ---
DATE OF SERVICE: 12/22/2020 SUBJECTIVE: He is doing quite well on mechanical ventilation. His main issue has persistent small-bowel ileus. His tube feeds are being held and he is on peripheral nutrition. PHYSICAL EXAMINATION: VITAL SIGNS: Today, his temperature is 98.9, pulse 60, blood pressure 111/59, O2 sat 100%. HEENT: Unremarkable. NECK: No adenopathy or JVD. Trach in good position. LUNGS: Clear. CARDIAC: S1 and S2. Regular. ABDOMEN: Soft. EXTREMITIES: No edema. NEUROLOGICALLY: He will not follow commands for me in Gren[place] or Latvian. LABORATORY DATA: White blood cell count 10, hematocrit 30, and platelet count 301. Sodium 140, potassium 2.8, chloride 105, CO2 of 27, BUN 9, creatinine 0.4, and glucose 128. ASSESSMENT: 1. COVID-19 pneumonia. 2. Respiratory failure requiring mechanical ventilation and tracheostomy placement. 3. Severe neurovascular weakness. 4. Small bowel ileus. 5. Hypokalemia. PLAN: 1. The patient has been given supplemental potassium. 2. Continue Reglan. 3. Trach collar trials as tolerated. 4. Peripheral nutrition. 5. Does well on trach collar. 6. Consider stopping Precedex. Job ID: [id number]
[2020-12-22] MEDS: Pantoprazole 40 MG VIAL IVP SCH ×2 (09:35→20:25)
[2020-12-22] MEDS: Ascorbic Acid 500 mg Chewable Tablet PO SCH (09:38)
[2020-12-22] MEDS: Colchicine 0.6 MG TAB PER TUBE SCH (09:38)
[2020-12-22] MEDS: Multivit, Therapeutic 1 TAB PO SCH (09:38)
[2020-12-22] MEDS: Zinc Sulfate 220 MG CAP PO SCH (09:38)
[2020-12-22] MEDS: Cholecalciferol 1,000 UNITS (25 MCG) TAB PO SCH (09:38)
[2020-12-22] MEDS: Dexamethasone 4 mg/ml Vial SLOW IVP SCH (09:39)
[2020-12-22] MEDS ORDERED: Potassium Phosphate 30 MMOL in Sodium Chloride 0.9% 500 ML IVPB SCH (10:00)
[2020-12-22] MEDS: [UNRECOGNIZED DRUG - OTHER] IV SCH (13:25)
[2020-12-22] MEDS: STERILE WATER IV SCH (13:25)
[2020-12-22] MEDS: WATER IV SCH (13:25)
[2020-12-22] MEDS: DEXTROSE IV SCH (13:25)
[2020-12-22 14:22] LABS: Potassium 3.9 mmol/L (3.5-5.1)
[2020-12-22] MEDS: Morphine 2 MG/ML VIAL SLOW IVP PRN (18:39)
--- NOTE | 2020-12-22 19:16 | PDOC.HOSPP ---
- Subjective Encounter Date: 12/22/20 Encounter Time: 15:00 Subjective: Patient seen and examined for respiratory failure. Denies any new complaints. On trach collar - Objective Vital Signs & Weight: Vital Signs (12 hours) Temp Pulse BP Pulse Ox 12/22/20 16:00 98.2 F 12/22/20 15:02 68 12/22/20 14:26 106/60 12/22/20 12:00 98.9 F 12/22/20 10:50 62 12/22/20 08:00 98.7 F 99 12/22/20 07:15 72 Weight Admit Weight 151 lb 3.794 oz Weight 123 lb 10.869 oz Most Recent Monitor Data Heart Rate from ECG 80 NIBP 114/65 NIBP BP-Mean 61 Respiration from ECG 36 SpO2 95 I&O: 12/21/20 12/22/20 12/23/20 06:59 06:59 06:59 Intake Total 2651.4 2196 955.8 Output Total 1390 1790 2500 Balance 1261.4 406 -1544.2 Result Diagrams: 12/22/20 04:30 12/22/20 14:02 Additional Labs: Accuchecks 12/22/20 12/22/20 12/22/20 17:28 10:24 04:29 POC Glucose 134 H 134 H 118 H 12/21/20 22:06 POC Glucose 128 H Vent - Assess Status Start: 11/25/20 16:40 Freq: Status: Active Protocol: Document 12/22/20 06:00 (Rec: 12/22/20 06:10 [id number]) Ventilator Status/Info Patient/Vent Settings Endotracheal Tube Insertion Site Tracheostomy ETT Position (cm) Trach Cuff Inflated Yes Ventilator Mode SIMV FIO2 40 Vent TV Set 470 Delivered TV 527 Patient TV (Spontaneous) Vent RR 6 Patient RR (12-20 breaths/min) 25 Peak Pressure (cmH2O) 12 PEEP (cm H2O) 5 PSV 6 Sedation (RASS) Staley Agitation-Sedation Scale (RASS): +4 = Combative: Combative, violent, immediate danger to staff +3 = Very agitated: Pulls to remove tubes or catheter; aggressive +2 = Agitated: Frequent non-purposeful movement, fights ventilator +1 = Restless: Anxious, apprehensive, movements not aggressive 0 = Alert and Calm: Spontaneously pays attention to caregiver -1 = Drowsy: Not fully alert, but has sustained awakening to voice -2 = Light sedation: Briefly awakens to voice (eyes contact < 10 secs) -3 = Moderate sedation: Movement or eye opening to voice (no eye contact) -4 = Deep sedation: No response to voice, but movement or eye opening to physical stimulation -5 = Unarousable: No response to voice or physical stimulation Sedation Yes Sedation Type precedex RASS Goal Score 0 RASS Actual Score [-1] Drowsy Intervention to attain goal Comfort Care Call Carreon Within Reach Oral Care Antiseptic Oral Rinse,Oral Cavity Moisturizer HOB Angle (degrees) 30 Patient Turned Right *If no, document why not Abnormal Lab Results - Last 48 hrs 12/20/20 05:10: Neutrophils % (Manual) 34 L, Band Neuts % (Manual) 52 H, Lympho cytes % (Manual) 5 L 12/20/20 05:10: Carbon Dioxide 18 L, Anion Gap 24 H, Creatinine Less than 0.40 L, Calcium 7.5 L, AST 37 H, Albumin 2.4 L, Globulin 3.9 H, Albumin/Globulin Ratio 0.6 L 12/21/20 03:32: RBC 3.31 L, Hgb 9.9 L, Hct 31.5 L, MCHC 31.6 L, Band Neuts % (Manual) 32 H, Lymphocytes % (Manual) 4 L 12/21/20 03:32: Potassium 3.1 L, Chloride 108 H, Creatinine 0.41 L, Calcium 7.2 L, Serum Total Protein 5.6 L, Albumin 2.4 L, Albumin/Globulin Ratio 0.8 L 12/21/20 03:32: Phosphorus 1.4 L 12/22/20 04:30: RBC 3.14 L, Hgb 10.0 L, Hct 30.1 L, MCH 31.7 H, Band Neuts % (Ma nual) 15 H, Lymphocytes % (Manual) 4 L 12/22/20 04:30: Potassium 2.8 L*, Creatinine Less than 0.40 L, Calcium 6.8 L, Phosphorus 2.0 L Microbiology - Entire Visit 12/19/20 06:58 Venous blood - Right Hand Blood Culture - Final Coagulase Neg Staphylococcus 12/19/20 06:57 Venous blood - Left Arm Blood Culture - Preliminary NO GROWTH AT 48 HOURS 12/19/20 11:25 Stool C. difficile GDH Antigen & Toxins - Final 12/04/20 09:22 Venous blood - Right Hand Blood Culture - Final NO GROWTH IN 5 DAYS 12/04/20 09:22 Venous blood - Left Hand Blood Culture - Final NO GROWTH IN 5 DAYS 12/04/20 09:25 Tracheal - Aspirate Respiratory Culture - Final 12/04/20 11:14 Urine clean catch Urine Culture - Final Yeast species 11/30/20 07:45 Venous blood - Left Hand Blood Culture - Final NO GROWTH IN 5 DAYS 11/30/20 06:45 Port - Right Brachiocephalic vein Blood Culture - Final NO GROWTH IN 5 DAYS 11/23/20 07:21 Venous blood - Right Arm Blood Culture - Final NO GROWTH IN 5 DAYS 11/23/20 07:21 Venous blood - Left Arm Blood Culture - Final NO GROWTH IN 5 DAYS Radiology Reviewed by me: Yes (KUBileus) EKG Reviewed by me: Yes (Sinus rhythm on telemetry) Hospitalist ROS - Review of Systems Cardiovascular: denies: chest pain, palpitations, orthopnea, paroxysmal noc. dyspnea, edema, light headedness, other Gastrointestinal: denies: nausea, vomiting, abdominal pain, diarrhea, constipation, melena, hematochezia, other - Medication Medications: Active Medications Generic Name Dose Route Start Last Admin Trade Name Gageq PRN Reason Stop Dose Admin Acetaminophen 650 mg 11/23/20 12:02 12/21/20 09:15 Acetaminophen 325 Mg Tab PO 650 mg Q4H PRN Administration Headache/Fever/Mild Pain (1-3) Albuterol Sulfate 2 puff 11/24/20 18:30 12/22/20 18:31 Albuterol 200 Puff (6.7gm Inhaler) INH 2 puff [id number] SUE Administration Ascorbic Acid 1,000 mg 11/24/20 09:00 12/22/20 09:38 Ascorbic Acid 500 Mg Chewable Tablet PO 1,000 mg DAILY SUE Administration Cholecalciferol 1,000 units 11/24/20 09:00 12/22/20 09:38 Cholecalciferol 1,000 Units (25 Mcg) Tab PO 1,000 units DAILY SUE Administration Colchicine 0.6 mg 12/21/20 09:00 12/22/20 09:38 Colchicine 0.6 Mg Tab PER TUBE 0.6 mg DAILY SUE Administration Dexamethasone 1 mg 12/21/20 09:00 12/22/20 09:39 Dexamethasone 4 Mg/Ml Vial SLOW IVP 1 mg DAILY SUE Administration Enoxaparin Sodium 40 mg 12/16/20 21:00 12/21/20 20:20 Enoxaparin Sodium 40 Mg/0.4 Ml Syringe SC 40 mg 2100 SUE Administration Dexmedetomidine HCl 400 mcg/ 100 mls @ 0 mls/hr 12/20/20 12:45 12/22/20 02:48 Sodium Chloride IVPB 100 mls INF SUE Administration Protocol Titrate Sterile Water 503.57 ml/ 1,000 mls @ 50 mls/hr 12/21/20 16:00 12/22/20 13:25 Dextrose/Water/ Amino Acids IV 1,000 mls INF SUE Administration Metoclopramide HCl 10 mg 12/21/20 23:59 12/22/20 18:39 Metoclopramide Hcl 10 Mg/2 Ml Vial IVP 10 mg Q6HR SUE Administration Mometasone Furoate/Formoterol Fumar 2 puff 11/23/20 18:30 12/22/20 18:32 Mometasone 100 Mcg/Formoterol 5 Mcg 120 Puff Inhaler INH 2 puff BID-RT SUE Administration Morphine Sulfate 2 mg 12/05/20 19:06 12/22/20 18:39 Morphine 2 Mg/Ml Vial SLOW IVP 2 mg Q1H PRN Administration Breakthrough Pain/Agitation Multivitamins 1 tab 11/24/20 09:00 12/22/20 09:38 Multivit, Therapeutic 1 Tab PO 1 tab DAILY SUE Administration Ondansetron HCl 4 mg 11/23/20 12:02 11/25/20 00:17 Ondansetron Pf 4 Mg/2 Ml Vial IVP 4 mg Q6H PRN Administration Nausea/Vomiting Pantoprazole Sodium 40 mg 12/19/20 09:00 12/22/20 09:35 Pantoprazole 40 Mg Vial IVP 40 mg Q12HR SUE Administration Senna/Docusate Sodium 2 tab 11/23/20 12:02 12/05/20 17:20 Senokot S 8.6-50 Mg Tab PO 2 tab BIDPRN PRN Administration Constipation Sodium Chloride 10 ml 11/23/20 21:00 12/22/20 09:40 Flush - Normal Saline 10 Ml Syringe IVF 10 ml Q12HR SUE Administration Sodium Chloride 10 ml 11/23/20 12:45 12/05/20 12:35 Flush - Normal Saline 10 Ml Syringe IVF 10 ml PRN PRN Administration Saline Flush Zinc Sulfate 220 mg 11/24/20 09:00 12/22/20 09:38 Zinc Sulfate 220 Mg Cap PO 220 mg DAILY SUE Administration Hospitalist Exam Vitals: Vital Signs (12 hours) Temp Pulse BP Pulse Ox 12/22/20 16:00 98.2 F 12/22/20 15:02 68 12/22/20 14:26 106/60 12/22/20 12:00 98.9 F 12/22/20 10:50 62 12/22/20 08:00 98.7 F 99 12/22/20 07:15 72 Weight Admit Weight 151 lb 3.794 oz Weight 123 lb 10.869 oz Most Recent Monitor Data Heart Rate from ECG 80 NIBP 114/65 NIBP BP-Mean 61 Respiration from ECG 36 SpO2 95 General Appearance: awake alert, ill appearing Neck: supple, no JVD Heart: RRR, no gallops Respiratory: no wheezes, rales, rhonchi Gastrointestinal: soft, no guarding, no rigidity, diminished bowl sounds Extremities: no cyanosis Musculoskeletal: generalized weakness Psychiatric: A&O x 3 Hosp A/P (1) Severe sepsis Code(s): A41.9 - SEPSIS, UNSPECIFIED ORGANISM; R65.20 - SEVERE SEPSIS WITHOUT SEPTIC SHOCK Status: Acute (2) Acute respiratory failure with hypoxia Code(s): J96.01 - ACUTE RESPIRATORY FAILURE WITH HYPOXIA Status: Acute (3) Pneumonia due to COVID-19 virus Code(s): U07.1 - COVID-19; J12.82 - PNEUMONIA DUE TO CORONAVIRUS DISEASE 2019 Status: Acute (4) Electrolyte abnormality Code(s): E87.8 - OTH DISORDERS OF ELECTROLYTE AND FLUID BALANCE, NEC Status: Acute (5) Osteoporosis Code(s): M81.0 - AGE-RELATED OSTEOPOROSIS W/O CURRENT PATHOLOGICAL FRACTURE Status: Chronic Qualifiers: Osteoporosis type: age-related Presence of current pathological fracture: without current pathological fracture Qualified Code(s): M81.0 - Age-related osteoporosis without current pathological fracture (6) Physical deconditioning Code(s): R53.81 - OTHER MALAISE Status: Acute (7) Ileus Code(s): K56.7 - ILEUS, UNSPECIFIED Status: Acute - Plan Patient is a 65-year-old male who presented to the emergency room on 11/23 with generalized weakness along with flulike symptoms. His temperature in the ER was 102.4 with significant tachypnea requiring oxygen via nasal cannula. His work- up was consistent with sepsis/acute hypoxic respiratory failure due to COVID-19 pneumonia. He was started on bronchodilators, remdesivir and dexamethasone. He also received convalescent plasma. Due to increased O2 requirement he was started on high flow that was transitioned to noninvasive positive pressure ventilation. He was intubated on 11/25 and was monitored in the intensive care unit. On 12/15 he underwent tracheostomy and PEG tube placement. Isolation was discontinued 12/10. Patient had multiple electrolyte abnormalities which were replaced on a daily basis. On 12/20 he was diagnosed with ileus. For this reason tube feedings were held. He was started on PPN. Severe sepsis/acute hypoxic respiratory failure due to COVID-19 pneumonia Continue to taper steroids. On trach collar. A.m. labs. Continue supportive care Electrolyte abnormality We will replace phosphorus and potassium Ileus Tube feeding on hold. On Reglan. Fentanyl discontinued. Repeat KUB in a.m. Physical deconditioning Continue physical therapy DVT/GI prophylaxis Plan discussed with the family at the bedside
[2020-12-22] MEDS: Enoxaparin Sodium 40 MG/0.4 ML SYRINGE SC SCH (20:25)
[2020-12-23] MEDS: Albuterol 200 PUFF (6.7GM INHALER) INH SCH ×6 (02:32→22:11)
[2020-12-23 04:21] LABS: Anion Gap 13 mmol/L (10-20); BUN (Urea Nitrogen) 6 mg/dL (8.4-25.7); Calc. Creatinine Clearance 148 mL/min (70-130); Calcium 7.5 mg/dL (7.8-10.44); Carbon Dioxide 26 mmol/L (23-31); Chloride 101 mmol/L (98-107); Glucose 103 mg/dL (80-115); Magnesium 2.1 mg/dL (1.6-2.6); Phosphorus 2.1 mg/dL (2.3-4.7); Potassium 3.1 mmol/L (3.5-5.1); Sodium 137 mmol/L (136-145)
[2020-12-23 04:41] LABS: Band 21 % (5-11); Hemoglobin 12.2 g/dL (14.0-18.0); Lymphocytes 10 % (21-51); MDiff Complete? YES; Mean Corpuscular HGB CONC 34.8 g/dL (32.0-36.0); Mean Corpuscular Hemoglobin 33.1 pg (27.0-31.0); Mean Corpuscular Volume 95.1 fL (78.0-98.0); Mean Platelet Volume 8.4 fL (7.4-10.4); Monocytes 7 % (0-10); Neutrophil 62 % (42-75); Platelet Count 300 thou/uL (130-400); RBC Distribution Width 13.7 % (11.5-14.5); Red Blood Cell (RBC) Count 3.69 mill/uL (4.70-6.10); White Blood Cell (WBC) Count 14.6 thou/uL (4.8-10.8)
[2020-12-23] MEDS: Metoclopramide HCl 10 MG/2 ML VIAL IVP SCH ×4 (05:19→23:58)
[2020-12-23] MEDS: Mometasone 100 MCG/Formoterol 5 MCG 120 PUFF INHALER INH SCH ×2 (07:10→18:45)
--- NOTE | 2020-12-23 07:39 | RAD ---
EXAM: Single view of the abdomen HISTORY: Ileus COMPARISON: 12/22/2020 FINDINGS: Single view of the abdomen shows a nonspecific, nonobstructive bowel gas pattern. Air is se en throughout the colon to the level the rectum. The previously air-filled mildly enlarged loops of small bowel have resolved. A gastrostomy tube overlies the stomach. No suspicious calcifications are seen. Postsurgical changes are seen in the lumbar spine. IMPRESSION: Improvement in ileus
[2020-12-23] MEDS ORDERED: Sterile Water 10 ML VIAL FS PRN (08:30)
[2020-12-23] MEDS ORDERED: Ziprasidone 20 MG VIAL IM SCH ×2 (08:30)
--- NOTE | 2020-12-23 08:33 | PRG ---
DATE OF SERVICE: 12/23/2020 SUBJECTIVE: The good news was Mr. Collins as he stayed off the ventilator all day yesterday. Unfortunately, he did not sleep at all last night and is quite confused this morning according to his daughter. In [place], the patient told us that he is seeing things that are not there. OBJECTIVE: VITAL SIGNS: His temperature is 98.3, pulse 93, blood pressure 114/64, and O2 saturation 100%. 24-hour intake 1522, output 4520. HEENT: Unremarkable. NECK: Trach in good position. LUNGS: Clear. CARDIAC: S1 and S2. Regular. ABDOMEN: Soft. EXTREMITIES: No edema. LABORATORY DATA: White blood cell count 14.6, hematocrit 35, and platelet count 300. Sodium 137, potassium 3.1, chloride 101, CO2 of 26, BUN 6, creatinine 0.4, and glucose 103. ASSESSMENT: 1. Status post acute respiratory failure related to COVID-19 pneumonia. 2. Status post tracheostomy, PEG tube placement. 3. ICU delirium/psychosis. PLAN: 1. I will give him a dose of Geodon. 2. Tonight, he will get Ambien and melatonin to help reestablish a sleep cycle. 3. I am very pleased with his progress and his main issue right now is rehabilitative in nature. Job ID: [id number]
[2020-12-23] MEDS: Potassium Chloride 20 MEQ in Premix Bag 1 BAG IVPB SCH ×2 (11:11→13:34)
[2020-12-23] MEDS: Ascorbic Acid 500 mg Chewable Tablet PO SCH (11:12)
[2020-12-23] MEDS: Colchicine 0.6 MG TAB PER TUBE SCH (11:12)
[2020-12-23] MEDS: Pantoprazole 40 MG VIAL IVP SCH ×2 (11:12→21:04)
[2020-12-23] MEDS: Acetaminophen 325 MG TAB PO PRN (11:13)
[2020-12-23] MEDS: Zinc Sulfate 220 MG CAP PO SCH (11:13)
[2020-12-23] MEDS: Multivit, Therapeutic 1 TAB PO SCH (11:13)
[2020-12-23] MEDS: Cholecalciferol 1,000 UNITS (25 MCG) TAB PO SCH (11:13)
[2020-12-23] MEDS: STERILE WATER IV SCH (12:03)
[2020-12-23] MEDS: DEXTROSE IV SCH (12:03)
[2020-12-23] MEDS: [UNRECOGNIZED DRUG - OTHER] IV SCH (12:03)
[2020-12-23] MEDS: WATER IV SCH (12:03)
--- NOTE | 2020-12-23 14:43 | EKG ---
Test Reason : TACHYCARDIA Blood Pressure : / mmHG Vent. Rate : 121 BPM Atrial Rate : 121 BPM P-R Int : 118 ms QRS Dur : 082 ms QT Int : 314 ms P-R-T Axes : 051 032 059 degrees QTc Int : 445 ms Sinus tachycardia Nonspecific ST and T wave abnormality Abnormal ECG Confirmed by CELESTINO WHITE (2) on 12/23/2020 2:43:03 PM Referred By: FARRAH Confirmed By:CELESTINO WHITE
--- NOTE | 2020-12-23 19:43 | PDOC.HOSPP ---
- Subjective Encounter Date: 12/23/20 Encounter Time: 14:30 Subjective: Patient seen and examined for respiratory failure. Was awake earlier per RN. No overnight events - Objective Vital Signs & Weight: Vital Signs (12 hours) Temp Pulse Resp Pulse Ox 12/23/20 18:45 93 12 97 12/23/20 16:00 97.7 F 12/23/20 15:19 100 12/23/20 14:33 100 12/23/20 12:00 97.0 F L 12/23/20 10:50 100 12/23/20 08:00 97.9 F 98 Weight Admit Weight 151 lb 3.794 oz Weight 117 lb 15.157 oz Most Recent Monitor Data Heart Rate from ECG 99 NIBP 101/60 NIBP BP-Mean 76 Respiration from ECG 29 SpO2 100 I&O: 12/22/20 12/23/20 12/24/20 06:59 06:59 06:59 Intake Total 2196 1522.8 765 Output Total 1790 4520 2000 Balance 406 2997.2 1235 Result Diagrams: 12/23/20 03:57 12/23/20 03:57 Additional Labs: Accuchecks 12/23/20 12/23/20 15:55 11:56 POC Glucose 108 H 110 H Abnormal Lab Results - Last 48 hrs 12/22/20 04:30: RBC 3.14 L, Hgb 10.0 L, Hct 30.1 L, MCH 31.7 H, Band Neuts % (Manual) 15 H, Lymphocytes % (Manual) 4 L 12/22/20 04:30: Potassium 2.8 L*, Creatinine Less than 0.40 L, Calcium 6.8 L, Phosphorus 2.0 L 12/23/20 03:57: WBC 14.6 H, RBC 3.69 L, Hgb 12.2 L, Hct 35.1 L, MCH 33.1 H, Band Neuts % (Manual) 21 H, Lymphocytes % (Manual) 10 L 12/23/20 03:57: Potassium 3.1 L, BUN 6 L, Creatinine 0.40 L, Calcium 7.5 L, Phosphorus 2.1 L Microbiology - Entire Visit 12/19/20 06:58 Venous blood - Right Hand Blood Culture - Final Coagulase Neg Staphylococcus 12/19/20 06:57 Venous blood - Left Arm Blood Culture - Preliminary NO GROWTH AT 48 HOURS 12/19/20 11:25 Stool C. difficile GDH Antigen & Toxins - Final 12/04/20 09:22 Venous blood - Right Hand Blood Culture - Final NO GROWTH IN 5 DAYS 12/04/20 09:22 Venous blood - Left Hand Blood Culture - Final NO GROWTH IN 5 DAYS 12/04/20 09:25 Tracheal - Aspirate Respiratory Culture - Final 12/04/20 11:14 Urine clean catch Urine Culture - Final Yeast species 11/30/20 07:45 Venous blood - Left Hand Blood Culture - Final NO GROWTH IN 5 DAYS 11/30/20 06:45 Port - Right Brachiocephalic vein Blood Culture - Final NO GROWTH IN 5 DAYS 11/23/20 07:21 Venous blood - Right Arm Blood Culture - Final NO GROWTH IN 5 DAYS 11/23/20 07:21 Venous blood - Left Arm Blood Culture - Final NO GROWTH IN 5 DAYS Radiology Reviewed by me: Yes (KUBimproving ileus) EKG Reviewed by me: Yes (Sinus rhythm on telemetry) Hospitalist ROS - Review of Systems ROS unobtainable: due to mental status - Medication Medications: Active Medications Generic Name Dose Route Start Last Admin Trade Name Freq PRN Reason Stop Dose Admin Acetaminophen 650 mg 11/23/20 12:02 12/23/20 11:13 Acetaminophen 325 Mg Tab PO 650 mg Q4H PRN Administration Headache/Fever/Mild Pain (1-3) Albuterol Sulfate 2 puff 11/24/20 18:30 12/23/20 18:44 Albuterol 200 Puff (6.7gm Inhaler) INH 2 puff [id number] SUE Administration Ascorbic Acid 1,000 mg 11/24/20 09:00 12/23/20 11:12 Ascorbic Acid 500 Mg Chewable Tablet PO 1,000 mg DAILY SUE Administration Cholecalciferol 1,000 units 11/24/20 09:00 12/23/20 11:13 Cholecalciferol 1,000 Units (25 Mcg) Tab PO 1,000 units DAILY SUE Administration Colchicine 0.6 mg 12/21/20 09:00 12/23/20 11:12 Colchicine 0.6 Mg Tab PER TUBE 0.6 mg DAILY SUE Administration Enoxaparin Sodium 40 mg 12/16/20 21:00 12/22/20 20:25 Enoxaparin Sodium 40 Mg/0.4 Ml Syringe SC 40 mg 2100 SUE Administration Sterile Water 503.57 ml/ 1,000 mls @ 50 mls/hr 12/21/20 16:00 12/23/20 12:03 Dextrose/Water/ Amino Acids IV 1,000 mls INF SUE Administration Metoclopramide HCl 10 mg 12/21/20 23:59 12/23/20 17:08 Metoclopramide Hcl 10 Mg/2 Ml Vial IVP 10 mg Q6HR SUE Administration Mometasone Furoate/Formoterol Fumar 2 puff 11/23/20 18:30 12/23/20 18:45 Mometasone 100 Mcg/Formoterol 5 Mcg 120 Puff Inhaler INH 2 puff BID-RT SUE Administration Morphine Sulfate 2 mg 12/05/20 19:06 12/22/20 18:39 Morphine 2 Mg/Ml Vial SLOW IVP 2 mg Q1H PRN Administration Breakthrough Pain/Agitation Multivitamins 1 tab 11/24/20 09:00 12/23/20 11:13 Multivit, Therapeutic 1 Tab PO 1 tab DAILY SUE Administration Ondansetron HCl 4 mg 11/23/20 12:02 11/25/20 00:17 Ondansetron Pf 4 Mg/2 Ml Vial IVP 4 mg Q6H PRN Administration Nausea/Vomiting Pantoprazole Sodium 40 mg 12/19/20 09:00 12/23/20 11:12 Pantoprazole 40 Mg Vial IVP 40 mg Q12HR SUE Administration Senna/Docusate Sodium 2 tab 11/23/20 12:02 12/05/20 17:20 Senokot S 8.6-50 Mg Tab PO 2 tab BIDPRN PRN Administration Constipation Sodium Chloride 10 ml 11/23/20 21:00 12/23/20 11:15 Flush - Normal Saline 10 Ml Syringe IVF 10 ml Q12HR SUE Administration Sodium Chloride 10 ml 11/23/20 12:45 12/23/20 11:14 Flush - Normal Saline 10 Ml Syringe IVF 10 ml PRN PRN Administration Saline Flush Zinc Sulfate 220 mg 11/24/20 09:00 12/23/20 11:13 Zinc Sulfate 220 Mg Cap PO 220 mg DAILY SUE Administration Hospitalist Exam Vitals: Vital Signs (12 hours) Temp Pulse Resp Pulse Ox 12/23/20 18:45 93 12 97 12/23/20 16:00 97.7 F 12/23/20 15:19 100 12/23/20 14:33 100 12/23/20 12:00 97.0 F L 12/23/20 10:50 100 12/23/20 08:00 97.9 F 98 Weight Admit Weight 151 lb 3.794 oz Weight 117 lb 15.157 oz Most Recent Monitor Data Heart Rate from ECG 99 NIBP 101/60 NIBP BP-Mean 76 Respiration from ECG 29 SpO2 100 General Appearance: ill appearing Heart: RRR, no gallops Respiratory: no wheezes, rales, rhonchi Gastrointestinal: soft, no guarding, no rigidity Extremities: no cyanosis Hosp A/P (1) Severe sepsis Code(s): A41.9 - SEPSIS, UNSPECIFIED ORGANISM; R65.20 - SEVERE SEPSIS WITHOUT SEPTIC SHOCK Status: Acute (2) Acute respiratory failure with hypoxia Code(s): J96.01 - ACUTE RESPIRATORY FAILURE WITH HYPOXIA Status: Acute (3) Pneumonia due to COVID-19 virus Code(s): U07.1 - COVID-19; J12.82 - PNEUMONIA DUE TO CORONAVIRUS DISEASE 2019 Status: Acute (4) Electrolyte abnormality Code(s): E87.8 - OTH DISORDERS OF ELECTROLYTE AND FLUID BALANCE, NEC Status: Acute (5) Osteoporosis Code(s): M81.0 - AGE-RELATED OSTEOPOROSIS W/O CURRENT PATHOLOGICAL FRACTURE Status: Chronic Qualifiers: Osteoporosis type: age-related Presence of current pathological fracture: without current pathological fracture Qualified Code(s): M81.0 - Age-related osteoporosis without current pathological fracture (6) Physical deconditioning Code(s): R53.81 - OTHER MALAISE Status: Acute (7) Ileus Code(s): K56.7 - ILEUS, UNSPECIFIED Status: Acute - Plan Patient is a 65-year-old male who presented to the emergency room on 11/23 with generalized weakness along with flulike symptoms. His temperature in the ER was 102.4 with significant tachypnea requiring oxygen via nasal cannula. His work- up was consistent with sepsis/acute hypoxic respiratory failure due to COVID-19 pneumonia. He was started on bronchodilators, remdesivir and dexamethasone. He also received convalescent plasma. Due to increased O2 requirement he was started on high flow that was transitioned to noninvasive positive pressure ventilation. He was intubated on 11/25 and was monitored in the intensive care unit. On 12/15 he underwent tracheostomy and PEG tube placement. Isolation was discontinued 12/10. Patient had multiple electrolyte abnormalities which were replaced on a daily basis. On 12/20 he was diagnosed with ileus. For this reason tube feedings were held. He was started on PPN. Severe sepsis/acute hypoxic respiratory failure due to COVID-19 pneumonia On trach collar. Continue supportive care. Continue steroids per critical care Electrolyte abnormality We will replace electrolytes Ileus Ileus improving. Tube feeding on hold. Physical deconditioning Continue physical therapy DVT/GI prophylaxis Plan discussed with the family at the bedside
[2020-12-23] MEDS: Zolpidem Tartrate 5 MG TAB PER TUBE SCH (21:03)
[2020-12-23] MEDS: Guaifenesin DM 100-10/5 ML UDCUP PO PRN (21:03)
[2020-12-23] MEDS: Enoxaparin Sodium 40 MG/0.4 ML SYRINGE SC SCH (21:04)
[2020-12-23] MEDS: Melatonin 3 MG TAB PER TUBE SCH (21:50)
[2020-12-24] MEDS: Albuterol 200 PUFF (6.7GM INHALER) INH SCH ×6 (02:58→22:24)
[2020-12-24 04:24] LABS: Anion Gap 14 mmol/L (10-20); BUN (Urea Nitrogen) 8 mg/dL (8.4-25.7); Calc. Creatinine Clearance 138 mL/min (70-130); Calcium 7.7 mg/dL (7.8-10.44); Carbon Dioxide 25 mmol/L (23-31); Chloride 100 mmol/L (98-107); Glucose 109 mg/dL (80-115); Phosphorus 2.5 mg/dL (2.3-4.7); Sodium 136 mmol/L (136-145)
[2020-12-24 04:32] LABS: Potassium 2.8 mmol/L (3.5-5.1)
[2020-12-24 04:44] LABS: Band 7 % (5-11); Eosinophils 2 % (0-10); Hemoglobin 12.1 g/dL (14.0-18.0); Hypochromia SLIGHT = 6-15 cells (100X) (0-5/hpf); Lymphocytes 11 % (21-51); MDiff Complete? YES; Mean Corpuscular Hemoglobin 30.8 pg (27.0-31.0); Mean Corpuscular Volume 93.2 fL (78.0-98.0); Mean Platelet Volume 8.7 fL (7.4-10.4); Monocytes 13 % (0-10); Neutrophil 66 % (42-75); Platelet Count 375 thou/uL (130-400); Platelet Morphology Comment Appears Adequate; RBC Distribution Width 13.9 % (11.5-14.5); Reactive Lymphocytes 1 % (0-10); Red Blood Cell (RBC) Count 3.93 mill/uL (4.70-6.10); White Blood Cell (WBC) Count 16.1 thou/uL (4.8-10.8)
[2020-12-24] MEDS: Potassium Bicarbonate/Cit Ac 20 MEQ TAB PO SCH ×2 (05:09→08:49)
[2020-12-24] MEDS: Metoclopramide HCl 10 MG/2 ML VIAL IVP SCH ×3 (05:09→18:00)
[2020-12-24] MEDS ORDERED: Magnesium 2 GM/50 ML 2 GM in Premix Bag 1 BAG IVPB SCH (06:15)
[2020-12-24] MEDS: Mometasone 100 MCG/Formoterol 5 MCG 120 PUFF INHALER INH SCH ×2 (06:42→19:27)
--- NOTE | 2020-12-24 08:20 | PRG ---
DATE OF SERVICE: 12/24/2020 SUBJECTIVE: The patient remains in the ICU on trach collar. He did not sleep well last night despite getting melatonin and Ambien. OBJECTIVE: VITAL SIGNS: His temperature 97.4, pulse 112, blood pressure 104/65, and O2 saturation 100%. HEENT: Unremarkable. NECK: Trach in good position. Has some secretions present. CARDIAC: S1 and S2, regular. LUNGS: Fairly clear. ABDOMEN: Soft. EXTREMITIES: No edema. LABORATORY DATA: White blood cell count 16, hematocrit 36.6, and platelet count 375. Sodium 136, potassium 2.8, chloride 100, CO2 of 25, BUN 8, creatinine 0.4, and glucose 109. ASSESSMENT: 1. Resolved COVID-19 pneumonia. 2. Status post tracheostomy and PEG tube placement. 3. ICU delirium/psychosis. 4. Protein-calorie malnutrition. 5. Hypokalemia. PLAN: 1. Replace potassium and recheck potassium this afternoon as he may need more supplements than that. 2. Up in chair as tolerated. 3. Needs placement in LTAC. Job ID: [id number]
[2020-12-24] MEDS: Ascorbic Acid 500 mg Chewable Tablet PO SCH (08:43)
[2020-12-24] MEDS: Cholecalciferol 1,000 UNITS (25 MCG) TAB PO SCH (08:43)
[2020-12-24] MEDS: Pantoprazole 40 MG VIAL IVP SCH ×2 (08:44→20:48)
[2020-12-24] MEDS: Zinc Sulfate 220 MG CAP PO SCH (08:44)
[2020-12-24] MEDS: Multivit, Therapeutic 1 TAB PO SCH (08:44)
[2020-12-24] MEDS: Colchicine 0.6 MG TAB PER TUBE SCH (08:49)
[2020-12-24] MEDS: DEXTROSE IV SCH (08:51)
[2020-12-24] MEDS: [UNRECOGNIZED DRUG - OTHER] IV SCH (08:51)
[2020-12-24] MEDS: WATER IV SCH (08:51)
[2020-12-24] MEDS: STERILE WATER IV SCH (08:51)
[2020-12-24] MEDS: Acetaminophen 325 MG TAB PO PRN (13:49)
[2020-12-24 15:14] LABS: Potassium 3.7 mmol/L (3.5-5.1)
--- NOTE | 2020-12-24 17:13 | PDOC.HOSPP ---
- Subjective Encounter Date: 12/24/20 Encounter Time: 12:00 Subjective: Patient seen and examined for respiratory failure due to COVID-19 pneumonia. Overnight events noted. Did not sleep well. - Objective Vital Signs & Weight: Vital Signs (12 hours) Temp Pulse Pulse Pulse Resp BP BP 12/24/20 14:56 12/24/20 12:00 99.0 F 12/24/20 11:50 12/24/20 10:20 116 H 120 H 99/55 L 98/60 12/24/20 08:00 100.7 F H 12/24/20 06:48 12/24/20 06:42 114 H 30 H Pulse Ox Pulse Ox Pulse Ox 12/24/20 14:56 98 12/24/20 12:00 12/24/20 11:50 97 12/24/20 10:20 100 100 12/24/20 08:00 12/24/20 06:48 95 12/24/20 06:42 96 Weight Admit Weight 151 lb 3.794 oz Weight 107 lb 2.314 oz Most Recent Monitor Data Heart Rate from ECG 99 NIBP 101/62 NIBP BP-Mean 70 Respiration from ECG 16 SpO2 100 I&O: 12/23/20 12/24/20 12/25/20 06:59 06:59 06:59 Intake Total 1522.8 1550 360 Output Total 4520 2540 444 Balance -2997.2 -990 -84 Result Diagrams: 12/24/20 03:44 12/24/20 14:54 Additional Labs: Accuchecks 12/24/20 12/23/20 03:44 21:35 POC Glucose 109 H 111 H Abnormal Lab Results - Last 48 hrs 12/23/20 03:57: WBC 14.6 H, RBC 3.69 L, Hgb 12.2 L, Hct 35.1 L, MCH 33.1 H, Band Neuts % (Manual) 21 H, Lymphocytes % (Manual) 10 L 12/23/20 03:57: Potassium 3.1 L, BUN 6 L, Creatinine 0.40 L, Calcium 7.5 L, Phosphorus 2.1 L 12/24/20 03:44: WBC 16.1 H, RBC 3.93 L, Hgb 12.1 L, Hct 36.6 L, Lymphocytes % (Manual) 11 L, Monocytes % (Manual) 13 H 12/24/20 03:44: Potassium 2.8 L*, BUN 8 L, Creatinine 0.41 L, Calcium 7.7 L Microbiology - Entire Visit 12/19/20 06:57 Venous blood - Left Arm Blood Culture - Final NO GROWTH IN 5 DAYS 12/19/20 06:58 Venous blood - Right Hand Blood Culture - Final Coagulase Neg Staphylococcus 12/19/20 11:25 Stool C. difficile GDH Antigen & Toxins - Final 12/04/20 09:22 Venous blood - Right Hand Blood Culture - Final NO GROWTH IN 5 DAYS 12/04/20 09:22 Venous blood - Left Hand Blood Culture - Final NO GROWTH IN 5 DAYS 12/04/20 09:25 Tracheal - Aspirate Respiratory Culture - Final 12/04/20 11:14 Urine clean catch Urine Culture - Final Yeast species 11/30/20 07:45 Venous blood - Left Hand Blood Culture - Final NO GROWTH IN 5 DAYS 11/30/20 06:45 Port - Right Brachiocephalic vein Blood Culture - Final NO GROWTH IN 5 DAYS 11/23/20 07:21 Venous blood - Right Arm Blood Culture - Final NO GROWTH IN 5 DAYS 11/23/20 07:21 Venous blood - Left Arm Blood Culture - Final NO GROWTH IN 5 DAYS Hospitalist ROS - Review of Systems Cardiovascular: denies: chest pain, palpitations, orthopnea, paroxysmal noc. dyspnea, edema, light headedness, other Gastrointestinal: denies: nausea, vomiting, abdominal pain, diarrhea, constipation, melena, hematochezia, other - Medication Medications: Active Medications Generic Name Dose Route Start Last Admin Trade Name Freq PRN Reason Stop Dose Admin Acetaminophen 650 mg 11/23/20 12:02 12/24/20 13:49 Acetaminophen 325 Mg Tab PO 650 mg Q4H PRN Administration Headache/Fever/Mild Pain (1-3) Albuterol Sulfate 2 puff 11/24/20 18:30 12/24/20 14:54 Albuterol 200 Puff (6.7gm Inhaler) INH 2 puff [id number] SUE Administration Ascorbic Acid 1,000 mg 11/24/20 09:00 12/24/20 08:43 Ascorbic Acid 500 Mg Chewable Tablet PO 1,000 mg DAILY SUE Administration Cholecalciferol 1,000 units 11/24/20 09:00 12/24/20 08:43 Cholecalciferol 1,000 Units (25 Mcg) Tab PO 1,000 units DAILY SUE Administration Colchicine 0.6 mg 12/21/20 09:00 12/24/20 08:49 Colchicine 0.6 Mg Tab PER TUBE 0.6 mg DAILY SUE Administration Enoxaparin Sodium 40 mg 12/16/20 21:00 12/23/20 21:04 Enoxaparin Sodium 40 Mg/0.4 Ml Syringe SC 40 mg 2100 SUE Administration Guaifenesin/Dextromethorphan 15 ml 11/23/20 12:02 12/23/20 21:03 Guaifenesin Dm 100-10/5 Ml Udcup PO 15 ml Q4H PRN Administration Cough Sterile Water 503.57 ml/ 1,000 mls @ 50 mls/hr 12/21/20 16:00 12/24/20 08:51 Dextrose/Water/ Amino Acids IV 1,000 mls INF SUE Administration Melatonin 9 mg 12/23/20 21:00 12/23/20 21:50 Melatonin 3 Mg Tab PER TUBE 9 mg HS SUE Administration Metoclopramide HCl 10 mg 12/21/20 23:59 12/24/20 12:36 Metoclopramide Hcl 10 Mg/2 Ml Vial IVP Not Given Q6HR SUE Mometasone Furoate/Formoterol Fumar 2 puff 11/23/20 18:30 12/24/20 06:42 Mometasone 100 Mcg/Formoterol 5 Mcg 120 Puff Inhaler INH 2 puff BID-RT SUE Administration Morphine Sulfate 2 mg 12/05/20 19:06 12/22/20 18:39 Morphine 2 Mg/Ml Vial SLOW IVP 2 mg Q1H PRN Administration Breakthrough Pain/Agitation Multivitamins 1 tab 11/24/20 09:00 12/24/20 08:44 Multivit, Therapeutic 1 Tab PO 1 tab DAILY SUE Administration Ondansetron HCl 4 mg 11/23/20 12:02 11/25/20 00:17 Ondansetron Pf 4 Mg/2 Ml Vial IVP 4 mg Q6H PRN Administration Nausea/Vomiting Pantoprazole Sodium 40 mg 12/19/20 09:00 12/24/20 08:44 Pantoprazole 40 Mg Vial IVP 40 mg Q12HR SUE Administration Senna/Docusate Sodium 2 tab 11/23/20 12:02 12/05/20 17:20 Senokot S 8.6-50 Mg Tab PO 2 tab BIDPRN PRN Administration Constipation Sodium Chloride 10 ml 11/23/20 21:00 12/24/20 08:45 Flush - Normal Saline 10 Ml Syringe IVF 10 ml Q12HR SUE Administration Sodium Chloride 10 ml 11/23/20 12:45 12/23/20 11:14 Flush - Normal Saline 10 Ml Syringe IVF 10 ml PRN PRN Administration Saline Flush Zinc Sulfate 220 mg 11/24/20 09:00 12/24/20 08:44 Zinc Sulfate 220 Mg Cap PO 220 mg DAILY SUE Administration Zolpidem Tartrate 5 mg 12/23/20 21:00 12/23/20 21:03 Zolpidem Tartrate 5 Mg Tab PER TUBE 5 mg HS SUE Administration Hospitalist Exam Vitals: Vital Signs (12 hours) Temp Pulse Pulse Pulse Resp BP BP 12/24/20 14:56 12/24/20 12:00 99.0 F 12/24/20 11:50 12/24/20 10:20 116 H 120 H 99/55 L 98/60 12/24/20 08:00 100.7 F H 12/24/20 06:48 12/24/20 06:42 114 H 30 H Pulse Ox Pulse Ox Pulse Ox 12/24/20 14:56 98 12/24/20 12:00 12/24/20 11:50 97 12/24/20 10:20 100 100 12/24/20 08:00 12/24/20 06:48 95 12/24/20 06:42 96 Weight Admit Weight 151 lb 3.794 oz Weight 107 lb 2.314 oz Most Recent Monitor Data Heart Rate from ECG 99 NIBP 101/62 NIBP BP-Mean 70 Respiration from ECG 16 SpO2 100 General Appearance: awake alert Neck: supple, no JVD Heart: RRR, no gallops Respiratory: no wheezes, rales, rhonchi Gastrointestinal: soft, non-tender, no guarding, no rigidity Extremities: no cyanosis Neurological: no new deficit Musculoskeletal: generalized weakness Hosp A/P (1) Severe sepsis Code(s): A41.9 - SEPSIS, UNSPECIFIED ORGANISM; R65.20 - SEVERE SEPSIS WITHOUT SEPTIC SHOCK Status: Acute (2) Acute respiratory failure with hypoxia Code(s): J96.01 - ACUTE RESPIRATORY FAILURE WITH HYPOXIA Status: Acute (3) Pneumonia due to COVID-19 virus Code(s): U07.1 - COVID-19; J12.82 - PNEUMONIA DUE TO CORONAVIRUS DISEASE 2018 Status: Acute (4) Electrolyte abnormality Code(s): E87.8 - OTH DISORDERS OF ELECTROLYTE AND FLUID BALANCE, NEC Status: Acute (5) Osteoporosis Code(s): M81.0 - AGE-RELATED OSTEOPOROSIS W/O CURRENT PATHOLOGICAL FRACTURE Status: Chronic Qualifiers: Osteoporosis type: age-related Presence of current pathological fracture: without current pathological fracture Qualified Code(s): M81.0 - Age-related osteoporosis without current pathological fracture (6) Physical deconditioning Code(s): R53.81 - OTHER MALAISE Status: Acute (7) Ileus Code(s): K56.7 - ILEUS, UNSPECIFIED Status: Acute - Plan DVT proph w/lovenox, DVT proph w/SCDs Patient is a 65-year-old male who presented to the emergency room on 11/23 with generalized weakness along with flulike symptoms. His temperature in the ER was 102.4 with significant tachypnea requiring oxygen via nasal cannula. His work- up was consistent with sepsis/acute hypoxic respiratory failure due to COVID-19 pneumonia. He was started on bronchodilators, remdesivir and dexamethasone. He also received convalescent plasma. Due to increased O2 requirement he was started on high flow that was transitioned to noninvasive positive pressure ventilation. He was intubated on 11/25 and was monitored in the intensive care unit. On 12/15 he underwent tracheostomy and PEG tube placement. Isolation was discontinued 12/10. Patient had multiple electrolyte abnormalities which were replaced on a daily basis. On 12/20 he was diagnosed with ileus. For this reason tube feedings were held. He was started on PPN. Severe sepsis/acute hypoxic respiratory failure due to COVID-19 pneumonia Continue supportive care. Continue steroids per critical care. On Electrolyte abnormality Replace potassium and recheck it later today Ileus Ileus improving. Tube feeding on hold. Physical deconditioning Continue physical therapy, up in chair every day DVT/GI prophylaxis Plan was discussed with patient's daughter over the phone
[2020-12-24] MEDS: Melatonin 3 MG TAB PER TUBE SCH (20:48)
[2020-12-24] MEDS: Enoxaparin Sodium 40 MG/0.4 ML SYRINGE SC SCH (20:48)
[2020-12-24] MEDS: Zolpidem Tartrate 5 MG TAB PER TUBE SCH (20:48)
[2020-12-25] MEDS: Metoclopramide HCl 10 MG/2 ML VIAL IVP SCH ×2 (00:24→06:02)
[2020-12-25] MEDS: Acetaminophen 325 MG TAB PO PRN ×2 (00:44→12:17)
[2020-12-25] MEDS: Albuterol 200 PUFF (6.7GM INHALER) INH SCH ×5 (02:22→18:36)
[2020-12-25] MEDS: WATER IV SCH (05:53)
[2020-12-25] MEDS: [UNRECOGNIZED DRUG - OTHER] IV SCH (05:53)
[2020-12-25] MEDS: STERILE WATER IV SCH (05:53)
[2020-12-25] MEDS: DEXTROSE IV SCH (05:53)
[2020-12-25] MEDS: Mometasone 100 MCG/Formoterol 5 MCG 120 PUFF INHALER INH SCH ×2 (07:22→18:36)
--- NOTE | 2020-12-25 08:37 | PRG ---
DATE OF SERVICE: 12/25/2020 SUBJECTIVE: Mr. Collins is stable on trach collar. He still is not sleeping very well. PHYSICAL EXAMINATION: VITAL SIGNS: Temperature 98.8, pulse 117, blood pressure 113/74, O2 saturation 100%. 24-hour intake 1676, output 1422. HEENT: Unremarkable. Trach, good position. LUNGS: Fairly clear. CARDIAC: S1 and S2. Regular. ABDOMEN: Soft. EXTREMITIES: No edema. LABORATORY DATA: His last potassium yesterday afternoon was 3.7. I am not sure what happened to today's labs, but we will check. ASSESSMENT: 1. COVID-19 pneumonia. 2. Hypokalemia. 3. Status post respiratory failure requiring mechanical ventilation. 4. Severe neuromuscular weakness. PLAN: 1. Check labs and supplement potassium as needed. 2. Continue tube feeds. 3. Await LTAC placement. Job ID: [id number]
[2020-12-25 08:50] LABS: Hemoglobin 11.8 g/dL (14.0-18.0); Mean Corpuscular Hemoglobin 30.6 pg (27.0-31.0); Mean Corpuscular Volume 92.9 fL (78.0-98.0); Mean Platelet Volume 8.9 fL (7.4-10.4); Platelet Count 413 thou/uL (130-400); RBC Distribution Width 14.6 % (11.5-14.5); Red Blood Cell (RBC) Count 3.85 mill/uL (4.70-6.10); White Blood Cell (WBC) Count 19.9 thou/uL (4.8-10.8)
[2020-12-25 09:04] LABS: Phosphorus 2.3 mg/dL (2.3-4.7)
[2020-12-25 09:11] LABS: Anion Gap 14 mmol/L (10-20); BUN (Urea Nitrogen) 9 mg/dL (8.4-25.7); Calc. Creatinine Clearance 134 mL/min (70-130); Calcium 7.8 mg/dL (7.8-10.44); Carbon Dioxide 22 mmol/L (23-31); Chloride 99 mmol/L (98-107); Glucose 118 mg/dL (80-115); Sodium 132 mmol/L (136-145)
[2020-12-25 09:14] LABS: Band 5 % (5-11); Eosinophils 1 % (0-10); Lymphocytes 5 % (21-51); MDiff Complete? YES; Monocytes 2 % (0-10); Neutrophil 85 % (42-75); Platelet Morphology Comment Appears Increased; Polychromasia SLIGHT = 2-3 cells (100X) (0-2/hpf); Reactive Lymphocytes 2 % (0-10)
[2020-12-25] MEDS: Ascorbic Acid 500 mg Chewable Tablet PO SCH (09:37)
[2020-12-25] MEDS: Zinc Sulfate 220 MG CAP PO SCH (09:37)
[2020-12-25] MEDS: Cholecalciferol 1,000 UNITS (25 MCG) TAB PO SCH (09:37)
[2020-12-25] MEDS: Multivit, Therapeutic 1 TAB PO SCH (09:37)
[2020-12-25] MEDS: Pantoprazole 40 MG VIAL IVP SCH ×2 (09:38→21:10)
[2020-12-25] MEDS: Colchicine 0.6 MG TAB PER TUBE SCH (09:45)
[2020-12-25] MEDS ORDERED: Potassium Chloride 20 MEQ TAB PO SCH (11:00)
[2020-12-25] MEDS ORDERED: Magnesium 2 GM/50 ML 2 GM in Premix Bag 1 BAG IVPB SCH (11:00)
--- NOTE | 2020-12-25 16:31 | PDOC.HOSPP ---
- Subjective Encounter Date: 12/25/20 Encounter Time: 09:30 Subjective: is sitting in neurochair at bedside follows verbal stimuli, is very weak to mobilize had watery stool this am - Objective Vital Signs & Weight: Vital Signs (12 hours) Temp Pulse Resp Pulse Ox 12/25/20 16:08 98 12/25/20 12:00 98.3 F 12/25/20 11:41 96 12/25/20 08:00 98.1 F 94 L 12/25/20 07:27 98 12/25/20 07:22 116 H 19 100 Weight Admit Weight 151 lb 3.794 oz Weight 111 lb 15.917 oz Most Recent Monitor Data Heart Rate from ECG 112 NIBP 103/65 NIBP BP-Mean 76 Respiration from ECG 28 SpO2 98 I&O: 12/24/20 12/25/20 12/26/20 06:59 06:59 06:59 Intake Total 1550 1676 360 Output Total 2540 1422 710 Balance -990 254 -350 Result Diagrams: 12/25/20 08:14 12/25/20 08:14 Additional Labs: Accuchecks 12/25/20 12/25/20 12/24/20 10:58 04:21 22:34 POC Glucose 111 H 115 H 111 H 12/24/20 16:46 POC Glucose 115 H Hospitalist ROS - Medication Medications: Active Medications Generic Name Dose Route Start Last Admin Trade Name Freq PRN Reason Stop Dose Admin Acetaminophen 650 mg 11/23/20 12:02 12/25/20 12:17 Acetaminophen 325 Mg Tab PO 650 mg Q4H PRN Administration Headache/Fever/Mild Pain (1-3) Albuterol Sulfate 2 puff 11/24/20 18:30 12/25/20 16:08 Albuterol 200 Puff (6.7gm Inhaler) INH 2 puff [id number] SUE Administration Ascorbic Acid 1,000 mg 11/24/20 09:00 12/25/20 09:37 Ascorbic Acid 500 Mg Chewable Tablet PO 1,000 mg DAILY SUE Administration Cholecalciferol 1,000 units 11/24/20 09:00 12/25/20 09:37 Cholecalciferol 1,000 Units (25 Mcg) Tab PO 1,000 units DAILY SUE Administration Colchicine 0.6 mg 12/21/20 09:00 12/25/20 09:45 Colchicine 0.6 Mg Tab PER TUBE Not Given DAILY SUE Enoxaparin Sodium 40 mg 12/16/20 21:00 12/24/20 20:48 Enoxaparin Sodium 40 Mg/0.4 Ml Syringe SC 40 mg 2100 SUE Administration Guaifenesin/Dextromethorphan 15 ml 11/23/20 12:02 12/23/20 21:03 Guaifenesin Dm 100-10/5 Ml Udcup PO 15 ml Q4H PRN Administration Cough Sterile Water 503.57 ml/ 1,000 mls @ 50 mls/hr 12/21/20 16:00 12/25/20 05:53 Dextrose/Water/ Amino Acids IV 1,000 mls INF SUE Administration Melatonin 9 mg 12/23/20 21:00 12/24/20 20:48 Melatonin 3 Mg Tab PER TUBE 9 mg HS SUE Administration Mometasone Furoate/Formoterol Fumar 2 puff 11/23/20 18:30 12/25/20 07:22 Mometasone 100 Mcg/Formoterol 5 Mcg 120 Puff Inhaler INH 2 puff BID-RT SUE Administration Morphine Sulfate 2 mg 12/05/20 19:06 12/22/20 18:39 Morphine 2 Mg/Ml Vial SLOW IVP 2 mg Q1H PRN Administration Breakthrough Pain/Agitation Multivitamins 1 tab 11/24/20 09:00 12/25/20 09:37 Multivit, Therapeutic 1 Tab PO 1 tab DAILY SUE Administration Ondansetron HCl 4 mg 11/23/20 12:02 11/25/20 00:17 Ondansetron Pf 4 Mg/2 Ml Vial IVP 4 mg Q6H PRN Administration Nausea/Vomiting Pantoprazole Sodium 40 mg 12/19/20 09:00 12/25/20 09:38 Pantoprazole 40 Mg Vial IVP 40 mg Q12HR SUE Administration Senna/Docusate Sodium 2 tab 11/23/20 12:02 12/05/20 17:20 Senokot S 8.6-50 Mg Tab PO 2 tab BIDPRN PRN Administration Constipation Sodium Chloride 10 ml 11/23/20 21:00 12/25/20 09:39 Flush - Normal Saline 10 Ml Syringe IVF 10 ml Q12HR SUE Administration Sodium Chloride 10 ml 11/23/20 12:45 12/23/20 11:14 Flush - Normal Saline 10 Ml Syringe IVF 10 ml PRN PRN Administration Saline Flush Zinc Sulfate 220 mg 11/24/20 09:00 12/25/20 09:37 Zinc Sulfate 220 Mg Cap PO 220 mg DAILY SUE Administration Hospitalist Exam Vitals: Vital Signs (12 hours) Temp Pulse Resp Pulse Ox 12/25/20 16:08 98 12/25/20 12:00 98.3 F 12/25/20 11:41 96 12/25/20 08:00 98.1 F 94 L 12/25/20 07:27 98 12/25/20 07:22 116 H 19 100 Weight Admit Weight 151 lb 3.794 oz Weight 111 lb 15.917 oz Most Recent Monitor Data Heart Rate from ECG 112 NIBP 103/65 NIBP BP-Mean 76 Respiration from ECG 28 SpO2 98 Eye: PERRL, anicteric sclera ENT: no oropharyngeal lesions, dry oral mucosa Neck: no JVD Neck - other findings: trach+ Heart: RRR, no murmur Respiratory: no wheezes, no rales, rhonchi Gastrointestinal: soft, non-tender, non-distended, normal bowel sounds Gastrointestinal - other findings: peg+ Extremities: no cyanosis, no edema Neurological: cranial nerve grossly intact, no focal deficits Hosp A/P (1) Pneumonia due to COVID-19 virus Code(s): U07.1 - COVID-19; J12.82 - PNEUMONIA DUE TO CORONAVIRUS DISEASE 2019 Status: Acute (2) Acute respiratory failure with hypoxia Code(s): J96.01 - ACUTE RESPIRATORY FAILURE WITH HYPOXIA Status: Acute (3) Glucose intolerance Code(s): E74.39 - OTHER DISORDERS OF INTESTINAL CARBOHYDRATE ABSORPTION Status: Resolved (4) Osteoporosis Code(s): M81.0 - AGE-RELATED OSTEOPOROSIS W/O CURRENT PATHOLOGICAL FRACTURE Status: Chronic Qualifiers: Osteoporosis type: age-related Presence of current pathological fracture: without current pathological fracture Qualified Code(s): M81.0 - Age-related osteoporosis without current pathological fracture (5) Ileus Code(s): K56.7 - ILEUS, UNSPECIFIED Status: Resolved (6) Physical deconditioning Code(s): R53.81 - OTHER MALAISE Status: Acute - Plan continue alb and dulera inh, colchicine, lovenox dvt prophylaxis, vit D3, protonix, reglan, ambien and melatonin has finished full course of remdesivir and 2 doses plasma. prognosis guarded d/w (daughter) and gave full updates. dc plans for ltac in [facility] when bed becomes available has severe physical deconditioning increase peg feeding as tolerated, dc ppn after current bag
[2020-12-25] MEDS: Enoxaparin Sodium 40 MG/0.4 ML SYRINGE SC SCH (21:10)
[2020-12-25] MEDS: Temazepam 15 MG CAP PER TUBE SCH (21:10)
[2020-12-25] MEDS: Melatonin 3 MG TAB PER TUBE SCH (21:28)
[2020-12-25] MEDS: Guaifenesin DM 100-10/5 ML UDCUP PO PRN (21:43)
[2020-12-26] MEDS: Albuterol 200 PUFF (6.7GM INHALER) INH SCH ×7 (00:40→22:03)
[2020-12-26 04:00] LABS: Band 5 % (5-11); Eosinophils 3 % (0-10); Hypochromia SLIGHT = 6-15 cells (100X) (0-5/hpf); Lymphocytes 7 % (21-51); MDiff Complete? YES; Mean Corpuscular HGB CONC 32.8 g/dL (32.0-36.0); Mean Corpuscular Hemoglobin 30.9 pg (27.0-31.0); Mean Platelet Volume 8.4 fL (7.4-10.4); Monocytes 11 % (0-10); Neutrophil 74 % (42-75); Platelet Count 382 thou/uL (130-400); Platelet Morphology Comment Appears Adequate; RBC Distribution Width 14.6 % (11.5-14.5); Red Blood Cell (RBC) Count 3.57 mill/uL (4.70-6.10); White Blood Cell (WBC) Count 13.9 thou/uL (4.8-10.8)
[2020-12-26 04:01] LABS: Anion Gap 10 mmol/L (10-20); BUN (Urea Nitrogen) 11 mg/dL (8.4-25.7); Calc. Creatinine Clearance 134 mL/min (70-130); Calcium 7.5 mg/dL (7.8-10.44); Carbon Dioxide 26 mmol/L (23-31); Chloride 100 mmol/L (98-107); Glucose 129 mg/dL (80-115); Potassium 3.1 mmol/L (3.5-5.1); Sodium 133 mmol/L (136-145)
[2020-12-26] MEDS: DEXTROSE IV SCH ×2 (04:58→23:09)
[2020-12-26] MEDS: WATER IV SCH ×2 (04:58→23:09)
[2020-12-26] MEDS: STERILE WATER IV SCH ×2 (04:58→23:09)
[2020-12-26] MEDS: [UNRECOGNIZED DRUG - OTHER] IV SCH ×2 (04:58→23:09)
[2020-12-26] MEDS: Mometasone 100 MCG/Formoterol 5 MCG 120 PUFF INHALER INH SCH ×2 (06:31→18:27)
[2020-12-26] MEDS ORDERED: Potassium Chloride 40 MEQ in Sodium Chloride 0.9% 250 ML 250 ML IVPB SCH (06:45)
[2020-12-26] MEDS ORDERED: Diphenoxylate HCl/Atropine Tablet PO PRN (08:31)
--- NOTE | 2020-12-26 08:44 | PRG ---
DATE OF SERVICE: 12/26/2020 SUBJECTIVE: The patient is doing quite well this morning, actually slept last night with Restoril. OBJECTIVE: VITAL SIGNS: His temperature is 98.6, pulse 108, blood pressure 101/60, O2 saturation 96%. HEENT: Unremarkable. NECK: No adenopathy or JVD. LUNGS: Fairly clear. CARDIAC: S1 and S2. Regular. ABDOMEN: Soft. EXTREMITIES: No edema. LABORATORY DATA: Sodium 138, potassium 3.1, chloride 100, CO2 of 26, BUN 11, creatinine 0.4, glucose 129. White blood cell count 13.9, hematocrit 33.6, and platelet count 382. ASSESSMENT: 1. COVID-19 pneumonia. 2. Acute hypoxic respiratory failure, requiring mechanical ventilation. 3. Hypokalemia. PLAN: At this point, this is largely a rehabilitative issue. We are awaiting placement in LTAC or rehab facility. Today, I downsized his trach to a size 6 cuffless fenestrated. I have given him an additional dose of potassium this afternoon. Hopefully, the diarrhea will begin to dissipate. Job ID: [id number]
[2020-12-26] MEDS: Multivit, Therapeutic 1 TAB PO SCH (08:50)
[2020-12-26] MEDS: Cholecalciferol 1,000 UNITS (25 MCG) TAB PO SCH (08:50)
[2020-12-26] MEDS: Pantoprazole 40 MG GRANULES PACKET PER TUBE SCH (08:50)
[2020-12-26] MEDS: Zinc Sulfate 220 MG CAP PO SCH (08:50)
[2020-12-26] MEDS: Ascorbic Acid 500 mg Chewable Tablet PO SCH (08:55)
[2020-12-26] MEDS: Acetaminophen 325 MG TAB PO PRN ×3 (09:41→23:09)
[2020-12-26] MEDS: Potassium Chloride 20 MEQ TAB PO SCH (14:34)
--- NOTE | 2020-12-26 16:16 | PDOC.HOSPP ---
- Subjective Encounter Date: 12/26/20 Encounter Time: 09:45 Subjective: is sitting in neurochair at bedside tries to talk through his speaking valve mentions he slept good last night - Objective Vital Signs & Weight: Vital Signs (12 hours) Temp Pulse Resp Pulse Ox 12/26/20 15:34 92 L 12/26/20 12:00 99.5 F 12/26/20 10:38 98 12/26/20 08:00 98.8 F 100 12/26/20 06:32 96 12/26/20 06:31 100 29 H 96 Weight Admit Weight 151 lb 3.794 oz Weight 112 lb 6.972 oz Most Recent Monitor Data Heart Rate from ECG 108 NIBP 113/77 NIBP BP-Mean 89 Respiration from ECG 42 SpO2 90 I&O: 12/25/20 12/26/20 12/27/20 06:59 06:59 06:59 Intake Total 1676 2296 420 Output Total 1422 1815 615 Balance 254 481 -195 Result Diagrams: 12/26/20 03:28 12/26/20 03:28 Additional Labs: Accuchecks 12/26/20 12/25/20 12/25/20 10:18 22:36 16:18 POC Glucose 120 H 127 H 110 H Hospitalist ROS - Medication Medications: Active Medications Generic Name Dose Route Start Last Admin Trade Name Freq PRN Reason Stop Dose Admin Acetaminophen 650 mg 11/23/20 12:02 12/26/20 14:20 Acetaminophen 325 Mg Tab PO 650 mg Q4H PRN Administration Headache/Fever/Mild Pain (1-3) Albuterol Sulfate 2 puff 11/24/20 18:30 12/26/20 15:35 Albuterol 200 Puff (6.7gm Inhaler) INH 2 puff [id number] SUE Administration Ascorbic Acid 1,000 mg 11/24/20 09:00 12/26/20 08:55 Ascorbic Acid 500 Mg Chewable Tablet PO 1,000 mg DAILY SUE Administration Cholecalciferol 1,000 units 11/24/20 09:00 12/26/20 08:50 Cholecalciferol 1,000 Units (25 Mcg) Tab PO 1,000 units DAILY SUE Administration Enoxaparin Sodium 40 mg 12/16/20 21:00 12/25/20 21:10 Enoxaparin Sodium 40 Mg/0.4 Ml Syringe SC 40 mg 2100 SUE Administration Guaifenesin/Dextromethorphan 15 ml 11/23/20 12:02 12/25/20 21:43 Guaifenesin Dm 100-10/5 Ml Udcup PO 15 ml Q4H PRN Administration Cough Sterile Water 503.57 ml/ 1,000 mls @ 50 mls/hr 12/21/20 16:00 12/26/20 04:58 Dextrose/Water/ Amino Acids IV 1,000 mls INF SUE Administration Melatonin 9 mg 12/23/20 21:00 12/25/20 21:28 Melatonin 3 Mg Tab PER TUBE 9 mg HS SUE Administration Mometasone Furoate/Formoterol Fumar 2 puff 11/23/20 18:30 12/26/20 06:31 Mometasone 100 Mcg/Formoterol 5 Mcg 120 Puff Inhaler INH 2 puff BID-RT SUE Administration Morphine Sulfate 2 mg 12/05/20 19:06 12/22/20 18:39 Morphine 2 Mg/Ml Vial SLOW IVP 2 mg Q1H PRN Administration Breakthrough Pain/Agitation Multivitamins 1 tab 11/24/20 09:00 12/26/20 08:50 Multivit, Therapeutic 1 Tab PO 1 tab DAILY SUE Administration Ondansetron HCl 4 mg 11/23/20 12:02 11/25/20 00:17 Ondansetron Pf 4 Mg/2 Ml Vial IVP 4 mg Q6H PRN Administration Nausea/Vomiting Pantoprazole Sodium 40 mg 12/26/20 09:00 12/26/20 08:50 Pantoprazole 40 Mg Granules Packet PER TUBE 40 mg DAILY SUE Administration Potassium Chloride 40 meq 12/26/20 15:00 12/26/20 14:34 Potassium Chloride 20 Meq Tab PO 40 meq 1500 SUE Administration Senna/Docusate Sodium 2 tab 11/23/20 12:02 12/05/20 17:20 Senokot S 8.6-50 Mg Tab PO 2 tab BIDPRN PRN Administration Constipation Sodium Chloride 10 ml 11/23/20 21:00 12/26/20 08:51 Flush - Normal Saline 10 Ml Syringe IVF 10 ml Q12HR SUE Administration Sodium Chloride 10 ml 11/23/20 12:45 12/23/20 11:14 Flush - Normal Saline 10 Ml Syringe IVF 10 ml PRN PRN Administration Saline Flush Temazepam 30 mg 12/25/20 21:00 12/25/20 21:10 Temazepam 15 Mg Cap PER TUBE 30 mg HS SUE Administration Zinc Sulfate 220 mg 11/24/20 09:00 12/26/20 08:50 Zinc Sulfate 220 Mg Cap PO 220 mg DAILY SUE Administration Hospitalist Exam Vitals: Vital Signs (12 hours) Temp Pulse Resp Pulse Ox 12/26/20 15:34 92 L 12/26/20 12:00 99.5 F 12/26/20 10:38 98 12/26/20 08:00 98.8 F 100 12/26/20 06:32 96 12/26/20 06:31 100 29 H 96 Weight Admit Weight 151 lb 3.794 oz Weight 112 lb 6.972 oz Most Recent Monitor Data Heart Rate from ECG 108 NIBP 113/77 NIBP BP-Mean 89 Respiration from ECG 42 SpO2 90 General Appearance: awake alert Eye: PERRL, anicteric sclera ENT: no oropharyngeal lesions, moist mucosa Neck: supple, no JVD Heart: RRR, no murmur Respiratory: no wheezes, no rales, rhonchi Gastrointestinal: soft, non-tender, non-distended, normal bowel sounds Extremities: no cyanosis, no edema Neurological: cranial nerve grossly intact, no focal deficits Neurological - other findings: left foot drop Psychiatric: normal affect, A&O x 3 Hosp A/P (1) Pneumonia due to COVID-19 virus Code(s): U07.1 - COVID-19; J12.82 - PNEUMONIA DUE TO CORONAVIRUS DISEASE 2019 Status: Acute (2) Acute respiratory failure with hypoxia Code(s): J96.01 - ACUTE RESPIRATORY FAILURE WITH HYPOXIA Status: Acute (3) Glucose intolerance Code(s): E74.39 - OTHER DISORDERS OF INTESTINAL CARBOHYDRATE ABSORPTION Status: Resolved (4) Osteoporosis Code(s): M81.0 - AGE-RELATED OSTEOPOROSIS W/O CURRENT PATHOLOGICAL FRACTURE Status: Chronic Qualifiers: Osteoporosis type: age-related Presence of current pathological fracture: without current pathological fracture Qualified Code(s): M81.0 - Age-related osteoporosis without current pathological fracture (5) Ileus Code(s): K56.7 - ILEUS, UNSPECIFIED Status: Resolved (6) Physical deconditioning Code(s): R53.81 - OTHER MALAISE Status: Acute - Plan continue alb and dulera inh, lovenox dvt prophylaxis, vit D3, protonix, restoril and melatonin has finished full course of remdesivir and 2 doses plasma. prognosis guarded d/w (daughter) and gave full updates on 12/25, at bedside on 12/26. dc plans for ltac in [facility] when bed becomes available or to rehab here if they will take him. has severe physical deconditioning increase peg feeding as tolerated
[2020-12-26] MEDS: Temazepam 15 MG CAP PER TUBE SCH (20:28)
[2020-12-26] MEDS: Melatonin 3 MG TAB PER TUBE SCH (20:29)
[2020-12-26] MEDS: Enoxaparin Sodium 40 MG/0.4 ML SYRINGE SC SCH (20:29)
[2020-12-27] MEDS: Albuterol 200 PUFF (6.7GM INHALER) INH SCH ×5 (02:29→18:40)
[2020-12-27] MEDS: Mometasone 100 MCG/Formoterol 5 MCG 120 PUFF INHALER INH SCH ×2 (05:00→18:40)
[2020-12-27 06:51] LABS: Hemoglobin 11.8 g/dL (14.0-18.0); Mean Corpuscular HGB CONC 32.8 g/dL (32.0-36.0); Mean Corpuscular Hemoglobin 30.4 pg (27.0-31.0); Mean Corpuscular Volume 92.8 fL (78.0-98.0); Mean Platelet Volume 8.5 fL (7.4-10.4); Platelet Count 399 thou/uL (130-400); RBC Distribution Width 14.5 % (11.5-14.5); Red Blood Cell (RBC) Count 3.87 mill/uL (4.70-6.10); White Blood Cell (WBC) Count 14.8 thou/uL (4.8-10.8)
[2020-12-27 07:08] LABS: Anion Gap 11 mmol/L (10-20); BUN (Urea Nitrogen) 12 mg/dL (8.4-25.7); Calc. Creatinine Clearance 128 mL/min (70-130); Calcium 7.9 mg/dL (7.8-10.44); Carbon Dioxide 25 mmol/L (23-31); Chloride 102 mmol/L (98-107); Glucose 119 mg/dL (80-115); Potassium 3.8 mmol/L (3.5-5.1); Sodium 134 mmol/L (136-145)
[2020-12-27 07:42] LABS: Band 9 % (5-11); Eosinophils 1 % (0-10); Lymphocytes 9 % (21-51); MDiff Complete? YES; Monocytes 6 % (0-10); Myelocyte 1 % (0-0); Neutrophil 73 % (42-75); RBC Morphology Normal; Reactive Lymphocytes 1 % (0-10)
--- NOTE | 2020-12-27 08:03 | PRG ---
DATE OF SERVICE: 12/27/2020 SUBJECTIVE: The patient seems a little more anxious today compared to yesterday. OBJECTIVE: VITAL SIGNS: His temperature 98.6, pulse 117, and blood pressure 117/76. HEENT: Unremarkable. NECK: No adenopathy or JVD. Trach in good position with minimal secretions. CARDIAC: S1, S2. Slightly tachycardic. LUNGS: Clear to auscultation. ABDOMEN: Soft and nontender. EXTREMITIES: No clubbing, cyanosis, or edema. LABORATORY DATA: White blood cell count 14.8, hematocrit 35.9, and platelet count 399. Sodium 134, potassium 3.8, chloride 102, CO2 of 25, BUN 12, creatinine 0.4, and glucose 119. ASSESSMENT: 1. COVID-19 pneumonia. 2. Status post acute respiratory failure, requiring mechanical ventilation. 3. Atypical chest pain. PLAN: 1. Awaiting LTAC placement. 2. His steroids and colchicine have been stopped over the last week. Overall, he is trending in the right direction. Main issue now is physical therapy. Job ID: [id number]
[2020-12-27] MEDS ORDERED: EPINEPHrine 1 MG/10 ML Abboject SYRINGE ONE (09:26)
[2020-12-27] MEDS ORDERED: Sodium Bicarb 50 MEQ/50 ML Abboject 8.4% SYRINGE ONE (09:26)
[2020-12-27] MEDS: Ascorbic Acid 500 mg Chewable Tablet PO SCH (09:48)
[2020-12-27] MEDS: Pantoprazole 40 MG GRANULES PACKET PER TUBE SCH (09:48)
[2020-12-27] MEDS: Multivit, Therapeutic 1 TAB PO SCH (09:48)
[2020-12-27] MEDS: Cholecalciferol 1,000 UNITS (25 MCG) TAB PO SCH (09:48)
[2020-12-27] MEDS: Zinc Sulfate 220 MG CAP PO SCH (09:48)
[2020-12-27] MEDS: Acetaminophen 325 MG TAB PO PRN (10:03)
[2020-12-27] MEDS ORDERED: Rocuronium Bromide 10 MG/ML (10ML VIAL) ONE (10:13)
[2020-12-27] MEDS ORDERED: Succinylcholine 200 MG/10 ml SYRINGE FS ONE (10:13)
[2020-12-27 11:29] LABS: Troponin I Less than 0.010 ng/mL (< 0.028)
--- NOTE | 2020-12-27 11:47 | CON ---
DATE OF CONSULTATION: HISTORY OF PRESENT ILLNESS: Gary Collins is a 65-year-old male, who was admitted on November 23 with increased shortness of breath after testing positive for COVID. He was given remdesivir as well as convalescent plasma, but continued to have progressive respiratory decline and ultimately required intubation and then tracheostomy. Currently, he has a tracheostomy in and is able to speak with that. Translation is provided by his daughter. Over the last day, he had an episode of chest discomfort while in bed yesterday as well as one while he was up in the chair. Today when he got up in the chair again, he had an episode that was less intense. He describes this as a pressure all the way across his chest without diaphoresis or nausea. He is chronically short of breath from the COVID pneumonia. The episode would last approximately 30 minutes. EKG from yesterday showed sinus tachycardia and nonspecific ST and T-wave changes. No troponin has been drawn. The pain was not pleuritic in nature. PAST MEDICAL HISTORY: Osteoporosis. OPERATIONS: C-spine and lumbar surgeries. HOME MEDICATIONS: 1. Alendronate 70 mg q.week. 2. Motrin p.r.n. ALLERGIES: NONE. SOCIAL HISTORY: Does not smoke or drink. REVIEW OF SYSTEMS: Otherwise unremarkable. PHYSICAL EXAMINATION: VITAL SIGNS: Blood pressure 132/92, pulse of 117, he has been tachycardic for the most part over the last few days to several weeks. HEENT: PERRL. NECK: Supple. CHEST: Clear. CARDIAC: S1 and S2 normal without any S3, S4, or murmurs. ABDOMEN: Normal bowel sounds without tenderness. EXTREMITIES: Revealed no clubbing, cyanosis, or edema. NEUROLOGIC: Grossly intact. SKIN: Warm and dry. LABORATORY DATA: EKG from 11:30 p.m. last night showed sinus tachycardia with nonspecific ST and T-wave changes. Sodium 134, potassium 3.8, chloride 102, carbon dioxide 25, BUN 12, creatinine less than 0.40. Hemoglobin 11.4, hematocrit 35.9, white count 14,800, platelets 399,000. He did have a chest CTA around the time of admission that revealed no evidence of pulmonary embolism. There is no mention of coronary artery calcification made on that chest CT. IMPRESSION: 1. Atypical chest discomfort one episode occurring in bed, two other episodes occur while sitting up. 2. Status post COVID-19 pneumonia. 3. Acute respiratory failure requiring mechanical ventilation and ultimately tracheostomy placement. 4. Glucose intolerance. PLAN: Troponin I will be obtained. With his resting tachycardia, echocardiography will be performed. He will undergo adenosine Cardiolite testing for further evaluation. Job ID: [id number] MTDD
--- NOTE | 2020-12-27 12:40 | RAD ---
Exam: Chest one view HISTORY:Follow-up COVID pneumonia Comparison: 12/16/2020 FINDINGS: Lines and tubes: Stable tracheostomy Cardiac silhouette: Normal Aorta: Unremarkable Pulmonary vessels: Normal Costophrenic angles: Clear LUNGS: Interval multifocal interstitial and alveolar opacities Pneumothorax: None Osseous abnormalities: None IMPRESSION: Stable multifocal COVID pneumonia
[2020-12-27 13:08] LABS: Troponin I Less than 0.010 ng/mL (< 0.028)
[2020-12-27 13:34] VITALS: BP 113/76
[2020-12-27] MEDS: Potassium Chloride 20 MEQ TAB PO SCH (14:35)
--- NOTE | 2020-12-27 15:04 | PDOC.HOSPP ---
- Subjective Encounter Date: 12/27/20 Encounter Time: 09:40 Subjective: is on trach collar, communicates with speaking valve daughter at bedside no chest pain now - Objective Vital Signs & Weight: Vital Signs (12 hours) Temp Pulse Pulse BP BP Pulse Ox 12/27/20 09:51 125 H 123 H 113/76 120/79 12/27/20 09:23 116 H 118 H 121/75 123/83 91 L 12/27/20 08:00 98.8 F 12/27/20 04:00 98.6 F Weight Admit Weight 151 lb 3.794 oz Weight 107 lb 2.314 oz Most Recent Monitor Data Heart Rate from ECG 117 NIBP 132/92 NIBP BP-Mean 101 Respiration from ECG 49 SpO2 92 I&O: 12/26/20 12/27/20 12/28/20 06:59 06:59 06:59 Intake Total 2296 2376 Output Total 1815 1555 150 Balance 481 821 -150 Result Diagrams: 12/27/20 06:35 12/27/20 06:35 Additional Labs: Accuchecks 12/27/20 12/26/20 12/26/20 10:40 22:13 16:58 POC Glucose 116 H 124 H 116 H Hospitalist ROS - Medication Medications: Active Medications Generic Name Dose Route Start Last Admin Trade Name Gageq PRN Reason Stop Dose Admin Acetaminophen 650 mg 11/23/20 12:02 12/27/20 10:03 Acetaminophen 325 Mg Tab PO 650 mg Q4H PRN Administration Headache/Fever/Mild Pain (1-3) Albuterol Sulfate 2 puff 11/24/20 18:30 12/27/20 14:51 Albuterol 200 Puff (6.7gm Inhaler) INH 2 puff [id number] SUE Administration Ascorbic Acid 1,000 mg 11/24/20 09:00 12/27/20 09:48 Ascorbic Acid 500 Mg Chewable Tablet PO 1,000 mg DAILY SUE Administration Cholecalciferol 1,000 units 11/24/20 09:00 12/27/20 09:48 Cholecalciferol 1,000 Units (25 Mcg) Tab PO 1,000 units DAILY SUE Administration Diphenoxylate HCl/Atropine 1 tab 12/26/20 08:31 12/27/20 14:37 Diphenoxylate Hcl/Atropine Tablet PO 1 tab Q6H PRN Administration Diarrhea/Loose Stools Enoxaparin Sodium 40 mg 12/16/20 21:00 12/26/20 20:29 Enoxaparin Sodium 40 Mg/0.4 Ml Syringe SC 40 mg 2100 SUE Administration Guaifenesin/Dextromethorphan 15 ml 11/23/20 12:02 12/25/20 21:43 Guaifenesin Dm 100-10/5 Ml Udcup PO 15 ml Q4H PRN Administration Cough Sterile Water 503.57 ml/ 1,000 mls @ 50 mls/hr 12/21/20 16:00 12/26/20 23:09 Dextrose/Water/ Amino Acids IV 1,000 mls INF SUE Administration Melatonin 9 mg 12/23/20 21:00 12/26/20 20:29 Melatonin 3 Mg Tab PER TUBE 9 mg HS SUE Administration Mometasone Furoate/Formoterol Fumar 2 puff 11/23/20 18:30 12/27/20 05:00 Mometasone 100 Mcg/Formoterol 5 Mcg 120 Puff Inhaler INH 2 puff BID-RT SUE Administration Morphine Sulfate 2 mg 12/05/20 19:06 12/22/20 18:39 Morphine 2 Mg/Ml Vial SLOW IVP 2 mg Q1H PRN Administration Breakthrough Pain/Agitation Multivitamins 1 tab 11/24/20 09:00 12/27/20 09:48 Multivit, Therapeutic 1 Tab PO 1 tab DAILY SUE Administration Ondansetron HCl 4 mg 11/23/20 12:02 11/25/20 00:17 Ondansetron Pf 4 Mg/2 Ml Vial IVP 4 mg Q6H PRN Administration Nausea/Vomiting Pantoprazole Sodium 40 mg 12/26/20 09:00 12/27/20 09:48 Pantoprazole 40 Mg Granules Packet PER TUBE 40 mg DAILY SUE Administration Potassium Chloride 40 meq 12/26/20 15:00 12/27/20 14:35 Potassium Chloride 20 Meq Tab PO 40 meq 1500 SUE Administration Senna/Docusate Sodium 2 tab 11/23/20 12:02 12/05/20 17:20 Senokot S 8.6-50 Mg Tab PO 2 tab BIDPRN PRN Administration Constipation Sodium Chloride 10 ml 11/23/20 21:00 12/27/20 09:50 Flush - Normal Saline 10 Ml Syringe IVF 10 ml Q12HR SUE Administration Sodium Chloride 10 ml 11/23/20 12:45 12/23/20 11:14 Flush - Normal Saline 10 Ml Syringe IVF 10 ml PRN PRN Administration Saline Flush Temazepam 30 mg 12/25/20 21:00 12/26/20 20:28 Temazepam 15 Mg Cap PER TUBE 30 mg HS SUE Administration Zinc Sulfate 220 mg 11/24/20 09:00 12/27/20 09:48 Zinc Sulfate 220 Mg Cap PO 220 mg DAILY SUE Administration Hospitalist Exam Vitals: Vital Signs (12 hours) Temp Pulse Pulse BP BP Pulse Ox 12/27/20 09:51 125 H 123 H 113/76 120/79 12/27/20 09:23 116 H 118 H 121/75 123/83 91 L 12/27/20 08:00 98.8 F 12/27/20 04:00 98.6 F Weight Admit Weight 151 lb 3.794 oz Weight 107 lb 2.314 oz Most Recent Monitor Data Heart Rate from ECG 117 NIBP 132/92 NIBP BP-Mean 101 Respiration from ECG 49 SpO2 92 General Appearance: awake alert, ill appearing Eye: PERRL, anicteric sclera ENT: no oropharyngeal lesions, moist mucosa Neck: supple, no JVD Heart: RRR, no murmur Respiratory: no wheezes, rales, rhonchi Gastrointestinal: soft, non-tender, non-distended, normal bowel sounds Gastrointestinal - other findings: peg+ Extremities: no cyanosis, no edema Neurological: cranial nerve grossly intact, no focal deficits Hosp A/P (1) Pneumonia due to COVID-19 virus Code(s): U07.1 - COVID-19; J12.82 - PNEUMONIA DUE TO CORONAVIRUS DISEASE 2019 Status: Acute (2) Acute respiratory failure with hypoxia Code(s): J96.01 - ACUTE RESPIRATORY FAILURE WITH HYPOXIA Status: Acute (3) Glucose intolerance Code(s): E74.39 - OTHER DISORDERS OF INTESTINAL CARBOHYDRATE ABSORPTION Status: Resolved (4) Osteoporosis Code(s): M81.0 - AGE-RELATED OSTEOPOROSIS W/O CURRENT PATHOLOGICAL FRACTURE Status: Chronic Qualifiers: Osteoporosis type: age-related Presence of current pathological fracture: without current pathological fracture Qualified Code(s): M81.0 - Age-related osteoporosis without current pathological fracture (5) Ileus Code(s): K56.7 - ILEUS, UNSPECIFIED Status: Resolved (6) Physical deconditioning Code(s): R53.81 - OTHER MALAISE Status: Acute - Plan continue alb and dulera inh, lovenox dvt prophylaxis, vit D3, protonix, restoril and melatonin has finished full course of remdesivir and 2 doses plasma. prognosis guarded d/w (daughter) and gave full updates on 12/25, 12/27, at bedside on 12/26. dc plans for ltac in [facility] when bed becomes available or to rehab here if they will take him. has severe physical deconditioning increase peg feeding as tolerated with 200ml free water qid. non cardiac chest pain, trop x2 is -ve, will be getting nuclear stress test today, d/w .
[2020-12-27] MEDS ORDERED: traMADol HCl 50 MG TAB PO PRN (15:39)
[2020-12-27 16:09] VITALS: BMI 14.9
[2020-12-27 17:38] VITALS: TEMP 98.6
--- NOTE | 2020-12-27 18:28 | EKG ---
Test Reason : CHEST TIGHTNESS Blood Pressure : / mmHG Vent. Rate : 106 BPM Atrial Rate : 106 BPM P-R Int : 128 ms QRS Dur : 080 ms QT Int : 350 ms P-R-T Axes : 053 020 103 degrees QTc Int : 464 ms Sinus tachycardia Nonspecific ST and T wave abnormality Abnormal ECG Confirmed by DAVID BUENROSTRO, DR. Harden ([id number]) on 12/27/2020 6:27:54 PM Referred By: NATIVIDAD Confirmed By:DR. Fina HERNANDEZ MD
--- NOTE | 2020-12-27 22:26 | PRG ---
DATE OF SERVICE: 12/27/2020 Mr. Collins was being turned and desaturated significantly. He was suctioned in Ambu bag, although he had a cuffless trach in. I was contacted at that time. I suggest today, remove the cuffless trach in, try to advance a cuffed trach. As I re-attempting this, encountered some difficulty getting cuffed trach and so a code was called. He was intubated quickly, but then became pulseless. He received 6 mg of epi plus bicarb and never had anything more than pulseless electrical activity. He was pronounced about the time I arrived. Family was notified. Job ID: [id number]
--- NOTE | 2020-12-28 06:54 | PDOC.EVN ---
Event Note - Event Note Event Note: During my cross cover shift, I responded to a code blue on this patient that ( as per RN reports ) was hypoxic and then developed respiratory arrest, code blue was announced, ER physician intubated the patient and CPR was started. Initially he had a pulse and an electrical rhythm, then at some point he went into PEA, he received rounds of epinephrine as per protocol, and one amp of bicarb, he was not responding, and at some point and while I was updating his daughter Teresa, he went into asystole he was shocked without response. After one more then 30 min of resuscitative efforts, we halted the code.
--- NOTE | 2020-12-28 18:18 | DIS ---
DATE OF ADMISSION: 11/23/2020 DATE OF DISCHARGE: 12/27/2020 SUMMARY: DATE OF : 12/27/2020 at 2141. PRIMARY CAUSE OF : Acute respiratory failure with hypoxia secondary to COVID-19 pneumonia, severe physical deconditioning. BRIEF COURSE DURING HOSPITALIZATION: The patient initially got admitted on the November 23 for complaints of shortness of breath. He was diagnosed with COVID on Sunday prior to hospitalization. The patient was initially on nasal cannula, later upgraded to high-flow, then was subsequently intubated. He was subsequently intubated on 11/25/2020. He had tracheostomy and PEG tube placed on 12/15/2020. Isolation was discontinued on 12/10/2020. The patient was slowly recovering and had severe deconditioning. He was completely extubated and was on trach collar for the last few days. The patient had severe deconditioning and was slowly progressing with physical therapy. On the night around 7:40, the patient developed respiratory distress. Multiple attempts were made to suction him, despite which his saturations were dropping. His fenestrated trach was removed and the patient was placed on ventilator. Despite this, the patient went into asystole with CPR being done. Finally, the patient was pronounced at 2141 hours. His family was informed and body will be released to home per hospital protocol. Job ID: [id number]
--- NOTE | 2020-12-28 22:09 | EKG ---
Test Reason : STAT Blood Pressure : / mmHG Vent. Rate : 114 BPM Atrial Rate : 114 BPM P-R Int : 112 ms QRS Dur : 076 ms QT Int : 328 ms P-R-T Axes : 068 028 110 degrees QTc Int : 452 ms Sinus tachycardia Nonspecific ST and T wave abnormality Abnormal ECG When compared with ECG of 26-DEC-2020 10:03, (Unconfirmed) No significant change was found Confirmed by Sher BLANKENSHIP ([id number]) on 12/28/2020 10:09:49 PM Referred By: FARRAH Confirmed By:Sher BLANKENSHIP
== END 2020-12-27 21:41 | disposition expired | DRG 4 ==
LOC: ERS 06:59 → ERHOLD 09:02 → 2SW 12:28 → CCU 11-25 15:41
PROVIDERS: ADMIT Internal Medicine; ATTEND Internal Medicine
PROC: 8E0ZXY6 Isolation (ICD-10-PCS; 2020-11-23)
PROC: XW033E5 Introduction of Remdesivir Anti-infective into Peripheral Vein, Percutaneous Approach, New Technology Group 5 (ICD-10-PCS; 2020-11-23)
PROC: 5A1955Z Respiratory Ventilation, Greater than 96 Consecutive Hours (ICD-10-PCS; 2020-11-25)
PROC: XW13325 Transfusion of Convalescent Plasma (Nonautologous) into Peripheral Vein, Percutaneous Approach, New Technology Group 5 (ICD-10-PCS; 2020-11-25)
PROC: 0BH17EZ Insertion of Endotracheal Airway into Trachea, Via Natural or Artificial Opening (ICD-10-PCS; 2020-11-25)
PROC: 5A09357 Assistance with Respiratory Ventilation, Less than 24 Consecutive Hours, Continuous Positive Airway Pressure (ICD-10-PCS; 2020-11-25)
PROC: 0B110F4 Bypass Trachea to Cutaneous with Tracheostomy Device, Open Approach (ICD-10-PCS; principal; 2020-12-15)
PROC: 0DH64UZ Insertion of Feeding Device into Stomach, Percutaneous Endoscopic Approach (ICD-10-PCS; 2020-12-15)
PROC: 5A12012 Performance of Cardiac Output, Single, Manual (ICD-10-PCS; 2020-12-27)
PROC: 3E033XZ Introduction of Vasopressor into Peripheral Vein, Percutaneous Approach (ICD-10-PCS; 2020-12-27)
PROC: 0BP1XFZ Removal of Tracheostomy Device from Trachea, External Approach (ICD-10-PCS; 2020-12-27)
PROC: 0BH17EZ Insertion of Endotracheal Airway into Trachea, Via Natural or Artificial Opening (ICD-10-PCS; 2020-12-27)
DX: A41.89 Other specified sepsis (principal); U07.1 COVID-19; J12.82 Pneumonia due to coronavirus disease 2019; J96.01 Acute respiratory failure with hypoxia; E87.1 Hypo-osmolality and hyponatremia; E87.2 Acidosis; E46 Unspecified protein-calorie malnutrition; G72.81 Critical illness myopathy; G93.40 Encephalopathy, unspecified; K56.7 Ileus, unspecified; F05 Delirium due to known physiological condition; Z68.1 Body mass index [BMI] 19.9 or less, adult; R65.20 Severe sepsis without septic shock; M81.0 Age-related osteoporosis without current pathological fracture; E83.39 Other disorders of phosphorus metabolism; E87.6 Hypokalemia; I46.9 Cardiac arrest, cause unspecified; E74.39 Other disorders of intestinal carbohydrate absorption; T38.0X5A Adverse effect of glucocorticoids and synthetic analogues, initial encounter; E83.42 Hypomagnesemia; D64.9 Anemia, unspecified; R07.89 Other chest pain; Z78.1 Physical restraint status; Z98.890 Other specified postprocedural states; Z79.899 Other long term (current) drug therapy
CPT/HCPCS: 0240U; 36415; 36416; 36430; 71045; 71275; 74018; 80048; 80053; 80202; 81001; 82728; 83605; 83735; 83880; 84100; 84484; 85007; 85025; 85027; 85379; 85610; 86140; 86769; 86850; 86900; 86901; 87040; 87070; 87086; 87149; 87205; 87324; 87449; 93005; 93010; 93306; 94002; 94003; 94640; 94660; 96365; 96375; A4217; C9113; J0171; J0456; J0692; J0696; J1100; J1650; J1815; J1940; J2060; J2185; J2250; J2270; J2405; J2704; J2765; J3010; J3370; J3475; J3480; J3486; J3490; J7030; J7050; J8540; P9017; Q9967; S0020